=== PATIENT | male | born 1960 | race African-American/Black ===

== ENCOUNTER → 2017-07-21 | Outpatient (CLI) | payer OTHER ==
[~2017-07-21] MED LIST: CATHETER FLUSH 10 ML SYR IV PRN; REGADENOSON 0.4 MG/5 ML SYR (LEXISCAN) IV ONE
[2017-07-21 12:49] VITALS: BP 169/115
[2017-07-21 12:53] VITALS: BP 183/110
--- NOTE | 2017-07-22 09:34 | STRESS TEST ---
DATE OF SERVICE: 07/21/2017 PROCEDURE: Resting and post regadenoson technetium-99m Tetrofosmin SPECT CT imaging. ORDERING PHYSICIAN: ROSARIO Crump PRIMARY CARE PHYSICIAN: [facility]. CLINICAL DIAGNOSES: Chest pain, shortness of breath. Baseline images were carried out after injection of 10.9 mCi of technetium-99m Tetrofosmin. This was followed by 0.4 mg regadenoson and 29.6 mCi of technetium-99m Tetrofosmin for stress imaging. The electrocardiogram showed sinus rhythm at baseline. The electrocardiogram did not change significantly with the regadenoson infusion. Overall, the patient tolerated the procedure well. Review of images at rest and following stress does not indicate any distinct perfusion defects consistent with significant myocardial ischemia or infarction. Gated images do not indicate regional wall motion abnormality. Left ventricular ejection fraction is calculated to be 47%. Left ventricular end diastolic volume is 105 mL. TID is absent (1.12). CONCLUSIONS: 1. Mild cardiomyopathy with left ventricular ejection fraction of 47%. 2. No evidence of significant myocardial ischemia or infarction on this study. 3. No evidence of significant regional wall motion abnormality. 4. Trnb-sx-eiielnmg cardiomegaly. Job ID: [id number] DocumentID: [id number] Dictated Date: 07/22/2017 08:36:16 Manhole Stripper Date: 07/22/2017 09:34:08 Dictated By: LEE ATKINS MD, MA, FACP, FACC,
== END ==
LOC: CARD 10:52
PROVIDERS: ATTEND Nurse Practitioner Family
DX: I10 Essential (primary) hypertension (principal); R07.9 Chest pain, unspecified; R06.02 Shortness of breath; E78.2 Mixed hyperlipidemia; E66.9 Obesity, unspecified; Z68.41 Body mass index [BMI] 40.0-44.9, adult; Z72.0 Tobacco use
CPT/HCPCS: 78452; 93017

== ENCOUNTER 2017-11-12 19:36 | Outpatient (CLI) | payer OTHER | END 2017-11-13 06:05 | disposition home or self-care (01) | LOC: SLEEP 19:36 | PROVIDERS: ATTEND Nurse Practitioner Family | DX: G47.10 Hypersomnia, unspecified (principal); E66.01 Morbid (severe) obesity due to excess calories; G47.50 Parasomnia, unspecified; R06.00 Dyspnea, unspecified | CPT/HCPCS: 95811 ==

== ENCOUNTER → 2017-12-11 | Outpatient (CLI) | payer OTHER ==
--- NOTE | 2017-12-11 13:28 | Diagnostic Imaging Report ---
INDICATION: Back pain. TECHNIQUE: AP, lateral, and spot imaging of the lumbar spine. CORRELATION STUDY: None. FINDINGS: There is straightening of the normal lumbar lordotic curvature. Lumbar vertebral body heights overall demonstrate no acute-appearing compression deformity. Multilevel endplate lipping is noted, particularly at L5, L4, and L3 and to a lesser degree at the L2 levels. Moderate and asymmetric disc space narrowing at L5-S1 and to a lesser degree the L4-L5 level. SI joints without significant fusion or erosion. Mildly advanced degenerative changes in bilateral hip joints suggested. IMPRESSION: Koaw-ao-rqlflywm multilevel degenerative changes are present, most pronounced at the L5-S1 and to a lesser degree the L4-L5 levels. Advanced degenerative changes in bilateral hip joints. Dictated by: Dictated on workstation # [id number] ADDENDUM: UPDATED ORDERING PROVIDER BENEDICTO TEJEDA MD MTDD
--- NOTE | 2017-12-11 13:45 | Diagnostic Imaging Report ---
INDICATION: Chronic knee pain. TECHNIQUE: Two views of the bilateral knees. CORRELATION STUDY: None. FINDINGS: There are moderately advanced tricompartment degenerative changes of both knees. There is moderate joint space narrowing in the medial and to a lesser degree lateral compartments. Marginal osteophyte formation is noted, most pronounced medially. Patellofemoral compartment also appears to be narrowed. Moderate spurring about the superior and inferior poles of the patella on the left and to a lesser degree on the right. No appreciable joint effusion. IMPRESSION: 1. Moderately advanced tricompartment degenerative changes of both knees. Findings may be slightly greater at the patellofemoral compartment on the left and medial compartment on the right. Dictated by: Dictated on workstation # [id number] ADDENDUM: UPDATED ORDERING PROVIDER BENEDICTO TEJEDA MD
== END ==
LOC: RAD 09:53
PROVIDERS: ATTEND Pathology Clinical Pathology/Laboratory Medicine
DX: Z02.71 Encounter for disability determination (principal); M47.817 Spondylosis without myelopathy or radiculopathy, lumbosacral region; M16.0 Bilateral primary osteoarthritis of hip; M17.0 Bilateral primary osteoarthritis of knee
CPT/HCPCS: 72100

== ENCOUNTER 2017-12-31 12:33 | Emergency (ER) | payer OTHER ==
[~2017-12-31] VITALS: Ht 167.6 cm; Wt 112.0 kg
[2017-12-31] MEDS ORDERED: ASPIRIN 81 MG CHEW (CHILDREN'S ASA) ONE (12:41)
[2017-12-31] MEDS: ASPIRIN 81 MG CHEW (CHILDREN'S ASA) PO ONE (12:44)
[2017-12-31 12:51] LABS: BASOPHILS # (AUTO) 0.1 10^3/uL (0.0-0.1); BASOPHILS % (AUTO) 1 % (0-10); EOSINOPHILS # (AUTO) 0.7 10^3/uL (0.0-0.3); EOSINOPHILS % (AUTO) 6 % (0-10); HEMATOCRIT 44 % (40-54); HEMOGLOBIN 14.9 G/DL (13.3-17.7); LYMPHOCYTES % (AUTO) 18 % (12-44); MEAN CORPUSCULAR HEMOGLOBIN 26 PG (25-34); MEAN CORPUSCULAR HGB CONC 34 G/DL (32-36); MEAN CORPUSCULAR VOLUME 78 FL (80-99); MEAN PLATELET VOLUME 9.4 FL (7.4-10.4); MONOCYTES # (AUTO) 1.2 X 10^3 (0.0-1.0); MONOCYTES % (AUTO) 11 % (0-12); NEUTROPHILS # (AUTO) 7.2 X 10^3 (1.8-7.8); NEUTROPHILS % (AUTO) 65 % (42-75); PLATELET COUNT 387 10^3/uL (130-400); RED BLOOD COUNT 5.68 10^6/uL (4.35-5.85); RED CELL DISTRIBUTION WIDTH 16.8 % (10.0-14.5); WHITE BLOOD COUNT 11.1 10^3/uL (4.3-11.0)
--- OUTSIDE RECORDS SUMMARY | 2017-12-31 13:00 | XMS REPORT ---
Author Author MARCO ANTONIO ROGEL Organization [facility] [place] Address [address] [place] [address] Care Team Providers Care Hookman Name Role Phone MARCO ANTONIO ROGEL Unavailable PROBLEMS Type Condition ICD9-CM Code XDM31-AY Code Onset Dates Condition Status SNOMED Code Problem Hypertension, unspecified type I10 Active 31087801 Problem Obesity, unspecified E66.9 Active 30811985244263 Problem Mixed hyperlipidemia E78.2 Active 230306224 Problem Essential hypertension I10 Active 88530763 Problem Mood disorder F39 Active 35352116 Problem Coronary artery disease of [place] artery of [place] heart with stable angina pectoris I25.118 Active 0980535319014 Problem Body mass index (BMI) of 40.0-44.9 in adult Z68.41 Active 141844667 Problem Sciatica, right side M54.31 Active 99902584 Problem Sciatica, left side M54.32 Active 54303184 Problem Cardiomyopathy, unspecified I42.9 Active 23045261 Problem Heart failure, unspecified I50.9 Active 82955246 Problem Non-ischemic cardiomyopathy I42.8 Active 86212893 Problem Uncontrolled hypertension I10 Active 18771730 ALLERGIES No Known Allergies ENCOUNTERS Encounter Location Date Diagnosis [place] [id number] [place] [address] Dec, [facility] [place] [id number] [place] [address] Nov, Sciatica, left side M54.32 [facility] [place] [id number] [place] [address] 88585- 5504 Oct, [facility] [place] [id number] [place] [address] 11912- 5777 Oct, [facility] [place] [id number] [place] [address] 74446- 6266 Sep, Shortness of breath R06.02 [place] [id number] [place] [address]2561- [address]9 Sep, Hypertension, unspecified type I10 ; Mixed hyperlipidemia E78.2 ; BMI 40.0-44.9, adult Z68.41 ; Non-ischemic cardiomyopathy I42.8 ; Suspected sleep apnea R29.818 and Tobacco use Z72.0 [place] [address] [address] Aug, Mixed hyperlipidemia E78.2 and Elevated hemoglobin A1c R73.[address] [address] Aug, Uncontrolled hypertension I10 ; Shortness of breath R06.02 ; Cardiomyopathy, unspecified I42.9 and BMI 40.0-44.9, adult Z68.41 [place] [address] [address] June, BMI 40.0-44.9, adult Z68.41 ; Chest pain, unspecified type R07.9 ; Shortness of breath R06.02 ; Hypertension, unspecified type I10 ; Mixed hyperlipidemia E78.2 ; Tobacco use Z72.0 ; Obesity, unspecified E66.9 and Body mass index (BMI) of 40.0-44.9 in adult Z68.41 [place] [id number] [place] [address] 39841- 95[address] Apr, [place] [id number] [place] [address] 05844- 4835 Apr, BMI 40.0-44.9, adult Z68.41 ; Coronary artery disease of [place] artery of [place] heart with stable angina pectoris I25.118 ; History of atrial fibrillation Z86.79 ; Murmur, cardiac R01.1 ; Mood disorder F39 ; Essential hypertension I10 and Localized edema R60.0 [place] [id number] [place] [address] 89522- 6992 Apr, [facility] [address] [place], [place] [id number] Aug, Hypertension, essential I10 ; Pain in right knee M25.561 ; Pain in left knee M25.562 ; Other chronic pain G89.29 and Mood disorder F39 [facility] [place] [address] [facility] [id number] [address] May, [facility] [place] [address] [facility] [id number], [place] [address] May, [facility] [address] [id number] Jan, [facility] [place] [address] [facility] [id number], [place] [address] Jan, IMMUNIZATIONS Vaccine Route Administration Date Status TORADOL (IM) 60 MG/2ML (UP TO 15 MG) IM Intramuscular Nov 30, 2017 Administered SOCIAL HISTORY Never Assessed REASON FOR VISIT Leg pain, left hip with shooting pain down to the toes. Reports toes are numb. Started 1 week ago, toes and foot have been numb and tingling the entire time. CBrumbackRn, Reports has been having more shortness of breath. PLAN OF CARE VITAL SIGNS Height 66 in 2017-11-30 Weight 273.1 lbs 2017-11-30 Temperature 98.8 degrees Fahrenheit 2017-11-30 Heart Rate 96 bpm 2017-11-30 Respiratory Rate 24 2017-11-30 BMI 44.07 kg/m2 2017-11-30 Blood pressure systolic 148 mmHg 2017-11-30 Blood pressure diastolic 114 mmHg 2017-11-30 MEDICATIONS Medication Instructions Dosage Frequency Start Date End Date Duration Status Duloxetine HCl 60 mg Orally Once a day 1 capsule 24h Active Hydrochlorothiazide 25 MG Orally Once a day 1 tablet in the morning 24h Apr, 30 day(s) Active HydrOXYzine Pamoate 100 mg Orally Once a day, at night 1 capsule as needed Active Loxapine Succinate 10 mg Orally Once a day, at night 1 capsule Active Toprol XL 100 MG Orally Once a day 1 tablet 24h June, 30 day(s) Active Cyclobenzaprine HCl 10 mg Orally 2 times a day 1 tablet as needed 12h Nov, Active PredniSONE 20 mg Orally Once a day 2 tablets 24h Nov, Nov, 5 days Active Ibuprofen Active Metformin HCl 500 mg 1 tablet with a meal daily for 1 week, then increase to twice daily if tolerating well Aug, 30 day(s) Active Benztropine Mesylate 1 MG Orally Once a day 1 tablet at bedtime 24h Active Tegretol 200 mg Orally Twice a day 1 tablet 12h Apr, 30 day(s) Active Naproxen 500 mg Orally every 12 hrs 1 tablet with food or milk as needed 12h Nov, Active Atorvastatin Calcium 40 MG Orally Once a day 1 tablet 24h Active Lisinopril 20 mg Orally Once a day 1 tablet 24h Aug, 30 day(s) Active Verapamil HCl ER 180 MG Orally Once a day 1 tablet 24h Active [place] 5-325 MG Orally every 6 hrs 1 tablet as needed 6h Nov, Active Excedrin Extra Strength Active Albuterol Sulfate 108 (90 Base) MCG/ACT Inhalation every 6 hrs 2 puffs as needed 6h Oct, 30 days Active RESULTS No Results PROCEDURES Procedure Date Ordered Result Body Site TORADOL (IM) 60 MG/2ML (UP TO 15 MG) Nov 30, 2017 THER/PROPH/DIAG INJ, SC/IM Nov 30, 2017 INSTRUCTIONS MEDICATIONS ADMINISTERED No Known Medications MEDICAL (GENERAL) HISTORY Type Description Date Medical History HTN Medical History Seizures Medical History arthritis- hip and knee Medical History Depression Medical History Anxiety Medical History Bilateral ankle fx Medical History sleep apnea Surgical History head trauma 10-15years ago Hospitalization History Surgery Hospitalization History Bi-lateral ankle fx
--- OUTSIDE RECORDS SUMMARY | 2017-12-31 13:01 | XMS REPORT ---
Author Author MICHELE ALVARADO Organization [facility] Address [address] [place] [address] Care Team Providers Care Hydro Generation Manager Name Role Phone MICHELE ALVARADO Unavailable PROBLEMS Type Condition ICD9-CM Code QUY62-SU Code Onset Dates Condition Status SNOMED Code Problem Coronary artery disease of [place] artery of [place] heart with stable angina pectoris I25.118 Active 0464133048182 Problem Hypertension, unspecified type I10 Active 37302735 Problem Body mass index (BMI) of 40.0-44.9 in adult Z68.41 Active 659644272 Problem Essential hypertension I10 Active 51607488 Problem Mood disorder F39 Active 40583750 Problem Non-ischemic cardiomyopathy I42.8 Active 94747615 Problem Cardiomyopathy, unspecified I42.9 Active 06878702 Problem Obesity, unspecified E66.9 Active 78751671358005 Problem Mixed hyperlipidemia E78.2 Active 744803598 Problem Heart failure, unspecified I50.9 Active 21998582 Problem Uncontrolled hypertension I10 Active 11236273 ALLERGIES No Information ENCOUNTERS Encounter Location Date Diagnosis [facility] [id number] [place] [address]22[address]237 Dec, [facility] [id number] [place] [address] 68621- 7317 Oct, [facility] [id number] [place] [address] 66202- 2144 Oct, [facility] [address] [address] Sep, Shortness of breath R06.02 [facility] [id number] [place] [address] 75394- 8765 Sep, Hypertension, unspecified type I10 ; Mixed hyperlipidemia E78.2 ; BMI 40.0-44.9, adult Z68.41 ; Non-ischemic cardiomyopathy I42.8 ; Suspected sleep apnea R29.818 and Tobacco use Z72.0 [place] [address] [address] Aug, Mixed hyperlipidemia E78.2 and Elevated hemoglobin A1c R73.[address] [address] Aug, Uncontrolled hypertension I10 ; Shortness of breath R06.02 ; Cardiomyopathy, unspecified I42.9 and BMI 40.0-44.9, adult Z68.41 [place] [address] [address] June, BMI 40.0-44.9, adult Z68.41 ; Chest pain, unspecified type R07.9 ; Shortness of breath R06.02 ; Hypertension, unspecified type I10 ; Mixed hyperlipidemia E78.2 ; Tobacco use Z72.0 ; Obesity, unspecified E66.9 and Body mass index (BMI) of 40.0-44.9 in adult Z68.41 [place] [id number] [place] [address] 98498- 2956 Apr, [address] [address]- [address] Apr, 2018 BMI 40.0-44.9, adult Z68.41 ; Coronary artery disease of [place] artery of [place] heart with stable angina pectoris I25.118 ; History of atrial fibrillation Z86.79 ; Murmur, cardiac R01.1 ; Mood disorder F39 ; Essential hypertension I10 and Localized edema R60.0 [place] [id number] [place] [address] 77220- 9685 Apr, [facility] [address] [place] [id number] Aug, Hypertension, essential I10 ; Pain in right knee M25.561 ; Pain in left knee M25.562 ; Other chronic pain G89.29 and Mood disorder F39 [address] [place] [address] May, [facility] [address] [facility] [id number], [place] [address] May, 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 PLAN OF CARE Activity Details Follow Up prn Reason: VITAL SIGNS MEDICATIONS Unknown Medications RESULTS No Results PROCEDURES Procedure Date Ordered Result Body Site PULMONARY FUNCTION TEST (IN-HOUSE) 2017-10-30 N/A FALLON/JARRETT DEMO Oct 30, 2017 SPRIOMETRY CHALLENGE Oct 30, 2017 SPIROMETRY Oct 30, 2017 INSTRUCTIONS MEDICATIONS ADMINISTERED No Known Medications MEDICAL (GENERAL) HISTORY Type Description Date Medical History HTN Medical History Seizures Medical History arthritis- hip and knee Medical History Depression Medical History Anxiety Medical History Bilateral ankle fx Surgical History head trauma 10-15years ago Hospitalization History Surgery Hospitalization History Bi-lateral ankle fx
--- OUTSIDE RECORDS SUMMARY | 2017-12-31 13:01 | XMS REPORT ---
Author Author JAMIN ALVARADO Organization [facility] Address [address] [place] [address] Care Team Providers Care Associate Professor Of Philosophy Name Role Phone JAMIN ALVARADO Unavailable PROBLEMS Type Condition ICD9-CM Code [id number] Code Onset Dates Condition Status SNOMED Code Problem Coronary artery disease of [place] artery of [place] heart with stable angina pectoris I25.118 Active 0737478028025 Problem Hypertension, unspecified type I10 Active 10541079 Problem Body mass index (BMI) of 40.0-44.9 in adult Z68.41 Active 809430023 Problem Essential hypertension I10 Active 20980330 Problem Mood disorder F39 Active 47052511 Problem Non-ischemic cardiomyopathy I42.8 Active 75520683 Problem Cardiomyopathy, unspecified I42.9 Active 27452863 Problem Obesity, unspecified E66.9 Active 75117682192142 Problem Mixed hyperlipidemia E78.2 Active 920323144 Problem Heart failure, unspecified I50.9 Active 83611682 Problem Uncontrolled hypertension I10 Active 12781816 ALLERGIES No Known Allergies ENCOUNTERS Encounter Location Date Diagnosis [place] [address] [place] [id number] [place] [address] 01012- [address]851 Dec, [facility] [id number] [place] [address] 46976- 8892 Oct, [facility] [id number] [place] [address] 98340- [address]58 Oct, [facility] [address] [address] Sep, Shortness of breath R06.02 [facility] [id number] [place] [address] 33148- 8[address] Sep, Hypertension, unspecified type I10 ; Mixed hyperlipidemia E78.2 ; BMI 40.0-44.9, adult Z68.41 ; Non-ischemic cardiomyopathy I42.8 ; Suspected sleep apnea R29.818 and Tobacco use Z72.0 [place] [address] [address] Aug, Mixed hyperlipidemia E78.2 and Elevated hemoglobin A1c R73.[address] [address] Aug, Uncontrolled hypertension I10 ; Shortness of breath R06.02 ; Cardiomyopathy, unspecified I42.9 and BMI 40.0-44.9, adult Z68.[address] [address]- [address] June, BMI 40.0-44.9, adult Z68.41 ; Chest pain, unspecified type R07.9 ; Shortness of breath R06.02 ; Hypertension, unspecified type I10 ; Mixed hyperlipidemia E78.2 ; Tobacco use Z72.0 ; Obesity, unspecified E66.9 and Body mass index (BMI) of 40.0-44.9 in adult Z68.41 [place] [id number] [place] [address] 60650- 7792 Apr, [address] [address]- [address] Apr, BMI 40.0-44.9, adult Z68.41 ; Coronary artery disease of [place] artery of [place] heart with stable angina pectoris I25.118 ; History of atrial fibrillation Z86.79 ; Murmur, cardiac R01.1 ; Mood disorder F39 ; Essential hypertension I10 and Localized edema R60.0 [place] [address] [place] [address] 39454- 74[address] Apr, [facility] [address] [place] [id number] Aug, Hypertension, essential I10 ; Pain in right knee M25.561 ; Pain in left knee M25.562 ; Other chronic pain G89.29 and Mood disorder F39 [address] [place] [address] May, [facility] [address] [facility] [id number], [place] [address] May, [facility] [address] [place] [id number] Jan, [facility] [address] [facility] [id number], [place] [address] Jan, IMMUNIZATIONS No Known Immunizations SOCIAL HISTORY Never Assessed REASON FOR VISIT labs medications PLAN OF CARE VITAL SIGNS MEDICATIONS Medication Instructions Dosage Frequency Start Date End Date Duration Status Metformin HCl 500 mg 1 tablet with a meal daily for 1 week, then increase to twice daily if tolerating well Aug, 30 day(s) Active Atorvastatin Calcium 40 MG Orally Once a day 1 tablet 24h Active RESULTS No Results PROCEDURES No Known procedures INSTRUCTIONS MEDICATIONS ADMINISTERED No Known Medications MEDICAL (GENERAL) HISTORY Type Description Date Medical History HTN Medical History Seizures Medical History arthritis- hip and knee Medical History Depression Medical History Anxiety Medical History Bilateral ankle fx Surgical History head trauma 10-15years ago Hospitalization History Surgery Hospitalization History Bi-lateral ankle fx
--- OUTSIDE RECORDS SUMMARY | 2017-12-31 13:01 | XMS REPORT ---
Author Author VICTORIA ROBLEDO [facility] Address [address] [place] [address] Care Team Providers Care Seating Upholsterer Name Role Phone VICTORIA ROBLEDO Unavailable PROBLEMS Type Condition ICD9-CM Code SCZ16-RW Code Onset Dates Condition Status SNOMED Code Problem Coronary artery disease of [place] artery of [place] heart with stable angina pectoris I25.118 Active 0143776766139 Problem Hypertension, unspecified type I10 Active 36031550 Problem Body mass index (BMI) of 40.0-44.9 in adult Z68.41 Active 909218367 Problem Essential hypertension I10 Active 96996430 Problem Mood disorder F39 Active 27541583 Problem Non-ischemic cardiomyopathy I42.8 Active 46725873 Problem Cardiomyopathy, unspecified I42.9 Active 05454613 Problem Obesity, unspecified E66.9 Active 40971497891299 Problem Mixed hyperlipidemia E78.2 Active 102242131 Problem Heart failure, unspecified I50.9 Active 52624623 Problem Uncontrolled hypertension I10 Active 98533253 ALLERGIES No Known Allergies ENCOUNTERS Encounter Location Date Diagnosis [facility] [address] [place] [address] 04692- [address]167 Dec, [facility] [id number] [place] [address] 77449- 4343 Oct, [facility] [id number] [place] [address] 31347- 2967 Oct, [facility] [id number] [place] [address] 54569- 6354 Sep, Shortness of breath R06.02 [facility] [id number] [place] [address] 42255- 0770 Sep, Hypertension, unspecified type I10 ; Mixed hyperlipidemia E78.2 ; BMI 40.0-44.9, adult Z68.41 ; Non-ischemic cardiomyopathy I42.8 ; Suspected sleep apnea R29.818 and Tobacco use Z72.0 [place] [address] [address] Aug, Mixed hyperlipidemia E78.2 and Elevated hemoglobin A1c R73.[address] [address]- [address] Aug, Uncontrolled hypertension I10 ; Shortness of breath R06.02 ; Cardiomyopathy, unspecified I42.9 and BMI 40.0-44.9, adult Z68.41 [place] [address] [place] [address] 87[address]- [address] June, BMI 40.0-44.9, adult Z68.41 ; Chest pain, unspecified type R07.9 ; Shortness of breath R06.02 ; Hypertension, unspecified type I10 ; Mixed hyperlipidemia E78.2 ; Tobacco use Z72.0 ; Obesity, unspecified E66.9 and Body mass index (BMI) of 40.0-44.9 in adult Z68.41 [place] [id number] [place] [address] 87673- 9125 Apr, [address] [address]- [address] Apr, BMI 40.0-44.9, adult Z68.41 ; Coronary artery disease of [place] artery of [place] heart with stable angina pectoris I25.118 ; History of atrial fibrillation Z86.79 ; Murmur, cardiac R01.1 ; Mood disorder F39 ; Essential hypertension I10 and Localized edema R60.0 [place] [id number] [place] [address] 57376- 3271 Apr, [facility] [address] [place] [id number] Aug, Hypertension, essential I10 ; Pain in right knee M25.561 ; Pain in left knee M25.562 ; Other chronic pain G89.29 and Mood disorder F39 [address] [place] [address] May, 2014 [facility] [address] [facility] [id number], [place] [address] May, [facility] [address] [place] [id number] Jan, [facility] [address] [facility] [id number], [place] [address] Jan, IMMUNIZATIONS No Known Immunizations SOCIAL HISTORY Never Assessed REASON FOR VISIT follow up PLAN OF CARE Activity Details Follow Up 3 Months Reason: Pending Test Echo 2D VITAL SIGNS Height 66 in 2017-10-07 Weight 264 lbs 2017-10-07 Heart Rate 100 bpm 2017-10-07 Oximetry 98 % 2017-10-07 BMI 42.61 kg/m2 2017-10-07 Blood pressure systolic 150 mmHg 2017-10-07 Blood pressure diastolic 98 mmHg 2017-10-07 MEDICATIONS Medication Instructions Dosage Frequency Start Date End Date Duration Status Duloxetine HCl 60 mg Orally Once a day 1 capsule 24h Active HydrOXYzine Pamoate 100 mg Orally Once a day, at night 1 capsule as needed Active Verapamil HCl ER 180 MG Orally Once a day 1 tablet 24h Active Atorvastatin Calcium 40 MG Orally Once a day 1 tablet 24h Active Lisinopril 20 mg Orally Once a day 1 tablet 24h Aug, 30 day(s) Active Benztropine Mesylate 1 MG Orally Once a day 1 tablet at bedtime 24h Active Tegretol 200 mg Orally Twice a day 1 tablet 12h Apr, 30 day(s) Active Hydrochlorothiazide 25 MG Orally Once a day 1 tablet in the morning 24h Apr, 30 day(s) Active Loxapine Succinate 10 mg Orally Once a day, at night 1 capsule Active Toprol XL 100 MG Orally Once a day 1 tablet 24h June, 30 day(s) Active Metformin HCl 500 mg 1 tablet with a meal daily for 1 week, then increase to twice daily if tolerating well Aug, 30 day(s) Active RESULTS No Results PROCEDURES No Known [...]
--- OUTSIDE RECORDS SUMMARY | 2017-12-31 13:01 | XMS REPORT ---
Author Author MARCO ANTONIO ROGEL Organization [facility] Address [address] [place] [address] Care Team Providers Care Security Systems Technician Name Role Phone MARCO ANTONIO ROGEL Unavailable PROBLEMS Type Condition ICD9-CM Code OOT09-HC Code Onset Dates Condition Status SNOMED Code Problem Coronary artery disease of [place] artery of [place] heart with stable angina pectoris I25.118 Active 8055799975226 Problem Hypertension, unspecified type I10 Active 88706795 Problem Body mass index (BMI) of 40.0-44.9 in adult Z68.41 Active 223220077 Problem Essential hypertension I10 Active 92318899 Problem Mood disorder F39 Active 73070115 Problem Non-ischemic cardiomyopathy I42.8 Active 80908062 Problem Cardiomyopathy, unspecified I42.9 Active 73017976 Problem Obesity, unspecified E66.9 Active 08011137076890 Problem Mixed hyperlipidemia E78.2 Active 060182014 Problem Heart failure, unspecified I50.9 Active 97519711 Problem Uncontrolled hypertension I10 Active 47214977 ALLERGIES No Information ENCOUNTERS Encounter Location Date Diagnosis [place] [address] [address] Dec, [facility] [address] [address] Oct, [facility] [address] [address] Oct, [facility] [address] [address] Sep, Shortness of breath R06.02 [place] [address] [address] Sep, Hypertension, unspecified type I10 ; Mixed hyperlipidemia E78.2 ; BMI 40.0-44.9, adult Z68.41 ; Non-ischemic cardiomyopathy I42.8 ; Suspected sleep apnea R29.818 and Tobacco use Z72.0 [place] [address] [place] [id number] [place] [address] Aug, Mixed hyperlipidemia E78.2 and Elevated hemoglobin A1c R73.09 [place] [address] [address] Aug, Uncontrolled hypertension I10 ; Shortness of breath R06.02 ; Cardiomyopathy, unspecified I42.9 and BMI 40.0-44.9, adult Z68.41 [place] [address] [place] [id number] [place] [address] June, BMI 40.0-44.9, adult Z68.41 ; Chest pain, unspecified type R07.9 ; Shortness of breath R06.02 ; Hypertension, unspecified type I10 ; Mixed hyperlipidemia E78.2 ; Tobacco use Z72.0 ; Obesity, unspecified E66.9 and Body mass index (BMI) of 40.0-44.9 in adult Z68.41 [place] [address] [place] [id number] [place] [address] Apr, [place] [id number] [place] [address] Apr, BMI 40.0-44.9, adult Z68.41 ; Coronary artery disease of [place] artery of [place] heart with stable angina pectoris I25.118 ; History of atrial fibrillation Z86.79 ; Murmur, cardiac R01.1 ; Mood disorder F39 ; Essential hypertension I10 and Localized edema R60.0 [place] [address] [place] [id number] [place] [address] Apr, [facility] [address] [place] [id number] Aug, Hypertension, essential I10 ; Pain in right knee M25.561 ; Pain in left knee M25.562 ; Other chronic pain G89.29 and Mood disorder F39 [place] [id number] [place] [address] May, [facility] [address] [facility] [id number] [address] May, [facility] [address] [place] [id number] Jan, [facility] [address] [facility] [id number], [place] [address] Jan, IMMUNIZATIONS No Known Immunizations SOCIAL HISTORY Never Assessed REASON FOR VISIT Referral Request PLAN OF CARE VITAL SIGNS MEDICATIONS Unknown Medications RESULTS No Results PROCEDURES No Known procedures INSTRUCTIONS MEDICATIONS ADMINISTERED No Known Medications MEDICAL (GENERAL) HISTORY Type Description Date Medical History HTN Medical History Seizures Medical History arthritis- hip and knee Medical History Depression Medical History Anxiety Medical History Bilateral ankle fx Surgical History head trauma 10-15years ago Hospitalization History Surgery Hospitalization History Bi-lateral ankle fx
--- OUTSIDE RECORDS SUMMARY | 2017-12-31 13:01 | XMS REPORT ---
Author Author JAMIN ALVARADO Organization [facility] Address [address] [place] [address] Care Team Providers Care Supervisor Communications And Signals Name Role Phone JAMIN ALVARADO Unavailable PROBLEMS Type Condition ICD9-CM Code CSW50-FF Code Onset Dates Condition Status SNOMED Code Problem Coronary artery disease of [place] artery of [place] heart with stable angina pectoris I25.118 Active 9549926823528 Problem Hypertension, unspecified type I10 Active 67751460 Problem Body mass index (BMI) of 40.0-44.9 in adult Z68.41 Active 991804303 Problem Essential hypertension I10 Active 19528779 Problem Mood disorder F39 Active 50467278 Problem Non-ischemic cardiomyopathy I42.8 Active 10900480 Problem Cardiomyopathy, unspecified I42.9 Active 15736052 Problem Obesity, unspecified E66.9 Active 48759749625380 Problem Mixed hyperlipidemia E78.2 Active 198780214 Problem Heart failure, unspecified I50.9 Active 14889945 Problem Uncontrolled hypertension I10 Active 26363791 ALLERGIES No Information ENCOUNTERS Encounter Location Date Diagnosis [facility] [address] [place] [id number] [place] [address] Dec, [facility] [address] [place] [id number] [place] [address] Oct, [facility] [address] [place] [id number] [place] [address] Oct, [facility] [address] [address] Sep, Shortness of breath R06.02 [facility] [address] [place] [id number] [place] [address] Sep, Hypertension, unspecified type I10 ; Mixed hyperlipidemia E78.2 ; BMI 40.0-44.9, adult Z68.41 ; Non-ischemic cardiomyopathy I42.8 ; Suspected sleep apnea R29.818 and Tobacco use Z72.0 [place] [address] [address] Aug, Mixed hyperlipidemia E78.2 and Elevated hemoglobin A1c R73.[address] [address] Aug, Uncontrolled hypertension I10 ; Shortness of breath R06.02 ; Cardiomyopathy, unspecified I42.9 and BMI 40.0-44.9, adult Z68.41 [place] [address] [address] June, BMI 40.0-44.9, adult Z68.41 ; Chest pain, unspecified type R07.9 ; Shortness of breath R06.02 ; Hypertension, unspecified type I10 ; Mixed hyperlipidemia E78.2 ; Tobacco use Z72.0 ; Obesity, unspecified E66.9 and Body mass index (BMI) of 40.0-44.9 in adult Z68.41 [place] [address] [place] [id number] [place] [address] Apr, [address] [address] Apr, 2018 BMI 40.0-44.9, adult Z68.41 ; Coronary artery disease of [place] artery of [place] heart with stable angina pectoris I25.118 ; History of atrial fibrillation Z86.79 ; Murmur, cardiac R01.1 ; Mood disorder F39 ; Essential hypertension I10 and Localized edema R60.0 [place] [address] [place] [id number] [place] [address] Apr, [facility] [address] [place] [id number] Aug, Hypertension, essential I10 ; Pain in right knee M25.561 ; Pain in left knee M25.562 ; Other chronic pain G89.29 and Mood disorder F39 [address] [place] [address] May, [facility] [address] [facility] [id number], [place] [address] May, [facility] [address] [place] [id number] Jan, [facility] [address] [facility] [id number], [place] [address] Jan, IMMUNIZATIONS No Known Immunizations SOCIAL HISTORY Never Assessed REASON FOR VISIT New order PLAN OF CARE VITAL SIGNS MEDICATIONS Medication Instructions Dosage Frequency Start Date End Date Duration Status Albuterol Sulfate 108 (90 Base) MCG/ACT Inhalation every 6 hrs 2 puffs as needed 6h Oct, 30 days Active RESULTS No Results PROCEDURES No Known [...]
--- OUTSIDE RECORDS SUMMARY | 2017-12-31 13:02 | XMS REPORT | Continuity of Care Document ---
Author Author [facility] Address Unknown Phone Unavailable Allergies Active Description Code Type Severity Reaction Onset Reported/Identified Relationship to Patient Clinical Status Yes No Allergy Information Available [id number] Drug Allergy Unknown N/A 2017 Medications There is no data. Problems Date Dx Coded Attending Type Code Diagnosis Diagnosed By 02/07/2014 MARCO ANTONIO ROGEL APRN 401.9 HYPERTENSION, UNSPECIFIED ESSENTIAL 02/07/2014 MARCO ANTONIO ROGEL APRN 465.9 UPPER RESPIRATORY INFECTION 02/07/2014 MARCO ANTONIO ROGEL APRN 719.46 PAIN KNEE 07/22/2017 BAIMA, VICTORIA L TANK CREWMEMBER Ot E66.9 OBESITY, UNSPECIFIED 07/22/2017 BAIMA, VICTORIA L TANK CREWMEMBER Ot E78.2 MIXED HYPERLIPIDEMIA 07/22/2017 BAIMA, VICTORIA L TANK CREWMEMBER Ot I10 ESSENTIAL (PRIMARY) HYPERTENSION 07/22/2017 BAIMA, VICTORIA L TANK CREWMEMBER Ot R06.02 SHORTNESS OF BREATH 07/22/2017 BAIMA, VICTORIA L TANK CREWMEMBER Ot R07.9 CHEST PAIN, UNSPECIFIED 07/22/2017 BAIMA, VICTORIA L TANK CREWMEMBER Ot Z68.41 BODY MASS INDEX (BMI) 40.0-44.9, ADULT 07/22/2017 BAIMA, VICTORIA L TANK CREWMEMBER Ot Z72.0 TOBACCO USE 09/15/2017 BAIMA, VICTORIA L TANK CREWMEMBER Ot E66.9 OBESITY, UNSPECIFIED 09/15/2017 BAIMA, VICTORIA L TANK CREWMEMBER Ot E78.2 MIXED HYPERLIPIDEMIA 09/15/2017 BAIMA, VICTORIA L TANK CREWMEMBER Ot I10 ESSENTIAL (PRIMARY) HYPERTENSION 09/15/2017 BAIMA, VICTORIA L TANK CREWMEMBER Ot R06.02 SHORTNESS OF BREATH 09/15/2017 BAIMA, VICTORIA L TANK CREWMEMBER Ot R07.9 CHEST PAIN, UNSPECIFIED 09/15/2017 BAIMA, VICTORIA L TANK CREWMEMBER Ot Z68.41 BODY MASS INDEX (BMI) 40.0-44.9, ADULT 09/15/2017 BAIMA, VICTORIA L TANK CREWMEMBER Ot Z72.0 TOBACCO USE 09/16/2017 BAIMA, VICTORIA L TANK CREWMEMBER Ot E66.9 OBESITY, UNSPECIFIED 09/16/2017 BAIMA, VICTORIA L TANK CREWMEMBER Ot E78.2 MIXED HYPERLIPIDEMIA 09/16/2017 BAIMA, VICTORIA L TANK CREWMEMBER Ot I10 ESSENTIAL (PRIMARY) HYPERTENSION 09/16/2017 BAIMA, VICTORIA L TANK CREWMEMBER Ot R06.02 SHORTNESS OF BREATH 09/16/2017 BAIMA, VICTORIA L TANK CREWMEMBER Ot R07.9 CHEST PAIN, UNSPECIFIED 09/16/2017 BAIMA, VICTORIA L TANK CREWMEMBER Ot Z68.41 BODY MASS INDEX (BMI) 40.0-44.9, ADULT 09/16/2017 BAIMA, VICTORIA L TANK CREWMEMBER Ot Z72.0 TOBACCO USE 09/23/2017 BAIMA, VICTORIA L TANK CREWMEMBER Ot E66.9 OBESITY, UNSPECIFIED 09/23/2017 BAIMA, VICTORIA L TANK CREWMEMBER Ot E78.2 MIXED HYPERLIPIDEMIA 09/23/2017 BAIMA, VICTORIA L TANK CREWMEMBER Ot I10 ESSENTIAL (PRIMARY) HYPERTENSION 09/23/2017 BAIMA, VICTORIA L TANK CREWMEMBER Ot R06.02 SHORTNESS OF BREATH 09/23/2017 BAIMA, VICTORIA L TANK CREWMEMBER Ot R07.9 CHEST PAIN, UNSPECIFIED 09/23/2017 BAIMA, VICTORIA L TANK CREWMEMBER Ot Z68.41 BODY MASS INDEX (BMI) 40.0-44.9, ADULT 09/23/2017 BAIMA, VICTORIA L TANK CREWMEMBER Ot Z72.0 TOBACCO USE 11/13/2017 JASSI ROSE E EMERGENCY MEDICAL SERVICE MANAGER Ot E66.01 MORBID (SEVERE) OBESITY DUE TO EXCESS CA 11/13/2017 MILTON JASSI E EMERGENCY MEDICAL SERVICE MANAGER Ot G47.10 HYPERSOMNIA, UNSPECIFIED 11/13/2017 MILTON JASSI E EMERGENCY MEDICAL SERVICE MANAGER Ot G47.50 PARASOMNIA, UNSPECIFIED 11/13/2017 KIM ROSEINE E EMERGENCY MEDICAL SERVICE MANAGER Ot R06.00 DYSPNEA, UNSPECIFIED 11/17/2017 [place] JASSI E EMERGENCY MEDICAL SERVICE MANAGER Ot E66.01 MORBID (SEVERE) OBESITY DUE TO EXCESS CA 11/17/2017 KIM ROSEINE E EMERGENCY MEDICAL SERVICE MANAGER Ot G47.10 HYPERSOMNIA, UNSPECIFIED 11/17/2017 JASSI ROSE EMERGENCY MEDICAL SERVICE MANAGER Ot G47.50 PARASOMNIA, UNSPECIFIED 11/17/2017 JASSI ROSE EMERGENCY MEDICAL SERVICE MANAGER Ot R06.00 DYSPNEA, UNSPECIFIED 12/11/2017 JASSI ROSE EMERGENCY MEDICAL SERVICE MANAGER Ot E66.01 MORBID (SEVERE) OBESITY DUE TO EXCESS CA 12/11/2017 MILTONKIM [place]ILLELAINE Rai EMERGENCY MEDICAL SERVICE MANAGER Ot G47.10 HYPERSOMNIA, UNSPECIFIED 12/11/2017 MILTONKIM [place]LAINE Rai EMERGENCY MEDICAL SERVICE MANAGER Ot G47.50 PARASOMNIA, UNSPECIFIED 12/11/2017 MILTONKIM [place]LA[place] Rai EMERGENCY MEDICAL SERVICE MANAGER Ot R06.00 DYSPNEA, UNSPECIFIED 12/11/2017 BAIMA, VICTORIA L TANK CREWMEMBER Ot E66.9 OBESITY, UNSPECIFIED 12/11/2017 BAIMA, VICTORIA L TANK CREWMEMBER Ot E78.2 MIXED HYPERLIPIDEMIA 12/11/2017 BAIMA, VICTORIA L TANK CREWMEMBER Ot I10 ESSENTIAL (PRIMARY) HYPERTENSION 12/11/2017 BAIMA, VICTORIA L TANK CREWMEMBER Ot R06.02 SHORTNESS OF BREATH 12/11/2017 BAIMA, VICTORIA L TANK CREWMEMBER Ot R07.9 CHEST PAIN, UNSPECIFIED 12/11/2017 BAIMA, VICTORIA L TANK CREWMEMBER Ot Z68.41 BODY MASS INDEX (BMI) 40.0-44.9, ADULT 12/11/2017 BAIMA, VICTORIA L TANK CREWMEMBER Ot Z72.0 TOBACCO USE 12/15/2017 BENEDICTO TEJEDA MD Ot M16.0 BILATERAL PRIMARY OSTEOARTHRITIS OF HIP 12/15/2017 BENEDICTO TEJEDA MD, Ot M17.0 BILATERAL PRIMARY OSTEOARTHRITIS OF [place] 12/15/2017 BENEDICTO TEJEDA MD, Ot M47.817 SPONDYLS W/O MYELOPATHY OR RADICULOPATHY 12/15/2017 BENEDICTO TEJEDA MD, Ot Z02.71 ENCOUNTER FOR DISABILITY DETERMINATION Procedures There is no data. Results Test Result Range CBC - 09/23/17 12:23 WHITE BLOOD CELL COUNT 9.4 Thousand/uL 3.8-10.8 RED BLOOD CELL COUNT 6.14 Million/uL 4.20-5.80 HEMOGLOBIN 15.7 g/dL 13.2-17.1 HEMATOCRIT 49.6 % 38.5-50.0 MCV 80.8 fL 80.0-100.0 MCH 25.6 pg 27.0-33.0 MCHC 31.7 g/dL 32.0-36.0 RDW 14.2 % 11.0-15.0 PLATELET COUNT 366 Thousand/uL 140-400 MPV 9.8 fL 7.5-12.5 ABSOLUTE NEUTROPHILS 6270 cells/uL 1547-4424 ABSOLUTE LYMPHOCYTES 1748 cells/uL 850-3900 ABSOLUTE MONOCYTES 799 cells/uL 200-950 ABSOLUTE EOSINOPHILS 526 cells/uL 15-500 ABSOLUTE BASOPHILS 56 cells/uL 0-200 NEUTROPHILS 66.7 % NRG LYMPHOCYTES 18.6 % NRG MONOCYTES 8.5 % NRG EOSINOPHILS 5.6 % NRG BASOPHILS 0.6 % NRG BNP - 09/23/17 12:26 B TYPE NATRIURETIC PEPTIDE (BNP) 33 pg/mL <100 Complete blood count (CBC) with automated white blood cell (WBC) differential - 12/31/17 12:44 Blood leukocytes automated count (number/volume) 11.1 10*3/uL 4.3-11.0 Blood erythrocytes automated count (number/volume) 5.68 10*6/uL 4.35-5.85 Venous blood hemoglobin measurement (mass/volume) 14.9 g/dL 13.3-17.7 Blood hematocrit (volume fraction) 44 % 40-54 Automated erythrocyte mean corpuscular volume 78 [foz_us] 80-99 Automated erythrocyte mean corpuscular hemoglobin (mass per erythrocyte) 26 pg 25-34 Automated erythrocyte mean corpuscular hemoglobin concentration measurement ( mass/volume) 34 g/dL 32-36 Automated erythrocyte distribution width ratio 16.8 % 10.0-14.5 Automated blood platelet count (count/volume) 387 10*3/uL 130-400 Automated blood platelet mean volume measurement 9.4 [foz_us] 7.4-10.4 Automated blood neutrophils/100 leukocytes 65 % 42-75 Automated blood lymphocytes/100 leukocytes 18 % 12-44 Blood monocytes/100 leukocytes 11 % 0-12 Automated blood eosinophils/100 leukocytes 6 % 0-10 Automated blood basophils/100 leukocytes 1 % 0-10 Blood neutrophils automated count (number/volume) 7.2 10*3 1.8-7.8 Blood lymphocytes automated count (number/volume) 2.0 10*3 1.0-4.0 Blood monocytes automated count (number/volume) 1.2 10*3 0.0-1.0 Automated eosinophil count 0.7 10*3/uL 0.0-0.3 Automated blood basophil count (count/volume) 0.1 10*3/uL 0.0-0.1 Encounters ACCT No. Visit Date/Time Discharge Status Pt. Type Provider Facility Loc./Unit Complaint [id number] 02/07/2014 09:06:00 02/07/2014 23:59:59 CLS Outpatient MARCO ANTONIO ROGEL APRN [id number] 10/07/2017 10:45:00 10/07/2017 23:59:59 CLS Outpatient MARCO ANTONIO ROGEL APRN [facility] [place] [id number] 09/23/2017 11:20:00 Document Registration [id number] 12/15/2017 10:32:00 12/15/2017 23:59:59 CLS Preadmit JASSI ROSE APRN [facility] RAD SOB [id number] 12/15/2017 10:28:00 12/15/2017 23:59:59 CLS Preadmit JASSI ROSE EMERGENCY MEDICAL SERVICE MANAGER [facility] RAD SOB [id number] 12/11/2017 09:53:00 12/11/2017 23:59:59 CLS Outpatient BENEDICTO TEJEDA MD [facility] RAD DDU [id number] 11/12/2017 19:36:00 11/13/2017 06:05:00 DIS Outpatient JASSI ROSE APRN [facility] SLEEP SUSPECTED SLEEP APNEA,SLEEP DISORDER,SOB [id number] 11/04/2017 14:27:00 11/04/2017 23:59:59 CLS Preadmit JASSI ROSE EMERGENCY MEDICAL SERVICE MANAGER [facility] RT SOB,ALLERGIC RHINITIS [id number] 09/23/2017 10:00:00 09/23/2017 23:59:59 CLS Preadmit VICTORIA ROBLEDO TANK CREWMEMBER [facility] CARD CHEST PAIN,SOB, MIXED HYPERLIPIDEMIA [id number] 07/21/2017 10:52:00 07/21/2017 23:59:59 CLS Outpatient VICTORIA ROBLEDO L TANK CREWMEMBER [facility] CARD CHEST PAIN,SOB [id number] 12/31/2017 12:52:00 Document Registration [id number] 07/21/2017 10:59:00 Document Registration
--- OUTSIDE RECORDS SUMMARY | 2017-12-31 13:02 | XMS REPORT ---
Author Author MARCO ANTONIO ROGEL Organization [facility] Address [address] [place] [address] Care Team Providers Care Clothing Cutter Name Role Phone MARCO ANTONIO ROGEL Unavailable PROBLEMS Type Condition ICD9-CM Code IST29-UD Code Onset Dates Condition Status SNOMED Code Problem Essential hypertension I10 Active 80642524 Problem Obesity, unspecified E66.9 Active 69915429399094 Problem Mixed hyperlipidemia E78.2 Active 813660873 Problem Coronary artery disease of [place] artery of [place] heart with stable angina pectoris I25.118 Active 0847266904443 Problem Mood disorder F39 Active 84794514 Problem Body mass index (BMI) of 40.0-44.9 in adult Z68.41 Active 049517131 Problem Hypertension, unspecified type I10 Active 41965906 ALLERGIES No Information ENCOUNTERS Encounter Location Date Diagnosis [facility] [address] [place] [address] June, 2018 BMI 40.0-44.9, adult Z68.41 ; Chest pain, unspecified type R07.9 ; Shortness of breath R06.02 ; Hypertension, unspecified type I10 ; Mixed hyperlipidemia E78.2 ; Tobacco use Z72.0 ; Obesity, unspecified E66.9 and Body mass index (BMI) of 40.0-44.9 in adult Z68.41 [facility] [address] [place] [address] Apr, [facility] [address] [place] [id number] [place] [address] Apr, 2018 BMI 40.0-44.9, adult Z68.41 ; Coronary artery disease of [place] artery of [place] heart with stable angina pectoris I25.118 ; History of atrial fibrillation Z86.79 ; Murmur, cardiac R01.1 ; Mood disorder F39 ; Essential hypertension I10 and Localized edema R60.0 [place] [address] [place] [address] Apr, [facility] [address] [place] [id number] Aug, Hypertension, essential I10 ; Pain in right knee M25.561 ; Pain in left knee M25.562 ; Other chronic pain G89.29 and Mood disorder F39 [place] [address] [place] [address] May, [place] [address], [place] [address] May, [facility] [address] [place] [id number] Jan, [place] [address] [address] Jan, IMMUNIZATIONS No Known Immunizations SOCIAL HISTORY Never Assessed REASON FOR VISIT referral PLAN OF CARE VITAL SIGNS MEDICATIONS No Known Medications RESULTS No Results PROCEDURES No Known [...]
--- OUTSIDE RECORDS SUMMARY | 2017-12-31 13:02 | XMS REPORT ---
Author Author JAMIN ALVARADO Organization [facility] Address [address] [place] [address] Care Team Providers Care Material Combiner Name Role Phone JAMIN ALVARADO Unavailable PROBLEMS Type Condition ICD9-CM Code XNZ43-ND Code Onset Dates Condition Status SNOMED Code Problem 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.118 Active 5061296139700 Problem Hypertension, unspecified type I10 Active 07828943 Problem Body mass index (BMI) of 40.0-44.9 in adult Z68.41 Active 625965911 Problem Essential hypertension I10 Active 55880457 Problem Mood disorder F39 Active 22811475 Problem Non-ischemic cardiomyopathy I42.8 Active 65692631 Problem Cardiomyopathy, unspecified I42.9 Active 27308506 Problem Obesity, unspecified E66.9 Active 59853653975427 Problem Mixed hyperlipidemia E78.2 Active 840943414 Problem Heart failure, unspecified I50.9 Active 77225080 Problem Uncontrolled hypertension I10 Active 87011119 ALLERGIES No Known Allergies ENCOUNTERS Encounter Location Date Diagnosis [place] [id number] [place] [phone] Dec, [facility] [id number] [place] [phone] Oct, [facility] [id number] [place] [address] Oct, [facility] [address] [address] Sep, Shortness of breath R06.02 [facility] [id number] [place] [address] Sep, Hypertension, unspecified type I10 ; Mixed hyperlipidemia E78.2 ; BMI 40.0-44.9, adult Z68.41 ; Non-ischemic cardiomyopathy I42.8 ; Suspected sleep apnea R29.818 and Tobacco use Z72.0 [place] [address] [address] Aug, Mixed hyperlipidemia E78.2 and Elevated hemoglobin A1c R73.[address] [address] Aug, Uncontrolled hypertension I10 ; Shortness of breath R06.02 ; Cardiomyopathy, unspecified I42.9 and BMI 40.0-44.9, adult Z68.[address] [address] June, BMI 40.0-44.9, adult Z68.41 ; Chest pain, unspecified type R07.9 ; Shortness of breath R06.02 ; Hypertension, unspecified type I10 ; Mixed hyperlipidemia E78.2 ; Tobacco use Z72.0 ; Obesity, unspecified E66.9 and Body mass index (BMI) of 40.0-44.9 in adult Z68.41 [place] [id number] [place] [address] Apr, [address] [address] Apr, BMI 40.0-44.9, adult Z68.41 ; 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.118 ; History of atrial fibrillation Z86.79 ; Murmur, cardiac R01.1 ; Mood disorder F39 ; Essential hypertension I10 and Localized edema R60.0 [place] [id number] [place] [address] Apr, [facility] [address], [place] [id number] Aug, Hypertension, essential I10 ; Pain in right knee M25.561 ; Pain in left knee M25.562 ; Other chronic pain G89.29 and Mood disorder F39 [address] [place] [address] May, 2014 [facility] [address] [facility] [id number] [address] May, [facility] [address] [place] [id number] Jan, [facility] [address] [facility] [id number] [address] Jan, IMMUNIZATIONS No Known Immunizations SOCIAL HISTORY Never Assessed REASON FOR VISIT Breathing problems- Jaky Sterling RN, [facility] in [facility] 2 weeks ago PLAN OF CARE Activity Details Follow Up 2 - 3 Days Reason:blood pressure/weight check VITAL SIGNS Height 66 in 2017-09-23 Weight 264 lbs 2017-09-23 Temperature 98.0 degrees Fahrenheit 2017-09-23 Heart Rate 115 bpm 2017-09-23 Respiratory Rate 24 2017-09-23 BMI 42.61 kg/m2 2017-09-23 Blood pressure systolic 180 mmHg 2017-09-23 Blood pressure diastolic 110 mmHg 2017-09-23 MEDICATIONS Medication Instructions Dosage Frequency Start Date End Date Duration Status Verapamil HCl ER 180 MG Orally Once a day 1 tablet 24h Active Duloxetine HCl 60 mg Orally Once a day 1 capsule 24h Active Loxapine Succinate 10 mg Orally Once a day, at night 1 capsule Active Tegretol 200 mg Orally Twice a day 1 tablet 12h Apr, 30 day(s) Active HydrOXYzine Pamoate 100 mg Orally Once a day, at night 1 capsule as needed Active Lisinopril 20 mg Orally Once a day 1 tablet 24h Aug, 30 day(s) Active Benztropine Mesylate 1 MG Orally Once a day 1 tablet at bedtime 24h Active Atorvastatin Calcium 20 mg Orally Once a day 1 tablet 24h Active Hydrochlorothiazide 25 MG Orally Once a day 1 tablet in the morning 24h Apr, 30 day(s) Active Toprol XL 100 MG Orally Once a day 1 tablet 24h June, 30 day(s) Active RESULTS No Results PROCEDURES Procedure Date Ordered Result Body Site COMPLETE CBC W/AUTO DIFF WBC September 23, 2017 GLYCATED HEMOGLOBIN TEST September 23, 2017 COMPREHEN METABOLIC PANEL September 23, 2017 LIPID PANEL September 23, 2017 NATRIURETIC PEPTIDE September 23, 2017 INSTRUCTIONS MEDICATIONS ADMINISTERED No Known Medications MEDICAL (GENERAL) HISTORY Type Description Date Medical History HTN Medical History Seizures Medical History arthritis- hip and knee Medical History Depression Medical History Anxiety Medical History Bilateral ankle fx Surgical History head trauma 10-15years ago Hospitalization History Surgery Hospitalization History Bi-lateral ankle fx
[2017-12-31 13:06] LABS: PROTHROMBIN TIME PATIENT 12.7 SEC (12.2-14.7)
--- NOTE | 2017-12-31 13:10 | ED Chest Pain ---
General Stated Complaint: CHEST PAIN Source: patient Exam Limitations: no limitations History of Present Illness Date Seen by Provider: Dec 31, 2017 Time Seen by Provider: 12:33 Initial Comments Here with report of central low chest pain that is in the epigastric region. Onset several days ago and is most notable in the evenings and better in the morning. Has the situation again today and presented to the emergency department. After arrival here, pain did improve. Does report nausea and some shortness of breath with this. Reports it is been taking ibuprofen 800 mg 3 times a day for several weeks and was on Naprosyn prior to that for left hip pain that is currently under evaluation at [facility]. Timing/Duration: changing over time, intermittent, 4-5 days Severity/Quality: moderate, severe, aching, burning Location: central Radiation: no radiation Activities at Onset: none Prior CP/Workup: stress test Modifying Factors: worse with eating; improves with rest ASA po FLAT KNITTER HELPER: No NTG SL FLAT KNITTER HELPER: No Associated Symptoms: abdominal pain; No back pain, No fever/chills; nausea/ vomiting, shortness of breath; No weakness Allergies and Home Medications Allergies Coded Allergies: No Allergy Information Available (Unverified , 07/21/17) Patient Home Medication List Home Medication List Reviewed: Yes Review of Systems Review of Systems Constitutional: see HPI; No chills, No fever EENTM: No Symptoms Reported Respiratory: Denies Cough; Shortness of Air Cardiovascular: Chest Pain, Irregular Heart Rate Gastrointestinal: Abdominal Pain; Denies Diarrhea; Nausea Genitourinary: No Symptoms Reported Musculoskeletal: joint pain; No muscle pain Skin: no symptoms reported Psychiatric/Neurological: Denies Anxiety; Tingling (left leg from the left hip which is been chronic for several weeks) Endocrine: No Symptoms Reported All Other Systems Reviewed Negative Unless Noted: Yes Past Ciyjaie-Ylxosa-Mcefnk Hx Past Med/Social Hx: Reviewed Nursing Past Med/Soc Hx Patient Social History Alcohol Use: Regular Use Recreational Drug Use: No Smoking Status: Current Everyday Smoker Recent Foreign Travel: No Contact w/Someone Who Travel: No Past Medical History Surgeries: Yes Respiratory: Yes COPD Currently Using CPAP: No Cardiac: Yes High Cholesterol, Hypertension Neurological: No Genitourinary: No Gastrointestinal: No Musculoskeletal: Yes Arthritis Endocrine: Yes Diabetes, Non-Insulin dep HEENT: No Cancer: No Psychosocial: Yes Depression Family Medical History Reviewed Nursing Family Hx Physical Exam Vital Signs Vital Signs - First Documented 12/31/17 12:35 Temp 98.0 Pulse 101 Resp 20 B/P (MAP) 188/128 (148) Pulse Ox 99 O2 Delivery Room Air Capillary Refill : Height, Weight, BMI Height: '" Weight: lbs. oz. kg; BMI Method: General Appearance: No Apparent Distress, WD/WN HEENT: PERRL/EOMI, Pharynx Normal Neck: Non Tender, Supple Respiratory: Lungs Clear, Normal Breath Sounds Cardiovascular: No Murmur, Tachycardia Gastrointestinal: Non Tender, Soft Extremity: Normal Capillary Refill, Other (tender over the left hip) Neurologic/Psychiatric: Alert, Oriented x3 Skin: Normal Color, Warm/Dry Progress/Results/Core Measures Results/Orders Lab Results Laboratory Tests Test 12/31/17 12:44 12/31/17 15:23 Range/Units White Blood Count 11.1 H 4.3-11.0 10^3/uL Red Blood Count 5.68 4.35-5.85 10^6/uL Hemoglobin 14.9 13.3-17.7 G/DL Hematocrit 44 40-54 % Mean Corpuscular Volume 78 L 80-99 FL Mean Corpuscular Hemoglobin 26 25-34 PG Mean Corpuscular Hemoglobin Concent 34 32-36 G/DL Red Cell Distribution Width 16.8 H 10.0-14.5 % Platelet Count 387 130-400 10^3/uL Mean Platelet Volume 9.4 7.4-10.4 FL Neutrophils (%) (Auto) 65 42-75 % Lymphocytes (%) (Auto) 18 12-44 % Monocytes (%) (Auto) 11 0-12 % Eosinophils (%) (Auto) 6 0-10 % Basophils (%) (Auto) 1 0-10 % Neutrophils # (Auto) 7.2 1.8-7.8 X 10^3 Lymphocytes # (Auto) 2.0 1.0-4.0 X 10^3 Monocytes # (Auto) 1.2 H 0.0-1.0 X 10^3 Eosinophils # (Auto) 0.7 H 0.0-0.3 10^3/uL Basophils # (Auto) 0.1 0.0-0.1 10^3/uL Prothrombin Time 12.7 12.2-14.7 SEC INR Comment 1.0 0.8-1.4 Activated Partial Thromboplast Time 27 24-35 SEC D-Dimer 0.66 H 0.00-0.49 UG/ML Sodium Level 138 135-145 MMOL/L Potassium Level 3.6 3.6-5.0 MMOL/L Chloride Level 104 98-107 MMOL/L Carbon Dioxide Level 23 21-32 MMOL/L Anion Gap 11 5-14 MMOL/L Blood Urea Nitrogen 9 7-18 MG/DL Creatinine 1.03 0.60-1.30 MG/DL Estimat Glomerular Filtration Rate > 60 BUN/Creatinine Ratio 9 Glucose Level 164 H 70-105 MG/DL Calcium Level 9.5 8.5-10.1 MG/DL Corrected Calcium 9.4 8.5-10.1 MG/DL Magnesium Level 2.2 1.8-2.4 MG/DL Total Bilirubin 0.4 0.1-1.0 MG/DL Aspartate Amino Transf (AST/SGOT) 18 5-34 U/L Alanine Aminotransferase (ALT/SGPT) 20 0-55 U/L Alkaline Phosphatase 77 40-136 U/L Myoglobin 48.9 52.5 10.0-92.0 NG/ML Troponin I < 0.30 < 0.30 <0.30 NG/ML B-Type Natriuretic Peptide 100.9 H <100.0 PG/ML Total Protein 7.6 6.4-8.2 GM/DL Albumin 4.1 3.2-4.5 GM/DL Amylase Level 48 25-125 U/L Lipase 66 8-78 U/L My Orders Orders - MARLEY RANGEL MD Cbc With Automated Diff (12/31/17 12:42) Magnesium (12/31/17 12:42) Chest 1 View, Ap/Pa Only (12/31/17 12:42) Ekg Tracing (12/31/17 12:42) Cardiac Profile 1 (12/31/17 12:42) Comprehensive Metabolic Panel (12/31/17 12:42) Myoglobin Serum (12/31/17 12:42) Protime With Inr (12/31/17 12:42) Partial Thromboplastin Time (12/31/17 12:42) O2 (12/31/17 12:42) Monitor-Rhythm Ecg Trace Only (12/31/17 12:42) Lipid Panel (01/01/18 06:00) Aspirin Chewable Tablet (Baby Aspirin Ch (12/31/17 12:45) Saline Lock/Iv-Start (12/31/17 12:42) Lipase (12/31/17 12:42) Amylase (12/31/17 12:42) BNP (12/31/17 12:42) Fibrin Degradation Products (12/31/17 12:42) Pelvis With Left Hip 2-3 Views (12/31/17 13:10) Morphine Injection (Morphine Injection (12/31/17 13:10) Lidocaine 2% Viscous 15 Ml (Xylocaine Vi (12/31/17 13:15) Antacid Suspension (Mylanta Suspension (12/31/17 13:15) Ct Extremity Lower Left Wo (12/31/17 14:03) Troponin I (12/31/17 15:13) Myoglobin Serum (12/31/17 15:13) Ekg Tracing (12/31/17 15:13) Prednisone Tablet (Deltasone Tablet) (12/31/17 16:00) Hydrocodone/Apap 10/325 Tablet (Lortab 1 (12/31/17 16:00) Medications Given in ED Current Medications Medications Dose Ordered Sig/Michaelle Route Start Time Stop Time Status Last Admin Dose Admin Al Hydrox/Mg Hydrox/Simethicone 30 ml ONCE ONCE PO 12/31/17 13:15 12/31/17 13:16 DC 12/31/17 13:20 30 ML Aspirin 324 mg ONCE ONCE PO 12/31/17 12:45 12/31/17 12:46 DC 12/31/17 12:44 324 MG Lidocaine HCl 15 ml ONCE ONCE PO 12/31/17 13:15 12/31/17 13:16 DC 12/31/17 13:20 15 ML Prednisone 40 mg ONCE ONCE PO 12/31/17 16:00 12/31/17 16:01 DC 12/31/17 16:05 40 MG Vital Signs/I&O 12/31/17 12:35 Temp 98.0 Pulse 101 Resp 20 B/P (MAP) 188/128 (148) Pulse Ox 99 O2 Delivery Room Air Progress Progress Note : Progress Note Seen and evaluated. IV, labs, EKG and chest x-ray ordered. ASA 324 mg by mouth ordered. GI cocktail ordered due to report of significant ibuprofen use. Morphine 6 mg IV for left hip pain. We will add pelvic x-ray. 1355: Radiology called to discuss pelvis and hip x-ray results. Recommending CT. This has been ordered. 1610: CT results noted. Prednisone 40 mg by mouth given and hydrocodone 10/325 one tab by mouth given. I did discuss the case with Dr. Hadley. We can consider initiation of Mobic or similar due to stomach upset with ibuprofen. They will discuss that with him at the clinic on the seventh. Also can consider steroid injection to the left hip. We will continue prednisone for 5 more days as well as I will write a small prescription for hydrocodone for pain. I did discuss with the patient about using dasz-hzl-ytohjbs agent such as famotidine for stomach upset we'll have him do that twice daily for the next 7 days to reduce the stomach acid. He has appointment with Dr. Palma's clinic at [facility] on 13 January. Discharged home with return precautions. Patient verbalize understanding instructions and agreement with plan. Initial ECG Impression Date: Dec 31, 2017 Initial ECG Impression Time: 12:36 Initial ECG Rate: 101 Initial ECG Rhythm: S.Tach Initial ECG Comparisson: No Previous ECG Available Comment Sinus tachycardia with left ventricular hypertrophy. No evidence of ST elevation HI. Normal axis. No previous available for comparison. Interpreted by me. EKG : EKG Time: 15:15 Rate: 94 Rhythm: Normal Sinus ECG Comparisson: Unchanged Comment Sinus rhythm with left ventricular hypertrophy. No evidence of ST elevation HI. Normal axis. Interpreted by me. Unchanged from previous earlier today. Diagnostic Imaging Diagonstic Imaging: Xray Plain Films/CT/US/NM/MRI: chest Comments VIA [facility] [place], [place] NAME: JAMIN FELDER [facility] REC#: [id number] PT STATUS: REG ER : 1960 PHYSICIAN: MARLEY RANGEL MD ADMIT DATE: 12/31/17/ER Draft Date of Exam:12/31/17 CHEST 1 VIEW, AP/PA ONLY INDICATION: Chest pain. TIME OF EXAM: 12:56 PM No prior studies are available for comparison. FINDINGS: The heart is enlarged. There is central congestion but no overt failure. No effusion or pneumothorax is seen. IMPRESSION: Cardiomegaly and central congestion. Dictated on workstation # [id number] Dict: 12/31/17 1316 Trans: 12/31/17 1318 [id number] Interpreted by: RL FISH MD Electronically signed by: Diagonstic Imaging: Xray Plain Films/CT/US/NM/MRI: pelvis Comments NAME: JAMIN FELDER MED REC#: [id number] PT STATUS: REG ER : 1960 PHYSICIAN: MARLEY RANGEL MD ADMIT DATE: 12/31/17/ER Draft Date of Exam:12/31/17 PELVIS WITH LEFT HIP 2-3 VIEWS Indication: Left hip pain. Time of exam: 1:52 PM An AP view of the pelvis and 2 views of the left hip were obtained. There is a curvilinear lucency overlying the femoral head and neck junction on the left side, suspicious for fracture. The remainder of the femoral neck and intertrochanteric region are unremarkable. Femoral acetabular alignment is normal. Rami are intact. Impression: There are findings suspicious for a nondisplaced fracture of the left hip near the femoral head and neck junction. CT through the left hip would be useful for for further characterization. Dictated on workstation # [id number] Dict: 12/31/17 1350 Trans: 12/31/17 1359 CVB [id number] Interpreted by: RL FISH MD Electronically signed by: Rachelnstic Imaging: CT Plain Films/CT/US/NM/MRI: hip Comments [facility], [place] NAME: JAMIN FELDER MED REC#: [id number] PT STATUS: REG ER : 1960 PHYSICIAN: MARLEY RANGEL MD ADMIT DATE: 12/31/17/ER Draft Date of Exam:12/31/17 CT EXTREMITY LOWER LEFT WO PROCEDURE: CT left lower extremity without contrast. TECHNIQUE: Multiple contiguous axial images were obtained through the left lower extremity without the use of intravenous contrast. Sagittal and coronal reformations were then performed. INDICATION: Left hip pain and abnormal left hip x-ray. The study is performed to evaluate for fracture. FINDINGS: Femoroacetabular alignment is normal. The femoral head and neck are intact. There is spurring of acetabulum. The lucency noted on plain film appears to represent some lucency through the posterior acetabulum, likely from an osteophyte. The visualized rami are intact. IMPRESSION: No acute osseous abnormality is detected. Dictated on workstation # [id number] Dict: 12/31/17 1440 Trans: 12/31/17 1446 [facility] [id number] Interpreted by: RL FISH MD Electronically signed by: Departure Impression Primary Impression: Chest pain Qualified Codes: R07.9 - Chest pain, unspecified Additional Impressions: Epigastric abdominal pain Left hip pain Disposition: HOME, SELF-CARE Condition: Improved Departure-Patient Inst. Decision time for Depature: 16:19 Referrals: [facility]Family) Primary Care Physician Patient Instructions: Acute Abdomen (Belly Pain), Adult (DC), Chest Pain (DC), Hip Pain (DC) Add. Discharge Instructions: Take medications as directed. Follow-up with your doctor on 01/06/18 as scheduled and keep cardiology appointment on 01/13/18 as scheduled. You may take prescribed pain medicine or acetaminophen 1000 mg every 6 hours as needed for pain but do not take both his they both have acetaminophen in them. Return for worsening, fever, vomiting, weakness, breathing problems or other concerns as needed. You should take sxkp-okk-pblrdmi antacid reliever such as famotidine 20 mg twice daily for the next 7 days and then as needed to keep stomach acid down. Scripts Prednisone (Prednisone) 20 Mg Tab 40 MG PO DAILY, #10 TAB 0 Refills Prov: MARLEY RANGEL MD 12/31/17 Hydrocodone Bit/Acetaminophen (LORTAB 7.5 MG TABLET) 1 Ea Tablet 1 EACH PO Q6H, #14 TAB 0 Refills Prov: MARLEY RANGEL MD 12/31/17 Copy Copies To 1: LIU HADLEY TIMOTHY D MD Dec 31, 2017 13:10
[2017-12-31 13:16] LABS: ALANINE AMINOTRANSFERASE 20 U/L (0-55); ALBUMIN 4.1 GM/DL (3.2-4.5); ALKALINE PHOSPHATASE 77 U/L (40-136); AMYLASE 48 U/L (25-125); BILIRUBIN,TOTAL 0.4 MG/DL (0.1-1.0); BUN/CREATININE RATIO 9; CALCIUM 9.5 MG/DL (8.5-10.1); CARBON DIOXIDE 23 MMOL/L (21-32); CHLORIDE 104 MMOL/L (98-107); CREATININE SERUM 1.03 MG/DL (0.60-1.30); GFR ESTIMATED > 60; GLUCOSE 164 MG/DL (70-105); LIPASE 66 U/L (8-78); MAGNESIUM 2.2 MG/DL (1.8-2.4); POTASSIUM 3.6 MMOL/L (3.6-5.0); SODIUM 138 MMOL/L (135-145); TOTAL PROTEIN 7.6 GM/DL (6.4-8.2)
--- NOTE | 2017-12-31 13:18 | Diagnostic Imaging Report ---
INDICATION: Chest pain. TIME OF EXAM: 12:56 PM No prior studies are available for comparison. FINDINGS: The heart is enlarged. There is central congestion but no overt failure. No effusion or pneumothorax is seen. IMPRESSION: Cardiomegaly and central congestion. Dictated by: Dictated on workstation # [id number]
[2017-12-31] MEDS: morphine INJ 10 MG/ML 1ML (SYR OR VIAL) IVP STA (13:20)
[2017-12-31] MEDS: ANTACID SUSP 30 ML UDC (MYLANTA) PO ONE (13:20)
[2017-12-31] MEDS: LIDOCAINE 2% VISCOUS 15 ML UDC PO ONE (13:20)
[2017-12-31 13:23] LABS: MYOGLOBIN SERUM 48.9 NG/ML (10.0-92.0)
--- NOTE | 2017-12-31 13:59 | Diagnostic Imaging Report ---
Indication: Left hip pain. Time of exam: 1:52 PM An AP view of the pelvis and 2 views of the left hip were obtained. There is a curvilinear lucency overlying the femoral head and neck junction on the left side, suspicious for fracture. The remainder of the femoral neck and intertrochanteric region are unremarkable. Femoral acetabular alignment is normal. Rami are intact. Impression: There are findings suspicious for a nondisplaced fracture of the left hip near the femoral head and neck junction. CT through the left hip would be useful for further characterization. Dictated by: Dictated on workstation # [id number]
--- NOTE | 2017-12-31 14:47 | Diagnostic Imaging Report ---
PROCEDURE: CT left lower extremity without contrast. TECHNIQUE: Multiple contiguous axial images were obtained through the left lower extremity without the use of intravenous contrast. Sagittal and coronal reformations were then performed. INDICATION: Left hip pain and abnormal left hip x-ray. The study is performed to evaluate for fracture. FINDINGS: Femoroacetabular alignment is normal. The femoral head and neck are intact. There is spurring of acetabulum. The lucency noted on plain film appears to represent some lucency through the posterior acetabulum, likely from an osteophyte. The visualized rami are intact. IMPRESSION: No acute osseous abnormality is detected. Dictated by: Dictated on workstation # [id number]
[2017-12-31 15:55] LABS: MYOGLOBIN SERUM 52.5 NG/ML (10.0-92.0)
[2017-12-31] MEDS: predniSONE 20 MG TAB PO ONE (16:05)
[2017-12-31] MEDS: HYDROcodone/APAP 10 MG/325 MG (LORTAB) TAB PO STA (16:05)
[2017-12-31] MEDS ORDERED: HYDR-34 PO (16:21)
[2017-12-31] MEDS ORDERED: PRD20T PO (16:21)
[2017-12-31 16:33] VITALS: BP 161/88
== END 2017-12-31 16:33 | disposition home or self-care (01) ==
LOC: EDUNIT# 12:33 → ER 12:35
DX: R07.89 Other chest pain (principal); M25.552 Pain in left hip; R10.13 Epigastric pain; J44.9 Chronic obstructive pulmonary disease, unspecified; E78.00 Pure hypercholesterolemia, unspecified; I10 Essential (primary) hypertension; E11.9 Type 2 diabetes mellitus without complications; F32.9 Major depressive disorder, single episode, unspecified; F17.200 Nicotine dependence, unspecified, uncomplicated
CPT/HCPCS: 36415; 71045; 73700; 80053; 82150; 83690; 83735; 83874; 83880; 84484; 85025; 85379; 85610; 85730; 93005; 93041; 96374

== ENCOUNTER → 2018-01-04 | Outpatient (CLI) | payer OTHER ==
[~2018-01-04] MED LIST changes: -CATHETER FLUSH 10 ML SYR IV PRN; +HYDR-34 PO; +PRD20T PO; -REGADENOSON 0.4 MG/5 ML SYR (LEXISCAN) IV ONE; +RT-ALBUTEROL SULF 2.5 MG/3 ML PRE-MIX VIAL ONE
== END ==
LOC: RT 08:32
PROVIDERS: ATTEND Nurse Practitioner Family
DX: R06.02 Shortness of breath (principal); J30.9 Allergic rhinitis, unspecified; M79.89 Other specified soft tissue disorders; J98.4 Other disorders of lung
CPT/HCPCS: 94060; 94726; 94729

== ENCOUNTER → 2018-01-15 | Outpatient (CLI) | payer OTHER ==
[~2018-01-15] MED LIST changes: -RT-ALBUTEROL SULF 2.5 MG/3 ML PRE-MIX VIAL ONE
[2018-01-15 09:54] LABS: BUN/CREATININE RATIO 9; CREATININE SERUM 1.01 MG/DL (0.60-1.30); GFR ESTIMATED > 60
--- NOTE | 2018-01-15 11:40 | Diagnostic Imaging Report ---
PROCEDURE: US Venous Lower Ext Govind. TECHNIQUE: Multiple real-time grayscale images were obtained over the lower extremities in various projections, bilaterally. Additional duplex Doppler and color Doppler images were also obtained. Date: January 15, 2018. Indication: 57-year-old male, shortness of breath and leg swelling. Evaluation for deep venous thrombosis. Comparison: None. Findings: The left common femoral vein, left superficial femoral vein, and left popliteal vein are all compressible with flow and response to augmentation. Visualized portions of the left greater saphenous vein and deep femoral vein are patent. The left posterior tibial and peroneal veins are patent. The right common femoral vein, right superficial femoral vein, and right popliteal vein are all compressible with normal flow and response to augmentation. The visualized portions of the right greater saphenous vein and deep femoral vein are patent. The right posterior tibial and peroneal veins are patent. Impression: 1. Negative for right or left lower extremity deep venous thrombosis. Dictated by: Dictated on workstation # [id number]
== END ==
LOC: RAD 08:15
PROVIDERS: ATTEND Nurse Practitioner Family
DX: M79.89 Other specified soft tissue disorders (principal)
CPT/HCPCS: 36415; 82565; 84520; 93970

== ENCOUNTER 2018-05-25 08:45 | Emergency (ER) | payer MEDICAID ==
[~2018-05-25] VITALS: Ht 167.6 cm; Wt 115.2 kg
[2018-05-25] MEDS ORDERED: RT-ALBUTEROL SULF 2.5 MG/3 ML PRE-MIX VIAL INH STA (08:54)
--- NOTE | 2018-05-25 08:58 | ED Respiratory ---
General Stated Complaint: SOA Source: patient Exam Limitations: no limitations History of Present Illness Date Seen by Provider: May 25, 2018 Time Seen by Provider: 08:36 Initial Comments Patient presents to ER by private conveyance with chief complaint of shortness of breath starting this morning. He has a history of chronic lung disease was told by his psychiatric np Dr. Rios does not have COPD. Use an inhaled corticosteroid as well as pro-air and nebulized albuterol this morning. He did not hit his blood pressure medicines verapamil this morning. He has no history of heart disease but he was having some epigastric/substernal chest pain lasted for about 30 minutes this morning when he woke up. He's got some relief with the breathing treatments but has shortness of breath just came back. He's not been coughing up anything recently. He smokes about a quarter pack per day of cigarettes. Does not use recreational drugs but does drink alcohol couple days a week liquor. The patient has hypertension, smoking and high cholesterol but no thyroid disorder, diabetes or history of coronary artery disease. He does have significant familial risk of diabetes and heart disease. Allergies and Home Medications Allergies Coded Allergies: No Allergy Information Available (Unverified , 07/21/17) Home Medications Hydrocodone Bit/Acetaminophen 1 Ea Tablet, 1 EACH PO Q6H Prescribed by: MARLEY RANGEL on 12/31/17 1621 Prednisone 20 Mg Tab, 40 MG PO DAILY Prescribed by: MARLEY RANGEL on 12/31/17 1621 Prednisone 20 Mg Tab, 40 MG PO DAILY Prescribed by: ROSALINDA CHOW on 05/25/18 1015 Patient Home Medication List Home Medication List Reviewed: Yes Review of Systems Review of Systems Constitutional: No chills, No fever; malaise EENTM: No ear discharge, No ear pain Respiratory: cough; No phlegm; short of breath, wheezing Cardiovascular: chest pain (points to his midepigastric), edema (and mild); No Hx of Intervention Gastrointestinal: No abdominal pain, No constipation, No diarrhea, No nausea Genitourinary: No discharge, No dysuria Musculoskeletal: No back pain, No joint pain Skin: No pruritus, No rash Psychiatric/Neurological: Denies Headache, Denies Numbness Past Nfrgjwm-Eoeeco-Unwghj Hx Patient Social History Alcohol Use: Occasionally Uses Alcohol Beverage of Choice: Cheap Liquor Recreational Drug Use: Yes Drug of Choice: marijuana Smoking Status: Current Everyday Smoker Type Used: Cigarettes (0.25 pack per day) Recent Foreign Travel: No Contact w/Someone Who Travel: No Immunizations Up To Date Tetanus Booster (TDap): Unknown PED Vaccines UTD: Yes Past Medical History Surgeries: Yes Respiratory: Yes COPD Currently Using CPAP: No Cardiac: Yes High Cholesterol, Hypertension Neurological: No Genitourinary: No Gastrointestinal: No Musculoskeletal: Yes Arthritis Endocrine: Yes Diabetes, Non-Insulin dep HEENT: No Cancer: No Psychosocial: Yes Depression Physical Exam Vital Signs - First Documented 05/25/18 09:00 Temp 98.9 Pulse 106 Resp 20 B/P (MAP) 201/135 (157) Pulse Ox 97 O2 Delivery Nasal Cannula O2 Flow Rate 2.00 Capillary Refill : Height: 5'6.00" Weight: 247lbs. oz. 112.826105uw; BMI Method:Stated General Appearance: mild distress, obese Eyes: Bilateral Eye Normal Inspection, Bilateral Eye PERRL, Bilateral Eye EOMI HEENT: PERRL/EOMI, normal ENT inspection, TMs normal, pharynx normal Neck: full range of motion, normal inspection Respiratory: respiratory distress (mild), decreased breath sounds, accessory muscle use (mild), crackles (left basilar), wheezing Cardiovascular: normal peripheral pulses, regular rate, rhythm Gastrointestinal: normal bowel sounds, non tender, soft Extremities: non-tender, normal capillary refill, pedal edema (mild, 1+) Neurologic/Psychiatric: no motor/sensory deficits, alert Skin: normal color, warm/dry Focused Exam Lactate Level 05/25/18 09:00: Lactic Acid Level 1.26 Lactic Acid Level Laboratory Tests Test 05/25/18 09:00 Lactic Acid Level 1.26 MMOL/L (0.50-2.00) Progress/Results/Core Measures Suspected Sepsis SIRS Temperature: Pulse: Respiratory Rate: Laboratory Tests 05/25/18 09:00: White Blood Count 9.5 Blood Pressure / Mean: 05/25/18 09:00: Lactic Acid Level 1.26 Laboratory Tests 05/25/18 09:00: Creatinine 1.06, INR Comment 1.0, Platelet Count 367, Total Bilirubin 0.3 Results/Orders Lab Results Laboratory Tests Test 05/25/18 09:00 05/25/18 09:45 05/25/18 11:10 Range/Units White Blood Count 9.5 4.3-11.0 10^3/uL Red Blood Count 6.09 H 4.35-5.85 10^6/uL Hemoglobin 15.7 13.3-17.7 G/DL Hematocrit 46 40-54 % Mean Corpuscular Volume 76 L 80-99 FL Mean Corpuscular Hemoglobin 26 25-34 PG Mean Corpuscular Hemoglobin Concent 34 32-36 G/DL Red Cell Distribution Width 18.6 H 10.0-14.5 % Platelet Count 367 130-400 10^3/uL Mean Platelet Volume 9.8 7.4-10.4 FL Neutrophils (%) (Auto) 59 42-75 % Lymphocytes (%) (Auto) 25 12-44 % Monocytes (%) (Auto) 9 0-12 % Eosinophils (%) (Auto) 7 0-10 % Basophils (%) (Auto) 1 0-10 % Neutrophils # (Auto) 5.5 1.8-7.8 X 10^3 Lymphocytes # (Auto) 2.4 1.0-4.0 X 10^3 Monocytes # (Auto) 0.8 0.0-1.0 X 10^3 Eosinophils # (Auto) 0.7 H 0.0-0.3 10^3/uL Basophils # (Auto) 0.1 0.0-0.1 10^3/uL Prothrombin Time 13.3 12.2-14.7 SEC INR Comment 1.0 0.8-1.4 Activated Partial Thromboplast Time 30 24-35 SEC Sodium Level 138 135-145 MMOL/L Potassium Level 4.6 3.6-5.0 MMOL/L Chloride Level 107 98-107 MMOL/L Carbon Dioxide Level 22 21-32 MMOL/L Anion Gap 9 5-14 MMOL/L Blood Urea Nitrogen 9 7-18 MG/DL Creatinine 1.06 0.60-1.30 MG/DL Estimat Glomerular Filtration Rate > 60 BUN/Creatinine Ratio 8 Glucose Level 145 H 70-105 MG/DL Lactic Acid Level 1.26 0.50-2.00 MMOL/L Calcium Level 9.1 8.5-10.1 MG/DL Corrected Calcium 9.0 8.5-10.1 MG/DL Magnesium Level 2.4 1.8-2.4 MG/DL Total Bilirubin 0.3 0.1-1.0 MG/DL Aspartate Amino Transf (AST/SGOT) 41 H 5-34 U/L Alanine Aminotransferase (ALT/SGPT) 33 0-55 U/L Alkaline Phosphatase 92 40-136 U/L Myoglobin 83.3 10.0-92.0 NG/ML Troponin I < 0.028 < 0.028 <0.028 NG/ML B-Type Natriuretic Peptide 153.0 H <100.0 PG/ML Total Protein 7.8 6.4-8.2 GM/DL Albumin 4.1 3.2-4.5 GM/DL Lipase 60 8-78 U/L Serum Alcohol < 10 <10 MG/DL Blood Gas Puncture Site R RAD Blood Gas Patient Temperature 96.5 Arterial Blood pH 7.40 7.37-7.43 Arterial Blood Partial Pressure CO2 39 35-45 MMHG Arterial Blood Partial Pressure O2 77 L 79-93 MMHG Arterial Blood HCO3 24 23-27 MMOL/L Arterial Blood Total CO2 25.7 21.0-31.0 MMOL/L Arterial Blood Oxygen Saturation 96 94-100 % Arterial Blood Base Excess 0.0 -2.5-2.5 MMOL/L Derick Test YES-POS Blood Gas Ventilator Setting NA Blood Gas Inspired Oxygen 3 My Orders Orders - ROSALINDA CHOW Albuterol Pre-Mix Nebs (Rt) (Proventil (05/25/18 08:54) Albuterol/Ipra Inhalation Soln (Duoneb I (05/25/18 09:00) Cbc With Automated Diff (05/25/18 08:54) Magnesium (05/25/18 08:54) Chest 1 View, Ap/Pa Only (05/25/18 08:54) Ekg Tracing (05/25/18 08:54) Cardiac Profile 1 (05/25/18 08:54) Comprehensive Metabolic Panel (05/25/18 08:54) Myoglobin Serum (05/25/18 08:54) Protime With Inr (05/25/18 08:54) Partial Thromboplastin Time (05/25/18 08:54) O2 (05/25/18 08:54) Monitor-Rhythm Ecg Trace Only (05/25/18 08:54) Lipid Panel (05/26/18 06:00) Saline Lock/Iv-Start (05/25/18 08:54) Lipase (05/25/18 08:54) BNP (05/25/18 08:54) Aspirin Chewable Tablet (Baby Aspirin Ch (05/25/18 09:00) Svn Small Volume Nebulizer (05/25/18 08:54) Arterial Blood Gas (05/25/18 08:54) Blood Culture (05/25/18 08:54) Lactic Acid Analyzer (05/25/18 08:54) Alcohol (05/25/18 09:00) Arterial Blood Gas (05/25/18 09:45) Troponin I (05/25/18 11:00) Prednisone Tablet (Deltasone Tablet) (05/25/18 10:15) General/Regular (05/25/18 Lunch) Medications Given in ED Current Medications Medications Dose Ordered Sig/Michaelle Route Start Time Stop Time Status Last Admin Dose Admin Albuterol/ Ipratropium 3 ml ONCE ONCE INH 05/25/18 09:00 05/25/18 09:01 DC 05/25/18 09:26 3 ML Aspirin 325 mg ONCE ONCE PO 05/25/18 09:00 05/25/18 09:01 DC 05/25/18 10:10 325 MG Prednisone 80 mg ONCE ONCE PO 05/25/18 10:15 05/25/18 10:16 DC 05/25/18 10:22 80 MG Vital Signs/I&O 05/25/18 05/25/18 09:00 09:26 Temp 98.9 Pulse 106 Resp 20 B/P (MAP) 201/135 (157) Pulse Ox 97 96 O2 Delivery Nasal Cannula Nasal Cannula O2 Flow Rate 2.00 3.00 Capillary Refill : Progress Note #1: Time: 09:57 Progress Note Asthma exacerbation versus CHF failure versus bronchitis versus pneumonia. He does have some crackles. Plan to get him an hour-long breathing treatment get an ABG check some labs and get a 2 view chest x-ray. Put him on 2 L his oxygen sats were 92% when he arrived. We'll obtain an EKG and troponin and give him some aspirin however I suspect that the chest pain when he points to his epigastric region is probably more related to his diaphragm. He says he gets this whenever he gets very short of breath is never had it worked up had a stress test or cardiac catheterization. He is not seeing a user interface designer. In addition to seeing a psychiatric np we can recommend he follow up outpatient with cardiology if his delta troponin is negative. His blood pressure is elevated at this time however he is no longer having the chest pain and he has not taken his morning blood pressure medicines so we will encourage him to take them when he gets home. Progress Note #2: Time: 11:49 Progress Note We discontinued his breathing treatment early because his lung sounds cleared out and he was feeling much better. We took him off the oxygen and he stayed 95- 97% on room air. The second troponin was negative so we'll have him follow-up with cardiology outpatient. ECG Initial ECG Impression Date: May 25, 2018 Initial ECG Impression Time: 08:50 Initial ECG Rate: 116 Initial ECG Rhythm: S.Tach Initial ECG Intervals: Normal Initial ECG Impression: Normal, Nonspecific Changes Initial ECG Comparisson: Unchanged Comment Left ventricular hypertrophy. Sinus tachycardia without ST elevation or depression. Diagnostic Imaging Diagonstic Imaging: Xray Plain Films/CT/US/NM/MRI: chest (2v) Comments [facility], [place] NAME: EMERITAJAMIN Atwood [facility] REC#: [id number] PT STATUS: REG ER : 1960 PHYSICIAN: ROSALINDA CHOW MD ADMIT DATE: 05/25/18/ER Draft Date of Exam:05/25/18 CHEST 1 VIEW, AP/PA ONLY INDICATION: Respiratory distress. Portable chest 9:20 AM FINDINGS: Heart size and pulmonary vascularity are both mildly increased. Lungs are clear. There are no effusions or pneumothoraces. IMPRESSION: There may be mild pulmonary venous hypertension. Dictated on workstation # [id number] Dict: 05/25/18 0927 Trans: 05/25/18 0941 [id number] Interpreted by: MARLEY MALDONADO MD Electronically signed by: Reviewed: Reviewed by Me Departure Impression Primary Impression: Asthma exacerbation Qualified Codes: J45.901 - Unspecified asthma with (acute) exacerbation Additional Impression: Chest pain in adult Disposition: 01 HOME, SELF-CARE Condition: Improved Departure-Patient Inst. Decision time for Depature: 11:49 Referrals: [facility] [place] Primary Care Physician MIKE ALONZO MD Patient Instructions: Asthma, Adult (DC), Acute Bronchitis, Adult (DC) Add. Discharge Instructions: Continue to use your albuterol inhaler every 6 hours [id number] and addition every 2 hours as needed for wheezing and shortness of breath or coughing fits. Continue to use the prednisone 2 tablets for a total of 40 mg daily for the next 4 days starting tomorrow. Call Dr. Alonzo, cardiology at his clinic and request an appointment this week or early next week for your chest pain. Scripts Prednisone (Prednisone) 20 Mg Tab 40 MG PO DAILY for 4 Days, #8 TAB 0 Refills Prov: ROSALINDA CHOW 05/25/18 Copy Copies To 1: MIKE ALONZO MD, TITUS J May 25, 2018 08:57
[2018-05-25] MEDS ORDERED: ASPIRIN 81 MG CHEW (CHILDREN'S ASA) PO ONE (09:00)
[2018-05-25] MEDS ORDERED: RT-ALBUTEROL/IPRATROPIUM 3 ML (DUONEB) VIAL INH ONE (09:00)
[2018-05-25 09:15] LABS: BASOPHILS # (AUTO) 0.1 10^3/uL (0.0-0.1); BASOPHILS % (AUTO) 1 % (0-10); EOSINOPHILS # (AUTO) 0.7 10^3/uL (0.0-0.3); EOSINOPHILS % (AUTO) 7 % (0-10); HEMATOCRIT 46 % (40-54); HEMOGLOBIN 15.7 G/DL (13.3-17.7); LYMPHOCYTES # (AUTO) 2.4 X 10^3 (1.0-4.0); LYMPHOCYTES % (AUTO) 25 % (12-44); MEAN CORPUSCULAR HEMOGLOBIN 26 PG (25-34); MEAN CORPUSCULAR HGB CONC 34 G/DL (32-36); MEAN CORPUSCULAR VOLUME 76 FL (80-99); MEAN PLATELET VOLUME 9.8 FL (7.4-10.4); MONOCYTES # (AUTO) 0.8 X 10^3 (0.0-1.0); MONOCYTES % (AUTO) 9 % (0-12); NEUTROPHILS # (AUTO) 5.5 X 10^3 (1.8-7.8); NEUTROPHILS % (AUTO) 59 % (42-75); PLATELET COUNT 367 10^3/uL (130-400); RED CELL DISTRIBUTION WIDTH 18.6 % (10.0-14.5); WHITE BLOOD COUNT 9.5 10^3/uL (4.3-11.0)
--- OUTSIDE RECORDS SUMMARY | 2018-05-25 09:17 | XMS REPORT ---
Author Author MARCO ANTONIO ROGEL Organization [facility] Address [address] [place] [address] Care Team Providers Care Air Pollution Auditor Name Role Phone MARCO ANTONIO ROGEL Unavailable PROBLEMS Type Condition ICD9-CM Code BIC59-MC Code Onset Dates Condition Status SNOMED Code Problem Obesity, unspecified E66.9 Active [id number] Problem Cardiomyopathy, unspecified I42.9 Active 76243482 Problem Heart failure, unspecified I50.9 Active 46830733 Problem Other chronic pain G89.29 Active 36212920 Problem Sciatica, right side M54.31 Active 94833571 Problem Non-ischemic cardiomyopathy I42.8 Active 60343681 Problem Uncontrolled hypertension I10 Active 53314185 Problem Sciatica, left side M54.32 Active 90825901 Problem Sleep apnea in adult G47.30 Active 72711767 Problem Coronary artery disease of [place] artery of [place] heart with stable angina pectoris I25.118 Active 2813379905394 Problem Body mass index (BMI) of 40.0-44.9 in adult Z68.41 Active 737833494 Problem Essential hypertension I10 Active 73294413 Problem Hypertension, unspecified type I10 Active 89328384 Problem Mood disorder F39 Active 88584845 Problem Mixed hyperlipidemia E78.2 Active 022433881 ALLERGIES Substance Reaction Event Type Date Status ibuprofen stomach upset Non Drug Allergy Dec, Active ENCOUNTERS Encounter Location Date Diagnosis [facility] [id number] [address] Jan, [facility] [address] [place] [address] Dec, Pain in left hip M25.552 [facility] [address] [place] [address] 14 Dec, 2017 Essential hypertension I10 ; Shortness of breath R06.02 ; Mixed hyperlipidemia E78.2 ; History of atrial fibrillation Z86.79 ; Sleep apnea in adult G47.30 and BMI 40.0-44.9, adult Z68.41 [address] [address] [address] Dec, BMI 40.0-44.9, adult Z68.41 ; Pain in left hip M25.552 and Other chronic pain G89.29 [place] [address] [address] Nov, Sciatica, left side M54.32 [place] [address] [address] Oct, [place] [address] [address] Oct, [place] [id number] [place] [address] Sep, Shortness of breath R06.02 [place] [id number] [place] [address] Sep, Hypertension, unspecified type I10 ; Mixed hyperlipidemia E78.2 ; BMI 40.0-44.9, adult Z68.41 ; Non-ischemic cardiomyopathy I42.8 ; Suspected sleep apnea R29.818 and Tobacco use Z72.0 [id number] [place] [address] Aug, Mixed hyperlipidemia E78.2 and Elevated hemoglobin A1c R73.09 [place] [id number] [place] [address] Aug, Uncontrolled hypertension I10 ; Shortness of breath R06.02 ; Cardiomyopathy, unspecified I42.9 and BMI 40.0-44.9, adult Z68.41 [id number] [place] [address] June, BMI 40.0-44.9, adult Z68.41 ; Chest pain, unspecified type R07.9 ; Shortness of breath R06.02 ; Hypertension, unspecified type I10 ; Mixed hyperlipidemia E78.2 ; Tobacco use Z72.0 ; Obesity, unspecified E66.9 and Body mass index (BMI) of 40.0-44.9 in adult Z68.41 [place] [address] [address] [address] Apr, [place] [id number] [place] [address] 23 Apr, 2017 BMI 40.0-44.9, adult Z68.41 ; Coronary artery disease of [place] artery of [place] heart with stable angina pectoris I25.118 ; History of atrial fibrillation Z86.79 ; Murmur, cardiac R01.1 ; Mood disorder F39 ; Essential hypertension I10 and Localized edema R60.0 [place] [id number] [place] [address] Apr, [facility] [address] [place] [id number] Aug, Hypertension, essential I10 ; Pain in right knee M25.561 ; Pain in left knee M25.562 ; Other chronic pain G89.29 and Mood disorder F39 [place] [id number] [place] [address] May, [place] [address] [address] May, [facility] [address] [place] [id number] Jan, [place] [address] [place] [phone] Jan, IMMUNIZATIONS No Known Immunizations SOCIAL HISTORY Never Assessed REASON FOR VISIT Pain management (chronic), medication refill, CBrumbackRn PLAN OF CARE VITAL SIGNS Height 66 in 2018-01-28 Weight 272.5 lbs 2018-01-28 Temperature 99.3 degrees Fahrenheit 2018-01-28 Heart Rate 100 bpm 2018-01-28 Respiratory Rate 22 2018-01-28 Oximetry on room air:98 % 2018-01-28 BMI 43.98 kg/m2 2018-01-28 Blood pressure systolic 160 mmHg 2018-01-28 Blood pressure diastolic 102 mmHg 2018-01-28 MEDICATIONS Medication Instructions Dosage Frequency Start Date End Date Duration Status [place] 10-325 MG Orally 2 times a day 1 tablet as needed 12h Dec, Active Duloxetine HCl 60 mg Orally Once a day 1 capsule 24h Active HydrOXYzine Pamoate 100 mg Orally Once a day, at night 1 capsule as needed Active Benztropine Mesylate 1 MG Orally Once a day 1 tablet at bedtime 24h Active Tegretol 200 mg Orally Twice a day 1 tablet 12h Apr, 30 day(s) Active Toprol XL 100 mg Orally twice a day 1 tablet 12h June, 30 days Active Lisinopril 20 mg Orally Once a day 1 tablet 24h Aug, 30 day(s) Active Hydrochlorothiazide 25 MG Orally Once a day 1 tablet in the morning 24h Apr, 30 day(s) Active Verapamil HCl ER 180 MG Orally Once a day 1 tablet 24h Active Albuterol Sulfate 108 (90 Base) MCG/ACT Inhalation every 6 hrs 2 puffs as needed 6h Oct, 30 days Active Loxapine Succinate 10 mg Orally Once a day, at night 1 capsule Active Metformin HCl 500 mg 1 tablet [...]
--- OUTSIDE RECORDS SUMMARY | 2018-05-25 09:17 | XMS REPORT ---
Author Author VICTORIA ROBLEDO [facility] Address [address] [place] [address] Care Team Providers Care Publicity Director Name Role Phone WILBURDEE VICTORIA Unavailable PROBLEMS Type Condition ICD9-CM Code JGR14-FM Code Onset Dates Condition Status SNOMED Code Problem Obesity, unspecified E66.9 Active 75046144873859 Problem Cardiomyopathy, unspecified I42.9 Active 86520563 Problem Heart failure, unspecified I50.9 Active 34015739 Problem Other chronic pain G89.29 Active 19987134 Problem Sciatica, right side M54.31 Active 04848395 Problem Non-ischemic cardiomyopathy I42.8 Active 33997489 Problem Uncontrolled hypertension I10 Active 95043126 Problem Sciatica, left side M54.32 Active 67120412 Problem Sleep apnea in adult G47.30 Active 55622222 Problem Coronary artery disease of [place] artery of [place] heart with stable angina pectoris I25.118 Active 4855332525257 Problem Body mass index (BMI) of 40.0-44.9 in adult Z68.41 Active 247304460 Problem Essential hypertension I10 Active 84651788 Problem Hypertension, unspecified type I10 Active 97632547 Problem Mood disorder F39 Active 43544810 Problem Mixed hyperlipidemia E78.2 Active 377840081 ALLERGIES Substance Reaction Event Type Date Status ibuprofen stomach upset Non Drug Allergy Dec, Active ENCOUNTERS Encounter Location Date Diagnosis [facility] [address] [facility] [id number] [address] Jan, [facility] [id number] [place] [address] Dec, Essential hypertension I10 ; Shortness of breath R06.02 ; Mixed hyperlipidemia E78.2 ; History of atrial fibrillation Z86.79 ; Sleep apnea in adult G47.30 and BMI 40.0-44.9, adult Z68.41 [place] [id number] [place] [address] Dec, BMI 40.0-44.9, adult Z68.41 ; Pain in left hip M25.552 and Other chronic pain G89.29 [place] [id number] [place] [address] Nov, Sciatica, left side M54.32 [place] [address] [address] Oct, [place] [id number] [place] [address] Oct, [place] [address] [address] Sep, Shortness of breath R06.[address] [address] Sep, Hypertension, unspecified type I10 ; Mixed hyperlipidemia E78.2 ; BMI 40.0-44.9, adult Z68.41 ; Non-ischemic cardiomyopathy I42.8 ; Suspected sleep apnea R29.818 and Tobacco use Z72.0 [place] [id number] [place] [address] Aug, Mixed hyperlipidemia E78.2 and Elevated hemoglobin A1c R73.09 [id number] [place] [address] Aug, Uncontrolled hypertension I10 ; Shortness of breath R06.02 ; Cardiomyopathy, unspecified I42.9 and BMI 40.0-44.9, adult Z68.41 [id number] [place] [address] June, BMI 40.0-44.9, adult Z68.41 ; Chest pain, unspecified type R07.9 ; Shortness of breath R06.02 ; Hypertension, unspecified type I10 ; Mixed hyperlipidemia E78.2 ; Tobacco use Z72.0 ; Obesity, unspecified E66.9 and Body mass index (BMI) of 40.0-44.9 in adult Z68.41 [place] [address] [address] [place] [address] Apr, [place] [id number] [place] [address] 23 Apr, 2017 BMI 40.0-44.9, adult Z68.41 ; Coronary artery disease of [place] artery of [place] heart with stable angina pectoris I25.118 ; History of atrial fibrillation Z86.79 ; Murmur, cardiac R01.1 ; Mood disorder F39 ; Essential hypertension I10 and Localized edema R60.0 [place] [id number] [place] [address] 22 Apr, 2017 [facility] [address] [place], [place] [id number] Aug, Hypertension, essential I10 ; Pain in right knee M25.561 ; Pain in left knee M25.562 ; Other chronic pain G89.29 and Mood disorder F39 [place] [id number] [place] [address] May, [place] [id number] [place] [address] May, [facility] [address] [place] [id number] Jan, [place] [id number] [place] [address] Jan, IMMUNIZATIONS No Known Immunizations SOCIAL HISTORY Never Assessed REASON FOR VISIT 3 month f/u PLAN OF CARE Activity Details Follow Up after testing Reason: VITAL SIGNS Height 66 in 2018-01-13 Weight 270 lbs 2018-01-13 Heart Rate 110 bpm 2018-01-13 Respiratory Rate 20 2018-01-13 Oximetry 96 % 2018-01-13 BMI 43.57 kg/m2 2018-01-13 Blood pressure systolic 138 mmHg 2018-01-13 Blood pressure diastolic 84 mmHg 2018-01-13 MEDICATIONS Medication Instructions Dosage Frequency Start Date End Date Duration Status Verapamil HCl ER 180 MG Orally Once a day 1 tablet 24h Active Hydrochlorothiazide 25 MG Orally Once a day 1 tablet in the morning 24h Apr, 30 day(s) Active Tegretol 200 mg Orally Twice a day 1 tablet 12h Apr, 30 day(s) Active Loxapine Succinate 10 mg Orally Once a day, at night 1 capsule Active Atorvastatin Calcium 40 MG Orally Once a day 1 tablet 24h Active Naproxen 500 mg Orally every 12 hrs 1 tablet with food or milk as needed 12h Nov, Not-Taking [place] 10-325 MG Orally 2 times a day 1 tablet as needed 12h Dec, Active Metformin HCl 500 mg 1 tablet with a meal daily for 1 week, then increase to twice daily if tolerating well Aug, 30 day(s) Active Albuterol Sulfate 108 (90 Base) MCG/ACT Inhalation every 6 hrs 2 puffs as needed 6h Oct, 30 days Active Toprol XL 100 mg Orally twice a day 1 tablet 12h June, 30 days Active Lisinopril 20 mg Orally Once a day 1 tablet 24h Aug, 30 day(s) Active Ibuprofen Not-Taking Benztropine Mesylate 1 MG Orally Once a day 1 tablet at bedtime 24h Active Duloxetine HCl 60 mg Orally Once a day 1 capsule 24h Active Cyclobenzaprine HCl 10 mg Orally 2 times a day 1 tablet as needed Nov, Not-Taking HydrOXYzine Pamoate 100 mg Orally Once a day, at night 1 capsule as needed Active Excedrin Extra Strength Not-Taking RESULTS No Results PROCEDURES No Known procedures [...]
--- OUTSIDE RECORDS SUMMARY | 2018-05-25 09:17 | XMS REPORT ---
Author Author MARCO ANTONIO ROGEL Organization [facility] [place] Address [address] [place] [address] Care Team Providers Care Tire Stripper Name Role Phone MARCO ANTONIO ROGEL Unavailable PROBLEMS Type Condition ICD9-CM Code XBK38-AN Code Onset Dates Condition Status SNOMED Code Problem Mixed hyperlipidemia E78.2 Active 663085774 Problem Heart failure, unspecified I50.9 Active 78007125 Problem Obesity, unspecified E66.9 Active 77039292002645 Problem Other chronic pain G89.29 Active 67510388 Problem Sciatica, right side M54.31 Active 45981895 Problem Uncontrolled hypertension I10 Active 09763573 Problem Cardiomyopathy, unspecified I42.9 Active 39503609 Problem Sciatica, left side M54.32 Active 22060114 Problem Non-ischemic cardiomyopathy I42.8 Active 30251966 Problem Mood disorder F39 Active 96052814 Problem Coronary artery disease of [place] artery of [place] heart with stable angina pectoris I25.118 Active 0343217137634 Problem Body mass index (BMI) of 40.0-44.9 in adult Z68.41 Active 106763648 Problem Essential hypertension I10 Active 09246862 Problem Hypertension, unspecified type I10 Active 26284866 ALLERGIES Substance Reaction Event Type Date Status ibuprofen stomach upset Non Drug Allergy Dec, Active ENCOUNTERS Encounter Location Date Diagnosis [facility] [place] [address] [facility] [id number] [address] Jan, [facility] [place] [id number] [address] Dec, [place] [id number] [address] Dec, BMI 40.0-44.9, adult Z68.41 ; Pain in left hip M25.552 and Other chronic pain G89.29 [facility] [place] [id number] [place] [address] Nov, Sciatica, left side M54.32 [place] [id number] [place] [address] Oct, [place] [id number] [place] [address] Oct, [place] [address] [address] Sep, Shortness of breath R06.02 [place] [id number] [place] [address] Sep, Hypertension, unspecified type I10 ; Mixed hyperlipidemia E78.2 ; BMI 40.0-44.9, adult Z68.41 ; Non-ischemic cardiomyopathy I42.8 ; Suspected sleep apnea R29.818 and Tobacco use Z72.0 [place] [address] [address] Aug, Mixed hyperlipidemia E78.2 and Elevated hemoglobin A1c R73.09 [place] [id number] [place] [address] Aug, Uncontrolled hypertension I10 ; Shortness of breath R06.02 ; Cardiomyopathy, unspecified I42.9 and BMI 40.0-44.9, adult Z68.41 [place] [id number] [place] [address] June, BMI 40.0-44.9, adult Z68.41 ; Chest pain, unspecified type R07.9 ; Shortness of breath R06.02 ; Hypertension, unspecified type I10 ; Mixed hyperlipidemia E78.2 ; Tobacco use Z72.0 ; Obesity, unspecified E66.9 and Body mass index (BMI) of 40.0-44.9 in adult Z68.41 [place] [id number] [place] [address] Apr, [place] [id number] [address] Apr, BMI 40.0-44.9, adult Z68.41 ; Coronary artery disease of [place] artery of [place] heart with stable angina pectoris I25.118 ; History of atrial fibrillation Z86.79 ; Murmur, cardiac R01.1 ; Mood disorder F39 ; Essential hypertension I10 and Localized edema R60.[address] [place] [address] Apr, [facility] [address], [place] [id number] Aug, Hypertension, essential I10 ; Pain in right knee M25.561 ; Pain in left knee M25.562 ; Other chronic pain G89.29 and Mood disorder F39 [address] [id number] [place] [id number] May, [place] [id number] [place] [address] May, [facility] [address] [id number] Jan, [place] [id number] [place] [address] Jan, IMMUNIZATIONS No Known Immunizations SOCIAL HISTORY Never Assessed REASON FOR VISIT leg pain Pt in for follow up on Hip pain, was recently seen at [facility] for chest pain and had an MRI of hip done at that time. Was told he had a knot on hip DEE Nelson PLAN OF CARE VITAL SIGNS Height 66 in 2018-01-06 Weight 270.2 lbs 2018-01-06 Temperature 98.2 degrees Fahrenheit 2018-01-06 Heart Rate 102 bpm 2018-01-06 Respiratory Rate 22 2018-01-06 BMI 43.61 kg/m2 2018-01-06 Blood pressure systolic 148 mmHg 2018-01-06 Blood pressure diastolic 104 mmHg 2018-01-06 MEDICATIONS Medication Instructions Dosage Frequency Start Date End Date Duration Status Cyclobenzaprine HCl 10 mg Orally 2 times a day 1 tablet as needed 12h 01 Nov, 2017 Active HydrOXYzine Pamoate 100 mg Orally Once a day, at night 1 capsule as needed Active Atorvastatin Calcium 40 MG Orally Once a day 1 tablet 24h Active Albuterol Sulfate 108 (90 Base) MCG/ACT Inhalation every 6 hrs 2 puffs as needed 6h Oct, 30 days Active Chester 10-325 MG Orally 2 times a day 1 tablet as needed 12h Dec, Active Benztropine Mesylate 1 MG Orally Once a day 1 tablet at bedtime 24h Active Loxapine Succinate 10 mg Orally Once a day, at night 1 capsule Active Naproxen 500 mg Orally every 12 hrs 1 tablet with food or milk as needed 12h Nov, Active Duloxetine HCl 60 mg Orally Once a day 1 capsule 24h Active Lisinopril 20 mg Orally Once a day 1 tablet 24h Aug, 30 day(s) Active Metformin HCl 500 mg 1 tablet with a meal daily for 1 week, then increase to twice daily if tolerating well Aug, 30 day(s) Active Hydrochlorothiazide 25 MG Orally Once a day 1 tablet in the morning 24h Apr, 30 day(s) Active Excedrin Extra Strength Active Ibuprofen Active Verapamil HCl ER 180 MG Orally Once a day 1 tablet 24h Active Toprol XL 100 MG Orally Once a day 1 tablet 24h June, 30 day(s) Active Tegretol 200 mg Orally Twice a day 1 tablet 12h Apr, 30 day(s) Active RESULTS No Results PROCEDURES [...]
--- OUTSIDE RECORDS SUMMARY | 2018-05-25 09:18 | XMS REPORT | Continuity of Care Document ---
Author Author [facility] Address Unknown Phone Unavailable Allergies Active Description Code Type Severity Reaction Onset Reported/Identified Relationship to Patient Clinical Status Yes No Allergy Information Available [id number] Drug Allergy Unknown N/A 2017 Medications There is no data. Problems Date Dx Coded Attending Type Code Diagnosis Diagnosed By 02/07/2014 MARCO ANTONIO ROGEL APRN 401.9 HYPERTENSION, UNSPECIFIED ESSENTIAL 02/07/2014 MARCO ANTONIO ROGEL APRN 465.9 UPPER RESPIRATORY INFECTION 02/07/2014 MARCO ANTONIO ROGEL APRN 719.46 PAIN KNEE 07/22/2017 BAIMA, VICTORIA L FLAVOR MAKER Ot E66.9 OBESITY, UNSPECIFIED 07/22/2017 BAIMA, VICTORIA L FLAVOR MAKER Ot E78.2 MIXED HYPERLIPIDEMIA 07/22/2017 BAIMA, VICTORIA L FLAVOR MAKER Ot I10 ESSENTIAL (PRIMARY) HYPERTENSION 07/22/2017 BAIMA, VICTORIA L FLAVOR MAKER Ot R06.02 SHORTNESS OF BREATH 07/22/2017 BAIMA, VICTORIA L FLAVOR MAKER Ot R07.9 CHEST PAIN, UNSPECIFIED 07/22/2017 BAIMA, VICTORIA L FLAVOR MAKER Ot Z68.41 BODY MASS INDEX (BMI) 40.0-44.9, ADULT 07/22/2017 BAIMA, VICTORIA L FLAVOR MAKER Ot Z72.0 TOBACCO USE 09/15/2017 BAIMA, VICTORIA L FLAVOR MAKER Ot E66.9 OBESITY, UNSPECIFIED 09/15/2017 BAIMA, VICTORIA L FLAVOR MAKER Ot E78.2 MIXED HYPERLIPIDEMIA 09/15/2017 BAIMA, VICTORIA L FLAVOR MAKER Ot I10 ESSENTIAL (PRIMARY) HYPERTENSION 09/15/2017 BAIMA, VICTORIA L FLAVOR MAKER Ot R06.02 SHORTNESS OF BREATH 09/15/2017 BAIMA, VICTORIA L FLAVOR MAKER Ot R07.9 CHEST PAIN, UNSPECIFIED 09/15/2017 BAIMA, VICTORIA L FLAVOR MAKER Ot Z68.41 BODY MASS INDEX (BMI) 40.0-44.9, ADULT 09/15/2017 BAIMA, VICTORIA L FLAVOR MAKER Ot Z72.0 TOBACCO USE 09/16/2017 BAIMA, VICTORIA L FLAVOR MAKER Ot E66.9 OBESITY, UNSPECIFIED 09/16/2017 BAIMA, VICTORIA L FLAVOR MAKER Ot E78.2 MIXED HYPERLIPIDEMIA 09/16/2017 BAIMA, VICTORIA L FLAVOR MAKER Ot I10 ESSENTIAL (PRIMARY) HYPERTENSION 09/16/2017 BAIMA, VICTORIA L FLAVOR MAKER Ot R06.02 SHORTNESS OF BREATH 09/16/2017 BAIMA, VICTORIA L FLAVOR MAKER Ot R07.9 CHEST PAIN, UNSPECIFIED 09/16/2017 BAIMA, VICTORIA L FLAVOR MAKER Ot Z68.41 BODY MASS INDEX (BMI) 40.0-44.9, ADULT 09/16/2017 BAIMA, VICTORIA L FLAVOR MAKER Ot Z72.0 TOBACCO USE 09/23/2017 BAIMA, VICTORIA L FLAVOR MAKER Ot E66.9 OBESITY, UNSPECIFIED 09/23/2017 BAIMA, VICTORIA L FLAVOR MAKER Ot E78.2 MIXED HYPERLIPIDEMIA 09/23/2017 BAIMA, VICTORIA L FLAVOR MAKER Ot I10 ESSENTIAL (PRIMARY) HYPERTENSION 09/23/2017 BAIMA, VICTORIA L FLAVOR MAKER Ot R06.02 SHORTNESS OF BREATH 09/23/2017 BAIMA, VICTORIA L FLAVOR MAKER Ot R07.9 CHEST PAIN, UNSPECIFIED 09/23/2017 BAIMA, VICTORIA L FLAVOR MAKER Ot Z68.41 BODY MASS INDEX (BMI) 40.0-44.9, ADULT 09/23/2017 BAIMA, VICTORIA L FLAVOR MAKER Ot Z72.0 TOBACCO USE 11/13/2017 JASSI ROSE E 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 Ot E66.01 MORBID (SEVERE) OBESITY DUE TO EXCESS CA 11/13/2017 MILTON JASSI E 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 Ot G47.10 HYPERSOMNIA, UNSPECIFIED 11/13/2017 MILTON JASSI E 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 Ot G47.50 PARASOMNIA, UNSPECIFIED 11/13/2017 KIM ROSEINE E 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 Ot R06.00 DYSPNEA, UNSPECIFIED 11/17/2017 MILTON JASSI E 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 Ot E66.01 MORBID (SEVERE) OBESITY DUE TO EXCESS CA 11/17/2017 KIM ROSEINE E 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 Ot G47.10 HYPERSOMNIA, UNSPECIFIED 11/17/2017 MILTON, JASSI E 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 Ot G47.50 PARASOMNIA, UNSPECIFIED 11/17/2017 MILTONKIMJASSI Rai 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 Ot R06.00 DYSPNEA, UNSPECIFIED 12/11/2017 JASSI ROSE 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 Ot E66.01 MORBID (SEVERE) OBESITY DUE TO EXCESS CA 12/11/2017 KIM ROSEINE E 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 Ot G47.10 HYPERSOMNIA, UNSPECIFIED 12/11/2017 JASSI ROSE E 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 Ot G47.50 PARASOMNIA, UNSPECIFIED 12/11/2017 JASSI ROSE Rai 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 Ot R06.00 DYSPNEA, UNSPECIFIED 12/11/2017 BAIMA, VICTORIA L FLAVOR MAKER Ot E66.9 OBESITY, UNSPECIFIED 12/11/2017 BAIMA, VICTORIA L FLAVOR MAKER Ot E78.2 MIXED HYPERLIPIDEMIA 12/11/2017 BAIMA, VICTORIA L FLAVOR MAKER Ot I10 ESSENTIAL (PRIMARY) HYPERTENSION 12/11/2017 BAIMA, VICTORIA L FLAVOR MAKER Ot R06.02 SHORTNESS OF BREATH 12/11/2017 BAIMA VICTORIA L FLAVOR MAKER Ot R07.9 CHEST PAIN, UNSPECIFIED 12/11/2017 BAIMA, VICTORIA L FLAVOR MAKER Ot Z68.41 BODY MASS INDEX (BMI) 40.0-44.9, ADULT 12/11/2017 BAIMA, VICTORIA L FLAVOR MAKER Ot Z72.0 TOBACCO USE 12/15/2017 BENEDICTO TEJEDA MD Ot M16.0 BILATERAL PRIMARY OSTEOARTHRITIS OF HIP 12/15/2017 BENEDICTO TEJEDA MD Ot M17.0 BILATERAL PRIMARY OSTEOARTHRITIS OF KNEE 12/15/2017 BENEDICTO TEJEDA MD, Ot M47.817 SPONDYLS W/O MYELOPATHY OR RADICULOPATHY 12/15/2017 BENEDICTO TEJEDA MD Ot Z02.71 ENCOUNTER FOR DISABILITY DETERMINATION 12/31/2017 MARLEY RANGEL MD Ot E11.9 TYPE 2 DIABETES MELLITUS WITHOUT COMPLIC 12/31/2017 MARLEY RANGEL MD, Ot E78.00 PURE HYPERCHOLESTEROLEMIA, UNSPECIFIED 12/31/2017 MARLEY RANGEL MD Ot F17.200 NICOTINE DEPENDENCE, UNSPECIFIED, UNCOMP 12/31/2017 MARLEY RANGEL MD, Ot F32.9 MAJOR DEPRESSIVE DISORDER, SINGLE EPISOD 12/31/2017 MARLEY RANGEL MD Ot I10 ESSENTIAL (PRIMARY) HYPERTENSION 12/31/2017 MARLEY RANGEL MD, Ot J44.9 CHRONIC OBSTRUCTIVE PULMONARY DISEASE, U 12/31/2017 AMRLEY RANGEL MD, Ot M25.552 PAIN IN LEFT HIP 12/31/2017 MARLEY RANGEL MD Ot R07.89 OTHER CHEST PAIN 12/31/2017 MARLEY RANGEL MD Ot R10.13 EPIGASTRIC PAIN 01/03/2018 MARLEY RANGEL MD Ot E11.9 TYPE 2 DIABETES MELLITUS WITHOUT COMPLIC 01/03/2018 MARLEY RANGEL MD Ot E78.00 PURE HYPERCHOLESTEROLEMIA, UNSPECIFIED 01/03/2018 MARLEY RANGEL MD Ot F17.200 NICOTINE DEPENDENCE, UNSPECIFIED, UNCOMP 01/03/2018 MARLEY RANGEL MD, Ot F32.9 MAJOR DEPRESSIVE DISORDER, SINGLE EPISOD 01/03/2018 MARLEY RANGEL MD Ot I10 ESSENTIAL (PRIMARY) HYPERTENSION 01/03/2018 MARLEY RANGEL MD, Ot J44.9 CHRONIC OBSTRUCTIVE PULMONARY DISEASE, U 01/03/2018 MARLEY RANGEL MD Ot M25.552 PAIN IN LEFT HIP 01/03/2018 MARLEY RANGEL MD Ot R07.89 OTHER CHEST PAIN 01/03/2018 MARLEY RANGEL MD Ot R10.13 EPIGASTRIC PAIN 01/05/2018 VICTORIA ROBLEDO L FLAVOR MAKER Ot E66.9 OBESITY, UNSPECIFIED 01/05/2018 BAIMA, VICTORIA L FLAVOR MAKER Ot E78.2 MIXED HYPERLIPIDEMIA 01/05/2018 WILBURMA, VICTORIA L FLAVOR MAKER Ot I10 ESSENTIAL (PRIMARY) HYPERTENSION 01/05/2018 BAIMA, VICTORIA L FLAVOR MAKER Ot R06.02 SHORTNESS OF BREATH 01/05/2018 BAIMA, VICTORIA L FLAVOR MAKER Ot R07.9 CHEST PAIN, UNSPECIFIED 01/05/2018 BAIMA, VICTORIA L FLAVOR MAKER Ot Z68.41 BODY MASS INDEX (BMI) 40.0-44.9, ADULT 01/05/2018 BAIDEE VICTORIA L FLAVOR MAKER Ot Z72.0 TOBACCO USE 01/05/2018 BENEDICTO TEJEDA MD Ot M16.0 BILATERAL PRIMARY OSTEOARTHRITIS OF HIP 01/05/2018 BENEDICTO TEJEDA MD Ot M17.0 BILATERAL PRIMARY OSTEOARTHRITIS OF KNEE 01/05/2018 NIKHIL DIAMOND, BENEDICTO Cardenas Ot M47.817 SPONDYLS W/O MYELOPATHY OR RADICULOPATHY 01/05/2018 NIKHIL DIAMOND, BENEDICTO Cardenas Ot Z02.71 ENCOUNTER FOR DISABILITY DETERMINATION 01/05/2018 JASSI ROSE 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 Ot J30.9 ALLERGIC RHINITIS, UNSPECIFIED 01/05/2018 MILTONJASSI VILLELA 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 Ot J98.4 OTHER DISORDERS OF LUNG 01/05/2018 MILTON, JASSI Rai 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 Ot M79.89 OTHER SPECIFIED SOFT TISSUE DISORDERS 01/05/2018 MILTONKIM VILLELAINE Rai 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 Ot R06.02 SHORTNESS OF BREATH 01/18/2018 MILTONKIM VILLELAINE Rai 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 Ot M79.89 OTHER SPECIFIED SOFT TISSUE DISORDERS 02/09/2018 MILTONKIM VILLELAINE Rai 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 Ot J30.9 ALLERGIC RHINITIS, UNSPECIFIED 02/09/2018 MILTONKIM VILLELAINE E 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 Ot J98.4 OTHER DISORDERS OF LUNG 02/09/2018 KIM ROSEINE Rai 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 Ot M79.89 OTHER SPECIFIED SOFT TISSUE DISORDERS 02/09/2018 JASSI ROSE 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 Ot R06.02 SHORTNESS OF BREATH 02/09/2018 MILTONKIM VILLELAINE Rai 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 Ot M79.89 OTHER SPECIFIED SOFT TISSUE DISORDERS 02/10/2018 MILTONKIM VILLELAINE E 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 Ot M79.89 OTHER SPECIFIED SOFT TISSUE DISORDERS 03/05/2018 VICTORIA ROBLEDO FLAVOR MAKER Ot E66.9 OBESITY, UNSPECIFIED 03/05/2018 VICTORIA ROBLEDO FLAVOR MAKER Ot E78.2 MIXED HYPERLIPIDEMIA 03/05/2018 VICTORIA ROBLEDO FLAVOR MAKER Ot I10 ESSENTIAL (PRIMARY) HYPERTENSION 03/05/2018 VICTORIA ROBLEDO FLAVOR MAKER Ot R06.02 SHORTNESS OF BREATH 03/05/2018 VICTORIA ROBLEDO FLAVOR MAKER Ot R07.9 CHEST PAIN, UNSPECIFIED 03/05/2018 VICTORIA ROBLEDO FLAVOR MAKER Ot Z68.41 BODY MASS INDEX (BMI) 40.0-44.9, ADULT 03/05/2018 VICTORIA ROBLEDO FLAVOR MAKER Ot Z72.0 TOBACCO USE 03/05/2018 JASSI ROSE 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 Ot J30.9 ALLERGIC RHINITIS, UNSPECIFIED 03/05/2018 JASSI ROSE APRN Ot J98.4 OTHER DISORDERS OF LUNG 03/05/2018 JASSI ROSE APRN Ot M79.89 OTHER SPECIFIED SOFT TISSUE DISORDERS 03/05/2018 JASSI ROSE APRN Ot R06.02 SHORTNESS OF BREATH 03/05/2018 BENEDICTO TEJEDA MD Ot M16.0 BILATERAL PRIMARY OSTEOARTHRITIS OF HIP 03/05/2018 BENEDICTO TEJEDA MD Ot M17.0 BILATERAL PRIMARY OSTEOARTHRITIS OF KNEE 03/05/2018 BENEDICTO TEJEDA MD, Ot M47.817 SPONDYLS W/O MYELOPATHY OR RADICULOPATHY 03/05/2018 BENEDICTO TEJEDA MD Ot Z02.71 ENCOUNTER FOR DISABILITY DETERMINATION 03/05/2018 JASSI ROSE APRN Ot M79.89 OTHER SPECIFIED SOFT TISSUE DISORDERS 03/08/2018 JASSI ROSE APRN Ot M79.89 OTHER SPECIFIED SOFT TISSUE DISORDERS 03/08/2018 JASSI ROSE APRN Ot J30.9 ALLERGIC RHINITIS, UNSPECIFIED 03/08/2018 JASSI ROSE APRN Ot J98.4 OTHER DISORDERS OF LUNG 03/08/2018 JASSI ROSE 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 Ot M79.89 OTHER SPECIFIED SOFT TISSUE DISORDERS 03/08/2018 JASSI ROSE APRN Ot R06.02 SHORTNESS OF BREATH 03/08/2018 BENEDICTO TEJEDA MD Ot M16.0 BILATERAL PRIMARY OSTEOARTHRITIS OF HIP 03/08/2018 BENEDICTO TEJEDA MD Ot M17.0 BILATERAL PRIMARY OSTEOARTHRITIS OF KNEE 03/08/2018 BENEDICTO TEJEDA MD, Ot M47.817 SPONDYLS W/O MYELOPATHY OR RADICULOPATHY 03/08/2018 BENEDICTO TEJEDA MD Ot Z02.71 ENCOUNTER FOR DISABILITY DETERMINATION 03/08/2018 VICTORIA ROBLEDO FLAVOR MAKER Ot E66.9 OBESITY, UNSPECIFIED 03/08/2018 VICTORIA ROBLEDO FLAVOR MAKER Ot E78.2 MIXED HYPERLIPIDEMIA 03/08/2018 VICTORIA ROBLEDO FLAVOR MAKER Ot I10 ESSENTIAL (PRIMARY) HYPERTENSION 03/08/2018 VICTORIA ROBLEDO FLAVOR MAKER Ot R06.02 SHORTNESS OF BREATH 03/08/2018 VICTORIA ROBLEDO FLAVOR MAKER Ot R07.9 CHEST PAIN, UNSPECIFIED 03/08/2018 VICTORIA ROBLEDO FLAVOR MAKER Ot Z68.41 BODY MASS INDEX (BMI) 40.0-44.9, ADULT 03/08/2018 VICTORIA ROBLEDO FLAVOR MAKER Ot Z72.0 TOBACCO USE 03/08/2018 JASSI ROSE 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 Ot J30.9 ALLERGIC RHINITIS, UNSPECIFIED 03/08/2018 JASSI ROSE 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 Ot J98.4 OTHER DISORDERS OF LUNG 03/08/2018 JASSI ROSE 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 Ot M79.89 OTHER SPECIFIED SOFT TISSUE DISORDERS 03/08/2018 JASSI ROSE 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 Ot R06.02 SHORTNESS OF BREATH 03/08/2018 BENEDICTO TEJEDA MD Ot M16.0 BILATERAL PRIMARY OSTEOARTHRITIS OF HIP 03/08/2018 BENEDICTO TEJEDA MD Ot M17.0 BILATERAL PRIMARY OSTEOARTHRITIS OF KNEE 03/08/2018 BENEDICTO TEJEDA MD, Ot M47.817 SPONDYLS W/O MYELOPATHY OR RADICULOPATHY 03/08/2018 BENEDICTO TEJEDA MD Ot Z02.71 ENCOUNTER FOR DISABILITY DETERMINATION 03/08/2018 JASSI ROSE 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 Ot M79.89 OTHER SPECIFIED SOFT TISSUE DISORDERS 03/09/2018 JASSI ROSE 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 Ot J30.9 ALLERGIC RHINITIS, UNSPECIFIED 03/09/2018 JASSI ROSE 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 Ot J98.4 OTHER DISORDERS OF LUNG 03/09/2018 JASSI ROSE 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 Ot M79.89 OTHER SPECIFIED SOFT TISSUE DISORDERS 03/09/2018 JASSI ROSE 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 Ot R06.02 SHORTNESS OF BREATH 03/15/2018 BENEDICTO TEJEDA MD Ot M16.0 BILATERAL PRIMARY OSTEOARTHRITIS OF HIP 03/15/2018 BENEDICTO TEJEDA MD Ot M17.0 BILATERAL PRIMARY OSTEOARTHRITIS OF KNEE 03/15/2018 BENEDICTO TEJEDA MD, Ot M47.817 SPONDYLS W/O MYELOPATHY OR RADICULOPATHY 03/15/2018 BENEDICTO TEJEDA MD Ot Z02.71 ENCOUNTER FOR DISABILITY DETERMINATION 03/16/2018 BENEDICTO TEJEDA MD Ot M16.0 BILATERAL PRIMARY OSTEOARTHRITIS OF HIP 03/16/2018 BENEDICTO TEJEDA MD Ot M17.0 BILATERAL PRIMARY OSTEOARTHRITIS OF KNEE 03/16/2018 BENEDICTO TEJEDA MD, Ot M47.817 SPONDYLS W/O MYELOPATHY OR RADICULOPATHY 03/16/2018 BENEDICTO TEJEDA MD, Ot Z02.71 ENCOUNTER FOR DISABILITY DETERMINATION 03/17/2018 JASSI ROSE APRN Ot J30.9 ALLERGIC RHINITIS, UNSPECIFIED 03/17/2018 JASSI ROSE APRN Ot J98.4 OTHER DISORDERS OF LUNG 03/17/2018 JASSI ROSE APRN Ot M79.89 OTHER SPECIFIED SOFT TISSUE DISORDERS 03/17/2018 JASSI ROSE APRN Ot R06.02 SHORTNESS OF BREATH 03/17/2018 JASSI ROSE APRN Ot M79.89 OTHER SPECIFIED SOFT TISSUE DISORDERS 03/25/2018 BENEDICTO TEJEDA MD, Ot M16.0 BILATERAL PRIMARY OSTEOARTHRITIS OF HIP 03/25/2018 BENEDICTO TEJEDA MD, Ot M17.0 BILATERAL PRIMARY OSTEOARTHRITIS OF KNEE 03/25/2018 BENEDICTO TEJEDA MD, Ot M47.817 SPONDYLS W/O MYELOPATHY OR RADICULOPATHY 03/25/2018 BENEDICTO TEJEDA MD, Ot Z02.71 ENCOUNTER FOR [...] 9.8 fL 7.5-12.5 ABSOLUTE NEUTROPHILS 6270 cells/uL 4863-1103 ABSOLUTE LYMPHOCYTES 1748 cells/uL 850-3900 ABSOLUTE MONOCYTES [...] blood basophil count (count/volume) 0.1 10*3/uL 0.0-0.1 PT panel in platelet poor plasma by coagulation assay - 12/31/17 12:44 Prothrombin time (PT) in platelet poor plasma by coagulation assay 12.7 s 12.2-14.7 INR in platelet poor plasma or blood by coagulation assay 1.0 0.8-1.4 Activated partial thromboplastin time (aPTT) in platelet poor plasma bycoagulation assay - 12/31/17 12:44 Activated partial thromboplastin time (aPTT) in platelet poor plasma bycoagulation assay 27 s 24-35 Comprehensive metabolic panel - 12/31/17 12:44 Serum or plasma sodium measurement (moles/volume) 138 mmol/L 135-145 Serum or plasma potassium measurement (moles/volume) 3.6 mmol/L 3.6-5.0 Serum or plasma chloride measurement (moles/volume) 104 mmol/L 98-107 Carbon dioxide 23 mmol/L 21-32 Serum or plasma anion gap determination (moles/volume) 11 mmol/L 5-14 Serum or plasma urea nitrogen measurement (mass/volume) 9 mg/dL 7-18 Serum or plasma creatinine measurement (mass/volume) 1.03 mg/dL 0.60-1.30 Serum or plasma urea nitrogen/creatinine mass ratio 9 NRG Serum or plasma creatinine measurement with calculation of estimated glomerular filtration rate > NRG Serum or plasma glucose measurement (mass/volume) 164 mg/dL 70-105 Serum or plasma calcium measurement (mass/volume) 9.5 mg/dL 8.5-10.1 Serum or plasma total bilirubin measurement (mass/volume) 0.4 mg/dL 0.1-1.0 Serum or plasma alkaline phosphatase measurement (enzymatic activity/volume) 77 U/L 40-136 Serum or plasma aspartate aminotransferase measurement (enzymatic activity/ volume) 18 U/L 5-34 Serum or plasma alanine aminotransferase measurement (enzymatic activity/volume ) 20 U/L 0-55 Serum or plasma protein measurement (mass/volume) 7.6 g/dL 6.4-8.2 Serum or plasma albumin measurement (mass/volume) 4.1 g/dL 3.2-4.5 CALCIUM CORRECTED 9.4 mg/dL 8.5-10.1 Magnesium - 12/31/17 12:44 Magnesium 2.2 mg/dL 1.8-2.4 Serum or plasma troponin i.cardiac measurement (mass/volume) - 12/31/17 12:44 Serum or plasma troponin i.cardiac measurement (mass/volume) < ng/ mL <0.30 Myoglobin, serum - 12/31/17 12:44 Myoglobin, serum 48.9 ng/mL 10.0-92.0 Serum or plasma amylase measurement (enzymatic activity/volume) - 12/31/17 12: 44 Serum or plasma amylase measurement (enzymatic activity/volume) 48 U /L 25-125 Serum or plasma lithium measurement (moles/volume) - 12/31/17 12:44 BNP level 100.9 pg/mL <100.0 Fibrin D-dimer FEU measurement in platelet poor plasma (mass/volume) - 12:44 Fibrin D-dimer FEU measurement in platelet poor plasma (mass/volume) 0.66 ug/mL 0.00-0.49 Lipase - 12/31/17 12:44 Lipase 66 U/L 8-78 Serum or plasma troponin i.cardiac measurement (mass/volume) - 12/31/17 15:23 Serum or plasma troponin i.cardiac measurement (mass/volume) < ng/ mL <0.30 Myoglobin, serum - 12/31/17 15:23 Myoglobin, serum 52.5 ng/mL 10.0-92.0 [id number] - 01/15/18 09:24 Serum or plasma urea nitrogen measurement (mass/volume) 9 mg/dL 7-18 Serum or plasma creatinine measurement (mass/volume) 1.01 mg/dL 0.60-1.30 Serum or plasma urea nitrogen/creatinine mass ratio 9 NRG Serum or plasma creatinine measurement with calculation of estimated glomerular filtration rate > NRG Encounters ACCT No. Visit Date/Time Discharge Status Pt. Type Provider Facility Loc./Unit Complaint [id number] 02/07/2014 09:06:00 02/07/2014 23:59:59 CLS Outpatient MARCO ANTONIO ROGEL APRN [id number] 03/29/2018 08:40:00 03/29/2018 23:59:59 CLS Outpatient [facility] [id number] 09/23/2017 11:20:00 Document Registration [id number] 04/22/2018 10:54:00 04/22/2018 23:59:59 CLS Preadmit JASSI ROSE APRN [facility] RT UNSPECIFIED ASTHMA, UNCOMPLICATED [id number] 03/05/2018 10:00:00 03/05/2018 23:59:59 CLS Preadmit VICTORIA ROBLEDO [facility] CARD CHEST PAIN,UNSPECIFIED TYPE [id number] 01/15/2018 08:15:00 01/15/2018 23:59:59 CLS Outpatient MILTONJASSI 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 [facility] RAD SOB [id number] 01/04/2018 08:32:00 01/04/2018 23:59:59 CLS Outpatient JASSI ROSE 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 [facility] RT J30.1 [id number] 01/04/2018 09:45:00 01/04/2018 09:45:00 CAN Preadmit JASSI ROSE 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 [facility] RAD SOB [id number] 12/31/2017 12:35:00 12/31/2017 23:59:59 CLS Emergency CLAIRE DIAMOND, MARLEY Conti [facility] ER CHEST PAIN [id number] 12/11/2017 09:53:00 12/11/2017 23:59:59 CLS Outpatient NIKHIL DIAMOND, BENEDICTO Cardenas [facility] RAD DDU [id number] 11/12/2017 19:36:00 11/13/2017 06:05:00 DIS Outpatient JASSI ROSE 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 [facility] SLEEP SUSPECTED SLEEP APNEA,SLEEP DISORDER,SOB [id number] 09/23/2017 10:00:00 09/23/2017 23:59:59 CLS Preadmit VICTORIA ROBLEDO FLAVOR MAKER [facility] CARD CHEST PAIN,SOB, MIXED HYPERLIPIDEMIA [id number] 07/21/2017 10:52:00 07/21/2017 23:59:59 CLS Outpatient VICTORIA ROBLEDO L FLAVOR MAKER [facility] CARD CHEST PAIN,SOB [id number] 04/23/2018 08:43:00 Document Registration [id number] 07/21/2017 10:59:00 Document Registration
[2018-05-25 09:27] LABS: PROTHROMBIN TIME PATIENT 13.3 SEC (12.2-14.7)
[2018-05-25 09:33] LABS: ALANINE AMINOTRANSFERASE 33 U/L (0-55); ALBUMIN 4.1 GM/DL (3.2-4.5); ALKALINE PHOSPHATASE 92 U/L (40-136); BILIRUBIN,TOTAL 0.3 MG/DL (0.1-1.0); BUN/CREATININE RATIO 8; CALCIUM 9.1 MG/DL (8.5-10.1); CARBON DIOXIDE 22 MMOL/L (21-32); CHLORIDE 107 MMOL/L (98-107); CREATININE SERUM 1.06 MG/DL (0.60-1.30); GFR ESTIMATED > 60; GLUCOSE 145 MG/DL (70-105); LIPASE 60 U/L (8-78); MAGNESIUM 2.4 MG/DL (1.8-2.4); POTASSIUM 4.6 MMOL/L (3.6-5.0); SODIUM 138 MMOL/L (135-145); TOTAL PROTEIN 7.8 GM/DL (6.4-8.2)
[2018-05-25 09:40] LABS: MYOGLOBIN SERUM 83.3 NG/ML (10.0-92.0)
--- NOTE | 2018-05-25 09:41 | Diagnostic Imaging Report ---
INDICATION: Respiratory distress. Portable chest 9:20 AM FINDINGS: Heart size and pulmonary vascularity are both mildly increased. Lungs are clear. There are no effusions or pneumothoraces. IMPRESSION: There may be mild pulmonary venous hypertension. Dictated by: Dictated on workstation # [id number]
[2018-05-25 09:56] LABS: ABG OXYGEN SATURATION 96 % (94-100); ABG PCO2 39 MMHG (35-45); ABG PO2 77 MMHG (79-93); ABG TCO2 25.7 MMOL/L (21.0-31.0)
[2018-05-25 09:57] LABS: ALLENS TEST YES-POS; INSPIRED O2 3
[2018-05-25 09:58] LABS: PATIENT TEMP 96.5
[2018-05-25] MEDS ORDERED: predniSONE 20 MG TAB PO ONE (10:15)
[2018-05-25] MEDS ORDERED: PRD20T PO (10:15)
[2018-05-25 11:53] VITALS: BP 195/135
== END 2018-05-25 11:53 | disposition home or self-care (01) ==
LOC: EDUNIT# 08:45 → ER 08:47
DX: J45.901 Unspecified asthma with (acute) exacerbation (principal); R07.9 Chest pain, unspecified; I10 Essential (primary) hypertension; E78.00 Pure hypercholesterolemia, unspecified; J44.9 Chronic obstructive pulmonary disease, unspecified; E11.9 Type 2 diabetes mellitus without complications; F32.9 Major depressive disorder, single episode, unspecified; F12.10 Cannabis abuse, uncomplicated; F17.210 Nicotine dependence, cigarettes, uncomplicated; Z79.52 Long term (current) use of systemic steroids; Z87.09 Personal history of other diseases of the respiratory system; Z79.51 Long term (current) use of inhaled steroids; Z82.49 Family history of ischemic heart disease and other diseases of the circulatory system
CPT/HCPCS: 36415; 71045; 80053; 80320; 82805; 83605; 83690; 83735; 83874; 83880; 84484; 85025; 85610; 85730; 87040; 93041; 94640

== ENCOUNTER 2018-06-21 05:50 | Inpatient (IN) | payer MEDICAID ==
[~2018-06-21] VITALS: Ht 167.6 cm; Wt 117.9 kg
[2018-06-21] VITALS (17 sets, daily range): BP systolic 126–213; BP diastolic 73–141
[~2018-06-21 05:50] MED LIST changes: +RT-ALBUTEROL/IPRATROPIUM 3 ML (DUONEB) VIAL ONE
[2018-06-21] MEDS ORDERED: RT-IPRATROPIUM (ATROVENT) 0.5MG/2.5ML AMP IH ONE ×2 (05:53→06:00)
[2018-06-21] MEDS ORDERED: RT-ALBUTEROL SULF 2.5 MG/3 ML PRE-MIX VIAL ONE (05:53)
[2018-06-21] MEDS ORDERED: RT-ALBUTEROL SULF 2.5 MG/3 ML PRE-MIX VIAL INH STA (05:55)
[2018-06-21] MEDS ORDERED: methylPREDNISolone 125 MG (Solu-MEDROL) VIAL IV STA (05:55)
--- OUTSIDE RECORDS SUMMARY | 2018-06-21 05:57 | XMS REPORT ---
Author Author Migration, Doctor Organization [facility] Address Unknown Phone Unavailable Care Team Providers Care Vascular Neurologist Name Role Phone Migration, Doctor Unavailable Unavailable PROBLEMS Type Condition ICD9-CM Code [id number] Code Onset Dates Condition Status SNOMED Code Problem Essential hypertension I10 Active 30851986 Problem Coronary artery disease of [place] artery of [place] heart with stable angina pectoris I25.118 Active 7324674590944 Problem Mood disorder F39 Active 27291457 Problem Hypertension, unspecified type I10 Active 30265510 Problem Body mass index (BMI) of 40.0-44.9 in adult Z68.41 Active 668431649 Problem Heart failure, unspecified I50.9 Active 53102408 Problem Cardiomyopathy, unspecified I42.9 Active 17906488 Problem Uncontrolled hypertension I10 Active 69287126 Problem Other chronic pain G89.29 Active 66749064 Problem Obesity, unspecified E66.9 Active [id number] Problem Panlobular emphysema J43.1 Active 0900364 Problem Mixed hyperlipidemia E78.2 Active 468268490 Problem Non-ischemic cardiomyopathy I42.8 Active 88119469 Problem Sleep apnea in adult G47.30 Active 70445616 Problem Sciatica, left side M54.32 Active 04289608 Problem Sciatica, right side M54.31 Active 18616178 ALLERGIES No Information ENCOUNTERS Encounter Location Date Diagnosis [place] [id number] [place] [address] Apr, [place] [id number] [place] [address] Apr, Pain in left hip M25.552 [place] [id number] [place] [address] Mar, Pain in left knee M25.562 ; Mixed hyperlipidemia E78.2 ; Elevated hemoglobin A1c R73.09 and Panlobular emphysema J43.1 [place] [address] [place] [id number] [place] [address] Mar, Pain in left hip M25.552 [place] [address] [address] Dec, Pain in left hip M25.552 [place] [address] [address] 14 Dec, 2017 Essential hypertension I10 ; Shortness of breath R06.02 ; Mixed hyperlipidemia E78.2 ; History of atrial fibrillation Z86.79 ; Sleep apnea in adult G47.30 and BMI 40.0-44.9, adult Z68.[address] [address] 07 Dec, 2017 BMI 40.0-44.9, adult Z68.41 ; Pain in left hip M25.552 and Other chronic pain G89.29 [place] [address] [address] Nov, Sciatica, left side M54.32 [place] [address] [address] Oct, [place] [address] [address] Oct, [place] [address] [place] [id number] [place] [address] Sep, Shortness of breath R06.02 [place] [address] [place] [id number] [place] [address] Sep, Hypertension, unspecified type I10 ; Mixed hyperlipidemia E78.2 ; BMI 40.0-44.9, adult Z68.41 ; Non-ischemic cardiomyopathy I42.8 ; Suspected sleep apnea R29.818 and Tobacco use Z72.0 [place] [address] [place] [id number] [place] [address] Aug, Mixed hyperlipidemia E78.2 and Elevated hemoglobin A1c R73.09 [place] [address] [place] [id number] [place] [address] Aug, Uncontrolled hypertension I10 ; Shortness of breath R06.02 ; Cardiomyopathy, unspecified I42.9 and BMI 40.0-44.9, adult Z68.41 [place] [address] [place] [id number] [place] [address] June, BMI 40.0-44.9, adult Z68.41 ; Chest pain, unspecified type R07.9 ; Shortness of breath R06.02 ; Hypertension, unspecified type I10 ; Mixed hyperlipidemia E78.2 ; Tobacco use Z72.0 ; Obesity, unspecified E66.9 and Body mass index (BMI) of 40.0-44.9 in adult Z68.41 [place] [address] [place] [id number] [place] [address] Apr, [place] [address] [address] Apr, BMI 40.0-44.9, adult Z68.41 ; Coronary artery disease of [place] artery of [place] heart with stable angina pectoris I25.118 ; History of atrial fibrillation Z86.79 ; Murmur, cardiac R01.1 ; Mood disorder F39 ; Essential hypertension I10 and Localized edema R60.0 [place] [address] [place] [id number] [place] [address] Apr, [facility] [address], [place] [id number] Aug, Hypertension, essential I10 ; Pain in right knee M25.561 ; Pain in left knee M25.562 ; Other chronic pain G89.29 and Mood disorder F39 [place] [address] [place] [id number] [place] [address] May, [place] [address] [place] [id number] [place] [address] May, [facility] [address] [id number] Jan, [place] [id number] [facility] [id number] [place] [address] Jan, IMMUNIZATIONS No Known Immunizations SOCIAL HISTORY Never Assessed REASON FOR VISIT EMR-[facility] [place] CARE VITAL SIGNS MEDICATIONS Medication Instructions Dosage Frequency Start Date End Date Duration Status Bactrim DS 800-160 mg take 1 tablet by Oral route every 12 hours for 10 days Jan, Active RESULTS No Results PROCEDURES No Known [...]
--- OUTSIDE RECORDS SUMMARY | 2018-06-21 05:59 | XMS REPORT | Continuity of Care Document ---
Author Organization Unknown Address Unknown Allergies Active Description Code Type Severity Reaction Onset Reported/Identified Relationship to Patient Clinical Status Yes No Allergy Information Available [id number] Drug Allergy Unknown N/A 2017 Medications There is no data. Problems Date Dx Coded Attending Type Code Diagnosis Diagnosed By 02/07/2014 MARCO ANTONIO ROGEL APRN 401.9 HYPERTENSION, UNSPECIFIED ESSENTIAL 02/07/2014 MARCO ANTONIO ROGEL APRN 465.9 UPPER RESPIRATORY INFECTION 02/07/2014 MARCO ANTONIO ROGEL APRN 719.46 PAIN KNEE 07/22/2017 BAIMA, VICTORIA L STORAGE BATTERY CHARGER Ot E66.9 OBESITY, UNSPECIFIED 07/22/2017 BAIMA, VICTORIA L STORAGE BATTERY CHARGER Ot E78.2 MIXED HYPERLIPIDEMIA 07/22/2017 BAIMA, VICTORIA L STORAGE BATTERY CHARGER Ot I10 ESSENTIAL (PRIMARY) HYPERTENSION 07/22/2017 BAIMA, VICTORIA L STORAGE BATTERY CHARGER Ot R06.02 SHORTNESS OF BREATH 07/22/2017 BAIMA, VICTORIA L STORAGE BATTERY CHARGER Ot R07.9 CHEST PAIN, UNSPECIFIED 07/22/2017 BAIMA, VICTORIA L STORAGE BATTERY CHARGER Ot Z68.41 BODY MASS INDEX (BMI) 40.0-44.9, ADULT 07/22/2017 BAIMA, VICTORIA L STORAGE BATTERY CHARGER Ot Z72.0 TOBACCO USE 09/15/2017 BAIMA, VICTORIA L STORAGE BATTERY CHARGER Ot E66.9 OBESITY, UNSPECIFIED 09/15/2017 BAIMA, VICTORIA L STORAGE BATTERY CHARGER Ot E78.2 MIXED HYPERLIPIDEMIA 09/15/2017 BAIMA, VICTORIA L STORAGE BATTERY CHARGER Ot I10 ESSENTIAL (PRIMARY) HYPERTENSION 09/15/2017 BAIMA, VICTORIA L STORAGE BATTERY CHARGER Ot R06.02 SHORTNESS OF BREATH 09/15/2017 BAIMA, VICTORIA L STORAGE BATTERY CHARGER Ot R07.9 CHEST PAIN, UNSPECIFIED 09/15/2017 BAIMA, VICTORIA L STORAGE BATTERY CHARGER Ot Z68.41 BODY MASS INDEX (BMI) 40.0-44.9, ADULT 09/15/2017 BAIMA, VICTORIA L STORAGE BATTERY CHARGER Ot Z72.0 TOBACCO USE 09/16/2017 BAIMA, VICTORIA L STORAGE BATTERY CHARGER Ot E66.9 OBESITY, UNSPECIFIED 09/16/2017 BAIMA, VICTORIA L STORAGE BATTERY CHARGER Ot E78.2 MIXED HYPERLIPIDEMIA 09/16/2017 BAIMA, VICTORIA L STORAGE BATTERY CHARGER Ot I10 ESSENTIAL (PRIMARY) HYPERTENSION 09/16/2017 BAIMA, VICTORIA L STORAGE BATTERY CHARGER Ot R06.02 SHORTNESS OF BREATH 09/16/2017 BAIMA, VICTORIA L STORAGE BATTERY CHARGER Ot R07.9 CHEST PAIN, UNSPECIFIED 09/16/2017 BAIMA, VICTORIA L STORAGE BATTERY CHARGER Ot Z68.41 BODY MASS INDEX (BMI) 40.0-44.9, ADULT 09/16/2017 BAIMA, VICTORIA L STORAGE BATTERY CHARGER Ot Z72.0 TOBACCO USE 09/23/2017 BAIMA, VICTORIA L STORAGE BATTERY CHARGER Ot E66.9 OBESITY, UNSPECIFIED 09/23/2017 BAIMA, VICTORIA L STORAGE BATTERY CHARGER Ot E78.2 MIXED HYPERLIPIDEMIA 09/23/2017 BAIMA, VICTORIA L STORAGE BATTERY CHARGER Ot I10 ESSENTIAL (PRIMARY) HYPERTENSION 09/23/2017 BAIMA, VICTORIA L STORAGE BATTERY CHARGER Ot R06.02 SHORTNESS OF BREATH 09/23/2017 BAIMA, VICTORIA L STORAGE BATTERY CHARGER Ot R07.9 CHEST PAIN, UNSPECIFIED 09/23/2017 BAIMA, VICTORIA L STORAGE BATTERY CHARGER Ot Z68.41 BODY MASS INDEX (BMI) 40.0-44.9, ADULT 09/23/2017 BAIMA, VICTORIA L STORAGE BATTERY CHARGER Ot Z72.0 TOBACCO USE 11/13/2017 JASSI ROES GAS ADJUSTER Ot E66.01 MORBID (SEVERE) OBESITY DUE TO EXCESS CA 11/13/2017 KIM ROSEINE E GAS ADJUSTER Ot G47.10 HYPERSOMNIA, UNSPECIFIED 11/13/2017 JASSI ROSE E GAS ADJUSTER Ot G47.50 PARASOMNIA, UNSPECIFIED 11/13/2017 JASSI ROSE GAS ADJUSTER Ot R06.00 DYSPNEA, UNSPECIFIED 11/17/2017 JASSI ROSE GAS ADJUSTER Ot E66.01 MORBID (SEVERE) OBESITY DUE TO EXCESS CA 11/17/2017 JASSI ROSE E GAS ADJUSTER Ot G47.10 HYPERSOMNIA, UNSPECIFIED 11/17/2017 JASSI ROSE E GAS ADJUSTER Ot G47.50 PARASOMNIA, UNSPECIFIED 11/17/2017 JASSI ROSE GAS ADJUSTER Ot R06.00 DYSPNEA, UNSPECIFIED 12/11/2017 MILTON JASSI Rai GAS ADJUSTER Ot E66.01 MORBID (SEVERE) OBESITY DUE TO EXCESS CA 12/11/2017 JASSI ROSE Rai GAS ADJUSTER Ot G47.10 HYPERSOMNIA, UNSPECIFIED 12/11/2017 MILTON JASSI Rai GAS ADJUSTER Ot G47.50 PARASOMNIA, UNSPECIFIED 12/11/2017 JASSI ROSE Rai GAS ADJUSTER Ot R06.00 DYSPNEA, UNSPECIFIED 12/11/2017 BAIMA, VICTORIA L STORAGE BATTERY CHARGER Ot E66.9 OBESITY, UNSPECIFIED 12/11/2017 BAIMA, VICTORIA L STORAGE BATTERY CHARGER Ot E78.2 MIXED HYPERLIPIDEMIA 12/11/2017 BAIMA, VICTORIA L STORAGE BATTERY CHARGER Ot I10 ESSENTIAL (PRIMARY) HYPERTENSION 12/11/2017 BAIMA, VICTORIA L STORAGE BATTERY CHARGER Ot R06.02 SHORTNESS OF BREATH 12/11/2017 BAIMA, VICTORIA L STORAGE BATTERY CHARGER Ot R07.9 CHEST PAIN, UNSPECIFIED 12/11/2017 BAIMA, VICTORIA L STORAGE BATTERY CHARGER Ot Z68.41 BODY MASS INDEX (BMI) 40.0-44.9, ADULT 12/11/2017 BAIMA, VICTORIA L STORAGE BATTERY CHARGER Ot Z72.0 TOBACCO USE 12/15/2017 BENEDICTO TEJEDA MD Ot M16.0 BILATERAL PRIMARY OSTEOARTHRITIS OF HIP 12/15/2017 BENEDICTO TEJEDA MD Ot M17.0 BILATERAL PRIMARY OSTEOARTHRITIS OF KNEE 12/15/2017 BENEDICTO TEJEDA MD Ot M47.817 SPONDYLS W/O MYELOPATHY OR RADICULOPATHY 12/15/2017 BENEDICTO TEJEDA MD Ot Z02.71 ENCOUNTER FOR DISABILITY DETERMINATION 12/31/2017 MARLEY RANGEL MD Ot E11.9 TYPE 2 DIABETES MELLITUS WITHOUT COMPLIC 12/31/2017 MARLEY RANGEL MD, Ot E78.00 PURE HYPERCHOLESTEROLEMIA, UNSPECIFIED 12/31/2017 MARLEY RANGEL MD Ot F17.200 NICOTINE DEPENDENCE, UNSPECIFIED, UNCOMP 12/31/2017 MARLEY RANGEL MD Ot F32.9 MAJOR DEPRESSIVE DISORDER, SINGLE EPISOD 12/31/2017 MARLEY RANGEL MD Ot I10 ESSENTIAL (PRIMARY) HYPERTENSION 12/31/2017 MARLEY RANGEL MD, Ot J44.9 CHRONIC OBSTRUCTIVE PULMONARY DISEASE, U 12/31/2017 MARLEY RANGEL MD Ot M25.552 PAIN IN LEFT HIP 12/31/2017 [...] RANGEL MD Ot R10.13 EPIGASTRIC PAIN 01/05/2018 BAIVICTORIA PRICE L STORAGE BATTERY CHARGER Ot E66.9 OBESITY, UNSPECIFIED 01/05/2018 BAIMAJAYMEVICTORIA L STORAGE BATTERY CHARGER Ot E78.2 MIXED HYPERLIPIDEMIA 01/05/2018 BAIMA VICTORIA L STORAGE BATTERY CHARGER Ot I10 ESSENTIAL (PRIMARY) HYPERTENSION 01/05/2018 BAIMA VICTORIA L STORAGE BATTERY CHARGER Ot R06.02 SHORTNESS OF BREATH 01/05/2018 BAIMAJAYMEVICTORIA L STORAGE BATTERY CHARGER Ot R07.9 CHEST PAIN, UNSPECIFIED 01/05/2018 BAIMAJAYMEVICTORIA L STORAGE BATTERY CHARGER Ot Z68.41 BODY MASS INDEX (BMI) 40.0-44.9, ADULT 01/05/2018 BAIMAJAYMEVICTORIA L STORAGE BATTERY CHARGER Ot Z72.0 TOBACCO USE 01/05/2018 NIKHIL DIAMOND, BENEDICTO Cardenas Ot M16.0 BILATERAL PRIMARY OSTEOARTHRITIS OF HIP 01/05/2018 BENEDICTO TEJEDA MD, Ot M17.0 BILATERAL PRIMARY OSTEOARTHRITIS OF KNEE 01/05/2018 NIKHIL DIAMOND, BENEDICTO Cardenas Ot M47.817 SPONDYLS W/O MYELOPATHY OR RADICULOPATHY 01/05/2018 NIKHIL DIAMOND, BENEDICTO Cardeans Ot Z02.71 ENCOUNTER FOR DISABILITY DETERMINATION 01/05/2018 JASSI ROSE GAS ADJUSTER Ot J30.9 ALLERGIC RHINITIS, UNSPECIFIED 01/05/2018 MILTONKIM VILLELAINE Rai GAS ADJUSTER Ot J98.4 OTHER DISORDERS OF LUNG 01/05/2018 MILTONKIM VILLELAINE E GAS ADJUSTER Ot M79.89 OTHER SPECIFIED SOFT TISSUE DISORDERS 01/05/2018 MILTONKIM VILLELAINE Rai GAS ADJUSTER Ot R06.02 SHORTNESS OF BREATH 01/18/2018 MILTONKIM VILLELAINE Rai GAS ADJUSTER Ot M79.89 OTHER SPECIFIED SOFT TISSUE DISORDERS 02/09/2018 JASSI ROSE GAS ADJUSTER Ot J30.9 ALLERGIC RHINITIS, UNSPECIFIED 02/09/2018 MILTONJASSI VILLELA GAS ADJUSTER Ot J98.4 OTHER DISORDERS OF LUNG 02/09/2018 JASSI ROSE GAS ADJUSTER Ot M79.89 OTHER SPECIFIED SOFT TISSUE DISORDERS 02/09/2018 JASSI ROSE GAS ADJUSTER Ot R06.02 SHORTNESS OF BREATH 02/09/2018 MILTONKIM VILLELAINE Rai GAS ADJUSTER Ot M79.89 OTHER SPECIFIED SOFT TISSUE DISORDERS 02/10/2018 MILTONKIM VILLELAINE E GAS ADJUSTER Ot M79.89 OTHER SPECIFIED SOFT TISSUE DISORDERS 03/05/2018 VICTORIA ROBLEDO STORAGE BATTERY CHARGER Ot E66.9 OBESITY, UNSPECIFIED 03/05/2018 VICTORIA ROBLEDO L STORAGE BATTERY CHARGER Ot E78.2 MIXED HYPERLIPIDEMIA 03/05/2018 JAYME ROBLEDOHER L STORAGE BATTERY CHARGER Ot I10 ESSENTIAL (PRIMARY) HYPERTENSION 03/05/2018 WILBURMAVICTORIA L STORAGE BATTERY CHARGER Ot R06.02 SHORTNESS OF BREATH 03/05/2018 WILBURMAJAYMEVICTORIA L STORAGE BATTERY CHARGER Ot R07.9 CHEST PAIN, UNSPECIFIED 03/05/2018 WILBURMAJAYMEVICTORIA L STORAGE BATTERY CHARGER Ot Z68.41 BODY MASS INDEX (BMI) 40.0-44.9, ADULT 03/05/2018 VICTORIA ROBLEDO L STORAGE BATTERY CHARGER Ot Z72.0 TOBACCO USE 03/05/2018 JASSI ROSE GAS ADJUSTER Ot J30.9 ALLERGIC RHINITIS, UNSPECIFIED 03/05/2018 MILTONJASSI VILLELA GAS ADJUSTER Ot J98.4 OTHER DISORDERS OF LUNG 03/05/2018 [...] ENCOUNTER FOR DISABILITY DETERMINATION 03/05/2018 JASSI ROSE GAS ADJUSTER Ot M79.89 OTHER SPECIFIED SOFT TISSUE DISORDERS 03/08/2018 JASSI ROSE GAS ADJUSTER Ot M79.89 OTHER SPECIFIED SOFT TISSUE DISORDERS 03/08/2018 JASSI ROSE GAS ADJUSTER Ot J30.9 ALLERGIC RHINITIS, UNSPECIFIED 03/08/2018 JASSI ROSE APRN Ot J98.4 OTHER DISORDERS OF LUNG 03/08/2018 JASSI ROSE GAS ADJUSTER Ot M79.89 OTHER SPECIFIED SOFT TISSUE DISORDERS 03/08/2018 JASSI ROSE APRN Ot R06.02 SHORTNESS OF BREATH 03/08/2018 BENEDICTO TEJEDA MD Ot M16.0 BILATERAL PRIMARY OSTEOARTHRITIS OF HIP 03/08/2018 BENEDICTO TEJEDA MD Ot M17.0 BILATERAL PRIMARY OSTEOARTHRITIS OF KNEE 03/08/2018 BENEDICTO TEJEDA MD, Ot M47.817 SPONDYLS W/O MYELOPATHY OR RADICULOPATHY 03/08/2018 BENEDICTO TEJEDA MD Ot Z02.71 ENCOUNTER FOR DISABILITY DETERMINATION 03/08/2018 VICTORIA ROBLEDO STORAGE BATTERY CHARGER Ot E66.9 OBESITY, UNSPECIFIED 03/08/2018 VICTORIA ROBLEDO STORAGE BATTERY CHARGER Ot E78.2 MIXED HYPERLIPIDEMIA 03/08/2018 VICTORIA ROBLEDO STORAGE BATTERY CHARGER Ot I10 ESSENTIAL (PRIMARY) HYPERTENSION 03/08/2018 VICTORIA ROBLEDO STORAGE BATTERY CHARGER Ot R06.02 SHORTNESS OF BREATH 03/08/2018 VICTORIA ROBLEDO STORAGE BATTERY CHARGER Ot R07.9 CHEST PAIN, UNSPECIFIED 03/08/2018 VICTORIA ROBLEDO STORAGE BATTERY CHARGER Ot Z68.41 BODY MASS INDEX (BMI) 40.0-44.9, ADULT 03/08/2018 VICTORIA ROBLEDO STORAGE BATTERY CHARGER Ot Z72.0 TOBACCO USE 03/08/2018 JASSI ROSE GAS ADJUSTER Ot J30.9 ALLERGIC RHINITIS, UNSPECIFIED 03/08/2018 JASSI ROSE GAS ADJUSTER Ot J98.4 OTHER DISORDERS OF LUNG 03/08/2018 JASSI ROSE GAS ADJUSTER Ot M79.89 OTHER SPECIFIED SOFT TISSUE DISORDERS 03/08/2018 JASSI ROSE APRN Ot R06.02 SHORTNESS OF BREATH 03/08/2018 BENEDICTO TEJEDA MD Ot M16.0 BILATERAL PRIMARY OSTEOARTHRITIS OF HIP 03/08/2018 BENEDICTO TEJEDA MD Ot M17.0 BILATERAL PRIMARY OSTEOARTHRITIS OF KNEE 03/08/2018 BENEDICTO TEJEDA MD, Ot M47.817 SPONDYLS W/O MYELOPATHY OR RADICULOPATHY 03/08/2018 BENEDICTO TEJEDA MD Ot Z02.71 ENCOUNTER FOR DISABILITY DETERMINATION 03/08/2018 JASSI ROSE GAS ADJUSTER Ot M79.89 OTHER SPECIFIED SOFT TISSUE DISORDERS 03/09/2018 JASSI ROSE APRN Ot J30.9 ALLERGIC RHINITIS, UNSPECIFIED 03/09/2018 JASSI ROSE APRN Ot J98.4 OTHER DISORDERS OF LUNG 03/09/2018 JASSI ROSE GAS ADJUSTER Ot M79.89 OTHER SPECIFIED SOFT TISSUE DISORDERS 03/09/2018 JASSI ROSE APRN Ot R06.02 SHORTNESS OF BREATH 03/15/2018 BENEDICTO TEJEDA MD Ot M16.0 BILATERAL PRIMARY OSTEOARTHRITIS OF HIP 03/15/2018 BENEDICTO TEJEDA MD Ot M17.0 BILATERAL PRIMARY OSTEOARTHRITIS OF KNEE 03/15/2018 BENEDICTO TEJEDA MD, Ot M47.817 SPONDYLS W/O MYELOPATHY OR RADICULOPATHY 03/15/2018 BENEDICTO TEJEDA MD Ot Z02.71 ENCOUNTER FOR DISABILITY DETERMINATION 03/16/2018 BENEDICTO TEJEDA MD Ot M16.0 BILATERAL PRIMARY OSTEOARTHRITIS OF HIP 03/16/2018 BENEDICTO TEJEDA MD, Ot M17.0 BILATERAL PRIMARY OSTEOARTHRITIS OF KNEE 03/16/2018 BENEDICTO TEJEDA MD Ot M47.817 SPONDYLS W/O MYELOPATHY OR RADICULOPATHY 03/16/2018 BENEDICTO TEJEDA MD Ot Z02.71 ENCOUNTER FOR DISABILITY DETERMINATION 03/17/2018 JASSI ROSE APRN Ot J30.9 ALLERGIC RHINITIS, UNSPECIFIED 03/17/2018 JASSI ROSE GAS ADJUSTER Ot J98.4 OTHER DISORDERS OF LUNG 03/17/2018 JASSI ROSE GAS ADJUSTER Ot M79.89 OTHER SPECIFIED SOFT TISSUE DISORDERS 03/17/2018 JASSI ROSE GAS ADJUSTER Ot R06.02 SHORTNESS OF BREATH 03/17/2018 JASSI ROSE APRN Ot M79.89 OTHER SPECIFIED SOFT TISSUE DISORDERS 03/25/2018 BENEDICTO TEJEDA MD Ot M16.0 BILATERAL PRIMARY OSTEOARTHRITIS OF HIP 03/25/2018 BENEDICTO TEJEDA MD Ot M17.0 BILATERAL PRIMARY OSTEOARTHRITIS OF KNEE 03/25/2018 BENEDICTO TEJEDA MD Ot M47.817 SPONDYLS W/O MYELOPATHY OR RADICULOPATHY 03/25/2018 BENEDICTO TEJEDA MD Ot Z02.71 ENCOUNTER FOR DISABILITY DETERMINATION 05/25/2018 VICTORIA ROBLEDO STORAGE BATTERY CHARGER Ot E66.9 OBESITY, UNSPECIFIED 05/25/2018 VICTORIA ROBLEDO STORAGE BATTERY CHARGER Ot E78.2 MIXED HYPERLIPIDEMIA 05/25/2018 VICTORIA ROBLEDO STORAGE BATTERY CHARGER Ot I10 ESSENTIAL (PRIMARY) HYPERTENSION 05/25/2018 VICTORIA ROBLEDO STORAGE BATTERY CHARGER Ot R06.02 SHORTNESS OF BREATH 05/25/2018 VICTORIA ROBLEDO STORAGE BATTERY CHARGER Ot R07.9 CHEST PAIN, UNSPECIFIED 05/25/2018 VICTORIA ROBLEDO STORAGE BATTERY CHARGER Ot Z68.41 BODY MASS INDEX (BMI) 40.0-44.9, ADULT 05/25/2018 VICTORIA ROBLEDO STORAGE BATTERY CHARGER Ot Z72.0 TOBACCO USE 05/25/2018 JASSI ROSE GAS ADJUSTER Ot J30.9 ALLERGIC RHINITIS, UNSPECIFIED 05/25/2018 JASSI ROSE GAS ADJUSTER Ot J98.4 OTHER DISORDERS OF LUNG 05/25/2018 JASSI ROSE GAS ADJUSTER Ot M79.89 OTHER SPECIFIED SOFT TISSUE DISORDERS 05/25/2018 JASSI ROSE APRN Ot R06.02 SHORTNESS OF BREATH 05/25/2018 BENEDICTO TEJEDA MD Ot M16.0 BILATERAL PRIMARY OSTEOARTHRITIS OF HIP 05/25/2018 BENEDICTO TEJEDA MD Ot M17.0 BILATERAL PRIMARY OSTEOARTHRITIS OF KNEE 05/25/2018 BENEDITCO TEJEDA MD Ot M47.817 SPONDYLS W/O MYELOPATHY OR RADICULOPATHY 05/25/2018 BENEDICTO TEJEDA MD Ot Z02.71 ENCOUNTER FOR DISABILITY DETERMINATION 05/25/2018 JASSI ROSE APRN Ot M79.89 OTHER SPECIFIED SOFT TISSUE DISORDERS 05/27/2018 ROSALINDA CHOW MD Ot E11.9 TYPE 2 DIABETES MELLITUS WITHOUT COMPLIC 05/27/2018 ROSALINDA CHOW MD Ot E78.00 PURE HYPERCHOLESTEROLEMIA, UNSPECIFIED 05/27/2018 ROSALINDA CHOW MD Ot F12.10 CANNABIS ABUSE, UNCOMPLICATED 05/27/2018 ROSALINDA CHOW MD Ot F17.210 NICOTINE DEPENDENCE, CIGARETTES, UNCOMPL 05/27/2018 ROSALINDA CHOW MD Ot F32.9 MAJOR DEPRESSIVE DISORDER, SINGLE EPISOD 05/27/2018 ROSALINDA CHOW MD Ot I10 ESSENTIAL (PRIMARY) HYPERTENSION 05/27/2018 ROSALINDA CHOW MD Ot J44.9 CHRONIC OBSTRUCTIVE PULMONARY DISEASE, U 05/27/2018 ROSALINDA CHOW MD Ot J45.901 UNSPECIFIED ASTHMA WITH (ACUTE) EXACERBA 05/27/2018 ROSALINDA CHOW MD Ot R06.02 SHORTNESS OF BREATH 05/27/2018 ROSALINDA CHOW MD Ot R07.9 CHEST PAIN, UNSPECIFIED 05/27/2018 ROSALINDA CHOW MD Ot Z79.51 MANAGER CODE (CURRENT) USE OF INHALED STERO 05/27/2018 ROSALINDA CHOW MD Ot Z79.52 MANAGER CODE (CURRENT) USE OF SYSTEMIC STER 05/27/2018 ROSALINDA CHOW MD Ot Z82.49 FAMILY HX OF ISCHEM HEART DIS AND OTH DI 05/27/2018 ROSALINDA CHOW MD Ot Z87.09 PERSONAL HISTORY OF OTHER DISEASES OF TH Procedures There is no data. Results Test [...] 9.8 fL 7.5-12.5 ABSOLUTE NEUTROPHILS 6270 cells/uL 2775-7153 ABSOLUTE LYMPHOCYTES 1748 cells/uL 850-3900 ABSOLUTE MONOCYTES [...] 12/31/17 15:23 Myoglobin, serum 52.5 ng/mL 10.0-92.0 [id number] - 01/15/18 09:24 Serum or plasma urea nitrogen measurement (mass/volume) 9 mg/dL 7-18 Serum or plasma creatinine measurement (mass/volume) 1.01 mg/dL 0.60-1.30 Serum or plasma urea nitrogen/creatinine mass ratio 9 NRG Serum or plasma creatinine measurement with calculation of estimated glomerular filtration rate > NRG Complete blood count (CBC) with automated white blood cell (WBC) differential - 05/25/18 09:00 Blood leukocytes automated count (number/volume) 9.5 10*3/uL 4.3-11.0 Blood erythrocytes automated count (number/volume) 6.09 10*6/uL 4.35-5.85 Venous blood hemoglobin measurement (mass/volume) 15.7 g/dL 13.3-17.7 Blood hematocrit (volume fraction) 46 % 40-54 Automated erythrocyte mean corpuscular volume 76 [foz_us] 80-99 Automated erythrocyte mean corpuscular hemoglobin (mass per erythrocyte) 26 pg 25-34 Automated erythrocyte mean corpuscular hemoglobin concentration measurement ( mass/volume) 34 g/dL 32-36 Automated erythrocyte distribution width ratio 18.6 % 10.0-14.5 Automated blood platelet count (count/volume) 367 10*3/uL 130-400 Automated blood platelet mean volume measurement 9.8 [foz_us] 7.4-10.4 Automated blood neutrophils/100 leukocytes 59 % 42-75 Automated blood lymphocytes/100 leukocytes 25 % 12-44 Blood monocytes/100 leukocytes 9 % 0-12 Automated blood eosinophils/100 leukocytes 7 % 0-10 Automated blood basophils/100 leukocytes 1 % 0-10 Blood neutrophils automated count (number/volume) 5.5 10*3 1.8-7.8 Blood lymphocytes automated count (number/volume) 2.4 10*3 1.0-4.0 Blood monocytes automated count (number/volume) 0.8 10*3 0.0-1.0 Automated eosinophil count 0.7 10*3/uL 0.0-0.3 Automated blood basophil count (count/volume) 0.1 10*3/uL 0.0-0.1 Blood lactic acid measurement (moles/volume) - 05/25/18 09:00 Blood lactic acid measurement (moles/volume) 1.26 mmol/L 0.50-2.00 PT panel in platelet poor plasma by coagulation assay - 05/25/18 09:00 Prothrombin time (PT) in platelet poor plasma by coagulation assay 13.3 s 12.2-14.7 INR in platelet poor plasma or blood by coagulation assay 1.0 0.8-1.4 Activated partial thromboplastin time (aPTT) in platelet poor plasma bycoagulation assay - 05/25/18 09:00 Activated partial thromboplastin time (aPTT) in platelet poor plasma bycoagulation assay 30 s 24-35 Comprehensive metabolic panel - 05/25/18 09:00 Serum or plasma sodium measurement (moles/volume) 138 mmol/L 135-145 Serum or plasma potassium measurement (moles/volume) 4.6 mmol/L 3.6-5.0 Serum or plasma chloride measurement (moles/volume) 107 mmol/L 98-107 Carbon dioxide 22 mmol/L 21-32 Serum or plasma anion gap determination (moles/volume) 9 mmol/L 5-14 Serum or plasma urea nitrogen measurement (mass/volume) 9 mg/dL 7-18 Serum or plasma creatinine measurement (mass/volume) 1.06 mg/dL 0.60-1.30 Serum or plasma urea nitrogen/creatinine mass ratio 8 NRG Serum or plasma creatinine measurement with calculation of estimated glomerular filtration rate > NRG Serum or plasma glucose measurement (mass/volume) 145 mg/dL 70-105 Serum or plasma calcium measurement (mass/volume) 9.1 mg/dL 8.5-10.1 Serum or plasma total bilirubin measurement (mass/volume) 0.3 mg/dL 0.1-1.0 Serum or plasma alkaline phosphatase measurement (enzymatic activity/volume) 92 U/L 40-136 Serum or plasma aspartate aminotransferase measurement (enzymatic activity/ volume) 41 U/L 5-34 Serum or plasma alanine aminotransferase measurement (enzymatic activity/volume ) 33 U/L 0-55 Serum or plasma protein measurement (mass/volume) 7.8 g/dL 6.4-8.2 Serum or plasma albumin measurement (mass/volume) 4.1 g/dL 3.2-4.5 CALCIUM CORRECTED 9.0 mg/dL 8.5-10.1 Magnesium - 05/25/18 09:00 Magnesium 2.4 mg/dL 1.8-2.4 Serum or plasma troponin i.cardiac measurement (mass/volume) - 05/25/18 09:00 Serum or plasma troponin i.cardiac measurement (mass/volume) < ng/ mL <0.028 Myoglobin, serum - 05/25/18 09:00 Myoglobin, serum 83.3 ng/mL 10.0-92.0 Lipase - 05/25/18 09:00 Lipase 60 U/L 8-78 Serum or plasma ethanol measurement (mass/volume) - 05/25/18 09:00 Serum or plasma ethanol measurement (mass/volume) < mg/dL <10 Serum or plasma lithium measurement (moles/volume) - 05/25/18 09:00 BNP level 153.0 pg/mL <100.0 Bacterial blood culture - 05/25/18 09:00 Bacterial blood culture NG NRG Bacterial blood culture - 05/25/18 09:32 Bacterial blood culture NG NRG Arterial blood gas measurement - 05/25/18 09:45 Blood pCO2 39 mm[Hg] 35-45 Blood pO2 77 mm[Hg] 79-93 Arterial blood bicarbonate measurement (moles/volume) 24 mmol/L 23-27 Arterial blood base excess by calculation 0.0 mmol/L -2.5 -2.5 Arterial blood oxygen saturation measurement 96 % 94-100 * Inhaled oxygen flow rate 3 NRG Arterial blood pH measurement with patient temperature correction 7.40 7.37-7.43 Arterial blood carbon dioxide, total measurement (moles/volume) 25.7 mmol/L 21.0-31.0 Body site R RAD NRG Assessment of wrist artery patency prior to arterial puncture YES- POS NRG Setting of ventilation mode NA NRG Measurement of body temperature 96.5 NRG Serum or plasma troponin i.cardiac measurement (mass/volume) - 05/25/18 11:10 Serum or plasma troponin i.cardiac measurement (mass/volume) < ng/ mL <0.028 Encounters ACCT No. Visit Date/Time Discharge Status Pt. Type Provider Facility Loc./Unit Complaint [id number] 02/07/2014 09:06:00 02/07/2014 23:59:59 CLS Outpatient [place] [id number] 03/29/2018 08:40:00 03/29/2018 23:59:59 CLS Out[facility] [id number] 09/23/2017 11:20:00 Document Registration [id number] 05/31/2018 16:53:00 05/31/2018 23:59:59 CLS Preadmit MIKE MILES MD [facility] CARD CHEST PAIN, SOB, HTN [id number] 05/31/2018 16:50:00 05/31/2018 23:59:59 CLS Preadmit MIKE MILES MD [facility] CARD CHEST PAIN, SOB [id number] 05/25/2018 08:47:00 05/25/2018 11:53:00 DIS Outpatient GERALDO DIAMOND, ROSALINDA Iglesias [facility] ER SOA [id number] 04/22/2018 10:54:00 04/22/2018 23:59:59 CLS Preadmit KIM ROSEINE E GAS ADJUSTER [facility] RT UNSPECIFIED ASTHMA, UNCOMPLICATED [id number] 03/05/2018 10:00:00 03/05/2018 23:59:59 CLS Preadmit BAIDEE VICTORIA L STORAGE BATTERY CHARGER [facility] CARD CHEST PAIN,UNSPECIFIED TYPE [id number] 01/15/2018 08:15:00 01/15/2018 23:59:59 CLS Outpatient KIM ROSEINE E GAS ADJUSTER [facility] RAD SOB [id number] 01/04/2018 08:32:00 01/04/2018 23:59:59 CLS Outpatient KIM ROSEINE E GAS ADJUSTER [facility] RT J30.1 [id number] 01/04/2018 09:45:00 01/04/2018 09:45:00 CAN Preadmit KIM ROSEINE E GAS ADJUSTER [facility] RAD SOB [id number] 12/31/2017 12:35:00 12/31/2017 23:59:59 CLS Emergency MARLEY RANGEL MD [facility] ER CHEST PAIN [id number] 12/11/2017 09:53:00 12/11/2017 23:59:59 CLS Outpatient BENEDICTO TEJEDA MD [facility] RAD DDU [id number] 11/12/2017 19:36:00 11/13/2017 06:05:00 DIS Outpatient KIM ROSEINE E [employer]JUST[employer] [facility] SLEEP SUSPECTED SLEEP APNEA,SLEEP DISORDER,SOB [id number] 09/23/2017 10:00:00 09/23/2017 23:59:59 CLS Preadmit BAIDEE VICTORIA L [employer] [facility] CARD CHEST PAIN,SOB, MIXED HYPERLIPIDEMIA [id number] 07/21/2017 10:52:00 07/21/2017 23:59:59 CLS Outpatient BAIVICTORIA PRICE [facility] CARD CHEST PAIN,SOB [id number] 06/30/2018 08:30:00 PEN Preadmit JASSI ROSE APRN [facility] RAD ALLERGIC RHINITIS,SLEEP DISORDER, CHRONIC COUGH [id number] 06/21/2018 05:53:00 ACT Emergency CLAIRE DIAMOND, MARELY Conti [facility] ER TROUBLE BREATHING [id number] 04/23/2018 08:43:00 Document Registration [id number] 07/21/2017 10:59:00 Document Registration
[2018-06-21] MEDS ORDERED: RT-ALBUTEROL/IPRATROPIUM 3 ML (DUONEB) VIAL INH ONE (06:00)
[2018-06-21] MEDS ORDERED: NITROGLYCERIN 2% OINT 1 GM UNIT DOSE PACKET ONE (06:14)
[2018-06-21] MEDS: NITRO DRIP 25000 MCG/D5W 250 ML IV SCH (06:25)
[2018-06-21 06:27] LABS: BASOPHILS # (AUTO) 0.1 10^3/uL (0.0-0.1); BASOPHILS % (AUTO) 1 % (0-10); EOSINOPHILS # (AUTO) 0.7 10^3/uL (0.0-0.3); EOSINOPHILS % (AUTO) 8 % (0-10); HEMATOCRIT 46 % (40-54); HEMOGLOBIN 15.4 G/DL (13.3-17.7); LYMPHOCYTES # (AUTO) 2.5 X 10^3 (1.0-4.0); LYMPHOCYTES % (AUTO) 26 % (12-44); MEAN CORPUSCULAR HEMOGLOBIN 25 PG (25-34); MEAN CORPUSCULAR HGB CONC 33 G/DL (32-36); MEAN CORPUSCULAR VOLUME 77 FL (80-99); MEAN PLATELET VOLUME 9.8 FL (7.4-10.4); MONOCYTES # (AUTO) 0.8 X 10^3 (0.0-1.0); MONOCYTES % (AUTO) 9 % (0-12); NEUTROPHILS # (AUTO) 5.5 X 10^3 (1.8-7.8); NEUTROPHILS % (AUTO) 57 % (42-75); PLATELET COUNT 376 10^3/uL (130-400); RED CELL DISTRIBUTION WIDTH 17.4 % (10.0-14.5); WHITE BLOOD COUNT 9.7 10^3/uL (4.3-11.0)
[2018-06-21] MEDS ORDERED: NITROGLYCERIN 2% OINT 1 GM UNIT DOSE PACKET TOP ONE ×2 (06:30→07:45)
[2018-06-21 06:39] LABS: INR 0.9 (0.8-1.4); PROTHROMBIN TIME PATIENT 12.8 SEC (12.2-14.7)
[2018-06-21 06:46] LABS: ALANINE AMINOTRANSFERASE 55 U/L (0-55); ALBUMIN 4.1 GM/DL (3.2-4.5); ALKALINE PHOSPHATASE 110 U/L (40-136); BILIRUBIN,TOTAL 0.5 MG/DL (0.1-1.0); BUN/CREATININE RATIO 10; CALCIUM 9.5 MG/DL (8.5-10.1); CARBON DIOXIDE 21 MMOL/L (21-32); CHLORIDE 103 MMOL/L (98-107); CREATININE SERUM 1.18 MG/DL (0.60-1.30); GFR ESTIMATED > 60; GLUCOSE 237 MG/DL (70-105); MAGNESIUM 2.4 MG/DL (1.8-2.4); POTASSIUM 3.7 MMOL/L (3.6-5.0); SODIUM 139 MMOL/L (135-145); TOTAL PROTEIN 7.7 GM/DL (6.4-8.2)
--- NOTE | 2018-06-21 07:00 | NUR ---
REPORT GIVEN TO KEYANA MIKE TO ASSUME CARE OF PT @ THIS TIME.
--- NOTE | 2018-06-21 07:08 | ED Respiratory ---
General Chief Complaint: Respiratory Problems Stated Complaint: TROUBLE BREATHING Nursing Triage Note: ASSISTED PT FROM POV TO ROOM #5 VIA ED W/C. PT NOTED TO BE EXCESSIVELY DIAPHORETIC, SOB, LABORED BREATHING, AND GASPING FOR AIR. PT REPORTS HE WAS AWOKEN THIS AM WITH SEVERE SHORTNESS OF AIR. DIMINISHED BREATH SOUNDS HEARD THROUGHOUT LUNG RAMIRES. INITIAL O2 SAT 79% VIA RA. 10L OXYMASK APPLIED. Source: patient, family Exam Limitations: no limitations History of Present Illness Date Seen by Provider: Jun 21, 2018 Time Seen by Provider: 06:15 Initial Comments This is a 58-year-old male presents in severe respiratory distress. Patient was brought to the emergency department by private vehicle. The patient was able to report that he awoke this morning with severe shortness of breath. The patient was satting 79 percent on room air. The patient was initially resuscitated by Dr. Rangel and the nursing staff with 100 percent oxygen, BiPAP, and nitroglycerin ointment applied to the anterior chest. The patient was able to relate they have had similar episodes in the past treated by Dr. Rios. Patient has been referred to Dr. Palma. No evaluation by cardiology has had occurred. The patient denies associated fever, chills, productive cough, chest pain, palpitations, dramatic change in peripheral edema, renal impairment, or acute change in medications. Allergies and Home Medications Allergies Coded Allergies: No Allergy Information Available (Unverified , 07/21/17) Home Medications Hydrocodone Bit/Acetaminophen 1 Ea Tablet, 1 EACH PO Q6H Prescribed by: MARLEY RANGEL on 12/31/17 1621 Prednisone 20 Mg Tab, 40 MG PO DAILY Prescribed by: MARLEY RANGEL on 12/31/17 1621 Prednisone 20 Mg Tab, 40 MG PO DAILY Prescribed by: ROSALINDA CHOW on 05/25/18 1015 Patient Home Medication List Home Medication List Reviewed: Yes Review of Systems Review of Systems Constitutional: No chills, No fever EENTM: No ear discharge, No ear pain Respiratory: see HPI; No hemoptysis; short of breath Cardiovascular: No chest pain, No palpitations Gastrointestinal: No abdominal pain Genitourinary: No decreased output Musculoskeletal: No back pain Skin: No change in color, No rash Psychiatric/Neurological: No Symptoms Reported Hematologic/Lymphatic: No Symptoms Reported Immunological/Allergic: no symptoms reported Past Zgauexq-Kohmfc-Cypbfv Hx Past Med/Social Hx: Reviewed Nursing Past Med/Soc Hx Patient Social History Alcohol Use: Occasionally Uses Number of Drinks Today: 0 Alcohol Beverage of Choice: Cheap Liquor Recreational Drug Use: No Drug of Choice: marijuana Smoking Status: Current Everyday Smoker Type Used: Cigarettes 2nd Hand Smoke Exposure: Yes Recent Foreign Travel: No Contact w/Someone Who Travel: No Recent Infectious Disease Expo: No Immunizations Up To Date Tetanus Booster (TDap): Unknown PED Vaccines UTD: Yes Past Medical History Surgeries: No Respiratory: Yes COPD Currently Using CPAP: No Cardiac: Yes High Cholesterol, Hypertension Neurological: No Genitourinary: No Gastrointestinal: No Musculoskeletal: Yes Arthritis Endocrine: Yes Diabetes, Non-Insulin dep HEENT: No Cancer: No Psychosocial: Yes Depression Integumentary: No Physical Exam Vital Signs - First Documented 06/21/18 06/21/18 05:50 06:07 Temp 97.7 Pulse 141 Resp 39 B/P (MAP) 178/140 (153) Pulse Ox 88 O2 Delivery OxyMask O2 Flow Rate 100.00 Capillary Refill : Less Than 3 Seconds Height: 5'6.00" Weight: 260lbs. oz. [phone]; BMI Method:Stated General Appearance: severe distress, obese Eyes: Bilateral Eye Normal Inspection HEENT: normal ENT inspection Neck: non-tender, supple Respiratory: decreased breath sounds, wheezing Cardiovascular: no murmur, tachycardia Gastrointestinal: normal bowel sounds, non tender, soft Extremities: normal range of motion, normal inspection Neurologic/Psychiatric: no motor/sensory deficits, alert, normal mood/affect, oriented x 3 Skin: normal color, diaphoresis Focused Exam Lactate Level 06/21/18 06:10: Lactic Acid Level 2.47*H Lactic Acid Level Laboratory Tests Test 06/21/18 06:10 Lactic Acid Level 2.47 MMOL/L (0.50-2.00) *H Progress/Results/Core Measures Suspected Sepsis Recent Fever Within 48 Hours: No Infection Criteria Present: Suspected New Infection New/Unexplained Altered Menta: No Sepsis Screen: Possible Sepsis Risk SIRS Temperature:97.7 Pulse: 105 Respiratory Rate: 24 Laboratory Tests 06/21/18 06:10: White Blood Count 9.7 Blood Pressure 176 /124 Mean: 141 06/21/18 06:10: Lactic Acid Level 2.47*H Laboratory Tests 06/21/18 06:10: Creatinine 1.18, INR Comment 0.9, Platelet Count 376, Total Bilirubin 0.5 Results/Orders Lab Results Laboratory Tests Test 06/21/18 06:10 Range/Units White Blood Count 9.7 4.3-11.0 10^3/uL Red Blood Count 6.06 H 4.35-5.85 10^6/uL Hemoglobin 15.4 13.3-17.7 G/DL Hematocrit 46 40-54 % Mean Corpuscular Volume 77 L 80-99 FL Mean Corpuscular Hemoglobin 25 25-34 PG Mean Corpuscular Hemoglobin Concent 33 32-36 G/DL Red Cell Distribution Width 17.4 H 10.0-14.5 % Platelet Count 376 130-400 10^3/uL Mean Platelet Volume 9.8 7.4-10.4 FL Neutrophils (%) (Auto) 57 42-75 % Lymphocytes (%) (Auto) 26 12-44 % Monocytes (%) (Auto) 9 0-12 % Eosinophils (%) (Auto) 8 0-10 % Basophils (%) (Auto) 1 0-10 % Neutrophils # (Auto) 5.5 1.8-7.8 X 10^3 Lymphocytes # (Auto) 2.5 1.0-4.0 X 10^3 Monocytes # (Auto) 0.8 0.0-1.0 X 10^3 Eosinophils # (Auto) 0.7 H 0.0-0.3 10^3/uL Basophils # (Auto) 0.1 0.0-0.1 10^3/uL Prothrombin Time 12.8 12.2-14.7 SEC INR Comment 0.9 0.8-1.4 Activated Partial Thromboplast Time 28 24-35 SEC D-Dimer 1.34 H 0.00-0.49 UG/ML Sodium Level 139 135-145 MMOL/L Potassium Level 3.7 3.6-5.0 MMOL/L Chloride Level 103 98-107 MMOL/L Carbon Dioxide Level 21 21-32 MMOL/L Anion Gap 15 H 5-14 MMOL/L Blood Urea Nitrogen 12 7-18 MG/DL Creatinine 1.18 0.60-1.30 MG/DL Estimat Glomerular Filtration Rate > 60 BUN/Creatinine Ratio 10 Glucose Level 237 H 70-105 MG/DL Lactic Acid Level 2.47 *H 0.50-2.00 MMOL/L Calcium Level 9.5 8.5-10.1 MG/DL Corrected Calcium 9.4 8.5-10.1 MG/DL Magnesium Level 2.4 1.8-2.4 MG/DL Total Bilirubin 0.5 0.1-1.0 MG/DL Aspartate Amino Transf (AST/SGOT) 57 H 5-34 U/L Alanine Aminotransferase (ALT/SGPT) 55 0-55 U/L Alkaline Phosphatase 110 40-136 U/L Troponin I 0.053 H <0.028 NG/ML C-Reactive Protein High Sensitivity 1.77 H 0.00-0.50 MG/DL B-Type Natriuretic Peptide 141.1 H <100.0 PG/ML Total Protein 7.7 6.4-8.2 GM/DL Albumin 4.1 3.2-4.5 GM/DL My Orders Orders - DC GARCIA MD BNP (06/21/18 07:12) Troponin I (06/21/18 07:12) Fibrin Degradation Products (06/21/18 07:12) Ekg Tracing (06/21/18 07:12) Furosemide Injection (Lasix Injection) (06/21/18 07:30) Nitroglycerin Ointment (Nitrobid Ointme (06/21/18 07:45) Arterial Blood Gas (06/21/18 07:32) Fibrin Degradation Products (06/21/18 07:59) Medications Given in ED Current Medications Medications Dose Ordered Sig/Michaelle Route Start Time Stop Time Status Last Admin Dose Admin Albuterol/ Ipratropium 3 ml ONCE ONCE INH 06/21/18 06:00 06/21/18 06:01 DC 06/21/18 06:07 3 ML Furosemide 40 mg ONCE ONCE IVP 06/21/18 07:30 06/21/18 07:31 DC 06/21/18 07:41 40 MG Ipratropium Wilson 0.5 mg ONCE ONCE IH 06/21/18 06:00 06/21/18 06:01 DC 06/21/18 06:07 0.5 MG Nitroglycerin 1 inch ONCE ONCE TOP 06/21/18 06:30 06/21/18 06:31 DC 06/21/18 06:15 1 INCH Nitroglycerin 1 inch ONCE ONCE TOP 06/21/18 07:45 06/21/18 07:46 DC 06/21/18 07:41 1 INCH Vital Signs/I&O 06/21/18 06/21/18 06/21/18 05:50 06:07 06:25 Temp 97.7 97.7 Pulse 141 119 105 Resp 39 24 B/P (MAP) 178/140 (153) 176/124 Pulse Ox 88 99 100 O2 Delivery OxyMask NIV/CPAP O2 Flow Rate 100.00 Capillary Refill : Less Than 3 Seconds Blood Pressure Mean: 141 Progress Note : Time: 07:08 Progress Note The patient was given IV Solu-Medrol and 25 mg IV, Nitropaste to the anterior chest which was changed to a nitroglycerin drip, and 100 percent oxygen on BiPAP. On this regimen the patient dramatically improved. His sat which had been 79 percent on room air increased to 100 percent. The patient's blood pressure which had been markedly elevated upon presentation was improved to approximately 170/120 with a nitroglycerin drip. 8:00 am I visit with Dr. Rios who was kind enough to see the patient in the emergency department. We will try to admit the patient to cardiac stepdown under Dr. Almeida's care. Dr. Almeida was kind enough to accept the patient. We have discontinued the nitroglycerin drip and given the patient 1 inch of Nitropaste. The patient's chest x-ray was consistent with CHF. The patient was given 40 mg Lasix IV. The patient's BiPAP on 100 percent oxygen has been titrated down significantly by Dr. Rios. Orders have been written for the patient to go to the cardiac stepdown unit. At this juncture were awaiting the results of the ABG. Patient will be transferred to cardiac stepdown shortly. A consult has been placed for cardiology to see the patient today as well. ECG Initial ECG Impression Date: Jun 21, 2018 Initial ECG Impression Time: 08:03 Initial ECG Rate: 99 Initial ECG Rhythm: Normal Sinus Initial ECG Intervals: Normal Initial ECG Impression: Nonspecific Changes Departure Communication (Admissions) Time/Spoke to Admitting Phy: 08:04 Dr. Almeida. Time/Spoke to Consulting Phy: 08:04 Dr. Rios. Impression Primary Impression: Respiratory failure Qualified Codes: J96.01 - Acute respiratory failure with hypoxia Additional Impressions: CHF (congestive heart failure) Qualified Codes: I50.9 - Heart failure, unspecified COPD exacerbation Disposition: ADMITTED INPATIENT Condition: Improved Admissions Decision to Admit Reason: Admit from ER (General) Decision to Admit/Date: Jun 21, 2018 Time/Decision to Admit Time: 08:05 Departure-Patient Inst. Referrals: [facility] (PCP/Family) Primary Care Physician DC GARCIA MD Jun 21, 2018 07:08
[2018-06-21] MEDS ORDERED: FUROSEMIDE 40 MG/4 ML INJ (LASIX) IVP ONE (07:30)
--- NOTE | 2018-06-21 07:34 | NUR ---
Dr. Rios in room at this time. Dr. Rios titrated pt's O2 down to 70% on c-pap at this time.
--- NOTE | 2018-06-21 07:38 | NUR ---
Dr. Vu titrated pt's O2 down to 65% on c-pap at this time. Pt O2 sat 100%.
--- NOTE | 2018-06-21 07:40 | Diagnostic Imaging Report ---
INDICATION: Shortness of breath. COMPARISON: 05/25/2018 FINDINGS: Single view of the chest demonstrates cardiac enlargement with slight central vascular congestion. No pneumothorax or effusion is seen. Osseous structures are age-appropriate. IMPRESSION: Cardiac enlargement with slight central vascular congestion. Dictated by: Dictated on workstation # [id number]
--- NOTE | 2018-06-21 07:43 | NUR ---
Dr. Rios titrated pt's O2 down to 55% on c-pap at this time. Pt's O2 98% at this time.
--- NOTE | 2018-06-21 08:00 | NUR ---
300 ml urine out at this time.
--- OUTSIDE RECORDS SUMMARY | 2018-06-21 08:28 | XMS REPORT | Continuity of Care Document ---
Author Organization Unknown Address Unknown Allergies Active Description Code Type Severity Reaction Onset Reported/Identified Relationship to Patient Clinical Status Yes No Allergy Information Available [id number] Drug Allergy Unknown N/A 2017 Medications There is no data. Problems Date Dx Coded Attending Type Code Diagnosis Diagnosed By 02/07/2014 MARCO ANTONIO ROGEL APRN 401.9 HYPERTENSION, UNSPECIFIED ESSENTIAL 02/07/2014 MARCO ANTONIO ROGEL APRN 465.9 UPPER RESPIRATORY INFECTION 02/07/2014 MARCO ANTONIO ROGEL APRN 719.46 PAIN KNEE 07/22/2017 BAIMA, VICTORIA L SHODER FILLER Ot E66.9 OBESITY, UNSPECIFIED 07/22/2017 BAIMA, VICTORIA L SHODER FILLER Ot E78.2 MIXED HYPERLIPIDEMIA 07/22/2017 BAIMA, VICTORIA L SHODER FILLER Ot I10 ESSENTIAL (PRIMARY) HYPERTENSION 07/22/2017 BAIMA, VICTORIA L SHODER FILLER Ot R06.02 SHORTNESS OF BREATH 07/22/2017 BAIMA, VICTORIA L SHODER FILLER Ot R07.9 CHEST PAIN, UNSPECIFIED 07/22/2017 BAIMA, VICTORIA L SHODER FILLER Ot Z68.41 BODY MASS INDEX (BMI) 40.0-44.9, ADULT 07/22/2017 BAIMA, VICTORIA L SHODER FILLER Ot Z72.0 TOBACCO USE 09/15/2017 BAIMA, VICTORIA L SHODER FILLER Ot E66.9 OBESITY, UNSPECIFIED 09/15/2017 BAIMA, VICTORIA L SHODER FILLER Ot E78.2 MIXED HYPERLIPIDEMIA 09/15/2017 BAIMA, VICTORIA L SHODER FILLER Ot I10 ESSENTIAL (PRIMARY) HYPERTENSION 09/15/2017 BAIMA, VICTORIA L SHODER FILLER Ot R06.02 SHORTNESS OF BREATH 09/15/2017 BAIMA, VICTORIA L SHODER FILLER Ot R07.9 CHEST PAIN, UNSPECIFIED 09/15/2017 BAIMA, VICTORIA L SHODER FILLER Ot Z68.41 BODY MASS INDEX (BMI) 40.0-44.9, ADULT 09/15/2017 BAIMA, VICTORIA L SHODER FILLER Ot Z72.0 TOBACCO USE 09/16/2017 BAIMA, VICTORIA L SHODER FILLER Ot E66.9 OBESITY, UNSPECIFIED 09/16/2017 BAIMA, VICTORIA L SHODER FILLER Ot E78.2 MIXED HYPERLIPIDEMIA 09/16/2017 BAIMA, VICTORIA L SHODER FILLER Ot I10 ESSENTIAL (PRIMARY) HYPERTENSION 09/16/2017 BAIMA, VICTORIA L SHODER FILLER Ot R06.02 SHORTNESS OF BREATH 09/16/2017 BAIMA, VICTORIA L SHODER FILLER Ot R07.9 CHEST PAIN, UNSPECIFIED 09/16/2017 BAIMA, VICTORIA L SHODER FILLER Ot Z68.41 BODY MASS INDEX (BMI) 40.0-44.9, ADULT 09/16/2017 BAIMA, VICTORIA L SHODER FILLER Ot Z72.0 TOBACCO USE 09/23/2017 BAIMA, VICTORIA L SHODER FILLER Ot E66.9 OBESITY, UNSPECIFIED 09/23/2017 BAIMA, VICTORIA L SHODER FILLER Ot E78.2 MIXED HYPERLIPIDEMIA 09/23/2017 BAIMA, VICTORIA L SHODER FILLER Ot I10 ESSENTIAL (PRIMARY) HYPERTENSION 09/23/2017 BAIMA, VICTORIA L SHODER FILLER Ot R06.02 SHORTNESS OF BREATH 09/23/2017 BAIMA, VICTORIA L SHODER FILLER Ot R07.9 CHEST PAIN, UNSPECIFIED 09/23/2017 BAIMA, VICTORIA L SHODER FILLER Ot Z68.41 BODY MASS INDEX (BMI) 40.0-44.9, ADULT 09/23/2017 BAIMA, VICTORIA L SHODER FILLER Ot Z72.0 TOBACCO USE 11/13/2017 JASSI ROSE POST ADOPTION COORDINATOR Ot E66.01 MORBID (SEVERE) OBESITY DUE TO EXCESS CA 11/13/2017 KIM ROSEINE E POST ADOPTION COORDINATOR Ot G47.10 HYPERSOMNIA, UNSPECIFIED 11/13/2017 JASSI ROSE E POST ADOPTION COORDINATOR Ot G47.50 PARASOMNIA, UNSPECIFIED 11/13/2017 JASSI ROSE POST ADOPTION COORDINATOR Ot R06.00 DYSPNEA, UNSPECIFIED 11/17/2017 JASSI ROSE POST ADOPTION COORDINATOR Ot E66.01 MORBID (SEVERE) OBESITY DUE TO EXCESS CA 11/17/2017 JASSI ROSE E POST ADOPTION COORDINATOR Ot G47.10 HYPERSOMNIA, UNSPECIFIED 11/17/2017 JASSI ROSE E POST ADOPTION COORDINATOR Ot G47.50 PARASOMNIA, UNSPECIFIED 11/17/2017 JASSI ROSE POST ADOPTION COORDINATOR Ot R06.00 DYSPNEA, UNSPECIFIED 12/11/2017 MILTON JASSI Rai POST ADOPTION COORDINATOR Ot E66.01 MORBID (SEVERE) OBESITY DUE TO EXCESS CA 12/11/2017 JASSI ROSE Rai POST ADOPTION COORDINATOR Ot G47.10 HYPERSOMNIA, UNSPECIFIED 12/11/2017 MILTON JASSI Rai POST ADOPTION COORDINATOR Ot G47.50 PARASOMNIA, UNSPECIFIED 12/11/2017 JASSI ROSE Rai POST ADOPTION COORDINATOR Ot R06.00 DYSPNEA, UNSPECIFIED 12/11/2017 BAIMA, VICTORIA L SHODER FILLER Ot E66.9 OBESITY, UNSPECIFIED 12/11/2017 BAIMA, VICTORIA L SHODER FILLER Ot E78.2 MIXED HYPERLIPIDEMIA 12/11/2017 BAIMA, VICTORIA L SHODER FILLER Ot I10 ESSENTIAL (PRIMARY) HYPERTENSION 12/11/2017 BAIMA, VICTORIA L SHODER FILLER Ot R06.02 SHORTNESS OF BREATH 12/11/2017 BAIMA, VICTORIA L SHODER FILLER Ot R07.9 CHEST PAIN, UNSPECIFIED 12/11/2017 BAIMA, VICTORIA L SHODER FILLER Ot Z68.41 BODY MASS INDEX (BMI) 40.0-44.9, ADULT 12/11/2017 BAIMA, VICTORIA L SHODER FILLER Ot Z72.0 TOBACCO USE 12/15/2017 BENEDICTO TEJEDA [...] R10.13 EPIGASTRIC PAIN 01/05/2018 BAIVICTORIA PRICE L SHODER FILLER Ot E66.9 OBESITY, UNSPECIFIED 01/05/2018 BAIMAJAYMEVICTORIA L SHODER FILLER Ot E78.2 MIXED HYPERLIPIDEMIA 01/05/2018 BAIMA VICTORIA L SHODER FILLER Ot I10 ESSENTIAL (PRIMARY) HYPERTENSION 01/05/2018 BAIMA VICTORIA L SHODER FILLER Ot R06.02 SHORTNESS OF BREATH 01/05/2018 BAIMAJAYMEVICTORIA L SHODER FILLER Ot R07.9 CHEST PAIN, UNSPECIFIED 01/05/2018 BAIMAJAYMEVICTORIA L SHODER FILLER Ot Z68.41 BODY MASS INDEX (BMI) 40.0-44.9, ADULT 01/05/2018 BAIMAJAYMEVICTORIA L SHODER FILLER Ot Z72.0 TOBACCO USE 01/05/2018 NIKHIL DIAMOND, BENEDICTO Cardenas Ot M16.0 BILATERAL PRIMARY OSTEOARTHRITIS OF HIP 01/05/2018 BENEDICTO TEJEDA MD, Ot M17.0 BILATERAL PRIMARY OSTEOARTHRITIS OF KNEE 01/05/2018 NIKHIL DIAMOND, BENEDICTO Cardenas Ot M47.817 SPONDYLS W/O MYELOPATHY OR RADICULOPATHY 01/05/2018 NIKHIL DIAMOND, BENEDICTO Cardenas Ot Z02.71 ENCOUNTER FOR DISABILITY DETERMINATION 01/05/2018 JASSI ROSE POST ADOPTION COORDINATOR Ot J30.9 ALLERGIC RHINITIS, UNSPECIFIED 01/05/2018 MILTONKIM VILLELAINE Ria POST ADOPTION COORDINATOR Ot J98.4 OTHER DISORDERS OF LUNG 01/05/2018 MILTONKIM VILLELAINE E POST ADOPTION COORDINATOR Ot M79.89 OTHER SPECIFIED SOFT TISSUE DISORDERS 01/05/2018 MILTONKIM VILLELAINE Rai POST ADOPTION COORDINATOR Ot R06.02 SHORTNESS OF BREATH 01/18/2018 MILTONKIM VILLELAINE Rai POST ADOPTION COORDINATOR Ot M79.89 OTHER SPECIFIED SOFT TISSUE DISORDERS 02/09/2018 JASSI ROSE POST ADOPTION COORDINATOR Ot J30.9 ALLERGIC RHINITIS, UNSPECIFIED 02/09/2018 MILTONJASSI VILLELA POST ADOPTION COORDINATOR Ot J98.4 OTHER DISORDERS OF LUNG 02/09/2018 JASSI ROSE POST ADOPTION COORDINATOR Ot M79.89 OTHER SPECIFIED SOFT TISSUE DISORDERS 02/09/2018 JASSI ROSE POST ADOPTION COORDINATOR Ot R06.02 SHORTNESS OF BREATH 02/09/2018 MILTONKIM VILLELAINE Rai POST ADOPTION COORDINATOR Ot M79.89 OTHER SPECIFIED SOFT TISSUE DISORDERS 02/10/2018 MILTONKIM VILLELAINE E POST ADOPTION COORDINATOR Ot M79.89 OTHER SPECIFIED SOFT TISSUE DISORDERS 03/05/2018 VICTORIA ROBLEDO SHODER FILLER Ot E66.9 OBESITY, UNSPECIFIED 03/05/2018 VICTORIA ROBLEDO L SHODER FILLER Ot E78.2 MIXED HYPERLIPIDEMIA 03/05/2018 JAYME ORBLEDOHER L SHODER FILLER Ot I10 ESSENTIAL (PRIMARY) HYPERTENSION 03/05/2018 WILBURMAVICTORIA L SHODER FILLER Ot R06.02 SHORTNESS OF BREATH 03/05/2018 WILBURMAJAYMEVICTORIA L SHODER FILLER Ot R07.9 CHEST PAIN, UNSPECIFIED 03/05/2018 WILBURMAJAYMEVICTORIA L SHODER FILLER Ot Z68.41 BODY MASS INDEX (BMI) 40.0-44.9, ADULT 03/05/2018 VICTORIA ROBLEDO L SHODER FILLER Ot Z72.0 TOBACCO USE 03/05/2018 JASSI ROSE POST ADOPTION COORDINATOR Ot J30.9 ALLERGIC RHINITIS, UNSPECIFIED 03/05/2018 MILTONJASSI VILLELA POST ADOPTION COORDINATOR Ot J98.4 OTHER DISORDERS OF LUNG 03/05/2018 [...] ENCOUNTER FOR DISABILITY DETERMINATION 03/05/2018 JASSI ROSE POST ADOPTION COORDINATOR Ot M79.89 OTHER SPECIFIED SOFT TISSUE DISORDERS 03/08/2018 JASSI ROSE POST ADOPTION COORDINATOR Ot M79.89 OTHER SPECIFIED SOFT TISSUE DISORDERS 03/08/2018 JASSI ROSE POST ADOPTION COORDINATOR Ot J30.9 ALLERGIC RHINITIS, UNSPECIFIED 03/08/2018 JASSI ROSE APRN Ot J98.4 OTHER DISORDERS OF LUNG 03/08/2018 JASSI ROSE POST ADOPTION COORDINATOR Ot M79.89 OTHER SPECIFIED SOFT TISSUE DISORDERS 03/08/2018 JASSI ROSE APRN Ot R06.02 SHORTNESS OF BREATH 03/08/2018 BENEDICTO TEJEDA MD Ot M16.0 BILATERAL PRIMARY OSTEOARTHRITIS OF HIP 03/08/2018 BENEDICTO TEJEDA MD Ot M17.0 BILATERAL PRIMARY OSTEOARTHRITIS OF KNEE 03/08/2018 BENEDICTO TEJEDA MD, Ot M47.817 SPONDYLS W/O MYELOPATHY OR RADICULOPATHY 03/08/2018 BENEDICTO TEJEDA MD Ot Z02.71 ENCOUNTER FOR DISABILITY DETERMINATION 03/08/2018 VICTORIA ROBLEDO SHODER FILLER Ot E66.9 OBESITY, UNSPECIFIED 03/08/2018 VICTORIA ROBLEDO SHODER FILLER Ot E78.2 MIXED HYPERLIPIDEMIA 03/08/2018 VICTORIA ROBLEDO SHODER FILLER Ot I10 ESSENTIAL (PRIMARY) HYPERTENSION 03/08/2018 VICTORIA ROBLEDO SHODER FILLER Ot R06.02 SHORTNESS OF BREATH 03/08/2018 VICTORIA ROBLEDO SHODER FILLER Ot R07.9 CHEST PAIN, UNSPECIFIED 03/08/2018 VICTORIA ROBLEDO SHODER FILLER Ot Z68.41 BODY MASS INDEX (BMI) 40.0-44.9, ADULT 03/08/2018 VICTORIA ROBLEDO SHODER FILLER Ot Z72.0 TOBACCO USE 03/08/2018 JASSI ROSE POST ADOPTION COORDINATOR Ot J30.9 ALLERGIC RHINITIS, UNSPECIFIED 03/08/2018 JASSI ROSE POST ADOPTION COORDINATOR Ot J98.4 OTHER DISORDERS OF LUNG 03/08/2018 JASSI ROSE POST ADOPTION COORDINATOR Ot M79.89 OTHER SPECIFIED SOFT TISSUE DISORDERS 03/08/2018 JASSI ROSE APRN Ot R06.02 SHORTNESS OF BREATH 03/08/2018 BENEDICTO TEJEDA MD Ot M16.0 BILATERAL PRIMARY OSTEOARTHRITIS OF HIP 03/08/2018 BENEDICTO TEJEDA MD Ot M17.0 BILATERAL PRIMARY OSTEOARTHRITIS OF KNEE 03/08/2018 BENEDICTO TEJEDA MD, Ot M47.817 SPONDYLS W/O MYELOPATHY OR RADICULOPATHY 03/08/2018 BENEDICTO TEJEDA MD Ot Z02.71 ENCOUNTER FOR DISABILITY DETERMINATION 03/08/2018 JASSI ROSE POST ADOPTION COORDINATOR Ot M79.89 OTHER SPECIFIED SOFT TISSUE DISORDERS 03/09/2018 JASSI ROSE APRN Ot J30.9 ALLERGIC RHINITIS, UNSPECIFIED 03/09/2018 JASSI ROSE APRN Ot J98.4 OTHER DISORDERS OF LUNG 03/09/2018 JASSI ROSE POST ADOPTION COORDINATOR Ot M79.89 OTHER SPECIFIED SOFT TISSUE DISORDERS [...] J30.9 ALLERGIC RHINITIS, UNSPECIFIED 03/17/2018 JASSI ROSE POST ADOPTION COORDINATOR Ot J98.4 OTHER DISORDERS OF LUNG 03/17/2018 JASSI ROSE POST ADOPTION COORDINATOR Ot M79.89 OTHER SPECIFIED SOFT TISSUE DISORDERS 03/17/2018 JASSI ROSE POST ADOPTION COORDINATOR Ot R06.02 SHORTNESS OF BREATH 03/17/2018 JASSI ROSE APRN Ot M79.89 OTHER SPECIFIED SOFT TISSUE DISORDERS 03/25/2018 BENEDICTO TEJEDA MD Ot M16.0 BILATERAL PRIMARY OSTEOARTHRITIS OF HIP 03/25/2018 BENEDICTO TEJEDA MD Ot M17.0 BILATERAL PRIMARY OSTEOARTHRITIS OF KNEE 03/25/2018 BENEDICTO TEJEDA MD Ot M47.817 SPONDYLS W/O MYELOPATHY OR RADICULOPATHY 03/25/2018 BENEDICTO TEJEDA MD Ot Z02.71 ENCOUNTER FOR DISABILITY DETERMINATION 05/25/2018 VICTORIA ROBLEDO SHODER FILLER Ot E66.9 OBESITY, UNSPECIFIED 05/25/2018 VICTORIA ROBLEDO SHODER FILLER Ot E78.2 MIXED HYPERLIPIDEMIA 05/25/2018 VICTORIA ROBLEDO SHODER FILLER Ot I10 ESSENTIAL (PRIMARY) HYPERTENSION 05/25/2018 VICTORIA ROBLEDO SHODER FILLER Ot R06.02 SHORTNESS OF BREATH 05/25/2018 VICTORIA ROBLEDO SHODER FILLER Ot R07.9 CHEST PAIN, UNSPECIFIED 05/25/2018 VICTORIA ROBLEDO SHODER FILLER Ot Z68.41 BODY MASS INDEX (BMI) 40.0-44.9, ADULT 05/25/2018 VICTORIA ROBLEDO SHODER FILLER Ot Z72.0 TOBACCO USE 05/25/2018 JASSI ROSE POST ADOPTION COORDINATOR Ot J30.9 ALLERGIC RHINITIS, UNSPECIFIED 05/25/2018 JASSI ROSE POST ADOPTION COORDINATOR Ot J98.4 OTHER DISORDERS OF LUNG 05/25/2018 JASSI ROSE POST ADOPTION COORDINATOR Ot M79.89 OTHER SPECIFIED SOFT TISSUE DISORDERS 05/25/2018 JASSI ROSE APRN Ot R06.02 SHORTNESS OF BREATH 05/25/2018 BENEDICTO TEJEDA MD Ot M16.0 BILATERAL PRIMARY OSTEOARTHRITIS OF HIP 05/25/2018 BENEDICTO TEJEDA MD Ot M17.0 BILATERAL PRIMARY OSTEOARTHRITIS OF KNEE 05/25/2018 BENEDICTO TEJEDA MD Ot M47.817 SPONDYLS W/O [...] UNSPECIFIED 05/27/2018 ROSALINDA CHOW MD Ot Z79.51 KEY CARRIER (CURRENT) USE OF INHALED STERO 05/27/2018 ROSALINDA CHOW MD Ot Z79.52 KEY CARRIER (CURRENT) USE OF SYSTEMIC STER 05/27/2018 ROSALINDA [...] 9.8 fL 7.5-12.5 ABSOLUTE NEUTROPHILS 6270 cells/uL 5452-7103 ABSOLUTE LYMPHOCYTES 1748 cells/uL 850-3900 ABSOLUTE MONOCYTES [...] 12/31/17 15:23 Myoglobin, serum 52.5 ng/mL 10.0-92.0 [id number] - 01/15/18 09:24 Serum or plasma urea [...] i.cardiac measurement (mass/volume) < ng/ mL <0.028 Complete blood count (CBC) with automated white blood cell (WBC) differential - 06/21/18 06:10 Blood leukocytes automated count (number/volume) 9.7 10*3/uL 4.3-11.0 Blood erythrocytes automated count (number/volume) 6.06 10*6/uL 4.35-5.85 Venous blood hemoglobin measurement (mass/volume) 15.4 g/dL 13.3-17.7 Blood hematocrit (volume fraction) 46 % 40-54 Automated erythrocyte mean corpuscular volume 77 [foz_us] 80-99 Automated erythrocyte mean corpuscular hemoglobin (mass per erythrocyte) 25 pg 25-34 Automated erythrocyte mean corpuscular hemoglobin concentration measurement ( mass/volume) 33 g/dL 32-36 Automated erythrocyte distribution width ratio 17.4 % 10.0-14.5 Automated blood platelet count (count/volume) 376 10*3/uL 130-400 Automated blood platelet mean volume measurement 9.8 [foz_us] 7.4-10.4 Automated blood neutrophils/100 leukocytes 57 % 42-75 Automated blood lymphocytes/100 leukocytes 26 % 12-44 Blood monocytes/100 leukocytes 9 % 0-12 Automated blood eosinophils/100 leukocytes 8 % 0-10 Automated blood basophils/100 leukocytes 1 % 0-10 Blood neutrophils automated count (number/volume) 5.5 10*3 1.8-7.8 Blood lymphocytes automated count (number/volume) 2.5 10*3 1.0-4.0 Blood monocytes automated count (number/volume) 0.8 10*3 0.0-1.0 Automated eosinophil count 0.7 10*3/uL 0.0-0.3 Automated blood basophil count (count/volume) 0.1 10*3/uL 0.0-0.1 Blood lactic acid measurement (moles/volume) - 06/21/18 06:10 Blood lactic acid measurement (moles/volume) 2.47 mmol/L 0.50-2.00 PT panel in platelet poor plasma by coagulation assay - 06/21/18 06:10 Prothrombin time (PT) in platelet poor plasma by coagulation assay 12.8 s 12.2-14.7 INR in platelet poor plasma or blood by coagulation assay 0.9 0.8-1.4 Activated partial thromboplastin time (aPTT) in platelet poor plasma bycoagulation assay - 06/21/18 06:10 Activated partial thromboplastin time (aPTT) in platelet poor plasma bycoagulation assay 28 s 24-35 Comprehensive metabolic panel - 06/21/18 06:10 Serum or plasma sodium measurement (moles/volume) 139 mmol/L 135-145 Serum or plasma potassium measurement (moles/volume) 3.7 mmol/L 3.6-5.0 Serum or plasma chloride measurement (moles/volume) 103 mmol/L 98-107 Carbon dioxide 21 mmol/L 21-32 Serum or plasma anion gap determination (moles/volume) 15 mmol/L 5-14 Serum or plasma urea nitrogen measurement (mass/volume) 12 mg/dL 7-18 Serum or plasma creatinine measurement (mass/volume) 1.18 mg/dL 0.60-1.30 Serum or plasma urea nitrogen/creatinine mass ratio 10 NRG Serum or plasma creatinine measurement with calculation of estimated glomerular filtration rate > NRG Serum or plasma glucose measurement (mass/volume) 237 mg/dL 70-105 Serum or plasma calcium measurement (mass/volume) 9.5 mg/dL 8.5-10.1 Serum or plasma total bilirubin measurement (mass/volume) 0.5 mg/dL 0.1-1.0 Serum or plasma alkaline phosphatase measurement (enzymatic activity/volume) 110 U/L 40-136 Serum or plasma aspartate aminotransferase measurement (enzymatic activity/ volume) 57 U/L 5-34 Serum or plasma alanine aminotransferase measurement (enzymatic activity/volume ) 55 U/L 0-55 Serum or plasma protein measurement (mass/volume) 7.7 g/dL 6.4-8.2 Serum or plasma albumin measurement (mass/volume) 4.1 g/dL 3.2-4.5 CALCIUM CORRECTED 9.4 mg/dL 8.5-10.1 Magnesium - 06/21/18 06:10 Magnesium 2.4 mg/dL 1.8-2.4 Serum or plasma troponin i.cardiac measurement (mass/volume) - 06/21/18 06:10 Serum or plasma troponin i.cardiac measurement (mass/volume) 0.053 ng/mL <0.028 Serum or plasma C reactive protein measurement (mass/volume) - 06/21/18 06:10 Serum or plasma C reactive protein measurement (mass/volume) 1.77 mg /dL 0.00-0.50 Fibrin D-dimer FEU measurement in platelet poor plasma (mass/volume) - 06:10 Fibrin D-dimer FEU measurement in platelet poor plasma (mass/volume) 1.34 ug/mL 0.00-0.49 Serum or plasma lithium measurement (moles/volume) - 06/21/18 06:10 BNP level 141.1 pg/mL <100.0 Encounters ACCT No. Visit Date/Time Discharge Status Pt. Type Provider Facility Loc./Unit Complaint [id number] 02/07/2014 09:06:00 02/07/2014 23:59:59 [facility] Outpatient MARCO ANTONIO ROGEL APRN [id number] 03/29/2018 08:40:00 03/29/2018 23:59:59 CLS Outpatient MARCO ANTONIO ROGEL APRN [facility] [id number] 09/23/2017 11:20:00 Document Registration [id number] 05/31/2018 16:53:00 05/31/2018 23:59:59 CLS Preadmit MIKE MILES MD [facility] [address] CARD CHEST PAIN, SOB, HTN [id number] 05/31/2018 16:50:00 05/31/2018 23:59:59 CLS Preadmit JD DIAMOND, MIKE Iglesias [facility] [address] CARD CHEST PAIN, SOB [id number] 05/25/2018 08:47:00 05/25/2018 11:53:00 DIS Outpatient ROSALINDA CHOW MD [facility] [address] ER SOA [id number] 04/22/2018 10:54:00 04/22/2018 23:59:59 CLS Preadmit KIM ROSEINE E POST ADOPTION COORDINATOR [facility] [address] RT UNSPECIFIED ASTHMA, UNCOMPLICATED [id number] 03/05/2018 10:00:00 03/05/2018 23:59:59 CLS Preadmit VICTORIA ROBLEDO SHODER FILLER [facility] [address] CARD CHEST PAIN,UNSPECIFIED TYPE [id number] 01/15/2018 08:15:00 01/15/2018 23:59:59 CLS Outpatient KIM ROSEINE E POST ADOPTION COORDINATOR [facility] [address] RAD SOB [id number] 01/04/2018 08:32:00 01/04/2018 23:59:59 CLS Outpatient KIM ROSEINE E POST ADOPTION COORDINATOR [facility] [address] RT J30.1 [id number] 01/04/2018 09:45:00 01/04/2018 09:45:00 CAN Preadmit MILTON JASSI E POST ADOPTION COORDINATOR [facility] [address] RAD SOB [id number] 12/31/2017 12:35:00 12/31/2017 23:59:59 CLS Emergency CLAIRE DIAMOND, MARLEY Conti [facility] [address] ER CHEST PAIN [id number] 12/11/2017 09:53:00 12/11/2017 23:59:59 CLS Outpatient NIKHIL DIAMOND, BENEDICTO Cardenas [facility] [address] RAD DDU [id number] 11/12/2017 19:36:00 11/13/2017 06:05:00 DIS Outpatient MILTON JASSI E POST ADOPTION COORDINATOR [facility] [address] SLEEP SUSPECTED SLEEP APNEA,SLEEP DISORDER,SOB [id number] 09/23/2017 10:00:00 09/23/2017 23:59:59 CLS Preadmit VICTORIA ROBLEDOP [facility] [address] CARD CHEST PAIN,SOB, MIXED HYPERLIPIDEMIA [id number] 07/21/2017 10:52:00 07/21/2017 23:59:59 CLS Outpatient VICTORIA ROBLEDOP [facility] [address] CARD CHEST PAIN,SOB [id number] 06/30/2018 08:30:00 PEN Preadmit JASSI ROSE APRN [facility] [address] RAD ALLERGIC RHINITIS,SLEEP DISORDER, CHRONIC COUGH [id number] 06/21/2018 07:45:00 ACT Inpatient ASHISH WILEY DO [facility] [address] ICU CAF,COPD,REST DISTRESS,ELEVEATE TROPAIN [id number] 04/23/2018 08:43:00 Document Registration [id number] 07/21/2017 10:59:00 Document Registration
[2018-06-21] MEDS ORDERED: IOHEXOL 350 MG/ML 150 ML (OMNIPAQUE 350) VIAL IV ONE (08:30)
[2018-06-21] MEDS ORDERED: HOLD METFORMIN - RECEIVED CONTRAST 20 ML VIAL IV SCH (08:30)
[2018-06-21 08:34] LABS: ABG BASE EXCESS -0.6 MMOL/L (-2.5-2.5); ABG OXYGEN SATURATION 99 % (94-100); ABG PCO2 44 MMHG (35-45); ABG PH 7.35 (7.37-7.43); ABG PO2 156 MMHG (79-93); ABG TCO2 25.7 MMOL/L (21.0-31.0)
[2018-06-21 08:35] LABS: ALLENS TEST YES-POS; INSPIRED O2 45% BIPAP; PATIENT TEMP 97.7; VENTILATOR NO
--- NOTE | 2018-06-21 09:09 | Diagnostic Imaging Report ---
PROCEDURE: CT angiography of the chest with contrast. TECHNIQUE: Multiple contiguous axial images were obtained through the chest after uneventful bolus administration of intravenous contrast. 2D reconstructed CTA MIP acquisitions were also performed. Auto Exposure Controls were utilized during the CT exam to meet ALARA standards for radiation dose reduction. INDICATION: Shortness of air and COPD. Correlation is made with prior CT angiogram of the chest from 01/04/2018. Evaluation of the pulmonary arterial system is without evidence of thromboembolism. No filling defects are seen to suggest pulmonary emboli. Thoracic aorta remains normal in caliber. There is no dissection. Heart appears to be enlarged. No pericardial or pleural fluid is detected. No axillary lymphadenopathy is seen. There are small lymph nodes in the mediastinum and carlos bilaterally which are indeterminate. Tiny nodules along the major fissure on prior exam appear stable. The more cephalic nodule noted in the right upper lobe on prior exam is not appreciated on today's study. More inferiorly, there is a tiny nodule which appears to be stable. There are areas of subsegmental atelectasis bilateral lower lobes. Upper abdomen is unremarkable. IMPRESSION: 1. No evidence of pulmonary embolism or thoracic aortic dissection. There are areas of subsegmental atelectasis in both lower lobes. Small lymph nodes in mediastinum and carlos are noted which are likely reactive. No new abnormality is seen. Dictated by: Dictated on workstation # [id number]
[2018-06-21] MEDS ORDERED: NS IV 1000 ML 1,000 ML IV SCH (09:45)
[2018-06-21] MEDS ORDERED: CATHETER FLUSH 10 ML SYR IV PRN (09:45)
--- NOTE | 2018-06-21 10:10 | History & Physical-Hospitalist ---
History of Present Illness HPI/Chief Complaint Chief complaint: Shortness of breath HPI: This is a 58yo [facility] patient male who presents with shortness of breath. He was found to have multi factorial sources for the shortness of breath with wheezing now requiring Bi-PAP, Pulmonology, and Cardiology consultation and placement in the cardiac step down unit to fully evaluate and treat and aggressively manage this issue He has had hospital stays before for similar complaints and at this current time his BP is much improved when it was extremely elevated at 230/120 At this current time pt wants to eat and drink but I told him we would need to wait because of his respiratory status. It is so guarded. Source: patient Exam Limitations: no limitations Date Seen 06/21/18 Time Seen by a Provider: 09:30 Attending Physician Laura Almeida DO [facility] Referring Physician Date of Admission Jun 21, 2018 at 07:45 Home Medications & Allergies Home Medications Reviewed patient Home Medication Reconciliation performed by pharmacy medication reconciliations special equipment technician and/or nursing. Patients Allergies have been reviewed. Allergies Allergies Coded Allergies No Known Drug Allergies (Unverified06/21/18) Past Zbngnqz-Dpbqxi-Ozspva Hx Past Med/Social Hx: Reviewed Nursing Past Med/Soc Hx, Reviewed and Corrections made Patient Social History Marrital Status: single Alcohol Use: Occasionally Uses Number of Drinks Today: 0 Alcohol Beverage of Choice: Cheap Liquor Recreational Drug Use: No Drug of Choice: marijuana Smoking Status: Current Everyday Smoker Type Used: Cigarettes 2nd Hand Smoke Exposure: Yes Recent Foreign Travel: No Contact w/other who traveled: No Recent Infectious Disease Expo: No Immunizations Up To Date Tetanus Booster (TDap): Unknown Pediatric: Yes Past Medical History Respiratory: COPD Currently Using CPAP: No Cardiac: High Cholesterol, Hypertension Musculoskeletal: Arthritis Endocrine: Diabetes, Non-Insulin dep Psychosocial: Depression Review of Systems ROS-Unable to Obtain: unable to understand through biPAP mask Constitutional: see HPI Physical Exam Physical Exam Vital Signs Vital Signs - First Documented 06/21/18 06/21/18 06/21/18 05:50 06:07 10:50 Temp 97.7 Pulse 141 Resp 39 B/P (MAP) 178/140 (153) Pulse Ox 88 O2 Delivery OxyMask O2 Flow Rate 100.00 FiO2 35 Capillary Refill : Less Than 3 Seconds Height, Weight, BMI Height: 5'6.00" Weight: 260lbs. 0.0oz. 117.265106pz; 42.0 BMI Method:Stated General Appearance: WD/WN, Anxious, Chronically ill, Moderate Distress, Obese Eyes: Right Eye Normal Inspection, Right Eye PERRL HEENT: PERRL/EOMI, Normal ENT Inspection, Pharynx Normal, Moist Mucous Membranes Neck: Full Range of Motion, Normal Inspection, Non Tender Respiratory: Chest Non Tender, Accessory Muscle Use, Crackles, Decreased Breath Sounds, Respiratory Distress, Wheezing Cardiovascular: No Edema, No Gallop, No JVD, No Murmur, Normal Peripheral Pulses, Tachycardia Gastrointestinal: Normal Bowel Sounds, No Organomegaly, No Pulsatile Mass, Non Tender, Soft Back: Normal Inspection, No CVA Tenderness, No Vertebral Tenderness Extremity: Normal Capillary Refill, Normal Inspection, Normal Range of Motion, Non Tender, No Calf Tenderness, No Pedal Edema Neurologic/Psychiatric: Alert, Oriented x3, No Motor/Sensory Deficits, Normal Mood/Affect Skin: Normal Color, Warm/Dry Lymphatic: No Adenopathy Results Results/Procedures Labs Laboratory Tests 06/21/18 06:10 Patient resulted labs reviewed. Assessment/Plan Admission Diagnosis Assessment: Severe respiratory failure placed on BiPAP AECOPD Acute diastolic congestive heart failure Malignant hypertension urgency NSTEMI Elevated lactic acidosis Plan: ICU Dr Rios and Dr Barron both appreciated Monitor closely Prognosis guarded Admission Status: Inpatient Order (span 2 midnights) Reason for Inpatient Admission: Respiratory failure will require 4 days inpatient Diagnosis/Problems Diagnosis/Problems (1) Respiratory failure Status: Acute Qualifiers: Chronicity: acute Respiratory failure complication: hypoxia Qualified Codes: J96.01 - Acute respiratory failure with hypoxia (2) Hypertensive urgency Status: Acute (3) NSTEMI (non-ST elevated myocardial infarction) Status: Acute (4) Obesity Status: Chronic Qualifiers: Obesity type: due to excess calories Obesity classification: adult class 3 (BMI >= 40) Serious obesity comorbidity presence: with serious comorbidity Body mass index: BMI 40.0-44.9 Qualified Codes: E66.01 - Morbid (severe) obesity due to excess calories; Z68.41 - Body mass index (BMI) 40.0-44.9, adult (5) COPD exacerbation Status: Acute (6) CHF (congestive heart failure) Status: Acute Qualifiers: Heart failure type: unspecified Heart failure chronicity: acute Qualified Codes: I50.9 - Heart failure, unspecified Clinical Quality Measures DVT/VTE Risk/Contraindication: Risk Factor Score Per Nursin RFS Level Per Nursing on Admit: 3=High LAURA ALMEIDA DO Jun 21, 2018 10:10
--- NOTE | 2018-06-21 11:35 | NUR ---
Pastoral care visit.
[2018-06-21] MEDS ORDERED: TIOT4MIS5 IH (14:20)
[2018-06-21] MEDS ORDERED: RT-ALBUINH IH (14:29)
[2018-06-21] MEDS ORDERED: HYDROcodone/APAP 5 MG/325 MG (LORTAB) TAB PO PRN (14:30)
[2018-06-21] MEDS ORDERED: fentaNYL INJECTION 100 MCG/2 ML AMP IVP PRN (14:30)
[2018-06-21] MEDS ORDERED: ACETAMINOPHEN 500 MG TAB (TYLENOL) PO PRN (14:30)
[2018-06-21] MEDS ORDERED: morphine INJ 4 MG/ML 1 ML (VIAL/SYRINGE) IVP PRN (15:00)
--- NOTE | 2018-06-21 15:13 | NUR ---
SPOKE WITH THE PATIENTS FAMILY ABOUT MEDICATIONS, THEY STATE HE IS NOT TAKING HIS ORAL MEDICATIONS BUT HE DOES USE A COUPLE OF INHALERS. THEY BROUGHT THE SPIRIVA RESPIMAT 1.25 IN, HE STATES DR. BRICEÑO GAVE THIS TO HIM AT THE OFFICE AND HE USES IT EVERYDAY. HE ALSO STATES HE USES AN ALBUTEROL INHALER. HE REPORTS HE TAKES SEVERAL ORAL MEDICATIONS HOWEVER IT APPEARS IT HAS BEEN SOME TIME SINCE HE REFILLED THEM. I SPOKE WITH A NURSE AT [facility] WHO STATES HE HAS NOT RECEIVED ANYTHING THROUGH PALS OR REPOSITORY. [facility] SENT OVER A LIST OF MEDICATIONS AND THE DATES THEY WERE FILLED LAST. I DID NOT INCLUDE THESE ON THE MED REC THEY HAVE NOT BEEN FILLED SINCE DECEMBER. [facility] FILLED: 03-03-18 HYDROCODONE 10-325 BID PRN #56 (NOT REPORTED ON ACTIVE MED LIST FROM OFFICE) 01-28-18 TEGRETOL 200MG BID #60 01-28-19 METFORMIN 500MG 1 QD X 1 WEEK THEN INCREASE TO 1 BID #60 01-28-18 HCTZ 25MG DAILY #30 01-28-18 BENZTROPINE 1MG HS #30 01-28-18 ATORVASTATIN 40MG DAILY #30 01-28-18 METOPROLOL SUCCINATE 100MG BID #60 01-28-18 LOXAPINE 10MG HS #30 01-28-18 VERAPAMIL 180MG ER DAILY #30 01-28-18 DULOXETINE 60MG DAILY #30 01-28-18 HYDROXYZINE PAMOATE 50MG 2 HS PRN #60 01-28-18 LISINOPRIL 20MG DAILY #30 01-26-18 SINGULAIR 10MG HS #30 (NOT ON ACTIVE MED LIST FROM OFFICE) 01-26-18 FLONASE 1 SPRAY NS DAILY (NOT REPORTED ON ACTIVE MED LIST FROM OFFICE) 11-30-17 NAPROXEN 500MG Q12H PRN #60 (NOT REPORTED ON ACTIVE MED LIST FROM OFFICE) 11-30-17 FLEXERIL 10MG BID PRN #60 (NOT REPORTED ON ACTIVE MED LIST FROM OFFICE) 11-03-17 ADVAIR (NOT REPORTED ON ACTIVE MED LIST FROM OFFICE) 11-03-17 PROVENTIL INHALER 2 PUFFS Q6H PRN
--- NOTE | 2018-06-21 17:08 | Consultation-Cardiology ---
HPI-Cardiology Cardiology Consultation: Date of Consultation 06/21/18 Date of Admission Attending Physician Laura Almeida DO Admitting Physician [place] Consulting Physician Paolo BARRON MD HPI: Time Seen by a Provider: 14:00 Chief Complaint: Shortness of breath This is a 58-year-old gentleman who presented to the ER with severe respiratory distress and hypoxia. He has previously been seen by Dr. Rios for shortness of breath. Patient denies any chest pain, palpitation, syncope or near syncope. . Review of Systems-Cardiology Review of Systems Constitutional: As described under HPI; No As described under HPI, No no symptoms reported, No chills, No fever, No lightheadedness Eyes: No As described under HPI, No no symptoms reported, No blindness, No blurred vision, No contact lenses, No drainage, No decreased acuity, No foreign body sensation, No pain, No vision change Ears/Nose/Throat: No As described under HPI, No no symptoms reported, No chronic hearing loss, No ear discharge, No ear pain, No nasal drainage, No ulcerations Respiratory: No no symptoms reported; As described under HPI; No As described under HPI, No cough; orthopnea; No shortness of breath, No SOB with excertion Cardiovascular: No no symptoms reported; As described under HPI; No As described under HPI, No chest pain, No edema, No irregular heart rate, No lightheadedness, No palpitations Gastrointestinal: No no symptoms reported, No As described under HPI, No abdomen distended, No abdominal pain, No blood streaked bowels, No constipation , No diarrhea, No nausea, No vomiting, No stool coloration changes Genitourinary: No As described under HPI, No burning, No dysuria, No discharge , No frequency, No flank pain, No hematuria, No urgency Skin: No rash, No skin related problems, No ulcerations Psychiatric/Neurological: No anxiety, No depression, No seizure, No focal weakness, No syncope Hematologic: No bleeding abnormalities ZUA-Lbuena-Cdfyla Hx Patient Social History Alcohol Use: Occasionally Uses Recreational Drug Use: No Drug of Choice: marijuana Smoking Status: Current Everyday Smoker Type Used: Cigarettes 2nd Hand Smoke Exposure: Yes Recent Foreign Travel: No Recent Infectious Disease Expo: No Hospitalization with Isolation: Denies Immunizations Up To Date Tetanus Booster (TDap): Unknown Past Medical History PMH As described under Assessment. Allergies and Home Medications Allergies Coded Allergies: No Known Drug Allergies (Unverified , 06/21/18) Home Medications Albuterol Sulfate 1 Puff Puff, 2 PUFF IH Q6H PRN for SHORTNESS OF BREATH, ( Reported) Tiotropium [place] 4 Gm Mist.inhal, 2 PUFF IH DAILY, (Reported) Patient Home Medication List Home Medication List Reviewed: Yes Physical Exam-Cardiology Physical Exam Vital Signs/I&O 06/21/18 06/21/18 06/21/18 06/21/18 05:50 06:07 06:25 09:00 Temp 97.7 97.7 97.7 Pulse 141 119 105 105 Resp 39 24 24 B/P (MAP) 178/140 (153) 176/124 142/99 (113) Pulse Ox 88 99 100 100 O2 Delivery OxyMask NIV/CPAP NIV Bilevel O2 Flow Rate 100.00 35.00 06/21/18 06/21/18 06/21/18 06/21/18 09:11 09:15 09:20 09:30 Temp 98.6 Pulse 105 100 111 101 Resp 16 16 B/P (MAP) 170/115 (133) 171/120 (137) Pulse Ox 98 95 97 O2 Delivery NIV Bilevel NIV Bilevel O2 Flow Rate 35.00 35.00 35.00 06/21/18 06/21/18 06/21/18 06/21/18 09:45 10:00 10:15 10:50 Pulse 101 98 98 Resp 19 B/P (MAP) 159/112 (128) 126/91 (103) 137/84 (101) Pulse Ox 99 94 95 91 O2 Delivery NIV Bilevel NIV Bilevel NIV Bilevel NIV Bilevel O2 Flow Rate 35.00 35.00 35.00 FiO2 35 06/21/18 06/21/18 06/21/18 06/21/18 11:00 12:00 12:00 13:00 Pulse 99 98 99 Resp 19 B/P (MAP) 144/103 (117) 130/100 (110) 138/94 (109) Pulse Ox 93 93 94 O2 Delivery NIV Bilevel NIV Bilevel NIV Bilevel NIV Bilevel O2 Flow Rate 35.00 35.00 35.00 35.00 06/21/18 06/21/18 06/21/18 13:50 14:00 16:01 Pulse 98 100 99 Resp 23 B/P (MAP) 144/91 (108) Pulse Ox 95 97 95 O2 Delivery NIV Bilevel O2 Flow Rate 35.00 35.00 35.00 Capillary Refill : Less Than 3 Seconds Constitutional: appears stated age, AAO x 3; No apparent distress; well- developed, well-nourished HEENT: PERRL; No normal ENT inspection, No TMs normal, No pharynx normal, No scleral icterus (R), No scleral icterus (L), No pale conjunctivae (R), No pale conjunctivae (L), No photophobia, No TM abnormal (R), No TM abnormal (L), No pharyngeal erythema, No tonsillar exudate, No other, No discharge, No EOMI; hearing is well preserved; No hard of hearing; oral hygience is good; No ulceration, No xanthelasmas are seen Neck: No non-tender, No full range of motion, No supple, No normal inspection, No carotid bruit, No limited range of motion, No lymphadenopathy (R), No lymphadenopathy (L), No tender lateral, No tender midline, No thyromegaly, No other; carotid pulses are 2 + bilaterally; No with good upstrokes Respiratory: No accessory muscle use, No respiratory distress, No chest tender , No chest expansion is symmetric; chest is bilaterally symmetric; No lungs clear to percussion; lungs clear to auscultation; No crackles, No rhonchi, No rales, No stridor, No wheezing, No pleural rub, No other Cardiovascular: regular rate-rhythm; No irregularly irregular, No extra beats, No parasternal heave is noted, No JVD, No edema, No bradycardia, No tachycardia , No point of maximal impulse, No cardiac thrills are palpable; S1 and S2; No gallop/S3, No gallop/S4, No diastolic murmur, No systolic murmur, No friction rub, No click, No other Gastrointestinal: No tender, No soft, No round, No distended, No pulsatile mass , No organomegaly, No guarding, No rebound, No tenderness, No hernia, No mass, No audible bowel sounds, No abnormal bowel sounds, No abdominal bruits, No spleenomegaly, No other Rectal: deferred Extremities: No normal range of motion, No non-tender, No normal inspection, No pedal edema, No calf tenderness, No normal capillary refill, No pelvis stable , No calf tenderness, No inflammation, No pedal edema, No slow capillary refill , No swelling, No other, No abrasion, No clubbing, No cyanosis, No ecchymosis, No laceration, No no lower extremity edema bilateral, No significant edema, No tenderness, No wound Neurologic/Psychiatric: no motor/sensory deficits, alert, normal mood/affect, oriented x 3, power is 5/5 both on sides Skin: No rash, No ulcerations Data Review Labs Laboratory Tests 06/21/18 06:10: White Blood Count 9.7, Red Blood Count 6.06H, Hemoglobin 15.4, Hematocrit 46, Mean Corpuscular Volume 77L, Mean Corpuscular Hemoglobin 25, Mean Corpuscular Hemoglobin Concent 33, Red Cell Distribution Width 17.4H, Platelet Count 376, Mean Platelet Volume 9.8, Neutrophils (%) (Auto) 57, Lymphocytes (%) (Auto) 26, Monocytes (%) (Auto) 9, Eosinophils (%) (Auto) 8, Basophils (%) (Auto) 1, Neutrophils # (Auto) 5.5, Lymphocytes # (Auto) 2.5, Monocytes # (Auto) 0.8, Eosinophils # (Auto) 0.7H, Basophils # (Auto) 0.1, Prothrombin Time 12.8, INR Comment 0.9, Activated Partial Thromboplast Time 28, D-Dimer 1.34H, Sodium Level 139, Potassium Level 3.7, Chloride Level 103, Carbon Dioxide Level 21, Anion Gap 15H, Blood Urea Nitrogen 12, Creatinine 1.18, Estimat Glomerular Filtration Rate > 60, BUN/Creatinine Ratio 10, Glucose Level 237H, Lactic Acid Level 2.47*H, Calcium Level 9.5, Corrected Calcium 9.4, Magnesium Level 2.4, Total Bilirubin 0.5, Aspartate Amino Transf (AST/SGOT) 57H, Alanine Aminotransferase (ALT/SGPT) 55, Alkaline Phosphatase 110, Troponin I 0.053H, C- Reactive Protein High Sensitivity 1.77H, B-Type Natriuretic Peptide 141.1H, Total Protein 7.7, Albumin 4.1 06/21/18 08:23: Blood Gas Puncture Site R RAD, Blood Gas Patient Temperature 97.7, Arterial Blood pH 7.35L, Arterial Blood Partial Pressure CO2 44, Arterial Blood Partial Pressure O2 156H, Arterial Blood HCO3 24, Arterial Blood Total CO2 25.7, Arterial Blood Oxygen Saturation 99, Arterial Blood Base Excess -0.6, Derick Test YES-POS, Blood Gas Ventilator Setting NO, Blood Gas Inspired Oxygen 45% BIPAP 06/21/18 09:25: Troponin I 0.062H 06/21/18 09:43: Lactic Acid Level 1.24 Microbiology 06/21/18 Influenza Types A,B Antigen (JAIME) - Final, Complete ECG Impression ECG Initial ECG Rhythm: Normal Sinus Comment Left atrial abnormality, LVH A/P-Cardiology Assessment/Admission Diagnosis Severe respiratory failure, on BiPAP, COPD, Acute diastolic congestive heart failure, Severe hypertension, Non-STEMI Plan Severe respiratory failure, on BiPAP, defer to Dr. Rios. COPD, Acute diastolic congestive heart failure, BNP is mildly elevated. Unlikely florid congestive heart failure. Low-dose Lasix is acceptable. Severe hypertension, with hypertensive heart disease, treat with aggressive antihypertensive. Non-STEMI, recommend echocardiogram and coronary angiography. Thank you for your consultation. Please call me if you have any questions. Radha Barron MD, FACP, FACC, FSCAI, FHRS, CCDS Interventional Cardiology Cardiac Electrophysiology Vascular Medicine and Endovascular Interventions Clinical Quality Measures DVT/VTE Risk/Contraindication: Risk Factor Score Per Nursin RFS Level Per Nursing on Admit: 3=High Paolo BARRON MD Jun 21, 2018 5:08 pm
[2018-06-21] MEDS ORDERED: TICAGRELOR 90 MG TABLET (BRILINTA) PO NR (18:00)
[2018-06-21] MEDS: ASPIRIN 81 MG CHEW (CHILDREN'S ASA) PO SCH (20:37)
[2018-06-21] MEDS: ENOXAPARIN 100 MG/1 ML (LOVENOX) SYR SC SCH (20:38)
[2018-06-21] MEDS: NITROGLYCERIN 2% OINT 1 GM UNIT DOSE PACKET TOP SCH (20:38)
[2018-06-21] MEDS: TICAGRELOR 90 MG TABLET (BRILINTA) PO SCH (20:38)
[2018-06-22] VITALS (25 sets, daily range): BP systolic 106–171; BP diastolic 63–129
[2018-06-22] MEDS: NITRO DRIP 25000 MCG/D5W 250 ML IV SCH (05:13)
[2018-06-22] MEDS: ENOXAPARIN 100 MG/1 ML (LOVENOX) SYR SC SCH (05:13)
[2018-06-22 05:42] LABS: BASOPHILS % (AUTO) 0 % (0-10); EOSINOPHILS % (AUTO) 0 % (0-10); HEMATOCRIT 41 % (40-54); HEMOGLOBIN 13.9 G/DL (13.3-17.7); LYMPHOCYTES # (AUTO) 1.4 X 10^3 (1.0-4.0); LYMPHOCYTES % (AUTO) 8 % (12-44); MEAN CORPUSCULAR HEMOGLOBIN 26 PG (25-34); MEAN CORPUSCULAR HGB CONC 34 G/DL (32-36); MEAN CORPUSCULAR VOLUME 77 FL (80-99); MEAN PLATELET VOLUME 10.1 FL (7.4-10.4); MONOCYTES # (AUTO) 1.6 X 10^3 (0.0-1.0); MONOCYTES % (AUTO) 10 % (0-12); NEUTROPHILS # (AUTO) 13.6 X 10^3 (1.8-7.8); NEUTROPHILS % (AUTO) 82 % (42-75); PLATELET COUNT 332 10^3/uL (130-400); RED CELL DISTRIBUTION WIDTH 16.6 % (10.0-14.5); WHITE BLOOD COUNT 16.6 10^3/uL (4.3-11.0)
[2018-06-22 05:58] LABS: BUN/CREATININE RATIO 14; CALCIUM 9.4 MG/DL (8.5-10.1); CARBON DIOXIDE 23 MMOL/L (21-32); CHLORIDE 105 MMOL/L (98-107); CREATININE SERUM 1.07 MG/DL (0.60-1.30); GFR ESTIMATED > 60; GLUCOSE 236 MG/DL (70-105); MAGNESIUM 2.5 MG/DL (1.8-2.4); PHOSPHORUS 2.8 MG/DL (2.3-4.7); SODIUM 137 MMOL/L (135-145)
[2018-06-22 06:00] LABS: LYMPHOCYTES % (MANUAL) 11 %; MONOCYTES % (MANUAL) 5 %; NEUTROPHILS % (MANUAL) 84 %
[2018-06-22] MEDS ORDERED: MAGNESIUM 1 GM/100 ML IVPB 100 ML IV SCH (06:00)
[2018-06-22] MEDS ORDERED: POTASSIUM CL 10MEQ/50ML IVPB 50 ML IV SCH (06:00)
[2018-06-22] MEDS ORDERED: KCL 20 MEQ TAB (K-DUR) PO SCH (06:00)
[2018-06-22 06:01] LABS: RBC MORPH NORMAL
[2018-06-22] MEDS ORDERED: ONDANSETRON 4 MG/2 ML (SDV) Z0FRAN ONE (06:18)
[2018-06-22] MEDS: FUROSEMIDE 40 MG/4 ML INJ (LASIX) IV SCH (06:26)
[2018-06-22] MEDS ORDERED: ONDANSETRON 4 MG/2 ML (SDV) Z0FRAN IVP PRN (06:30)
[2018-06-22] MEDS ORDERED: PIPERACILLIN/TAZO 4.5 GM/NS 100 ML IV NR ×2 (06:34)
--- NOTE | 2018-06-22 07:20 | Diagnostic Imaging Report ---
EXAM: CHEST 1 VIEW, AP/PA ONLY INDICATION: Congestive heart failure. COMPARISON: Chest radiograph 06/21/2018. FINDINGS: Stable cardiomegaly and slight pulmonary vascular congestion. Possible small left pleural effusion. No pneumothorax. No acute osseous findings. IMPRESSION: No significant change including cardiomegaly and mild pulmonary vascular congestion. There may be a small left pleural effusion. Dictated by: Dictated on workstation # [id number]
--- NOTE | 2018-06-22 07:41 | Pulmonary Consultation ---
History of Present Illness History of Present Illness Date of Consultation 06/21/18 07:35 Late note for 06/21/18 Time Seen by Provider: 07:36 Date of Admission History of Present Illness 58yo AAM with hx of multiple hospitalizations presented to ED secondary to worsening SOB, wheezing. Pt was found to be in acute respiratory failure with accessory muscle use, and diaphoretic. In the ED he was found to have Sp02 of 79% on RA. He was placed on Oxymask then converted to BiPAP secondary to persistent worsening SOB. Denies fever, chills, productive cough, chest pain, or palpitations. He has had similar prior episodes. Allergies and Home Medications Allergies Coded Allergies: No Known Drug Allergies (Unverified , 06/21/18) Home Medications Albuterol Sulfate 1 Puff Puff, 2 PUFF IH Q6H PRN for SHORTNESS OF BREATH, ( Reported) Tiotropium [place] 4 Gm Mist.inhal, 2 PUFF IH DAILY, (Reported) Past Hdwvyzh-Rntxih-Ubpqwb Hx Past Med/Social Hx: Reviewed Nursing Past Med/Soc Hx, Reviewed and Corrections made Patient Social History Alcohol Use: Occasionally Uses Number of Drinks Today: 0 Alcohol Beverage of Choice: Cheap Liquor Recreational Drug Use: No Drug of Choice: marijuana Smoking Status: Current Everyday Smoker Type Used: Cigarettes 2nd Hand Smoke Exposure: Yes Recent Foreign Travel: No Contact w/Someone Who Travel: No Recent Infectious Disease Expo: No Immunizations Up To Date Tetanus Booster (TDap): Unknown PED Vaccines UTD: Yes Past Medical History Surgeries: No Respiratory: Yes COPD Currently Using CPAP: No Cardiac: Yes High Cholesterol, Hypertension Neurological: No Genitourinary: No Gastrointestinal: No Musculoskeletal: Yes Arthritis Endocrine: Yes Diabetes, Non-Insulin dep HEENT: No Cancer: No Psychosocial: Yes Depression Integumentary: No Review of Systems Time Seen by Provider: 07:47 Sepsis Event Evaluation Height, Weight, BMI Height: 5'6.00" Weight: 260lbs. 0.0oz. 117.262988gj; 42.0 BMI Method:Stated Exam Exam Vital Signs Date Time Temp Pulse Resp B/P (MAP) Pulse Ox O2 Delivery O2 Flow Rate FiO2 06/22/18 06:00 94 18 96 Room Air 06/22/18 05:00 86 18 120/78 (92) 97 NIV Bilevel 35.00 06/22/18 04:00 91 15 128/73 (91) 99 NIV Bilevel 35.00 06/22/18 04:00 98 NIV Bilevel 06/22/18 03:00 97 17 106/67 (80) 100 NIV Bilevel 35.00 06/22/18 02:56 85 99 35.00 06/22/18 02:00 92 16 108/68 (81) 99 NIV Bilevel 35.00 06/22/18 01:00 93 06/22/18 01:00 93 16 109/79 (89) 97 NIV Bilevel 35.00 06/22/18 00:04 97 99 35.00 06/22/18 00:04 80 12 94 NIV Bilevel 35.00 06/22/18 00:00 98 High Flow N/C 2.00 06/22/18 00:00 101 19 106/66 (79) 93 Nasal Cannula 2.00 06/21/18 23:30 98.4 06/21/18 23:00 100 25 134/74 (94) 90 Nasal Cannula 2.00 06/21/18 22:00 104 28 140/81 (100) 95 Nasal Cannula 2.00 06/21/18 21:00 105 26 134/85 (101) 95 Nasal Cannula 5.00 06/21/18 20:38 98 High Flow N/C 2.00 06/21/18 20:07 94 High Flow N/C 6.00 06/21/18 20:00 98.4 06/21/18 20:00 102 21 130/112 (118) 94 Nasal Cannula 5.00 06/21/18 19:00 108 06/21/18 19:00 108 27 127/73 (91) 95 Nasal Cannula 5.00 06/21/18 18:43 104 13 97 Nasal Cannula 5.00 06/21/18 18:00 98 15 156/80 (105) 93 NIV Bilevel 35.00 06/21/18 17:00 105 21 161/101 (121) 97 NIV Bilevel 35.00 06/21/18 16:01 99 95 35.00 06/21/18 16:00 NIV Bilevel 35.00 06/21/18 14:00 100 23 144/91 (108) 97 NIV Bilevel 35.00 06/21/18 13:50 98 95 35.00 06/21/18 13:23 100 06/21/18 13:00 99 19 138/94 (109) 94 NIV Bilevel 35.00 06/21/18 12:00 98 15 130/100 (110) 93 NIV Bilevel 35.00 06/21/18 12:00 NIV Bilevel 35.00 06/21/18 11:00 99 20 144/103 (117) 93 NIV Bilevel 35.00 06/21/18 10:50 91 NIV Bilevel 35 06/21/18 10:15 98 19 137/84 (101) 95 NIV Bilevel 35.00 06/21/18 10:00 98 19 126/91 (103) 94 NIV Bilevel 35.00 06/21/18 09:45 101 16 159/112 (128) 99 NIV Bilevel 35.00 06/21/18 09:30 101 16 171/120 (137) 97 NIV Bilevel 35.00 06/21/18 09:20 111 95 35.00 06/21/18 09:15 98.6 100 16 170/115 (133) 98 NIV Bilevel 35.00 06/21/18 09:11 105 06/21/18 09:00 97.7 105 24 142/99 (113) 100 NIV Bilevel 35.00 I & O 06/22/18 07:00 Intake Total 1800 ml Output Total 3750 ml Balance -1950 ml Height & Weight Height: 5'6.00" Weight: 260lbs. 0.0oz. 117.541258cz; 42.0 BMI Method:Stated General Appearance: WD/WN, Anxious, Chronically ill, Obese, Severe Distress HEENT: PERRL/EOMI, Normal ENT Inspection, Pharynx Normal, Moist Mucous Membranes Neck: Full Range of Motion, Normal Inspection, Non Tender Respiratory: Chest Non Tender, Accessory Muscle Use, Crackles, Decreased Breath Sounds, Respiratory Distress, Wheezing Cardiovascular: No Edema, No Gallop, No JVD, No Murmur, Normal Peripheral Pulses, Tachycardia Capillary Refill: Less Than 3 Seconds Gastrointestinal: normal bowel sounds, non tender, soft Extremity: Normal Capillary Refill, Normal Inspection, Normal Range of Motion, Non Tender, No Calf Tenderness, No Pedal Edema Neurologic/Psychiatric: Alert, Oriented x3, No Motor/Sensory Deficits, Normal Mood/Affect Skin: Normal Color, Warm/Dry Lymphatic: No Adenopathy Results Lab Laboratory Tests 06/21/18 06:10 4/23/19 05:34 Assessment/Plan Assessment/Plan Acute on chronic respiratory failure -Last PFT 12/2017 shows RLD with normal DLCO. No COPD / -Currently requiring BiPAP -CTA of chest is pending -ABG while on BiPAP shows C02 of 44 Asthma AE -Solumedrol -SVNS Atelectasis -IS -SVNS Tobacco use -Education Severe HTN -Nitro gtt was ordered Acute diastolic CHF -Continue Lasix Morbid obesity with CARLOS -PT uses CPAP at home NSTEMI - probably secondary to hypoxia - Cardiology following JUAN BRICEÑO DO Jun 22, 2018 07:41
--- NOTE | 2018-06-22 07:51 | Pulmonary Progress Note ---
Subjective Time Seen by a Provider: 07:50 Subjective/Events-last exam Pt still complains of SOB however much improved. Sepsis Event Evaluation Height, Weight, BMI Height: 5'6.00" Weight: 260lbs. 0.0oz. [id number]; 42.0 BMI Method:Stated Focused Exam Lactate Level 06/21/18 06:10: Lactic Acid Level 2.47*H 06/21/18 09:43: Lactic Acid Level 1.24 Exam Exam Vital Signs Date Time Temp Pulse Resp B/P (MAP) Pulse Ox O2 Delivery O2 Flow Rate FiO2 06/22/18 06:00 94 18 96 Room Air 06/22/18 05:00 86 18 120/78 (92) 97 NIV Bilevel 35.00 06/22/18 04:00 91 15 128/73 (91) 99 NIV Bilevel 35.00 06/22/18 04:00 98 NIV Bilevel 06/22/18 03:00 97 17 106/67 (80) 100 NIV Bilevel 35.00 06/22/18 02:56 85 99 35.00 06/22/18 02:00 92 16 108/68 (81) 99 NIV Bilevel 35.00 06/22/18 01:00 93 06/22/18 01:00 93 16 109/79 (89) 97 NIV Bilevel 35.00 06/22/18 00:04 97 99 35.00 06/22/18 00:04 80 12 94 NIV Bilevel 35.00 06/22/18 00:00 98 High Flow N/C 2.00 06/22/18 00:00 101 19 106/66 (79) 93 Nasal Cannula 2.00 06/21/18 23:30 98.4 06/21/18 23:00 100 25 134/74 (94) 90 Nasal Cannula 2.00 06/21/18 22:00 104 28 140/81 (100) 95 Nasal Cannula 2.00 06/21/18 21:00 105 26 134/85 (101) 95 Nasal Cannula 5.00 06/21/18 20:38 98 High Flow N/C 2.00 06/21/18 20:07 94 High Flow N/C 6.00 06/21/18 20:00 98.4 06/21/18 20:00 102 21 130/112 (118) 94 Nasal Cannula 5.00 06/21/18 19:00 108 06/21/18 19:00 108 27 127/73 (91) 95 Nasal Cannula 5.00 06/21/18 18:43 104 13 97 Nasal Cannula 5.00 06/21/18 18:00 98 15 156/80 (105) 93 NIV Bilevel 35.00 06/21/18 17:00 105 21 161/101 (121) 97 NIV Bilevel 35.00 06/21/18 16:01 99 95 35.00 06/21/18 16:00 NIV Bilevel 35.00 06/21/18 14:00 100 23 144/91 (108) 97 NIV Bilevel 35.00 06/21/18 13:50 98 95 35.00 06/21/18 13:23 100 06/21/18 13:00 99 19 138/94 (109) 94 NIV Bilevel 35.00 06/21/18 12:00 98 15 130/100 (110) 93 NIV Bilevel 35.00 06/21/18 12:00 NIV Bilevel 35.00 06/21/18 11:00 99 20 144/103 (117) 93 NIV Bilevel 35.00 06/21/18 10:50 91 NIV Bilevel 35 06/21/18 10:15 98 19 137/84 (101) 95 NIV Bilevel 35.00 06/21/18 10:00 98 19 126/91 (103) 94 NIV Bilevel 35.00 06/21/18 09:45 101 16 159/112 (128) 99 NIV Bilevel 35.00 06/21/18 09:30 101 16 171/120 (137) 97 NIV Bilevel 35.00 06/21/18 09:20 111 95 35.00 06/21/18 09:15 98.6 100 16 170/115 (133) 98 NIV Bilevel 35.00 06/21/18 09:11 105 06/21/18 09:00 97.7 105 24 142/99 (113) 100 NIV Bilevel 35.00 I & O 06/22/18 07:00 Intake Total 1800 ml Output Total 3750 ml Balance -1950 ml Height & Weight Height: 5'6.00" Weight: 260lbs. 0.0oz. 117.143357jg; 42.0 BMI Method:Stated General Appearance: No Apparent Distress, WD/WN, Anxious, Chronically ill, Obese HEENT: PERRL/EOMI, Normal ENT Inspection, Pharynx Normal, Moist Mucous Membranes Neck: Full Range of Motion, Normal Inspection, Non Tender Respiratory: Chest Non Tender, Accessory Muscle Use, Crackles, Decreased Breath Sounds Cardiovascular: No Edema, No Gallop, No JVD, No Murmur, Normal Peripheral Pulses, Tachycardia Capillary Refill: Less Than 3 Seconds Gastrointestinal: normal bowel sounds, non tender, soft Extremity: Normal Capillary Refill, Normal Inspection, Normal Range of Motion, Non Tender, No Calf Tenderness, No Pedal Edema Neurologic/Psychiatric: Alert, Oriented x3, No Motor/Sensory Deficits, Normal Mood/Affect Skin: Normal Color, Warm/Dry Lymphatic: No Adenopathy Results Lab Laboratory Tests 06/21/18 06:10 06/22/18 05:34 Assessment/Plan Assessment/Plan Acute on chronic respiratory failure - Improving -Last PFT 12/2017 shows RLD with normal DLCO. No COPD -PT did require BIPAP last night -CTA of chest- negative for PE shows atelectasis -ABG while on BiPAP shows C02 of 44 Asthma AE -Solumedrol -SVNS Atelectasis -IS -SVNS Tobacco use -Education Acute diastolic CHF -Continue Lasix -Cardiology following Morbid obesity with CARLOS -PT uses CPAP at home NSTEMI - probably secondary to hypoxia - Cardiology following JUAN BRICEÑO DO Jun 22, 2018 07:51
[2018-06-22] MEDS: TICAGRELOR 90 MG TABLET (BRILINTA) PO SCH (07:55)
[2018-06-22] MEDS: ASPIRIN 81 MG CHEW (CHILDREN'S ASA) PO SCH (07:55)
[2018-06-22] MEDS: NITROGLYCERIN 2% OINT 1 GM UNIT DOSE PACKET TOP SCH ×2 (07:56→20:41)
[2018-06-22] MEDS ORDERED: LIDOCAINE 1% INJ 20 ML 20 ML VIAL ONE (09:33)
[2018-06-22] MEDS ORDERED: NS IV 1000 ML 2,000 ML ONE (09:33)
[2018-06-22] MEDS ORDERED: HEParin 1000 UNIT/ML (10ML VIAL) FOR BOLUS ONE (09:33)
--- NOTE | 2018-06-22 09:37 | NUR ---
0843 DR REED ON FLOOR TO SEE PATIENT NEW VERBAL ORDERS RECEIVED TO OBTAIN CONSENT FOR HEART CATHETERIZATION THIS AFTERNOON. 9160 CONSENT OBTAINED PT VERBALIZES UNDERSTANDING OF PROCEDURE, SISTER AT BEDSIDE.
--- NOTE | 2018-06-22 10:08 | Progress Note-Hospitalist ---
Subjective HPI/CC On Admission Date Seen by Provider: Jun 22, 2018 Time Seen by Provider: 09:30 Chief complaint: Shortness of breath HPI: This is a 58yo community health patient male who presents with shortness of breath. He was found to have multi factorial sources for the shortness of breath with wheezing now requiring Bi-PAP, Pulmonology, and Cardiology consultation and placement in the cardiac step down unit to fully evaluate and treat and aggressively manage this issue He has had hospital stays before for similar complaints and at this current time his BP is much improved when it was extremely elevated at 230/120 At this current time pt wants to eat and drink but I told him we would need to wait because of his respiratory status. It is so guarded. Subjective/Events-last exam Pt doing much better and off BiPAP IV Diuresis has really helped him. Dr. Barron wants to perform cardiac catheterization an the is contemplating that Significant other is at the bedside Reviewed labs and meds Has a headache due to Nitroglycerin BP still remains high Review of Systems Pulmonary: Dyspnea Focused Exam Lactate Level 06/21/18 06:10: Lactic Acid Level 2.47*H 06/21/18 09:43: Lactic Acid Level 1.24 Objective Exam Vital Signs Vital Signs Date Time Temp Pulse Resp B/P (MAP) Pulse Ox O2 Delivery O2 Flow Rate FiO2 06/22/18 20:15 Nasal Cannula 2.00 06/22/18 20:00 100 06/22/18 20:00 99 21 143/95 (111) 06/22/18 19:00 97.3 06/21/18 10:50 35 Capillary Refill : Less Than 3 Seconds General Appearance: No Apparent Distress, WD/WN, Anxious, Chronically ill, Obese HEENT: PERRL/EOMI, Normal ENT Inspection, Pharynx Normal, Moist Mucous Membranes Neck: Full Range of Motion, Normal Inspection, Non Tender Respiratory: Chest Non Tender, Lungs Clear, Normal Breath Sounds, No Accessory Muscle Use, No Respiratory Distress Cardiovascular: Regular Rate, Rhythm, No Edema, No Gallop, No JVD, No Murmur, Normal Peripheral Pulses Gastrointestinal: Normal Bowel Sounds, No Organomegaly, No Pulsatile Mass, Non Tender, Soft Back: Normal Inspection, No CVA Tenderness, No Vertebral Tenderness Extremity: Normal Capillary Refill, Normal Inspection, Normal Range of Motion, Non Tender, No Calf Tenderness, No Pedal Edema Neurologic/Psychiatric: Alert, Oriented x3, No Motor/Sensory Deficits, Normal Mood/Affect Skin: Normal Color, Warm/Dry Lymphatic: No Adenopathy Results/Procedures Lab Laboratory Tests 06/22/18 05:34 Patient resulted labs reviewed. Assessment/Plan Assessment and Plan Assess & Plan/Chief Complaint Assessment: Severe respiratory failure placed on BiPAP now resolved and on NC O2 AECOPD Acute diastolic congestive heart failure Malignant hypertension urgency NSTEMI Elevated lactic acidosis Plan: ICU Dr Rios and Dr Barron both appreciated Monitor closely Improved Diagnosis/Problems Diagnosis/Problems (1) Respiratory failure Status: Acute Qualifiers: Chronicity: acute Respiratory failure complication: hypoxia Qualified Codes: J96.01 - Acute respiratory failure with hypoxia (2) Hypertensive urgency Status: Acute (3) NSTEMI (non-ST elevated myocardial infarction) Status: Acute (4) Obesity Status: Chronic Qualifiers: Obesity type: due to excess calories Obesity classification: adult class 3 (BMI >= 40) Serious obesity comorbidity presence: with serious comorbidity Body mass index: BMI 40.0-44.9 Qualified Codes: E66.01 - Morbid (severe) obesity due to excess calories; Z68.41 - Body mass index (BMI) 40.0-44.9, adult (5) COPD exacerbation Status: Acute (6) CHF (congestive heart failure) Status: Acute Qualifiers: Heart failure type: unspecified Heart failure chronicity: acute Qualified Codes: I50.9 - Heart failure, unspecified Clinical Quality Measures DVT/VTE Risk/Contraindication: Risk Factor Score Per Nursin RFS Level Per Nursing on Admit: 3=High ASHISH WILEY DO Jun 22, 2018 10:08
--- NOTE | 2018-06-22 11:11 | NUR ---
0750 PT C/O OF CHEST PAIN, PT STATES " IT'S A BURNING PAIN, MORPHINE PULLED AND WASTED, HOWEVER WHEN THIS RN BACK INTO ROOM, PT STATES PAIN BETTER, MORPHINE WAS NEVER DRAWN UP, MORPHINE RETURNED TO OMNICELL.
--- NOTE | 2018-06-22 11:12 | NUR ---
PT C/O OF HEADACHE, LORTAB GIVEN.
--- NOTE | 2018-06-22 12:08 | NUR ---
1148 PT'S BLOOD PRESSURE ELEVATED AT 176/105 WITH PULSE NOTED AT 105. THIS RN LEFT MESSAGE WITH DR REED. 1208 DR REED CALLED NEW ORDERS RECEIVED.
[2018-06-22] MEDS ORDERED: amLODIPine 5 MG (NORVASC) TAB ONE (12:13)
[2018-06-22] MEDS ORDERED: amLODIPine 5 MG (NORVASC) TAB PO NR (12:15)
[2018-06-22] MEDS: PIPERACILLIN/TAZOBACTAM (BULK) 4.5 GM in NS (IVPB) 100 ML IV SCH ×2 (14:11→20:41)
[2018-06-22] MEDS ORDERED: fentaNYL INJECTION 100 MCG/2 ML AMP ONE (15:14)
[2018-06-22] MEDS ORDERED: MIDAZOLAM 5 MG/5 ML (VERSED) VIAL ONE (15:14)
[2018-06-22] MEDS ORDERED: NS IV 1000 ML 1,000 ML ONE (16:10)
--- NOTE | 2018-06-22 16:17 | NUR ---
1605 PT TO HEART CENTER VIA BED ACCOMPANIED BY HEART CENTER STAFF AND FAMILY.
[2018-06-22] MEDS ORDERED: FUROSEMIDE 40 MG/4 ML INJ (LASIX) ONE (16:50)
--- NOTE | 2018-06-22 17:01 | Cardiology Progress Note ---
Cardiology SOAP Progress Note Subjective: Improved Shortness of breath. Objective: I&O/Vital Signs 06/22/18 06/22/18 06/22/18 06/22/18 06:00 07:00 07:03 08:00 Pulse 94 86 93 Resp 18 24 B/P (MAP) 135/101 (112) Pulse Ox 96 93 94 O2 Delivery Room Air Room Air Room Air O2 Flow Rate 06/22/18 06/22/18 06/22/18 06/22/18 08:00 09:00 10:00 11:00 Pulse 92 96 101 105 Resp 35 19 21 17 B/P (MAP) 158/93 (114) 140/96 (111) 154/112 (126) 142/106 (118) Pulse Ox 95 95 97 94 O2 Delivery Room Air Room Air Room Air Room Air 06/22/18 06/22/18 06/22/18 06/22/18 11:45 12:00 12:21 12:35 Temp 97.4 Pulse 101 101 Resp 19 B/P (MAP) 106/66 (79) Pulse Ox 93 96 O2 Delivery Room Air Room Air 06/22/18 06/22/18 06/22/18 06/22/18 13:00 14:00 15:00 15:42 Temp 96.8 Pulse 101 76 94 Resp 19 16 B/P (MAP) 126/98 (107) 156/129 (138) 171/126 (141) Pulse Ox 96 98 100 O2 Delivery Room Air Room Air Room Air 06/22/18 00:00 Intake Total 800 ml Output Total 2250 ml Balance -1450 ml Weight (Pounds): 260 Weight (Ounces): 0.0 Weight (Calculated Kilograms): 117.668077 Constitutional: appears stated age, AAO x 3; No apparent distress; well- developed, well-nourished Respiratory: No accessory muscle use, No respiratory distress, No chest tender , No chest expansion is symmetric; chest is bilaterally symmetric; No lungs clear to percussion; lungs clear to auscultation; No crackles, No rhonchi, No rales, No stridor, No wheezing, No pleural rub, No other Cardiovascular: regular rate-rhythm; No irregularly irregular, No extra beats, No parasternal heave is noted, No JVD, No edema, No bradycardia, No tachycardia , No point of maximal impulse, No cardiac thrills are palpable; S1 and S2; No gallop/S3, No gallop/S4, No diastolic murmur, No systolic murmur, No friction rub, No click, No other Gastrointestional: No tender, No soft, No round, No distended, No pulsatile mass, No organomegaly, No guarding, No rebound, No tenderness, No hernia, No mass, No audible bowel sounds, No abnormal bowel sounds, No abdominal bruits, No spleenomegaly, No other Extremities: No normal range of motion, No non-tender, No normal inspection, No pedal edema, No calf tenderness, No normal capillary refill, No pelvis stable , No calf tenderness, No inflammation, No pedal edema, No slow capillary refill , No swelling, No other, No abrasion, No clubbing, No cyanosis, No ecchymosis, No laceration, No no lower extremity edema bilateral, No significant edema, No tenderness, No wound Neurologic/Psychiatric: no motor/sensory deficits, alert, normal mood/affect, oriented x 3, power is 5/5 both on sides Skin: No rash, No ulcerations Results/Procedures: Labs Laboratory Tests 06/22/18 05:34: White Blood Count 16.6H, Red Blood Count 5.35, Hemoglobin 13.9, Hematocrit 41, Mean Corpuscular Volume 77L, Mean Corpuscular Hemoglobin 26, Mean Corpuscular Hemoglobin Concent 34, Red Cell Distribution Width 16.6H, Platelet Count 332, Mean Platelet Volume 10.1, Neutrophils (%) (Auto) 82H, Lymphocytes (%) (Auto) 8L , Monocytes (%) (Auto) 10, Eosinophils (%) (Auto) 0, Basophils (%) (Auto) 0, Neutrophils # (Auto) 13.6H, Lymphocytes # (Auto) 1.4, Monocytes # (Auto) 1.6H, Eosinophils # (Auto) 0.0, Basophils # (Auto) 0.0, Neutrophils % (Manual) 84, Lymphocytes % (Manual) 11, Monocytes % (Manual) 5, Blood Morphology Comment NORMAL, Sodium Level 137, Potassium Level 4.0, Chloride Level 105, Carbon Dioxide Level 23, Anion Gap 9, Blood Urea Nitrogen 15, Creatinine 1.07, Estimat Glomerular Filtration Rate > 60, BUN/Creatinine Ratio 14, Glucose Level 236H, Calcium Level 9.4, Phosphorus Level 2.8, Magnesium Level 2.5H, Troponin I 0.033H Microbiology 06/21/18 Influenza Types A,B Antigen (JAIME) - Final, Complete A/P: Assessment/Dx: Severe respiratory failure, on BiPAP, COPD, Acute diastolic and systolic congestive heart failure, Severe hypertension, Non-STEMI Plan: Severe respiratory failure, on BiPAP, defer to Dr. Rios. COPD, Acute diastolic and systolic congestive heart failure, BNP is mildly elevated. Severe hypertension, with hypertensive heart disease, treat with aggressive antihypertensive. Non-STEMI, recommend coronary angiography which will be done later today. Thank you for your consultation. Please call me if you have any questions. Radha Barron MD, FACP, FACC, [facility] [place], FHRS, CCDS Interventional Cardiology Cardiac Electrophysiology Vascular Medicine and Endovascular Interventions Focused Exam Lactate Level 06/21/18 06:10: Lactic Acid Level 2.47*H 06/21/18 09:43: Lactic Acid Level 1.24 Paolo BARRON MD Jun 22, 2018 17:01
--- NOTE | 2018-06-22 17:02 | Cardiac Procedure Note-CS/ASA ---
Pre-Procedure Note Pre-Op Procedure Note H&P Reviewed The H&P was reviewed, patient examined and no changes noted. Date H&P Reviewed: Jun 22, 2018 Time H&P Reviewed: 16:00 Conscious Sedation Pre-Proced Time 16:00 ASA Score 3 For ASA 3 and 4: Consider anesthesia and medical clearance. Also, for patients with a history of failed moderate sedation consider anesthesia. Airway Lungs Heart ASA score ASA 1: a normal healthy patient ASA 2: a patient with a mild systemic disease (mid diabetes, controlled hypertension, obesity ASA 3: a patient with a severe systemic disease that limits activity (angina , COPD, prior Myocardial infarction) ASA 4: a patient with an incapacitating disease that is a constant threat to life (CHF, renal failure) ASA 5: a moribund patient not expected to survive 24 hrs. (ruptured aneurysm) ASA 6: a declared brain- patient whose organs are being harvested. For emergent operations, add the letter E after the classification Mallampati Classification Grade 1 Sedation Plan Analgesia, Amnesia, Plan communicated to team members, Discussed options with patient/fam, Discussed risks with patient/fam The patient is an appropriate candidate to undergo the planned procedure, sedation, and anesthesia. The patient immediately re-assessed prior to indication. Paolo REED MD Jun 22, 2018 17:02
--- NOTE | 2018-06-22 17:05 | Coronary Angiography Report ---
Coronary Angiography Report DATE OF PROCEDURE: 06/22/18 INDICATION: Non-STEMI, congestive heart failure. PREOPERATIVE DIAGNOSIS: Non-STEMI, congestive heart failure. POSTOPERATIVE DIAGNOSIS: LV systolic dysfunction, patent epicardial coronary arteries. HISTORY: This is a 58-year-old gentleman who presented with significant shortness of breath and positive cardiac enzymes. Therefore, the patient was scheduled for coronary angiography. PROCEDURES PERFORMED: 1.Coronary angiography. 2.Left heart catheterization. COMPLICATIONS: None. SPECIMENS: None. ESTIMATED BLOOD LOSS: 10 mL ANESTHESIA: Conscious sedation ANTICOAGULATION: None. CONTRAST: 73 mL. FLUOROSCOPY: 3.1 minutes. FLOUROSCOPY DOSE: 972 mgy. PROCEDURE DETAILS: The patient is a 58 male and was brought to the clam bed laborer after informed consent was taken. All the risks and complications were explained in detail; this included the risk of bleeding, vascular damage, stroke , GA and even . The patient was draped and prepped in the usual sterile fashion. Access was gained in the right femoral artery with a 5 Faroese sheath. Coronary angiography and left heart catheterization was performed with a JR4 and JL4 catheter. FINDINGS: 1.Left main: Patent. 2.LAD: Patent. 3.Left circumflex artery: Patent. 4.RCA: Patent. 5.Left heart catheterization: LV pressure 130/21 mmHg. LVEDP 28 mmHg. Aortic pressure 142/105 mmHg. Reduced LV systolic function with an EF of 30 percent with global hypokinesis. No gradient across the aortic valve. CONCLUSIONS: Nonischemic systolic congestive heart failure and dilated cardiomyopathy. Lasix 80 mg IV 1 given during the procedure. Aggressive cardiomyopathy treatment. Likely type II myocardial infarction due to congestive heart failure. Radha Barron MD, FACP, FACC, [facility] Interventional Cardiology Paolo BARRON MD Jun 22, 2018 17:05
[2018-06-22] MEDS ORDERED: lisINopril 40 MG (PRINIVIL) TABLET PO SCH (17:15)
[2018-06-22] MEDS ORDERED: PATIENT MAY USE OWN MEDS, ALL PO SCH (17:15)
[2018-06-22] MEDS: lisINopril 10 MG (PRINIVIL) TABLET PO SCH (17:48)
[2018-06-22] MEDS: meTOprolol TARTRATE 50 MG (LOPRESSOR) TAB PO SCH (20:41)
[2018-06-22] MEDS: NS IV 1000 ML 1,000 ML IV SCH (22:47)
[2018-06-23] VITALS (14 sets, daily range): BP systolic 109–152; BP diastolic 66–112
[2018-06-23] MEDS: NS IV 1000 ML 1,000 ML IV SCH (02:43)
[2018-06-23 04:14] LABS: BASOPHILS % (AUTO) 0 % (0-10); EOSINOPHILS # (AUTO) 0.1 10^3/uL (0.0-0.3); EOSINOPHILS % (AUTO) 1 % (0-10); HEMATOCRIT 46 % (40-54); HEMOGLOBIN 15.1 G/DL (13.3-17.7); LYMPHOCYTES % (AUTO) 22 % (12-44); MEAN CORPUSCULAR HGB CONC 33 G/DL (32-36); MEAN CORPUSCULAR VOLUME 77 FL (80-99); MEAN PLATELET VOLUME 10.4 FL (7.4-10.4); MONOCYTES # (AUTO) 0.8 X 10^3 (0.0-1.0); MONOCYTES % (AUTO) 9 % (0-12); NEUTROPHILS # (AUTO) 6.1 X 10^3 (1.8-7.8); NEUTROPHILS % (AUTO) 67 % (42-75); PLATELET COUNT 381 10^3/uL (130-400); RED CELL DISTRIBUTION WIDTH 18.2 % (10.0-14.5); WHITE BLOOD COUNT 9.1 10^3/uL (4.3-11.0)
[2018-06-23 04:15] LABS: MEAN CORPUSCULAR HEMOGLOBIN 25 PG (25-34)
[2018-06-23 04:36] LABS: BUN/CREATININE RATIO 13; CALCIUM 9.3 MG/DL (8.5-10.1); CARBON DIOXIDE 23 MMOL/L (21-32); CHLORIDE 105 MMOL/L (98-107); CREATININE SERUM 1.31 MG/DL (0.60-1.30); GFR ESTIMATED > 60; GLUCOSE 241 MG/DL (70-105); MAGNESIUM 2.4 MG/DL (1.8-2.4); PHOSPHORUS 3.7 MG/DL (2.3-4.7); POTASSIUM 3.8 MMOL/L (3.6-5.0); SODIUM 142 MMOL/L (135-145)
[2018-06-23] MEDS: PIPERACILLIN/TAZOBACTAM (BULK) 4.5 GM in NS (IVPB) 100 ML IV SCH ×3 (05:21→21:35)
--- NOTE | 2018-06-23 05:49 | Pulmonary Progress Note ---
Subjective Time Seen by a Provider: 08:36 Subjective/Events-last exam PT states he is more SOB today C/W yesterday. Sepsis Event Evaluation Height, Weight, BMI Height: 5'6.00" Weight: 260lbs. 0.0oz. 117.628606rb; 42.0 BMI Method:Stated Focused Exam Lactate Level 06/21/18 06:10: Lactic Acid Level 2.47*H 06/21/18 09:43: Lactic Acid Level 1.24 Exam Exam Vital Signs Date Time Temp Pulse Resp B/P (MAP) Pulse Ox O2 Delivery O2 Flow Rate FiO2 06/23/18 05:00 81 17 147/112 (124) 97 NIV Bilevel 35.00 06/23/18 04:07 89 18 152/107 (122) 99 NIV Bilevel 35.00 06/23/18 03:10 96 NIV Bilevel 35 06/23/18 03:00 82 27 98 NIV Bilevel 35.00 06/23/18 02:58 NIV Bilevel 35.00 06/23/18 02:08 88 11 123/86 (98) 99 Nasal Cannula 2.00 06/23/18 01:00 95 06/23/18 01:00 95 26 127/87 (100) 97 Nasal Cannula 2.00 06/23/18 00:00 87 13 140/99 (113) 93 Nasal Cannula 2.00 06/22/18 23:35 98.0 Nasal Cannula 2.00 06/22/18 23:05 100 Nasal Cannula 2.00 06/22/18 23:00 86 19 146/96 (113) 95 Nasal Cannula 2.00 06/22/18 22:00 96 38 141/92 (108) 96 Nasal Cannula 2.00 06/22/18 21:00 101 19 129/93 (105) 100 Nasal Cannula 2.00 06/22/18 20:15 Nasal Cannula 2.00 06/22/18 20:00 100 Nasal Cannula 2.00 06/22/18 20:00 99 21 143/95 (111) 100 NIV Bilevel 35.00 06/22/18 19:37 NIV Bilevel 35.00 06/22/18 19:00 97.3 06/22/18 19:00 103 06/22/18 19:00 103 27 121/97 (105) 93 Room Air 06/22/18 18:00 99 10 123/103 (110) 91 Room Air 06/22/18 17:45 104 13 142/104 (117) 96 Room Air 06/22/18 17:30 105 34 143/115 (124) 91 Room Air 06/22/18 15:42 96.8 06/22/18 15:00 94 171/126 (141) 100 Room Air 06/22/18 14:00 76 16 156/129 (138) 98 Room Air 06/22/18 13:00 101 19 126/98 (107) 96 Room Air 06/22/18 12:35 96 Room Air 06/22/18 12:21 101 06/22/18 12:00 101 19 106/66 (79) 93 Room Air 06/22/18 11:45 97.4 06/22/18 11:00 105 17 142/106 (118) 94 Room Air 06/22/18 10:00 101 21 154/112 (126) 97 Room Air 06/22/18 09:00 96 19 140/96 (111) 95 Room Air 06/22/18 08:00 92 35 158/93 (114) 95 Room Air 06/22/18 08:00 94 Room Air 06/22/18 07:03 93 06/22/18 07:00 86 24 135/101 (112) 93 Room Air 06/22/18 06:00 94 18 96 Room Air I & O 06/23/18 07:00 Intake Total 1440 ml Output Total 4445 ml Balance -3005 ml Height & Weight Height: 5'6.00" Weight: 260lbs. 0.0oz. [id number]; 42.0 BMI Method:Stated General Appearance: No Apparent Distress, WD/WN, Anxious, Chronically ill, Obese HEENT: PERRL/EOMI, Normal ENT Inspection, Pharynx Normal, Moist Mucous Membranes Neck: Full Range of Motion, Normal Inspection, Non Tender Respiratory: Chest Non Tender, Lungs Clear, Normal Breath Sounds, No Accessory Muscle Use, No Respiratory Distress Cardiovascular: Regular Rate, Rhythm, No Edema, No Gallop, No JVD, No Murmur, Normal Peripheral Pulses Capillary Refill: Less Than 3 Seconds Gastrointestinal: normal bowel sounds, non tender, soft Extremity: Normal Capillary Refill, Normal Inspection, Normal Range of Motion, Non Tender, No Calf Tenderness, No Pedal Edema Neurologic/Psychiatric: Alert, Oriented x3, No Motor/Sensory Deficits, Normal Mood/Affect Skin: Normal Color, Warm/Dry Lymphatic: No Adenopathy Results Lab Laboratory Tests 06/21/18 06:10 06/22/18 05:34 06/23/18 03:05 Assessment/Plan Assessment/Plan Acute on chronic respiratory failure - Improving -Last PFT 12/2017 shows RLD with normal DLCO. No COPD -PT did require BIPAP last night -CTA of chest- negative for PE shows atelectasis Asthma AE -Solumedrol -SVNS NSTEMI - probably secondary to hypoxia s/p heart cath - Cardiology following Atelectasis -IS -SVNS Tobacco use -Education Acute diastolic CHF -Continue Lasix -Cardiology following Morbid obesity with CARLOS -PT uses CPAP at home JUAN BRICEÑO DO Jun 23, 2018 05:49
[2018-06-23] MEDS: FUROSEMIDE 40 MG/4 ML INJ (LASIX) IV SCH (07:28)
--- NOTE | 2018-06-23 07:57 | Cardiology Progress Note ---
Subjective Date Seen by Provider: Jun 23, 2018 Time Seen by Provider: 07:53 Subjective/Events-last exam patient is sitting in a chair, still having some shortness of breath. Denied any chest pain. No palpitation. Review of Systems General: No Chills, No Night Sweats, No Fatigue, No Malaise, No Appetite, No Other HEENT: No Head Aches, No Visual Changes, No Eye Pain, No Ear Pain, No Dysphasia , No Sinus Congestion, No Post Nasal Drip, No Sore Throat, No Other Pulmonary: Dyspnea, Cough; No Pleuritic Chest Pain, No Other Cardiovascular: No: Chest Pain, Palpitations, Orthopnea, Paroxysmal Noc. Dyspnea, Edema, Lt Headedness, Other Focused Exam Lactate Level 06/21/18 06:10: Lactic Acid Level 2.47*H 06/21/18 09:43: Lactic Acid Level 1.24 Objective-Cardiology Exam Last Set of Vital Signs Vital Signs 06/22/18 06/23/18 06/23/18 06/23/18 06/23/18 23:35 03:10 05:00 06:12 07:22 Temp 98.0 Pulse 90 Resp 25 B/P (MAP) 145/105 (118) Pulse Ox 93 O2 Delivery Room Air O2 Flow Rate 35.00 FiO2 35 Capillary Refill : Less Than 3 Seconds I&O Intake and Output 06/23/18 00:00 Intake Total 1770 ml Output Total 4175 ml Balance -2405 ml Intake Oral 650 ml IV Total 1120 ml Output Urine Total 4175 ml General: Alert, Oriented X3, Cooperative HEENT: Atraumatic, PERRLA Neck: Supple, No JVD, No Thyromegaly Lungs: Clear to Auscultation, Normal Air Movement Heart: Regular Rate, Normal S1, Normal S2, No Murmurs Abdomen: Normal Bowel Sounds, Soft, No Tenderness, No Hepatosplenomegaly, No Masses Extremities: No Clubbing, No Cyanosis, No Edema, Normal Pulses, No Tenderness/ Swelling Skin: No Rashes, No Breakdown, No Significant Lesion Neuro: Normal Gait, Normal Speech, Strength at 5/5 X4 Ext, Normal Tone, Sensation Intact Psych/Mental Status: Mental Status NL, Mood NL Results Lab Laboratory Tests 06/23/18 03:05 A/P-Cardiology Admission Diagnosis Acute respiratory failure Acute on chronic left ventricular systolic dysfunction, nonischemic cardiomyopathy, congestive heart failure Hypertension COPD Assessment/Plan Acute on chronic respiratory failure, acute exacerbation of COPD and pulmonary edema from congestive heart failure, improving slowly. Required BiPAP last night, continue with diuretics. Congestive heart failure, acute left ventricular systolic dysfunction, nonischemic cardiomyopathy. Cardiac catheterization showed normal coronaries. I will evaluate tick borne titers, increase Lopressor and maintained on lisinopril and monitor tolerance and response. Borderline troponin, no signs of myocardial infarction, cardiac catheterization showed normal coronaries done by Dr. Barron on June 22, 2018. Morbid obesity, BMI 42, we discussed weight loss. Obstructive sleep apnea, using C Pap at night. Hypertension, continue to monitor blood pressure after adjusting medications Mild renal insufficiency secondary to aggressive diuresis, continue to monitor Clinical Quality Measures DVT/VTE Risk/Contraindication: Risk Factor Score Per Nursin RFS Level Per Nursing on Admit: 3=High MIKE MILES MD Jun 23, 2018 07:56
[2018-06-23] MEDS: ASPIRIN 81 MG CHEW (CHILDREN'S ASA) PO SCH (08:04)
[2018-06-23] MEDS: meTOprolol TARTRATE 50 MG (LOPRESSOR) TAB PO SCH ×2 (08:04→21:35)
[2018-06-23] MEDS: lisINopril 10 MG (PRINIVIL) TABLET PO SCH (08:04)
[2018-06-23] MEDS: NITROGLYCERIN 2% OINT 1 GM UNIT DOSE PACKET TOP SCH ×2 (08:08→21:34)
[2018-06-23] MEDS: ENOXAPARIN 40 MG/0.4 ML (LOVENOX) SYR SQ SCH ×2 (08:08→21:35)
--- NOTE | 2018-06-23 08:24 | Diagnostic Imaging Report ---
INDICATION: Shortness of breath Portable chest 2:50 AM Heart is not enlarged. Pulmonary vascularity is normal. Lungs are clear. IMPRESSION: Cardiomegaly without evidence of pulmonary venous hypertension Dictated by: Dictated on workstation # [id number]
--- NOTE | 2018-06-23 10:47 | Progress Note-Hospitalist ---
Subjective HPI/CC On Admission Date Seen by Provider: Jun 23, 2018 Time Seen by Provider: 10:30 Chief complaint: Shortness of breath HPI: This is a 58yo community health patient male who presents with shortness of breath. He was found to have multi factorial sources for the shortness of breath with wheezing now requiring Bi-PAP, Pulmonology, and Cardiology consultation and placement in the cardiac step down unit to fully evaluate and treat and aggressively manage this issue He has had hospital stays before for similar complaints and at this current time his BP is much improved when it was extremely elevated at 230/120 At this current time pt wants to eat and drink but I told him we would need to wait because of his respiratory status. It is so guarded. Subjective/Events-last exam Pt feels better but still a little bit dyspneic Cardiac catheterization done yesterday it was normal and no evidence of any CAD Diuresis is really helping the pt Maintain on oxygen Will transfer to fourth floor today and ambulate Preparing for DC soon Review of Systems General: Fatigue Pulmonary: Dyspnea Focused Exam Lactate Level 06/21/18 06:10: Lactic Acid Level 2.47*H 06/21/18 09:43: Lactic Acid Level 1.24 Objective Exam Vital Signs Vital Signs Date Time Temp Pulse Resp B/P (MAP) Pulse Ox O2 Delivery O2 Flow Rate FiO2 06/23/18 11:45 97.8 82 18 110/75 (87) 97 Room Air 06/23/18 05:00 35.00 06/23/18 03:10 35 Capillary Refill : Less Than 3 Seconds General Appearance: No Apparent Distress, WD/WN, Anxious, Chronically ill, Obese HEENT: PERRL/EOMI, Normal ENT Inspection, Pharynx Normal, Moist Mucous Membranes Neck: Full Range of Motion, Normal Inspection, Non Tender Respiratory: Chest Non Tender, Lungs Clear, Normal Breath Sounds, No Accessory Muscle Use, No Respiratory Distress Cardiovascular: Regular Rate, Rhythm, No Edema, No Gallop, No JVD, No Murmur, Normal Peripheral Pulses Gastrointestinal: Normal Bowel Sounds, No Organomegaly, No Pulsatile Mass, Non Tender, Soft Back: Normal Inspection, No CVA Tenderness, No Vertebral Tenderness Extremity: Normal Capillary Refill, Normal Inspection, Normal Range of Motion, Non Tender, No Calf Tenderness, No Pedal Edema Neurologic/Psychiatric: Alert, Oriented x3, No Motor/Sensory Deficits, Normal Mood/Affect Skin: Normal Color, Warm/Dry Lymphatic: No Adenopathy Results/Procedures Lab Laboratory Tests 06/23/18 03:05 Patient resulted labs reviewed. Assessment/Plan Assessment and Plan Assess & Plan/Chief Complaint Assessment: Severe respiratory failure placed on BiPAP now resolved and on NC O2 AECOPD Acute diastolic congestive heart failure Malignant hypertension urgency NSTEMI with normal cath 06/22/18 Elevated lactic acid Elevated creatinine Plan: Move to [facility] Dr Rios and Dr Barron both appreciated Monitor closely Improved Monitor creatinine Diagnosis/Problems Diagnosis/Problems (1) Respiratory failure Status: Resolved Qualifiers: Chronicity: acute Respiratory failure complication: hypoxia Qualified Codes: J96.01 - Acute respiratory failure with hypoxia Resolution Date/Time: 06/23/18 @ 11:45 (2) Hypertensive urgency Status: Resolved Resolution Date/Time: 06/23/18 @ 11:45 (3) NSTEMI (non-ST elevated myocardial infarction) Status: Acute (4) Obesity Status: Chronic Qualifiers: Obesity type: due to excess calories Obesity classification: adult class 3 (BMI >= 40) Serious obesity comorbidity presence: with serious comorbidity Body mass index: BMI 40.0-44.9 Qualified Codes: E66.01 - Morbid (severe) obesity due to excess calories; Z68.41 - Body mass index (BMI) 40.0-44.9, adult (5) COPD exacerbation Status: Acute (6) CHF (congestive heart failure) Status: Acute Qualifiers: Heart failure type: unspecified Heart failure chronicity: acute Qualified Codes: I50.9 - Heart failure, unspecified Clinical Quality Measures DVT/VTE Risk/Contraindication: Risk Factor Score Per Nursin RFS Level Per Nursing on Admit: 3=High ASHISH WILEY DO Jun 23, 2018 10:47
--- NOTE | 2018-06-23 11:38 | NUR ---
REPORT TAKEN AT THIS TIME FROM Kali NOLEN RN. THIS RN WILL ASSUME CARE OF THIS PATIENT WHEN HE ARRIVES TO THIS FLOOR.
--- NOTE | 2018-06-23 11:45 | NUR ---
PATIENT TO FLOOR AT THIS TIME VIA W/C, ACCOMPANIED BY S.O. AND ICU, PCT. THIS RN WILL ASSUME CARE OF THIS PATIENT AT THIS TIME.
--- NOTE | 2018-06-23 11:45 | NUR ---
PT TRANSFERRED TO ROOM 416 VIA WC ACCOMPANIED BY STAFF. PT PERSONAL BELONGINGS SENT WITH PT TO NEW ROOM. REPORT GIVEN TO OSBALDO RIDLEY FOR CONTINUING CARE.
--- NOTE | 2018-06-23 13:13 | NUR ---
THIS RN AGREES WITH THE PREVIOUS RN'S PHYSICAL ASSESSMENT. THIS RN WILL CONT. TO MONITOR THIS PATIENT.
[2018-06-24 03:56] VITALS: BP 109/82
[2018-06-24] MEDS: PIPERACILLIN/TAZOBACTAM (BULK) 4.5 GM in NS (IVPB) 100 ML IV SCH (05:14)
[2018-06-24 06:19] LABS: BASOPHILS % (AUTO) 0 % (0-10); EOSINOPHILS # (AUTO) 0.4 10^3/uL (0.0-0.3); EOSINOPHILS % (AUTO) 4 % (0-10); HEMATOCRIT 42 % (40-54); HEMOGLOBIN 13.7 G/DL (13.3-17.7); LYMPHOCYTES % (AUTO) 21 % (12-44); MEAN CORPUSCULAR HEMOGLOBIN 25 PG (25-34); MEAN CORPUSCULAR HGB CONC 33 G/DL (32-36); MEAN CORPUSCULAR VOLUME 78 FL (80-99); MEAN PLATELET VOLUME 10.1 FL (7.4-10.4); MONOCYTES % (AUTO) 10 % (0-12); NEUTROPHILS # (AUTO) 6.1 X 10^3 (1.8-7.8); NEUTROPHILS % (AUTO) 65 % (42-75); PLATELET COUNT 355 10^3/uL (130-400); WHITE BLOOD COUNT 9.4 10^3/uL (4.3-11.0)
[2018-06-24 06:43] LABS: BUN/CREATININE RATIO 11; CALCIUM 9.3 MG/DL (8.5-10.1); CARBON DIOXIDE 25 MMOL/L (21-32); CHLORIDE 106 MMOL/L (98-107); CREATININE SERUM 1.14 MG/DL (0.60-1.30); GFR ESTIMATED > 60; GLUCOSE 213 MG/DL (70-105); MAGNESIUM 2.2 MG/DL (1.8-2.4); PHOSPHORUS 3.9 MG/DL (2.3-4.7); POTASSIUM 3.5 MMOL/L (3.6-5.0); SODIUM 140 MMOL/L (135-145)
[2018-06-24] MEDS: FUROSEMIDE 40 MG/4 ML INJ (LASIX) IV SCH (06:56)
--- NOTE | 2018-06-24 07:36 | Diagnostic Imaging Report ---
INDICATION: Dyspnea. Comparison is made with prior examination from 06/23/2018. FINDINGS: There is cardiomegaly. Mediastinum is unremarkable. There is no pleural effusion or pneumothorax. IMPRESSION: No acute cardiopulmonary abnormality. Cardiomegaly Dictated by: Dictated on workstation # [id number]
--- NOTE | 2018-06-24 08:28 | Cardiology Progress Note ---
Subjective Date Seen by Provider: Jun 24, 2018 Time Seen by Provider: 08:27 Subjective/Events-last exam patient is laying down in bed, denied any chest pain, no shortness of breath. Reporting improvement Review of Systems General: No Chills, No Night Sweats, No Fatigue, No Malaise, No Appetite, No Other HEENT: No Head Aches, No Visual Changes, No Eye Pain, No Ear Pain, No Dysphasia , No Sinus Congestion, No Post Nasal Drip, No Sore Throat, No Other Pulmonary: No Dyspnea, No Cough, No Pleuritic Chest Pain, No Other Cardiovascular: No: Chest Pain, Palpitations, Orthopnea, Paroxysmal Noc. Dyspnea, Edema, Lt Headedness, Other Focused Exam Lactate Level 06/21/18 09:43: Lactic Acid Level 1.24 Objective-Cardiology Exam Last Set of Vital Signs Vital Signs 06/23/18 06/23/18 06/24/18 03:10 05:00 03:56 Temp 98.0 Pulse 89 Resp 20 B/P (MAP) 109/82 (91) Pulse Ox 97 O2 Delivery Room Air O2 Flow Rate 35.00 FiO2 35 Capillary Refill : Less Than 3 Seconds I&O Intake and Output 06/24/18 00:00 Intake Total 4930 ml Output Total 1720 ml Balance 3210 ml Intake Oral 3690 ml IV Total 1240 ml Output Urine Total 1720 ml # Voids 3 # Bowel Movements 2 General: Alert, Oriented X3, Cooperative HEENT: Atraumatic, PERRLA Neck: Supple, No JVD, No Thyromegaly Lungs: Clear to Auscultation, Normal Air Movement Heart: Regular Rate, Normal S1, Normal S2, No Murmurs Abdomen: Normal Bowel Sounds, Soft, No Tenderness, No Hepatosplenomegaly, No Masses Extremities: No Clubbing, No Cyanosis, No Edema, Normal Pulses, No Tenderness/ Swelling Skin: No Rashes, No Breakdown, No Significant Lesion Neuro: Normal Gait, Normal Speech, Strength at 5/5 X4 Ext, Normal Tone, Sensation Intact Psych/Mental Status: Mental Status NL, Mood NL Results Lab Laboratory Tests 06/24/18 05:25 A/P-Cardiology Admission Diagnosis Acute respiratory failure Acute on chronic left ventricular systolic dysfunction, nonischemic cardiomyopathy, congestive heart failure Hypertension COPD Assessment/Plan Acute on chronic respiratory failure, acute exacerbation of COPD and pulmonary edema from congestive heart failure, reporting improvement. Okay for discharge from cardiology standpoint Congestive heart failure, acute left ventricular systolic dysfunction, nonischemic cardiomyopathy. Cardiac catheterization showed normal coronaries. continue on current medication monitor as an outpatient Borderline troponin, no signs of myocardial infarction, cardiac catheterization showed normal coronaries done by Dr. Barron on June 22, 2018. Morbid obesity, BMI 42, we discussed weight loss. Obstructive sleep apnea, using C Pap at night. Hypertension, continue to monitor blood pressure after adjusting medications Mild renal insufficiency secondary to aggressive diuresis, continue to monitor Okay for discharge from cardiology standpoint and follow up as an outpatient Clinical Quality Measures DVT/VTE Risk/Contraindication: Risk Factor Score Per Nursin RFS Level Per Nursing on Admit: 3=High MIKE MILES MD Jun 24, 2018 08:28
[2018-06-24] MEDS ORDERED: LISI10TA2 PO (08:31)
[2018-06-24] MEDS ORDERED: POTA10TA PO (08:31)
[2018-06-24] MEDS ORDERED: FURO-125 PO (08:31)
[2018-06-24] MEDS ORDERED: ASPI-983 PO (08:31)
[2018-06-24] MEDS ORDERED: METO50TA15 PO (08:31)
--- NOTE | 2018-06-24 08:31 | Discharge Inst-Post CATH ---
Discharge Inst-CATH/EP Post Cardiac Cath/EP D/C Inst Follow Up/Plan Appointment with Dr. Alonzo's office in one week <b>CARDIAC CATH/EP PROCEDURE DISCHARGE INSTRUCTIONS</b> Cardiac Rehab Please be expecting a follow up call from Cardiac Rehab within in one week. ACTIVITY * Go Home directly and rest. * Limit activity of the leg (or wrist if it was used) for 7 days including aerobics, swimming, jogging, bicycling, etc. * Restrict stair-climbing for 7 days if possible, if not, climb up with your non -cath leg, then bring together on the same step. * Avoid lifting, pushing, pulling or excessive movement of the affected extremity for 7 days. * Customary sexual activity may be resumed after 2 days-use caution not to use a position that strains or causes pain to the affected extremity. * No driving for 24 hours. * NO SMOKING. * Avoid straining for bowel movements for 7 days. * Gentle walking on level ground is allowed. * Returning to work will depend on the type of procedure and the results. Your doctor will discuss this with you. CALL YOUR DOCTOR FOR ANY OF THE FOLLOWING: *If bleeding from the puncture site occurs- Apply gentle pressure to site with clean cloth and call your doctor or EMS. * If a knot or lump forms under the skin, increases in size, or causes pain. * If bruising appears to be worsening or moving further down your leg instead of disappearing. * Temperature above 101 F. CARE OF YOUR GROIN INCISION; * Bruising or purple discoloration of the skin near the puncture site is common. * You may shower only, no bathtub bathing for 5 days. Be careful to avoid slipping as your leg may feel stiff. * If a closure device was used on your femoral artery, please see the attached guide regarding care of the device and your leg. * Leave dressing on FOR 24 hours. CARE OF YOUR WRIST INCISION; * Bruising or purple discoloration of the skin near the puncture site is common. * You may shower. * DO NOT submerge wrist. * Leave dressing on FOR 24 hours. MIKE ALONZO MD Jun 24, 2018 08:31
[2018-06-24] MEDS: lisINopril 10 MG (PRINIVIL) TABLET PO SCH (09:19)
[2018-06-24] MEDS: ENOXAPARIN 40 MG/0.4 ML (LOVENOX) SYR SQ SCH (09:20)
[2018-06-24] MEDS: NITROGLYCERIN 2% OINT 1 GM UNIT DOSE PACKET TOP SCH (09:20)
[2018-06-24] MEDS: meTOprolol TARTRATE 50 MG (LOPRESSOR) TAB PO SCH (09:20)
[2018-06-24] MEDS: ASPIRIN 81 MG CHEW (CHILDREN'S ASA) PO SCH (09:20)
--- NOTE | 2018-06-24 09:48 | Pulmonary Progress Note ---
Sepsis Event Evaluation Height, Weight, BMI Height: 5'6.00" Weight: 260lbs. 0.0oz. [id number]; 42.0 BMI Method:Stated Exam Exam Vital Signs Date Time Temp Pulse Resp B/P (MAP) Pulse Ox O2 Delivery O2 Flow Rate FiO2 06/24/18 03:56 98.0 89 20 109/82 (91) 97 Room Air 06/23/18 20:40 97.9 99 20 123/90 (101) 97 Room Air 06/23/18 16:59 98.0 88 18 117/76 (90) 95 Room Air 06/23/18 11:45 97.8 82 18 110/75 (87) 97 Room Air 06/23/18 11:00 83 26 109/86 (94) 97 Room Air 06/23/18 10:00 80 17 127/66 (86) 94 Room Air I & O 06/24/18 07:00 Intake Total 5180 ml Output Total 850 ml Balance 4330 ml Height & Weight Height: 5'6.00" Weight: 260lbs. 0.0oz. [id number]; 42.0 BMI Method:Stated General Appearance: No Apparent Distress, WD/WN, Anxious, Chronically ill, Obese HEENT: PERRL/EOMI, Normal ENT Inspection, Pharynx Normal, Moist Mucous Membranes Neck: Full Range of Motion, Normal Inspection, Non Tender Respiratory: Chest Non Tender, Lungs Clear, Normal Breath Sounds, No Accessory Muscle Use, No Respiratory Distress Cardiovascular: Regular Rate, Rhythm, No Edema, No Gallop, No JVD, No Murmur, Normal Peripheral Pulses Capillary Refill: Less Than 3 Seconds Gastrointestinal: normal bowel sounds, non tender, soft Extremity: Normal Capillary Refill, Normal Inspection, Normal Range of Motion, Non Tender, No Calf Tenderness, No Pedal Edema Neurologic/Psychiatric: Alert, Oriented x3, No Motor/Sensory Deficits, Normal Mood/Affect Skin: Normal Color, Warm/Dry Lymphatic: No Adenopathy Results Lab Laboratory Tests 06/23/18 03:05 06/24/18 05:25 Assessment/Plan Assessment/Plan Acute on chronic respiratory failure - Improving -Last PFT 12/2017 shows RLD with normal DLCO. No COPD -PT did require BIPAP last night -ABG Pc02 44 -CTA of chest- negative for PE shows atelectasis Asthma AE- improved -SVNS NSTEMI - probably secondary to hypoxia s/p heart cath - Cardiology following Atelectasis -IS -SVNS Tobacco use -Education Acute diastolic CHF -Continue Lasix -Cardiology following Morbid obesity with CARLOS -PT uses CPAP at home JUAN BRICEÑO DO Jun 24, 2018 09:48
--- NOTE | 2018-06-24 09:53 | Discharge Summary-Hospitalist ---
Diagnosis/Chief Complaint Date of Admission Jun 21, 2018 at 07:45 Date of Discharge Discharge Date: Jun 24, 2018 Admission Diagnosis Assessment: Severe respiratory failure placed on BiPAP AECOPD Acute diastolic congestive heart failure Malignant hypertension urgency NSTEMI Elevated lactic acidosis Plan: ICU Dr Rios and Dr Barron both appreciated Monitor closely Prognosis guarded Discharge Diagnosis (1) Respiratory failure Status: Resolved (2) Hypertensive urgency Status: Resolved (3) NSTEMI (non-ST elevated myocardial infarction) Status: Acute (4) Obesity Status: Chronic (5) COPD exacerbation Status: Acute (6) CHF (congestive heart failure) Status: Acute Discharge Summary Discharge Physical Exam Allergies: Coded Allergies: No Known Drug Allergies (Unverified , 06/21/18) Vitals & I&Os Vital Signs Date Time Temp Pulse Resp B/P (MAP) Pulse Ox O2 Delivery O2 Flow Rate FiO2 06/24/18 10:48 89 20 109/82 93 Room Air 06/24/18 09:55 98.0 06/24/18 09:00 2.00 06/23/18 03:10 35 General Appearance: No Apparent Distress, WD/WN, Chronically ill Neurologic/Psychiatric: Alert, Oriented x3, No Motor/Sensory Deficits, Normal Mood/Affect Hospital Course Was the Problem List Reviewed?: Yes Hospital Course: Pt had a lengthy hospital course. He was admitted, placed on IV diuresis and oxygen supplementation and aggressive treatment for respiratory failure. IV lasix given for volume overload which much improved his status. Non ST elevation prompted cardiac catheterization that was negative for any type of coronary stenosis. Overall it was felt that the elevated troponin was from the diastolic dysfunction and volume overload. He was DC by Dr. Alonzo and improved status and will have close follow-up with Dr. Rios for CARLOS suspicion and follow up on the tick panel while maintained on Lasix, Lisinopril, and Toprol. Labs (last 24 hrs) Laboratory Tests 06/24/18 05:25: White Blood Count 9.4, Red Blood Count 5.43, Hemoglobin 13.7, Hematocrit 42, Mean Corpuscular Volume 78L, Mean Corpuscular Hemoglobin 25, Mean Corpuscular Hemoglobin Concent 33, Red Cell Distribution Width 17.0H, Platelet Count 355, Mean Platelet Volume 10.1, Neutrophils (%) (Auto) 65, Lymphocytes (%) (Auto) 21 , Monocytes (%) (Auto) 10, Eosinophils (%) (Auto) 4, Basophils (%) (Auto) 0, Neutrophils # (Auto) 6.1, Lymphocytes # (Auto) 2.0, Monocytes # (Auto) 1.0, Eosinophils # (Auto) 0.4H, Basophils # (Auto) 0.0, Sodium Level 140, Potassium Level 3.5L, Chloride Level 106, Carbon Dioxide Level 25, Anion Gap 9, Blood Urea Nitrogen 13, Creatinine 1.14, Estimat Glomerular Filtration Rate > 60, BUN/ Creatinine Ratio 11, Glucose Level 213H, Calcium Level 9.3, Phosphorus Level 3.9 , Magnesium Level 2.2 Microbiology 06/21/18 Blood Culture - Preliminary, Resulted No growth 06/21/18 Influenza Types A,B Antigen (JAIME) - Final, Complete Patient resulted labs reviewed. Pending Labs Discussion & Recommendations Discharge Planning: <30 minutes discharge planning Discharge Home Medications: Active Scripts Active Aspirin EC (Aspirin) 81 Mg Tablet.dr 81 Mg PO DAILY K-Tab ER (Potassium Chloride) 10 Meq Tablet.er 10 Meq PO DAILY Lasix (Furosemide) 20 Mg Tablet 20 Mg PO DAILY Lisinopril 10 Mg Tablet 10 Mg PO DAILY@0900 Metoprolol Tartrate 50 Mg Tablet 50 Mg PO BID Reported Proair Hfa (Albuterol Sulfate) 1 Puff Puff 2 Puff IH Q6H PRN Spiriva Respimat 1.25MCG/ACTUATION (Tiotropium [place]) 4 Gm Mist.inhal 2 Puff IH DAILY Instructions to patient/family Please see electronic discharge instructions given to patient. Clinical Quality Measures DVT/VTE Risk/Contraindication: Risk Factor Score Per Nursin RFS Level Per Nursing on Admit: 3=High Problem Qualifiers (1) Respiratory failure: Chronicity: acute Respiratory failure complication: hypoxia Qualified Codes : J96.01 - Acute respiratory failure with hypoxia (2) Obesity: Obesity type: due to excess calories Obesity classification: adult class 3 ( BMI >= 40) Serious obesity comorbidity presence: with serious comorbidity Body mass index: BMI 40.0-44.9 Qualified Codes: E66.01 - Morbid (severe) obesity due to excess calories; Z68.41 - Body mass index (BMI) 40.0-44.9, adult (3) CHF (congestive heart failure): Heart failure type: unspecified Heart failure chronicity: acute Qualified Codes: I50.9 - Heart failure, unspecified ASHISH WILEY DO Jun 24, 2018 09:53
[2018-06-24] MEDS ORDERED: KCL 20 MEQ TAB (K-DUR) PO NR (10:00)
[2018-06-24 10:48] VITALS: BP 109/82
== END 2018-06-24 10:52 | disposition home or self-care (01) | DRG 280 ==
LOC: EDUNIT# 05:50 → ER 05:53 → ICU 07:45 → 4TH 06-23 11:45
PROVIDERS: ADMIT Internal Medicine; ATTEND Internal Medicine
PROC: 4A023N7 Measurement of Cardiac Sampling and Pressure, Left Heart, Percutaneous Approach (ICD-10-PCS; principal; 2018-06-22)
PROC: B2111ZZ Fluoroscopy of Multiple Coronary Arteries using Low Osmolar Contrast (ICD-10-PCS; 2018-06-22)
PROC: B2151ZZ Fluoroscopy of Left Heart using Low Osmolar Contrast (ICD-10-PCS; 2018-06-22)
DX: I21.A1 Myocardial infarction type 2 (principal); I11.0 Hypertensive heart disease with heart failure; I50.41 Acute combined systolic (congestive) and diastolic (congestive) heart failure; I42.0 Dilated cardiomyopathy; J96.21 Acute and chronic respiratory failure with hypoxia; J45.901 Unspecified asthma with (acute) exacerbation; J98.11 Atelectasis; E87.2 Acidosis; E66.01 Morbid (severe) obesity due to excess calories; Z68.42 Body mass index [BMI] 45.0-49.9, adult; I16.0 Hypertensive urgency; F17.210 Nicotine dependence, cigarettes, uncomplicated; E78.00 Pure hypercholesterolemia, unspecified; G47.33 Obstructive sleep apnea (adult) (pediatric); E11.9 Type 2 diabetes mellitus without complications; N28.9 Disorder of kidney and ureter, unspecified; T50.1X5A Adverse effect of loop [high-ceiling] diuretics, initial encounter; F32.9 Major depressive disorder, single episode, unspecified
CPT/HCPCS: 36415; 71045; 71275; 80048; 80053; 82805; 83605; 83735; 83880; 84100; 84484; 85007; 85025; 85027; 85379; 85610; 85730; 86141; 86618; 86666; 86668; 86757; 87040; 87804; 93005; 93306; 93458; 94660; 94760

== ENCOUNTER 2018-12-28 06:48 | Inpatient (IN) | payer MEDICAID, OTHER ==
[~2018-12-28] VITALS: Ht 167.4 cm; Wt 122.7 kg
[~2018-12-28 06:48] MED LIST changes: +ASPI-983 PO; +FURO-125 PO; +LISI10TA2 PO; +METO50TA15 PO; +POTA10TA PO; +RT-ALBUINH IH; -RT-ALBUTEROL/IPRATROPIUM 3 ML (DUONEB) VIAL ONE; +TIOT4MIS5 IH
[2018-12-28] MEDS: ASPIRIN 81 MG CHEW (CHILDREN'S ASA) PO ONE ×2 (06:58→07:04)
[2018-12-28] MEDS ORDERED: ASPIRIN 81 MG CHEW (CHILDREN'S ASA) ONE (07:00)
[2018-12-28] MEDS ORDERED: RT-ALBUTEROL/IPRATROPIUM 3 ML (DUONEB) VIAL INH ONE (07:00)
[2018-12-28] MEDS ORDERED: NITROGLYCERIN 0.4 MG SL TABS BTL 25'S SL ONE (07:00)
[2018-12-28] MEDS: NITROGLYCERIN 0.4 MG SL TABS BTL 25'S SL PRN ×2 (07:02→07:04)
--- NOTE | 2018-12-28 07:06 | NUR ---
PT STATES THE TIGHTNESS IS GOING AWAY. RT IN ROOM AT THIS TIME.
[2018-12-28 07:07] LABS: BASOPHILS # (AUTO) 0.1 10^3/uL (0.0-0.1); BASOPHILS % (AUTO) 1 % (0-10); EOSINOPHILS # (AUTO) 0.7 10^3/uL (0.0-0.3); EOSINOPHILS % (AUTO) 7 % (0-10); HEMATOCRIT 49 % (40-54); HEMOGLOBIN 16.3 G/DL (13.3-17.7); LYMPHOCYTES # (AUTO) 2.3 X 10^3 (1.0-4.0); LYMPHOCYTES % (AUTO) 24 % (12-44); MEAN CORPUSCULAR HEMOGLOBIN 25 PG (25-34); MEAN CORPUSCULAR HGB CONC 33 G/DL (32-36); MEAN CORPUSCULAR VOLUME 77 FL (80-99); MEAN PLATELET VOLUME 9.5 FL (7.4-10.4); MONOCYTES # (AUTO) 0.8 X 10^3 (0.0-1.0); MONOCYTES % (AUTO) 8 % (0-12); NEUTROPHILS # (AUTO) 6.1 X 10^3 (1.8-7.8); NEUTROPHILS % (AUTO) 62 % (42-75); PLATELET COUNT 354 10^3/uL (130-400); RED CELL DISTRIBUTION WIDTH 17.9 % (10.0-14.5); WHITE BLOOD COUNT 9.9 10^3/uL (4.3-11.0)
[2018-12-28 07:20] LABS: INR 0.9 (0.8-1.4)
[2018-12-28 07:25] LABS: ALANINE AMINOTRANSFERASE 25 U/L (0-55); ALBUMIN 4.2 GM/DL (3.2-4.5); ALKALINE PHOSPHATASE 97 U/L (40-136); BILIRUBIN,TOTAL 0.5 MG/DL (0.1-1.0); BUN/CREATININE RATIO 8; CALCIUM 9.5 MG/DL (8.5-10.1); CARBON DIOXIDE 23 MMOL/L (21-32); CHLORIDE 104 MMOL/L (98-107); CREATININE SERUM 1.14 MG/DL (0.60-1.30); GFR ESTIMATED > 60; GLUCOSE 169 MG/DL (70-105); POTASSIUM 3.6 MMOL/L (3.6-5.0); SODIUM 139 MMOL/L (135-145); TOTAL PROTEIN 7.7 GM/DL (6.4-8.2)
--- NOTE | 2018-12-28 07:27 | NUR ---
PT REPORTS CHEST PAIN IS GONE ET THINKS IT WAS THE BREATHING TX THAT HELPED THE MOST
--- NOTE | 2018-12-28 07:37 | ED Chest Pain ---
General Chief Complaint: Chest Pain Stated Complaint: SOB Nursing Triage Note: TO ROOM 06 WITH COMPLAINTS OF INCREASED SOA AND CHEST PAIN THAT STARTED AT APPX 0400. Nursing Sepsis Screen: No Definite Risk Source: patient Exam Limitations: no limitations History of Present Illness Date Seen by Provider: Dec 28, 2018 Time Seen by Provider: 06:52 Initial Comments Here with report of central chest pain that he describes as tightness that started about 4 AM. Also noted shortness of breath. States shortness of breath was actually starting yesterday. Does have history of COPD and has had previous hospitalization for respiratory failure. He did use his albuterol inhaler and that helped some. The chest tightness is moderate. He arrives dyspneic and feels like he can get his breath. Reports that his ankles have been swelling Timing/Duration: 1-3 hours (chest pain), 12-24 hours (respiratory problems) Severity/Quality: moderate, tightness Location: central Radiation: no radiation Activities at Onset: none Prior CP/Workup: cardiac cath Modifying Factors: improves with oxygen, improves with rest ASA po OCCUPATIONAL HEALTH RN: No NTG SL OCCUPATIONAL HEALTH RN: No Associated Symptoms: No abdominal pain, No back pain; edema; No fever/chills, No nausea/vomiting; shortness of breath; No weakness Allergies and Home Medications Allergies Coded Allergies: No Known Drug Allergies (Unverified , 06/21/18) Home Medications Albuterol Sulfate 1 Puff Puff, 2 PUFF IH Q6H PRN for SHORTNESS OF BREATH, (Reported) Aspirin 81 Mg Tablet.dr, 81 MG PO DAILY Prescribed by: MIKE MILES on 06/24/18830 Furosemide 20 Mg Tablet, 20 MG PO DAILY Prescribed by: MIKE MILES on 06/24/18830 Lisinopril 10 Mg Tablet, 10 MG PO DAILY@0900 Prescribed by: MIKE MILES on 06/24/18830 Metoprolol Tartrate 50 Mg Tablet, 50 MG PO BID Prescribed by: MIKE MILES on 06/24/18830 Potassium Chloride 10 Meq Tablet.er, 10 MEQ PO DAILY Prescribed by: MIKE MILES on 06/24/18830 Tiotropium [place] 4 Gm Mist.inhal, 2 PUFF IH DAILY, (Reported) Patient Home Medication List Home Medication List Reviewed: Yes Review of Systems Review of Systems Constitutional: see HPI; No chills, No fever EENTM: No Symptoms Reported Respiratory: Cough, Shortness of Air, Wheezing Cardiovascular: Chest Pain, Edema Gastrointestinal: Denies Diarrhea, Denies Nausea, Denies Vomiting Genitourinary: No Symptoms Reported Musculoskeletal: no symptoms reported Skin: no symptoms reported Psychiatric/Neurological: No Symptoms Reported All Other Systems Reviewed Negative Unless Noted: Yes Past Tiefsjw-Zjgjgw-Gezjma Hx Past Med/Social Hx: Reviewed Nursing Past Med/Soc Hx Patient Social History Alcohol Use: Occasionally Uses Alcohol Beverage of Choice: Cheap Liquor Recreational Drug Use: Yes Drug of Choice: POT Smoking Status: Current Everyday Smoker Type Used: Cigarettes 2nd Hand Smoke Exposure: Yes Recent Foreign Travel: No Contact w/Someone Who Travel: No Recent Infectious Disease Expo: No Immunizations Up To Date Tetanus Booster (TDap): Unknown PED Vaccines UTD: Yes Past Medical History Surgeries: No Respiratory: Yes COPD Currently Using CPAP: No Cardiac: Yes High Cholesterol, Hypertension Neurological: No Genitourinary: No Gastrointestinal: No Musculoskeletal: Yes Arthritis Endocrine: Yes Diabetes, Non-Insulin dep HEENT: No Cancer: No Psychosocial: Yes Depression Integumentary: No Family Medical History Reviewed Nursing Family Hx Physical Exam Vital Signs Vital Signs - First Documented 12/28/18 12/28/18 06:48 07:10 Temp 37.0 Pulse 104 Resp 16 Pulse Ox 97 O2 Delivery Room Air O2 Flow Rate 2.00 Capillary Refill : Less Than 3 Seconds Height, Weight, BMI Height: 5'6.00" Weight: 260lbs. 0.0oz. 117.417212mj; 43.00 BMI Method:Stated General Appearance: No Apparent Distress, WD/WN Neck: Non Tender, Supple Respiratory: Decreased Breath Sounds, Expiration, Wheezing Cardiovascular: Regular Rate, Rhythm, No Murmur Gastrointestinal: Non Tender, Soft Extremity: Normal Range of Motion, Non Tender Neurologic/Psychiatric: Alert, Oriented x3 Skin: Normal Color, Warm/Dry Focused Exam Lactate Level 12/28/18 08:25: Lactic Acid Level 1.00 Lactic Acid Level Laboratory Tests Test 12/28/18 08:25 Lactic Acid Level 1.00 MMOL/L (0.50-2.00) Progress/Results/Core Measures Results/Orders Lab Results Laboratory Tests Test 12/28/18 06:54 12/28/18 08:25 Range/Units White Blood Count 9.9 4.3-11.0 10^3/uL Red Blood Count 6.41 H 4.35-5.85 10^6/uL Hemoglobin 16.3 13.3-17.7 G/DL Hematocrit 49 40-54 % Mean Corpuscular Volume 77 L 80-99 FL Mean Corpuscular Hemoglobin 25 25-34 PG Mean Corpuscular Hemoglobin Concent 33 32-36 G/DL Red Cell Distribution Width 17.9 H 10.0-14.5 % Platelet Count 354 130-400 10^3/uL Mean Platelet Volume 9.5 7.4-10.4 FL Neutrophils (%) (Auto) 62 42-75 % Lymphocytes (%) (Auto) 24 12-44 % Monocytes (%) (Auto) 8 0-12 % Eosinophils (%) (Auto) 7 0-10 % Basophils (%) (Auto) 1 0-10 % Neutrophils # (Auto) 6.1 1.8-7.8 X 10^3 Lymphocytes # (Auto) 2.3 1.0-4.0 X 10^3 Monocytes # (Auto) 0.8 0.0-1.0 X 10^3 Eosinophils # (Auto) 0.7 H 0.0-0.3 10^3/uL Basophils # (Auto) 0.1 0.0-0.1 10^3/uL Prothrombin Time 13.0 12.2-14.7 SEC INR Comment 0.9 0.8-1.4 Activated Partial Thromboplast Time 28 24-35 SEC Sodium Level 139 135-145 MMOL/L Potassium Level 3.6 3.6-5.0 MMOL/L Chloride Level 104 98-107 MMOL/L Carbon Dioxide Level 23 21-32 MMOL/L Anion Gap 12 5-14 MMOL/L Blood Urea Nitrogen 9 7-18 MG/DL Creatinine 1.14 0.60-1.30 MG/DL Estimat Glomerular Filtration Rate > 60 BUN/Creatinine Ratio 8 Glucose Level 169 H 70-105 MG/DL Calcium Level 9.5 8.5-10.1 MG/DL Corrected Calcium 9.3 8.5-10.1 MG/DL Magnesium Level 2.0 1.6-2.4 MG/DL Total Bilirubin 0.5 0.1-1.0 MG/DL Aspartate Amino Transf (AST/SGOT) 22 5-34 U/L Alanine Aminotransferase (ALT/SGPT) 25 0-55 U/L Alkaline Phosphatase 97 40-136 U/L Myoglobin 78.6 10.0-92.0 NG/ML Troponin I 0.042 H <0.028 NG/ML B-Type Natriuretic Peptide 307.0 H <100.0 PG/ML Total Protein 7.7 6.4-8.2 GM/DL Albumin 4.2 3.2-4.5 GM/DL Lactic Acid Level 1.00 0.50-2.00 MMOL/L My Orders Orders - MARLEY RANGEL MD Cbc With Automated Diff (12/28/18 06:58) Magnesium (12/28/18 06:58) Chest 1 View, Ap/Pa Only (12/28/18 06:58) Ekg Tracing (12/28/18 06:58) Cardiac Profile 1 (12/28/18 06:58) Comprehensive Metabolic Panel (12/28/18 06:58) Myoglobin Serum (12/28/18 06:58) Protime With Inr (12/28/18 06:58) Partial Thromboplastin Time (12/28/18 06:58) O2 (12/28/18 06:58) Monitor-Rhythm Ecg Trace Only (12/28/18 06:58) Lipid Panel (12/29/18 06:00) Ed Iv/Invasive Line Start (12/28/18 06:58) BNP (12/28/18 06:58) Nitroglycerin 0.4 Mg Btl 25's (Nitrostat (12/28/18 07:00) Aspirin Chewable Tablet (Baby Aspirin Ch (12/28/18 07:00) Albuterol/Ipra Inhalation Soln (Duoneb I (12/28/18 07:00) Svn Small Volume Nebulizer (12/28/18 06:58) Nitroglycerin 0.4 Mg Btl 25's (Nitrostat (12/28/18 07:00) Aspirin Chewable Tablet (Baby Aspirin Ch (12/28/18 07:00) Lisinopril Tablet (Zestril Tablet) (12/28/18 08:00) Metoprolol Tartrate (Ir) Tab (Lopressor (12/28/18 08:00) Furosemide Injection (Lasix Injection) (12/28/18 08:21) Lactic Acid Analyzer (12/28/18 08:21) Blood Culture (12/28/18 08:21) Hydralazine Injection (Apresoline Inject (12/28/18 08:45) Ceftriaxone For Iv Use (Rocephin For I (12/28/18 08:45) Medications Given in ED Current Medications Medications Dose Ordered Sig/Michaelle Route Start Time Stop Time Status Last Admin Dose Admin Albuterol/ Ipratropium 3 ml ONCE ONCE INH 12/28/18 07:00 12/28/18 07:01 DC 12/28/18 07:09 3 ML Aspirin 324 mg ONCE ONCE PO 12/28/18 07:00 12/28/18 07:01 DC 12/28/18 07:04 324 MG Hydralazine HCl 10 mg ONCE ONCE IV 12/28/18 08:45 12/28/18 08:46 DC 12/28/18 08:41 10 MG Lisinopril 10 mg ONCE ONCE PO 12/28/18 08:00 12/28/18 08:01 DC 12/28/18 08:19 10 MG Metoprolol Tartrate 50 mg ONCE ONCE PO 12/28/18 08:00 12/28/18 08:02 DC 12/28/18 08:19 50 MG Nitroglycerin 0.4 mg UD PRN SL 12/28/18 07:00 12/28/18 07:04 0.4 MG Vital Signs/I&O 12/28/18 12/28/18 06:48 07:10 Temp 37.0 Pulse 104 Resp 16 B/P (MAP) Pulse Ox 97 97 O2 Delivery Room Air Nasal Cannula O2 Flow Rate 2.00 Progress Progress Note : Progress Note Seen and evaluated. IV, labs, EKG and chest x-ray ordered. ASA 324 mg by mouth ordered. Nitroglycerin sublingual ordered. We will go ahead and do a DuoNeb treatment. Monitor patient. 0833: Questionable right infrahilar infiltrate noted along with pulmonary vascular congestion and cardiomegaly. Patient is afebrile without elevated white count. Lung findings likely more consistent with fluid volume overload than with infiltrate but we will go ahead and initiate blood cultures and lactic acid and give Rocephin 1 g IV now. Slight bump in his troponin. I discussed the case with Dr. Gault and she accepts patient for admission, inpatient status. Consult Dr. Rios which was done at 0838. He agrees with initial treatment for the infiltrate but also agrees that this is likely fluid related. I did consult Dr. Palma at 0855. He agrees with first dose of Lasix 40 mg IV and he will continue therapy as indicated. All findings concerns were discussed with the patient who agrees with plan. Hydralazine 10 mg IV for persistent hypertension. Patient was given metoprolol 50 mg by mouth and usually takes this twice a day. He was also given lisinopril 10 mg by mouth. Both of these are his home morning meds. Initial ECG Impression Date: Dec 28, 2018 Initial ECG Impression Time: 07:03 Initial ECG Rate: 107 Initial ECG Rhythm: S.Tach Comment Sinus tachycardia with left atrial abnormality. LVH. Normal axis. No evidence of ST elevation ME. Similar to previous done 06/21/18. Interpreted by me. Diagnostic Imaging Diagonstic Imaging: Xray Plain Films/CT/US/NM/MRI: chest Comments NAME: JAMIN FELDER [facility] REC#: [id number] PT STATUS: REG ER : 1960 PHYSICIAN: MARLEY RANGEL MD ADMIT DATE: 12/28/18/ER Draft POSDate of Exam:12/28/18 CHEST 1 VIEW, AP/PA ONLY INDICATION: Difficulty breathing. PA chest obtained at 07:55 a.m. and compared to 06/24/2018. FINDINGS: There is prominent cardiomegaly. There is central vascular congestion. There is no pneumothorax or pleural fluid. There is some mild right infrahilar infiltrate. IMPRESSION: Prominent cardiomegaly with central vascular congestion and mild right infrahilar infiltrate. No pneumothorax or pleural fluid. Dictated on workstation # [id number] Dict: 12/28/18 0808 Trans: 12/28/18 0816 [id number] Interpreted by: JAY SANZ MD Electronically signed by: Departure Communication (Admissions) Time/Spoke to Admitting Phy: 08:33 Time/Spoke to Consulting Phy: 08:38 Impression Primary Impression: Chest pain Qualified Codes: R07.9 - Chest pain, unspecified Additional Impressions: Hypertensive urgency Right pulmonary infiltrate on CXR Disposition: ADMITTED INPATIENT Condition: Stable Admissions Decision to Admit Reason: Admit from ER (General) Decision to Admit/Date: Dec 28, 2018 Time/Decision to Admit Time: 08:33 Departure-Patient Inst. Referrals: [facility] (PCP/Family) Primary Care Physician MARLEY RANGEL MD Dec 28, 2018 07:37 POS
--- NOTE | 2018-12-28 07:56 | NUR ---
IN TALKING TO PT AT THIS TIME.
[2018-12-28] MEDS ORDERED: lisINopril 10 MG (PRINIVIL) TABLET PO ONE (08:00)
[2018-12-28] MEDS ORDERED: meTOprolol TARTRATE 25 MG (LOPRESSOR) TABLET PO ONE (08:00)
--- NOTE | 2018-12-28 08:17 | Diagnostic Imaging Report ---
INDICATION: Difficulty breathing. PA chest obtained at 07:55 a.m. and compared to 06/24/2018. FINDINGS: There is prominent cardiomegaly. There is central vascular congestion. There is no pneumothorax or pleural fluid. There is some mild right infrahilar infiltrate. IMPRESSION: Prominent cardiomegaly with central vascular congestion and mild right infrahilar infiltrate. No pneumothorax or pleural fluid. Dictated by: Dictated on workstation # [id number]
[2018-12-28] MEDS ORDERED: FUROSEMIDE 40 MG/4 ML INJ (LASIX) IV STA (08:21)
--- NOTE | 2018-12-28 08:30 | NUR ---
DR NOTIFIED OF BP INITALLY COMING DOWN AFTER NITRO BUT IT HAS INCREASED AGAIN. 175/118
[2018-12-28] MEDS ORDERED: cefTRIAXone FOR IV USE 1,000 MG in WATER (STERILE) FOR INJECTION 10 ML IV ONE (08:45)
[2018-12-28] MEDS ORDERED: hydrALAZINE (APESOLINE) 20 MG/ML VIAL IV ONE (08:45)
--- NOTE | 2018-12-28 08:55 | NUR ---
LAB CONTACTED FOR 2ND SET OF BLOOD CULTURES.
[2018-12-28 09:55] VITALS: BP 173/130
[2018-12-28] MEDS ORDERED: ONDANSETRON 4 MG/2 ML (SDV) Z0FRAN IV PRN (10:00)
[2018-12-28] MEDS ORDERED: CATHETER FLUSH 10 ML SYR IV PRN (10:00)
--- NOTE | 2018-12-28 10:06 | NUR ---
THIS NURSE NOTIFIED DR PITT THAT PT WAS EXPERIENCING CHEST PAIN. PT WAS RATING PAIN 7/10 IN THE MIDDLE OF HIS CHEST. PT WAS HYPERTENSIVE WITH SBP IN 170S. ORDERS GIVEN FOR NITRO. WHEN NURSE RETURNED TO PT ROOM PT REFUSED NITRO STATING THE PAIN WENT AWAY.
[2018-12-28] MEDS: DOXYCYCLINE INJECTION 100 MG in NS (IVPB) 100 ML IV SCH ×2 (10:07→22:11)
[2018-12-28] MEDS ORDERED: NITROGLYCERIN 0.4 MG SL TABS BTL 25'S SL PRN (11:15)
--- NOTE | 2018-12-28 11:19 | NUR ---
THIS NURSE NOTIFIED DR PITT THAT PT IS HIGH RISK FOR DVT. NO NEW ORDERS AT THIS TIME.
[2018-12-28] MEDS ORDERED: METO50TA15 PO (11:39)
[2018-12-28] MEDS ORDERED: LISI10TA2 PO (11:39)
[2018-12-28] MEDS ORDERED: FURO20TA4 PO (11:39)
[2018-12-28] MEDS ORDERED: POTA10TA36 PO (11:40)
--- NOTE | 2018-12-28 11:40 | NUR ---
SPOKE WITH THE PATIENT ABOUT HIS MEDICATIONS. WHEN I FIRST ASKED HIM WHAT HE IS TAKING HE STATES WHATEVER YOU HAVE ON FILE IS GOOD ENOUGH. AFTER I ASKED HIM MORE DETAILS HE STATES HE IS TAKING WHATEVER DR. MILES PRESCRIBED FOR HIM WHEN HE WAS HERE LAST IN MAY. THOSE SCRIPTS WERE LAST FILLED AT [facility] 09-18-18 FOR 30 DAY SUPPLIES, I VERIFIED THIS WITH [facility]. AFTER I EXPLAINED HE IS PAST DUE FOR REFILL HE STATES THEY WERE MAKING HIM SICK WHEN HE TOOK THEM TOGETHER SO HE STOPPED TAKING SOME OF THEM TO TRY AND SEE WHICH ONE MADE HIM SICK. HE STATES HE HAS NOT FIGURED IT OUT YET. I LEFT THEM ON THE MED REC BUT NOTED THE PAST DUE FILL DATES IT SOUNDS LIKE HE DOES NOT TAKE THEM REGULARLY OR PRESCRIBED. HE STATES HE STILL HAS THE TWO INHALERS HE USES NEEDED, I CAN NOT VERIFY LAST FILL DATES, HE STATES DR. BRICEÑO GIVES HIM SAMPLES. HE DOES STATE HE GETS THE ASPIRIN 81MG DAILY OTC.
[2018-12-28 12:00] VITALS: BP 141/109
--- NOTE | 2018-12-28 12:06 | Consultation-Cardiology ---
HPI-Cardiology Cardiology Consultation Date of Consultation 12/28/18 Date of Admission Time Seen by Provider: 12:03 Indication: Shortness of breath HPI 58 years old gentleman with history of congestive heart failure nonischemic in nature, noncompliant with medication, did not fill his prescription since August 2018, had only 30 tablets at that time. Started to have increasing tightness in his chest and shortness of breath with worsening pedal edema has been drinking alcohol daily. No syncope or near syncopal episodes. No palpitation. Came into the emergency room and admitted with mildly elevated troponin and shortness of breath Home Medications & Allergies Allergies: Coded Allergies: No Known Drug Allergies (Unverified , 06/21/18) Home Medication List Reviewed: Yes Not taking any medication KSC-Vtfctx-Ganedz Hx Patient Social History Marital Status: Employed/Student: employed Alcohol Use: Occasionally Uses Recreational Drug Use: Yes Drug of Choice: POT Smoking Status: Current Everyday Smoker Type Used: Cigarettes 2nd Hand Smoke Exposure: Yes Recent Foreign Travel: No Recent Infectious Disease Expo: No Immunizations Up To Date Tetanus Booster (TDap): Unknown Date of Influenza Vaccine: Oct 31, 2018 Past Medical History Discussed below Family Medical History Family Medical Hx Noncontributory Review of Systems-General Review of Systems Constitutional: see HPI; No chills, No fever; malaise EENTM: see HPI, no symptoms reported Respiratory: see HPI; No cough; dyspnea on exertion; No hemoptysis; orthopnea; No phlegm, No short of breath, No stridor, No wheezing, No other Cardiovascular: see HPI, chest pain, edema; No Hx of Intervention, No palpitations, No syncope, No vascular heart diseas, No other Gastrointestinal: no symptoms reported, see HPI Genitourinary: no symptoms reported, see HPI Musculoskeletal: no symptoms reported, see HPI Skin: no symptoms reported, see HPI Psychiatric/Neurological: No Symptoms Reported, See HPI All Other Systems Reviewed Negative Unless Noted: Yes Reviewed Test Results Reviewed Test Results Lab Laboratory Tests Test 12/28/18 06:54 12/28/18 08:25 Range/Units White Blood Count 9.9 4.3-11.0 10^3/uL Red Blood Count 6.41 H 4.35-5.85 10^6/uL Hemoglobin 16.3 13.3-17.7 G/DL Hematocrit 49 40-54 % Mean Corpuscular Volume 77 L 80-99 FL Mean Corpuscular Hemoglobin 25 25-34 PG Mean Corpuscular Hemoglobin Concent 33 32-36 G/DL Red Cell Distribution Width 17.9 H 10.0-14.5 % Platelet Count 354 130-400 10^3/uL Mean Platelet Volume 9.5 7.4-10.4 FL Neutrophils (%) (Auto) 62 42-75 % Lymphocytes (%) (Auto) 24 12-44 % Monocytes (%) (Auto) 8 0-12 % Eosinophils (%) (Auto) 7 0-10 % Basophils (%) (Auto) 1 0-10 % Neutrophils # (Auto) 6.1 1.8-7.8 X 10^3 Lymphocytes # (Auto) 2.3 1.0-4.0 X 10^3 Monocytes # (Auto) 0.8 0.0-1.0 X 10^3 Eosinophils # (Auto) 0.7 H 0.0-0.3 10^3/uL Basophils # (Auto) 0.1 0.0-0.1 10^3/uL Prothrombin Time 13.0 12.2-14.7 SEC INR Comment 0.9 0.8-1.4 Activated Partial Thromboplast Time 28 24-35 SEC Sodium Level 139 135-145 MMOL/L Potassium Level 3.6 3.6-5.0 MMOL/L Chloride Level 104 98-107 MMOL/L Carbon Dioxide Level 23 21-32 MMOL/L Anion Gap 12 5-14 MMOL/L Blood Urea Nitrogen 9 7-18 MG/DL Creatinine 1.14 0.60-1.30 MG/DL Estimat Glomerular Filtration Rate > 60 BUN/Creatinine Ratio 8 Glucose Level 169 H 70-105 MG/DL Calcium Level 9.5 8.5-10.1 MG/DL Corrected Calcium 9.3 8.5-10.1 MG/DL Magnesium Level 2.0 1.6-2.4 MG/DL Total Bilirubin 0.5 0.1-1.0 MG/DL Aspartate Amino Transf (AST/SGOT) 22 5-34 U/L Alanine Aminotransferase (ALT/SGPT) 25 0-55 U/L Alkaline Phosphatase 97 40-136 U/L Myoglobin 78.6 10.0-92.0 NG/ML Troponin I 0.042 H <0.028 NG/ML B-Type Natriuretic Peptide 307.0 H <100.0 PG/ML Total Protein 7.7 6.4-8.2 GM/DL Albumin 4.2 3.2-4.5 GM/DL Lactic Acid Level 1.00 0.50-2.00 MMOL/L Physical Exam Physical Exam Vital Signs Vital Signs - First Documented 12/28/18 12/28/18 06:48 09:17 Temp 37.0 Pulse 104 Resp 16 B/P (MAP) 176/122 Pulse Ox 97 O2 Delivery Nasal Cannula O2 Flow Rate 2.00 Capillary Refill : Less Than 3 Seconds Height, Weight, BMI Height: 5'6.00" Weight: 260lbs. 0.0oz. 117.881995cm; 43.00 BMI Method:Stated General Appearance: No Apparent Distress, WD/WN Eyes: Bilateral Eye Normal Inspection, Bilateral Eye PERRL, Bilateral Eye EOMI HEENT: PERRL/EOMI, TMs Normal, Normal ENT Inspection, Pharynx Normal, Moist Mucous Membranes Neck: Non Tender, Supple Respiratory: Decreased Breath Sounds, Expiration, Wheezing Cardiovascular: Regular Rate, Rhythm, Systolic Murmur, Gallop/S3 Gastrointestinal: Non Tender, Soft Back: Normal Inspection, No CVA Tenderness, No Vertebral Tenderness Extremity: Normal Range of Motion, Non Tender, Pedal Edema Neurologic/Psychiatric: Alert, Oriented x3 Skin: Normal Color, Warm/Dry Lymphatic: No Adenopathy A/P-Cardiology Admission Diagnosis Chest pain Congestive heart failure, acute on chronic left ventricular systolic dysfunction, nonischemic cardiomyopathy Hypertension Tobaccoism Assessment/Plan Chest pain atypical in presentation had a cardiac catheterization May [address] Barron showing no significant obstructive disease Congestive heart failure, acute on chronic left ventricular systolic dysfunction, nonischemic cardiomyopathy, noncompliant with medication, restarting diuretics and aggressive medical therapy. Educated on avoiding alcohol. Hypertension, poorly controlled. Started on Coreg and Entresto, monitor blood pressure Questionable hyperlipidemia, I will evaluate lipid profile Tobaccoism, educated on avoiding tobacco product Alcoholism, educated on avoiding alcohol product Noncompliance with medications Clinical Quality Measures AMI/AHF: ASA po Prior to arrival: No DVT/VTE Risk/Contraindication: Risk Factor Score Per Nursin RFS Level Per Nursing on Admit: 4+=Very High MIKE MILES MD Dec 28, 2018 12:06 POS
[2018-12-28] MEDS: KCL 20 MEQ TAB (K-DUR) PO SCH (13:03)
[2018-12-28] MEDS: SACUBITRIL/VALSARTAN 24/26 MG (ENTRESTO) TABLET PO SCH ×2 (13:03→22:11)
[2018-12-28] MEDS: CARVEDILOL 3.125 MG (COREG) TABLET PO SCH ×2 (13:03→22:11)
[2018-12-28] MEDS: ENOXAPARIN 40 MG/0.4 ML (LOVENOX) SYR SQ SCH (13:04)
[2018-12-28] MEDS: CATHETER FLUSH 10 ML SYR IV SCH ×2 (13:04→22:11)
[2018-12-28 14:01] LABS: AMPHETAMINE SCREEN, URINE NEGATIVE (NEGATIVE); BARBITURATE SCREEN URINE NEGATIVE (NEGATIVE); BENZODIAZEPINES SCREEN URINE NEGATIVE (NEGATIVE); CANNABINOID SCREEN, URINE NEGATIVE (NEGATIVE); COCAINE SCREEN URINE POSITIVE (NEGATIVE); METHADONE STAT NEGATIVE (NEGATIVE); METHAMPHETAMINE SCREEN URINE S NEGATIVE (NEGATIVE); OPIATE SCREEN URINE NEGATIVE (NEGATIVE); OXYCODONE STAT NEGATIVE (NEGATIVE); PROPOXYPHENE STAT NEGATIVE (NEGATIVE); TRICYCLIC ANTIDEPRESSANTS SCRE NEGATIVE (NEGATIVE)
[2018-12-28 14:13] VITALS: BP 141/109
--- NOTE | 2018-12-28 15:31 | Pulmonary Consultation ---
History of Present Illness History of Present Illness Date of Consultation 12/28/18 15:25 Date of Admission Reason for Visit: Shortness of breath Allergies and Home Medications Allergies Coded Allergies: No Known Drug Allergies (Unverified , 06/21/18) Home Medications Albuterol Sulfate 1 Puff Puff, 2 PUFF IH Q6H PRN for SHORTNESS OF BREATH, (Reported) Aspirin 81 Mg Tablet.dr, 81 MG PO DAILY Prescribed by: MIKE MILES on 06/24/18 0831 Furosemide 20 Mg Tablet, 20 MG PO DAILY, (Reported) LAST FILLED #30 09-18-18 Lisinopril 10 Mg Tablet, 10 MG PO DAILY, (Reported) LAST FILLED #30 09-18-18 Metoprolol Tartrate 50 Mg Tablet, 50 MG PO BID, (Reported) LAST FILLED #60 09-18-18 Potassium Chloride 10 Meq Tab.er.prt, 10 MEQ PO DAILY, (Reported) LAST FILLED #30 09-18-18 Tiotropium [place] 4 Gm Mist.inhal, 2 PUFF IH DAILY PRN for SHORTNESS OF BREATH, (Reported) Past Tvagcaf-Qcetcv-Tmtxzg Hx Past Med/Social Hx: Reviewed Nursing Past Med/Soc Hx Patient Social History Alcohol Use: Occasionally Uses Alcohol Beverage of Choice: Cheap Liquor Recreational Drug Use: Yes Drug of Choice: POT Smoking Status: Current Everyday Smoker Type Used: Cigarettes 2nd Hand Smoke Exposure: Yes Recent Foreign Travel: No Contact w/Someone Who Travel: No Recent Infectious Disease Expo: No Immunizations Up To Date Tetanus Booster (TDap): Unknown PED Vaccines UTD: Yes Date of Influenza Vaccine: Oct 31, 2018 Past Medical History Surgeries: No Respiratory: Yes COPD Currently Using CPAP: No Cardiac: Yes High Cholesterol, Hypertension Neurological: No Genitourinary: No Gastrointestinal: No Musculoskeletal: Yes Arthritis Endocrine: Yes Diabetes, Non-Insulin dep HEENT: No Cancer: No Psychosocial: Yes Depression Integumentary: No Family Medical History Reviewed Nursing Family Hx Sepsis Event Evaluation Height, Weight, BMI Height: 5'6.00" Weight: 260lbs. 0.0oz. 117.507830xz; 43.00 BMI Method:Stated Exam Exam Vital Signs Date Time Temp Pulse Resp B/P (MAP) Pulse Ox O2 Delivery O2 Flow Rate FiO2 12/28/18 14:13 37.0 104 97 28 12/28/18 12:26 90 12/28/18 12:02 96 Room Air 2.00 12/28/18 12:01 36.8 12/28/18 12:00 93 141/109 (120) 94 Room Air 12/28/18 10:00 95 Room Air 12/28/18 09:55 101 173/130 (144) 98 Room Air 12/28/18 09:43 102 12/28/18 09:17 100 16 176/122 98 Room Air 12/28/18 07:10 97 Nasal Cannula 2.00 12/28/18 06:48 37.0 104 16 97 Room Air 12/28/18 06:48 97 Nasal Cannula 2.00 Height & Weight Height: 5'6.00" Weight: 260lbs. 0.0oz. 117.378085hs; 43.00 BMI Method:Stated General Appearance: No Apparent Distress, WD/WN HEENT: PERRL/EOMI, TMs Normal, Normal ENT Inspection, Pharynx Normal, Moist Mucous Membranes Neck: Non Tender, Supple Respiratory: Decreased Breath Sounds, Expiration, Wheezing Cardiovascular: Regular Rate, Rhythm, Systolic Murmur, Gallop/S3 Capillary Refill: Less Than 3 Seconds Extremity: Normal Range of Motion, Non Tender, Pedal Edema Neurologic/Psychiatric: Alert, Oriented x3 Skin: Normal Color, Warm/Dry Lymphatic: No Adenopathy Results Lab Laboratory Tests 12/28/18 06:54 Assessment/Plan Assessment/Plan NSTEMI with Chest pain -Cardiology following UDS is positive for cocaine CHF Hypertension Tobaccoism -Education Alcohol dependance Noncompliance with medications JUAN BRICEÑO DO Dec 28, 2018 15:31 POS
[2018-12-28 16:00] VITALS: BP 168/122
[2018-12-28] MEDS ORDERED: RT-ALBUTEROL/IPRATROPIUM 3 ML (DUONEB) VIAL INH PRN (16:00)
[2018-12-28] MEDS: FUROSEMIDE 40 MG/4 ML INJ (LASIX) IVP SCH (16:25)
[2018-12-28] MEDS: RT-ALBUTEROL/IPRATROPIUM 3 ML (DUONEB) VIAL INH SCH ×2 (18:56→21:58)
[2018-12-28 19:25] VITALS: BP 139/105
--- NOTE | 2018-12-28 22:31 | History & Physical ---
HPI History of Present Illness: 58 yo M with poor compliance of medications. Presented to ER with chest pain and shortness of breath for the last month but worse in the last week. States that he has missed several doses of his medications recently. He has been using breathing treatments with little improvement. Denies being oxygen dependent at home. Recent hospitalization in April for similar symptoms. States that he improved for about a month then he started getting worse again. Source: patient Exam Limitations: no limitations Date seen by provider: Dec 28, 2018 Time Seen by Provider: 10:20 Attending Physician Burt Chang MD [place] [place] of Admission Dec 28, 2018 at 09:05 Home Medications Home Medications Reviewed patient Home Medication Reconciliation performed by pharmacy medication reconciliations compressor service technician and/or nursing. Patients Allergies have been reviewed. Allergies Coded Allergies: No Known Drug Allergies (Unverified , 06/21/18) RRP-[id number] Hx Patient Social History Marrital Status: Employed/Student: employed Alcohol Use: Occasionally Uses Recreational Drug Use: Yes Drug of Choice: POT Smoking Status: Current Everyday Smoker Type Used: Cigarettes 2nd Hand Smoke Exposure: Yes Recent Foreign Travel: No Contact w/other who traveled: No Recent Infectious Disease Expo: No Immunizations Up To Date Tetanus Booster (TDap): Unknown Date of Influenza Vaccine: Oct 31, 2018 Past Medical History HTN HLD Tobacco Abuse Family Medical History Significant Family History: No Pertinent Family Hx Review of Systems (CHC) Constitutional: no symptoms reported; No chills, No fever, No malaise EENTM: no symptoms reported; No mouth pain, No nose congestion, No throat pain Respiratory: cough, dyspnea on exertion, orthopnea, short of breath Cardiovascular: chest pain, edema; No palpitations Gastrointestinal: no symptoms reported; No abdominal pain, No constipation, No diarrhea, No nausea, No vomiting Genitourinary: no symptoms reported; No dysuria, No frequency, No hematuria Musculoskeletal: no symptoms reported; No back pain, No joint pain, No muscle pain Skin: no symptoms reported Psychiatric/Neurological: Denies Anxiety; Headache; Denies Weakness Reviewed Test Results Reviewed Test Results Lab Laboratory Tests Test 12/28/18 06:54 12/28/18 08:25 12/28/18 12:55 12/28/18 13:42 Range/Units White Blood Count 9.9 4.3-11.0 10^3/uL Red Blood Count 6.41 H 4.35-5.85 10^6/uL Hemoglobin 16.3 13.3-17.7 G/DL Hematocrit 49 40-54 % Mean Corpuscular Volume 77 L 80-99 FL Mean Corpuscular Hemoglobin 25 25-34 PG Mean Corpuscular Hemoglobin Concent 33 32-36 G/DL Red Cell Distribution Width 17.9 H 10.0-14.5 % Platelet Count 354 130-400 10^3/uL Mean Platelet Volume 9.5 7.4-10.4 FL Neutrophils (%) (Auto) 62 42-75 % Lymphocytes (%) (Auto) 24 12-44 % Monocytes (%) (Auto) 8 0-12 % Eosinophils (%) (Auto) 7 0-10 % Basophils (%) (Auto) 1 0-10 % Neutrophils # (Auto) 6.1 1.8-7.8 X 10^3 Lymphocytes # (Auto) 2.3 1.0-4.0 X 10^3 Monocytes # (Auto) 0.8 0.0-1.0 X 10^3 Eosinophils # (Auto) 0.7 H 0.0-0.3 10^3/uL Basophils # (Auto) 0.1 0.0-0.1 10^3/uL Prothrombin Time 13.0 12.2-14.7 SEC INR Comment 0.9 0.8-1.4 Activated Partial Thromboplast Time 28 24-35 SEC Sodium Level 139 135-145 MMOL/L Potassium Level 3.6 3.6-5.0 MMOL/L Chloride Level 104 98-107 MMOL/L Carbon Dioxide Level 23 21-32 MMOL/L Anion Gap 12 5-14 MMOL/L Blood Urea Nitrogen 9 7-18 MG/DL Creatinine 1.14 0.60-1.30 MG/DL Estimat Glomerular Filtration Rate > 60 BUN/Creatinine Ratio 8 Glucose Level 169 H 70-105 MG/DL Calcium Level 9.5 8.5-10.1 MG/DL Corrected Calcium 9.3 8.5-10.1 MG/DL Magnesium Level 2.0 1.6-2.4 MG/DL Total Bilirubin 0.5 0.1-1.0 MG/DL Aspartate Amino Transf (AST/SGOT) 22 5-34 U/L Alanine Aminotransferase (ALT/SGPT) 25 0-55 U/L Alkaline Phosphatase 97 40-136 U/L Myoglobin 78.6 10.0-92.0 NG/ML Troponin I 0.042 H 0.032 H <0.028 NG/ML B-Type Natriuretic Peptide 307.0 H <100.0 PG/ML Total Protein 7.7 6.4-8.2 GM/DL Albumin 4.2 3.2-4.5 GM/DL Lactic Acid Level 1.00 0.50-2.00 MMOL/L Urine Opiates Screen NEGATIVE NEGATIVE Urine Oxycodone Screen NEGATIVE NEGATIVE Urine Methadone Screen NEGATIVE NEGATIVE Urine Propoxyphene Screen NEGATIVE NEGATIVE Urine Barbiturates Screen NEGATIVE NEGATIVE Ur Tricyclic Antidepressants Screen NEGATIVE NEGATIVE Urine Phencyclidine Screen NEGATIVE NEGATIVE Urine Amphetamines Screen NEGATIVE NEGATIVE Urine Methamphetamines Screen NEGATIVE NEGATIVE Urine Benzodiazepines Screen NEGATIVE NEGATIVE Urine Cocaine Screen POSITIVE H NEGATIVE Urine Cannabinoids Screen NEGATIVE NEGATIVE Physical Exam-(CHC) Physical Exam Vital Signs VS - Last 72 Hours, by Label POS 12/28/18 12/28/18 12/28/18 12/28/18 06:48 06:48 07:10 09:17 Temp 37.0 Pulse 104 100 Resp 16 16 B/P (MAP) 176/122 Pulse Ox 97 97 97 98 O2 Delivery Nasal Cannula Room Air Nasal Cannula Room Air O2 Flow Rate 2.00 2.00 12/28/18 12/28/18 12/28/18 12/28/18 09:43 09:55 10:00 12:00 Pulse 102 101 93 B/P (MAP) 173/130 (144) 141/109 (120) Pulse Ox 98 95 94 O2 Delivery Room Air Room Air Room Air 12/28/18 12/28/18 12/28/18 12/28/18 12:01 12:02 12:26 14:13 Temp 36.8 37.0 Pulse 90 104 Pulse Ox 96 97 O2 Delivery Room Air O2 Flow Rate 2.00 FiO2 28 12/28/18 12/28/18 12/28/18 12/28/18 15:47 15:57 16:00 18:56 Temp 36.8 Pulse 100 B/P (MAP) 168/122 (137) Pulse Ox 95 95 O2 Delivery Room Air Room Air Room Air 12/28/18 12/28/18 12/28/18 19:00 19:25 21:58 Temp 36.2 Pulse 97 94 Resp 22 B/P (MAP) 139/105 (116) Pulse Ox 96 95 O2 Delivery Room Air Room Air Capillary Refill : Less Than 3 Seconds General Appearance: WD/WN, no apparent distress HEENT: PERRL/EOMI Neck: non-tender, full range of motion, supple; No carotid bruit Respiratory: normal breath sounds, no respiratory distress, no accessory muscle use, wheezing Cardiovascular: normal peripheral pulses, regular rate, rhythm, no murmur Gastrointestinal: normal bowel sounds, non tender, soft, no organomegaly Back: no CVA tenderness, no vertebral tenderness Extremities: no calf tenderness, normal capillary refill, pedal edema (2+ bilaterally) Neurologic/Psychiatric: manager metrology II-XII nml as tested, no motor/sensory deficits, alert, normal mood/affect, oriented x 3 Skin: normal color, warm/dry Lymphatic: no adenopathy Assessment/Plan Assessment/Plan Admission Status: Inpatient Order (span 2 midnights) Reason for Inpatient Admission: Requring specialist care and ICU monitoring (1) Hypertensive urgency Status: Acute Assessment & Plan: - Not been taking medications, patient started on Entresto and Coreg per cardiology, appreciate recommendations (2) Acute respiratory failure with hypoxemia Status: Acute Assessment & Plan: - Dr Rios consulted, appreciate recommendations (3) Atypical chest pain Status: Acute (4) Elevated troponin Status: Acute (5) Combined systolic and diastolic heart failure, acute Status: Acute Assessment & Plan: - Started on Entresto and coreg, continue ASA, consider adding statin at d.c (6) Substance abuse Status: Acute Assessment & Plan: + UDS for Cocaine (7) Tobacco abuse Status: Chronic Assessment & Plan: - Discussed the need for cessation (8) DVT prophylaxis Status: Acute Assessment & Plan: - Lovenox Clinical Quality Measures AMI/AHF: ASA po Prior to arrival: No DVT/VTE Risk/Contraindication: Risk Factor Score Per Nursin RFS Level Per Nursing on Admit: 4+=Very High BURT CHANG MD Dec 28, 2018 22:31 POS
[2018-12-29] VITALS: BP 165/115
[2018-12-29] MEDS: ENOXAPARIN 40 MG/0.4 ML (LOVENOX) SYR SQ SCH (00:59)
[2018-12-29] MEDS: RT-ALBUTEROL/IPRATROPIUM 3 ML (DUONEB) VIAL INH SCH ×3 (01:37→10:08)
[2018-12-29 03:11] LABS: BASOPHILS % (AUTO) 0 % (0-10); EOSINOPHILS # (AUTO) 0.7 10^3/uL (0.0-0.3); EOSINOPHILS % (AUTO) 7 % (0-10); HEMATOCRIT 46 % (40-54); HEMOGLOBIN 15.5 G/DL (13.3-17.7); LYMPHOCYTES # (AUTO) 1.7 X 10^3 (1.0-4.0); LYMPHOCYTES % (AUTO) 18 % (12-44); MEAN CORPUSCULAR HEMOGLOBIN 26 PG (25-34); MEAN CORPUSCULAR HGB CONC 34 G/DL (32-36); MEAN CORPUSCULAR VOLUME 77 FL (80-99); MEAN PLATELET VOLUME 9.6 FL (7.4-10.4); MONOCYTES # (AUTO) 0.8 X 10^3 (0.0-1.0); MONOCYTES % (AUTO) 8 % (0-12); NEUTROPHILS # (AUTO) 6.1 X 10^3 (1.8-7.8); NEUTROPHILS % (AUTO) 66 % (42-75); PLATELET COUNT 334 10^3/uL (130-400); RED CELL DISTRIBUTION WIDTH 17.4 % (10.0-14.5); WHITE BLOOD COUNT 9.2 10^3/uL (4.3-11.0)
[2018-12-29 03:44] LABS: ALANINE AMINOTRANSFERASE 21 U/L (0-55); ALBUMIN 3.6 GM/DL (3.2-4.5); BILIRUBIN,TOTAL 0.4 MG/DL (0.1-1.0); BUN/CREATININE RATIO 11; CARBON DIOXIDE 21 MMOL/L (21-32); CHLORIDE 106 MMOL/L (98-107); CHOLESTEROL 146 MG/DL (< 200); CREATININE SERUM 1.03 MG/DL (0.60-1.30); GFR ESTIMATED > 60; GLUCOSE 188 MG/DL (70-105); HDL CHOLESTEROL 38 MG/DL (40-60); MAGNESIUM 1.9 MG/DL (1.6-2.4); PHOSPHORUS 2.9 MG/DL (2.3-4.7); POTASSIUM 3.5 MMOL/L (3.6-5.0); SODIUM 138 MMOL/L (135-145); TOTAL PROTEIN 6.7 GM/DL (6.4-8.2); TRIGLYCERIDES 90 MG/DL (<150); VLDL CHOLESTEROL 18 MG/DL (5-40)
[2018-12-29 04:11] LABS: ALKALINE PHOSPHATASE 82 U/L (40-136)
[2018-12-29 05:08] VITALS: BP 146/110
--- NOTE | 2018-12-29 05:59 | Pulmonary Progress Note ---
Subjective Time Seen by a Provider: 05:59 Subjective/Events-last exam No complications noted. Sepsis Event Evaluation Height, Weight, BMI Height: 5'6.00" Weight: 260lbs. 0.0oz. [id number]; 43.00 BMI Method:Stated Focused Exam Lactate Level 12/28/18 08:25: Lactic Acid Level 1.00 Exam Exam Vital Signs Date Time Temp Pulse Resp B/P (MAP) Pulse Ox O2 Delivery O2 Flow Rate FiO2 12/29/18 05:08 36.1 90 18 146/110 (122) 96 Room Air 12/29/18 04:00 95 Room Air 12/29/18 01:34 94 Room Air 12/29/18 01:00 100 12/29/18 00:00 36.0 92 20 165/115 (132) 95 Room Air 12/29/18 00:00 96 Room Air 12/28/18 21:58 95 Room Air 12/28/18 21:00 95 Room Air 12/28/18 20:00 95 Room Air 12/28/18 19:25 36.2 94 22 139/105 (116) 96 Room Air 12/28/18 19:00 97 12/28/18 18:56 95 Room Air 12/28/18 16:00 100 168/122 (137) Room Air 12/28/18 15:57 95 Room Air 12/28/18 15:47 36.8 12/28/18 14:13 37.0 104 97 28 12/28/18 12:26 90 12/28/18 12:02 96 Room Air 2.00 12/28/18 12:01 36.8 12/28/18 12:00 93 141/109 (120) 94 Room Air 12/28/18 10:00 95 Room Air 12/28/18 09:55 101 173/130 (144) 98 Room Air 12/28/18 09:43 102 12/28/18 09:17 100 16 176/122 98 Room Air 12/28/18 07:10 97 Nasal Cannula 2.00 12/28/18 06:48 37.0 104 16 97 Room Air 12/28/18 06:48 97 Nasal Cannula 2.00 I & O 12/29/18 07:00 Intake Total 1200 ml Output Total 200 ml Balance 1000 ml Height & Weight Height: 5'6.00" Weight: 260lbs. 0.0oz. [id number]; 43.00 BMI Method:Stated General Appearance: No Apparent Distress, WD/WN HEENT: PERRL/EOMI, TMs Normal, Normal ENT Inspection, Pharynx Normal, Moist Mucous Membranes Neck: Non Tender, Supple Respiratory: Decreased Breath Sounds, Expiration, Wheezing Cardiovascular: Regular Rate, Rhythm, Systolic Murmur, Gallop/S3 Capillary Refill: Less Than 3 Seconds Gastrointestinal: normal bowel sounds, non tender, soft, no organomegaly Extremity: Normal Range of Motion, Non Tender, Pedal Edema Neurologic/Psychiatric: Alert, Oriented x3 Skin: Normal Color, Warm/Dry Lymphatic: No Adenopathy Results Lab Laboratory Tests 12/28/18 06:54 12/29/18 02:50 Assessment/Plan Assessment/Plan NSTEMI with Chest pain -Cardiology following UDS is positive for cocaine -Education CARLOS -Noncompliant with CPAP therapy CHF Hypertension -Monitor Tobaccoism -Education Alcohol dependance Noncompliance with medications JUAN BRICEÑO DO Dec 29, 2018 05:59 POS
[2018-12-29] MEDS ORDERED: KCL 20 MEQ TAB (K-DUR) PO SCH ×2 (06:00→07:00)
[2018-12-29] MEDS ORDERED: POTASSIUM CL 10MEQ/50ML IVPB 50 ML IV SCH ×2 (06:00)
[2018-12-29] MEDS ORDERED: MAGNESIUM 1 GM/100 ML IVPB 100 ML IV SCH (06:00)
--- NOTE | 2018-12-29 07:33 | Diagnostic Imaging Report ---
INDICATION: Dyspnea. EXAMINATION: Chest 12/29/2018. Comparison made to 12/28/2018 FINDINGS: The heart is enlarged. Pulmonary vasculature is congested but improved. There is persistent infrahilar atelectasis or infiltrate at the bases. No significant effusion. No pneumothorax. IMPRESSION: 1. Pulmonary vascular congestion somewhat improved. 2. Persistent bilateral infiltrate or atelectasis at the bases right greater than left. Dictated by: Dictated on workstation # [id number]
[2018-12-29] MEDS: KCL 20 MEQ TAB (K-DUR) PO SCH (07:41)
[2018-12-29 08:00] VITALS: BP 187/101
[2018-12-29 08:20] VITALS: BP 187/101
[2018-12-29] MEDS: SACUBITRIL/VALSARTAN 24/26 MG (ENTRESTO) TABLET PO SCH (08:27)
[2018-12-29] MEDS: CARVEDILOL 3.125 MG (COREG) TABLET PO SCH (08:27)
[2018-12-29] MEDS: FUROSEMIDE 40 MG/4 ML INJ (LASIX) IVP SCH (08:27)
[2018-12-29] MEDS: CATHETER FLUSH 10 ML SYR IV SCH (08:28)
[2018-12-29] MEDS ORDERED: cefTRIAXone 1,000 MG/SWFI 10 ML IV PUSH IV SCH ×2 (09:00)
[2018-12-29] MEDS ORDERED: ASPIRIN E.C. 81 MG (ECOTRIN) TAB PO SCH (09:00)
[2018-12-29] MEDS ORDERED: amLODIPine 10 MG (NORVASC) TAB PO SCH (09:00)
[2018-12-29] MEDS: DOXYCYCLINE INJECTION 100 MG in NS (IVPB) 100 ML IV SCH (09:03)
[2018-12-29] MEDS ORDERED: ACETAMINOPHEN 325 MG TABLET ONE (11:18)
[2018-12-29] MEDS ORDERED: ACETAMINOPHEN 325 MG TABLET PO PRN (11:30)
--- NOTE | 2018-12-29 11:58 | Cardiology Progress Note ---
Subjective Date Seen by Provider: Dec 29, 2018 Time Seen by Provider: 11:53 Subjective/Events-last exam Patient is sitting up in chair, no new complaints. Denies any chest pain or dyspnea. Review of Systems General: No Chills, No Night Sweats, No Fatigue, No Malaise, No Appetite, No Other HEENT: No Head Aches, No Visual Changes, No Eye Pain, No Ear Pain, No Dysphasi a, No Sinus Congestion, No Post Nasal Drip, No Sore Throat, No Other Pulmonary: No Dyspnea, No Cough, No Pleuritic Chest Pain, No Other Cardiovascular: No: Chest Pain, Palpitations, Orthopnea, Paroxysmal Noc. Dyspnea, Edema, Lt Headedness, Other Focused Exam Lactate Level 12/28/18 08:25: Lactic Acid Level 1.00 Objective-Cardiology Exam Last Set of Vital Signs Vital Signs 12/28/18 12/28/18 12/29/18 12:02 14:13 12:00 Temp 36.5 Pulse 101 Resp 20 B/P (MAP) 145/121 (129) Pulse Ox 97 O2 Delivery Room Air O2 Flow Rate 2.00 FiO2 28 Capillary Refill : Less Than 3 Seconds I&O Intake and Output 12/29/18 00:00 Intake Total 1300 ml Output Total 200 ml Balance 1100 ml Intake Oral 1100 ml IV Total 200 ml Output Urine Total 200 ml # Voids 15 Daily Weight Change No General: Alert, Oriented X3, Cooperative HEENT: Atraumatic, PERRLA Neck: Supple, No JVD, No Thyromegaly Lungs: Clear to Auscultation, Normal Air Movement Heart: Normal S1, Normal S2, No Murmurs, Other (slightly tachycardic) Abdomen: Soft, No Tenderness Extremities: No Edema Skin: No Rashes, No Significant Lesion Neuro: Cranial Nerves 3-12 NL Psych/Mental Status: Mental Status NL, Mood NL Results Lab Laboratory Tests 12/29/18 02:50 A/P-Cardiology Admission Diagnosis Chest pain Congestive heart failure, acute on chronic left ventricular systolic dysfunction, nonischemic cardiomyopathy Hypertension Tobaccoism Assessment/Plan Chest pain atypical in presentation had a cardiac catheterization May [address] Barron showing no significant obstructive disease Congestive heart failure, acute on chronic left ventricular systolic dysfunction, nonischemic cardiomyopathy, noncompliant with medication, Educated on avoiding alcohol. Started on Entresto and Coreg. Hypertension, mildly elevated. Started on Coreg and Entresto, continue to monitor blood pressure UDS + for cocaine- discussed sustaining from illicit drugs Tobaccoism, educated on avoiding tobacco product Alcoholism, educated on avoiding alcohol product Noncompliance with medications, discussed the importance of compliance with his medications. OK for discharge from cardiology standpoint. F/u in our office in 2 weeks. X Patient was seen and evaluated with Rema, examination performed, management plan was discussed, agree with the current scribed note, I made few changes to the note using Italic font Patient is feeling better, asking to go home, breathing better UDS was positive for cocaine On examination lungs were clear to auscultation, heart is regular, normal S1 and S2 Has a long discussion about compliance with medication and appointment and avoiding illicit drugs Discussed the management plan with gordon Persaud for discharge and follow-up as an outpatient Slight elevation in troponin secondary to severe cardiomyopathy Clinical Quality Measures AMI/AHF: ASA po Prior to arrival: No DVT/VTE Risk/Contraindication: Risk Factor Score Per Nursin RFS Level Per Nursing on Admit: 4+=Very High Supervisory-Addendum Brief Supervisory Addendum Participated in pt care: history, MDM, physical Personally performed: exam, history, MDM Care discussed with: REMA SANDS Dec 29, 2018 11:58 MIKE TERRAZAS MD Dec 29, 2018 13:14 POS
[2018-12-29 12:00] VITALS: BP 145/121
[2018-12-29] MEDS ORDERED: KCL 20 MEQ TAB (K-DUR) PO ONE (12:00)
[2018-12-29] MEDS ORDERED: AMLO10TA7 PO (13:13)
[2018-12-29] MEDS ORDERED: POTA10TA36 PO (13:13)
[2018-12-29] MEDS ORDERED: FURO20TA4 PO (13:13)
[2018-12-29] MEDS ORDERED: CARV3.122 PO (13:13)
[2018-12-29] MEDS ORDERED: SACU1TAB PO (13:13)
--- NOTE | 2018-12-29 13:49 | Discharge Summary ---
Discharge Summary Hospital Course Problems Reviewed?: Yes Problems/Diagnosis: (1) Hypertensive urgency Status: Acute Assessment & Plan: - Not been taking medications, patient started on Entresto and Coreg per cardiology, appreciate recommendations (2) Acute respiratory failure with hypoxemia Status: Resolved Resolution Date/Time: 12/29/18 @ 13:37 Assessment & Plan: - Dr Rios consulted, appreciate recommendations (3) Atypical chest pain Status: Resolved Resolution Date/Time: 12/29/18 @ 13:37 (4) Elevated troponin Status: Acute Assessment & Plan: Trending down (5) Combined systolic and diastolic heart failure, acute Status: Acute Assessment & Plan: - Started on Entresto and coreg, continue ASA, consider adding statin at d.c (6) Substance abuse Status: Acute Assessment & Plan: + UDS for Cocaine (7) Tobacco abuse Status: Chronic Assessment & Plan: - Discussed the need for cessation (8) DVT prophylaxis Status: Resolved Assessment & Plan: - Lovenox Hospital Course Date of Admission: Dec 28, 2018 at 09:05 Admission Diagnosis : Family Physician/Provider: [place] Date of Discharge: 12/29/18 Discharge Diagnosis: Combined diastolic and systolic heart failure, Hypertension Hospital Course: 58 year old patient admitted for hypertensive urgency and increasing SOB. He states his SOB has improved and is at baseline. He now has 1+ pedal edema, improved from admission. Labs and Pending Lab Test: Laboratory Tests 12/28/18 13:42: Urine Opiates Screen NEGATIVE, Urine Oxycodone Screen NEGATIVE, Urine Methadone Screen NEGATIVE, Urine Propoxyphene Screen NEGATIVE, Urine Barbiturates Screen NEGATIVE, Ur Tricyclic Antidepressants Screen NEGATIVE, Urine Phencyclidine Screen NEGATIVE, Urine Amphetamines Screen NEGATIVE, Urine Methamphetamines Screen NEGATIVE, Urine Benzodiazepines Screen NEGATIVE, Urine Cocaine Screen POSITIVEH, Urine Cannabinoids Screen NEGATIVE 12/29/18 02:50: White Blood Count 9.2, Red Blood Count 5.93H, Hemoglobin 15.5, Hematocrit 46, Mean Corpuscular Volume 77L, Mean Corpuscular Hemoglobin 26, Mean Corpuscular Hemoglobin Concent 34, Red Cell Distribution Width 17.4H, Platelet Count 334, Mean Platelet Volume 9.6, Neutrophils (%) (Auto) 66, Lymphocytes (%) (Auto) 18, Monocytes (%) (Auto) 8, Eosinophils (%) (Auto) 7, Basophils (%) (Auto) 0, Neutrophils # (Auto) 6.1, Lymphocytes # (Auto) 1.7, Monocytes # (Auto) 0.8, Eosinophils # (Auto) 0.7H, Basophils # (Auto) 0.0, Sodium Level 138, Potassium Level 3.5L, Chloride Level 106, Carbon Dioxide Level 21, Anion Gap 11, Blood Urea Nitrogen 11, Creatinine 1.03, Estimat Glomerular Filtration Rate > 60, BUN/Creatinine Ratio 11, Glucose Level 188H, Calcium Level 9.0, Corrected Calciu m 9.3, Phosphorus Level 2.9, Magnesium Level 1.9, Total Bilirubin 0.4, Aspartate Amino Transf (AST/SGOT) 18, Alanine Aminotransferase (ALT/SGPT) 21, Alkaline Phosphatase 82, Troponin I 0.030H, Total Protein 6.7, Albumin 3.6, Triglycerides Level 90, Cholesterol Level 146, LDL Cholesterol Direct 102, VLDL Cholesterol 18, HDL Cholesterol 38L Home Meds Active Entresto 24 mg-26 mg Tablet (Sacubitril/Valsartan) 1 Each Tablet 1 Tab PO BID 30 Days Amlodipine Besylate 10 Mg Tablet 10 Mg PO DAILY 30 Days Carvedilol 3.125 Mg Tablet 3.125 Mg PO BID 30 Days Potassium Chloride 10 Meq Tab.er.prt 10 Meq PO DAILY 30 Days LAST FILLED #30 09-18-18 Furosemide 20 Mg Tablet 20 Mg PO DAILY 30 Days LAST FILLED #30 09-18-18 Aspirin EC (Aspirin) 81 Mg Tablet. 81 Mg PO DAILY Reported Proair Hfa (Albuterol Sulfate) 1 Puff Puff 2 Puff IH Q6H PRN Spiriva Respimat 1.25MCG/ACTUATION (Tiotropium [place]) 4 Gm Mist.inhal 2 Puff IH DAILY PRN Assessment/Pt DC Instructions 58 yo male with combined systolic and diastolic heart failure, hypertension, and tobacco abuse. Discussed with patient he follow a low sodium diet with no more than 2000mg sodium per day and the importance of smoking cessation. Daily weights at home to monitor fluid retention. Follow-up with PCP and cardiology as scheduled Discharge Diet: Low Sodium Diet, Cardiac Diet Activity as Tolerated: Yes Orders-Post D/C & Referrals Pneu Vac Indicated: Yes Consulations Consultations Follow-up with Dr. Alonzo as scheduled Discharge Physical Examination Allergies: Coded Allergies: No Known Drug Allergies (Unverified , 06/21/18) General Appearance: No Apparent Distress, WD/WN, Obese HEENT: PERRL/EOMI Respiratory: Chest Non Tender, No Accessory Muscle Use, No Respiratory Distress, Rhonci Cardiovascular: Regular Rate, Rhythm, No Murmur Gastrointestinal: Normal Bowel Sounds, Non Tender, Soft; No Distended, No Guarding, No Rebound Extremity: No Calf Tenderness, Pedal Edema (improved from admission) Skin: Normal Color, Warm/Dry Neurologic/Psychiatric: Alert, Oriented x3 Discharge Summary Date of Admission Dec 28, 2018 at 09:05 Date of Discharge Dec 29, 2018 Discharge Date: Dec 29, 2018 Admission Diagnosis Hypertensive urgency Consults/Procedures Consulations Dr. Alonzo, cardiology Discharge Diagnosis Combined systolic and diastolic heart failure Hypertension Tobacco Abuse Discussed with patient he follow a low sodium diet with no more than 2000mg sodium per day and the importance of smoking cessation. Daily weights at home to monitor fluid retention. Follow-up with PCP and cardiology as scheduled Clinical Quality Measures AMI/AHF: ASA po Prior to arrival: No DVT/VTE Risk/Contraindication: Risk Factor Score Per Nursin RFS Level Per Nursing on Admit: 4+=Very High COLE GUTHRIE,MED STUDENT Dec 29, 2018 13:40 POS
== END 2018-12-29 13:50 | disposition home or self-care (01) | DRG 304 ==
LOC: EDUNIT# 06:48 → ER 06:50 → ICU 09:05
PROVIDERS: ADMIT Family Medicine; ATTEND Family Medicine
DX: I16.0 Hypertensive urgency (principal); I11.0 Hypertensive heart disease with heart failure; I50.41 Acute combined systolic (congestive) and diastolic (congestive) heart failure; J96.01 Acute respiratory failure with hypoxia; I42.9 Cardiomyopathy, unspecified; R07.89 Other chest pain; F14.10 Cocaine abuse, uncomplicated; F17.210 Nicotine dependence, cigarettes, uncomplicated; G47.33 Obstructive sleep apnea (adult) (pediatric); F10.20 Alcohol dependence, uncomplicated; E78.5 Hyperlipidemia, unspecified; J44.9 Chronic obstructive pulmonary disease, unspecified; E78.00 Pure hypercholesterolemia, unspecified; E11.9 Type 2 diabetes mellitus without complications; M19.91 Primary osteoarthritis, unspecified site; F32.9 Major depressive disorder, single episode, unspecified; Z91.19 Patient's noncompliance with other medical treatment and regimen
CPT/HCPCS: 36415; 71045; 80053; 80061; 80306; 83605; 83735; 83874; 83880; 84100; 84484; 85025; 85027; 85610; 85730; 87040; 87081; 93005; 93041; 93306; 94640; 94760; 96374; 96375; G0378

== ENCOUNTER 2019-12-28 21:07 | Emergency (ER) | payer MEDICAID ==
[~2019-12-28] VITALS: Ht 170 cm; Wt 115.0 kg
[~2019-12-28 21:07] MED LIST changes: +AMLO-251 PO; +ASPI-1238 PO; -ASPI-983 PO; +CARV3.122 PO; +FURO20TA4 PO; +POTA10TA36 PO; +SACU1TAB2 PO
[2019-12-28] MEDS ORDERED: NS IV 1000 ML 1,000 ML IV STA (21:17)
[2019-12-28] MEDS ORDERED: FAMOTIDINE 20MG/2ML IV (PEPCID) IV STA (21:17)
--- NOTE | 2019-12-28 21:17 | ED Abdominal Pain ---
General Chief Complaint: Abdominal/GI Problems Stated Complaint: CHEST PAIN History of Present Illness Date Seen by Provider: Dec 28, 2019 Time Seen by Provider: 21:14 Initial Comments 59-year-old male presents with epigastric right upper quadrant pain. Reports his kind of a band that goes across his lower chest epigastric region his right upper quadrant. His been there for about a week got worse tonight. Patient admits to drinking half pint approximately daily. Patient states pain gets better when he drinks. He has some mild nausea no vomiting. The pain gets worse when he sits. He denies any fevers, chills, cough, diarrhea, constipation. He is little mild shortness of breath with the pain. Allergies and Home Medications Allergies Coded Allergies: No Known Drug Allergies (Unverified , 06/21/18) Home Medications Albuterol Sulfate 1 Puff Puff, 2 PUFF IH Q6H PRN for SHORTNESS OF BREATH, (Reported) Amlodipine Besylate 10 Mg Tablet, 10 MG PO DAILY Prescribed by: CARROL VU on 12/29/18 1313 Aspirin 81 Mg Tablet.dr, 81 MG PO DAILY Prescribed by: MIKE MILES on 06/24/18 0831 Carvedilol 3.125 Mg Tablet, 3.125 MG PO BID Prescribed by: CARROL VU on 12/29/18 1313 Furosemide 20 Mg Tablet, 20 MG PO DAILY LAST FILLED #30 09-18-18 Prescribed by: CARROL VU on 12/29/18 1313 Hyoscyamine Sulfate 0.125 Mg Tab.subl, 0.125 MG SL Q6H PRN for CRAMPS Prescribed by: JEN TERRY on 12/28/192230 Potassium Chloride 10 Meq Tab.er.prt, 10 MEQ PO DAILY LAST FILLED #30 09-18-18 Prescribed by: CARROL VU on 12/29/18 1313 Sacubitril/Valsartan 1 Each Tablet, 1 TAB PO BID Prescribed by: CARROL VU on 12/29/18 1313 Tiotropium Orange 4 Gm Mist.inhal, 2 PUFF IH DAILY PRN for SHORTNESS OF BREATH, (Reported) Patient Home Medication List Home Medication List Reviewed: Yes Review of Systems Review of Systems Constitutional: No chills, No fever Respiratory: Denies Cough, Denies Orthopnea, Denies SOA With Exertion Cardiovascular: Denies Chest Pain, Denies Irregular Heart Rate Gastrointestinal: Abdominal Pain; Denies Diarrhea; Nausea; Denies Vomiting Genitourinary: No Symptoms Reported Musculoskeletal: no symptoms reported Skin: no symptoms reported Psychiatric/Neurological: No Symptoms Reported Endocrine: No Symptoms Reported Past Gyqxocy-Vasprw-Jnuzni Hx Past Med/Social Hx: Reviewed Nursing Past Med/Soc Hx Patient Social History Alcohol Beverage of Choice: Cheap Liquor Drug of Choice: POT Type Used: Cigarettes 2nd Hand Smoke Exposure: Yes Recent Foreign Travel: No Contact w/Someone Who Travel: No Immunizations Up To Date Tetanus Booster (TDap): Unknown PED Vaccines UTD: Yes Date of Influenza Vaccine: Oct 31, 2018 Past Medical History Surgeries: No Respiratory: Yes COPD Currently Using CPAP: No Cardiac: Yes High Cholesterol, Hypertension Neurological: No Genitourinary: No Gastrointestinal: No Musculoskeletal: Yes Arthritis Endocrine: Yes Diabetes, Non-Insulin dep HEENT: No Cancer: No Psychosocial: Yes Depression Integumentary: No Family Medical History No Pertinent Family Hx Physical Exam Vital Signs Vital Signs - First Documented 12/28/19 21:08 Temp 36.4 Pulse 121 Resp 14 B/P (MAP) 144/108 (120) Pulse Ox 97 O2 Delivery Room Air Capillary Refill : Height/Weight/BMI Height: 5'6.00" Weight: 260lbs. 0.0oz. 117.585397ak; 43.00 BMI Method:Stated General Appearance: WD/WN, obese, other (uncomfortable) Neck: supple Respiratory: lungs clear, normal breath sounds, no respiratory distress Cardiovascular: tachycardia Gastrointestinal: soft; No distended, No guarding; rebound (mild rebound right upper quadrant), tenderness (right upper quadrant) Extremities: normal range of motion, non-tender Neurologic/Psychiatric: alert, normal mood/affect, oriented x 3 Skin: normal color, warm/dry Focused Exam Lactate Level 12/28/19 21:25: Lactic Acid Level 1.78 Lactic Acid Level Laboratory Tests Test 12/28/19 21:25 Lactic Acid Level 1.78 MMOL/L (0.50-2.00) Progress/Results/Core Measures Results/Orders Lab Results Laboratory Tests Test 12/28/19 21:13 12/28/19 21:25 Range/Units White Blood Count 10.4 4.3-11.0 10^3/uL Red Blood Count 6.20 H 4.30-5.52 10^6/uL Hemoglobin 15.6 13.3-17.7 g/dL Hematocrit 48 40-54 % Mean Corpuscular Volume 77 L 80-99 fL Mean Corpuscular Hemoglobin 25 25-34 pg Mean Corpuscular Hemoglobin Concent 33 32-36 g/dL Red Cell Distribution Width 16.1 H 10.0-14.5 % Platelet Count 395 130-400 10^3/uL Mean Platelet Volume 8.8 L 9.0-12.2 fL Immature Granulocyte % (Auto) 1 % Neutrophils (%) (Auto) 64 42-75 % Lymphocytes (%) (Auto) 21 12-44 % Monocytes (%) (Auto) 8 0-12 % Eosinophils (%) (Auto) 6 0-10 % Basophils (%) (Auto) 1 0-10 % Neutrophils # (Auto) 6.7 1.8-7.8 10^3/uL Lymphocytes # (Auto) 2.2 1.0-4.0 10^3/uL Monocytes # (Auto) 0.8 0.0-1.0 10^3/uL Eosinophils # (Auto) 0.6 H 0.0-0.3 10^3/uL Basophils # (Auto) 0.1 0.0-0.1 10^3/uL Immature Granulocyte # (Auto) 0.1 0.0-0.1 10^3/uL Sodium Level 136 135-145 MMOL/L Potassium Level 3.5 L 3.6-5.0 MMOL/L Chloride Level 101 98-107 MMOL/L Carbon Dioxide Level 21 21-32 MMOL/L Anion Gap 14 5-14 MMOL/L Blood Urea Nitrogen 7 7-18 MG/DL Creatinine 1.00 0.60-1.30 MG/DL Estimat Glomerular Filtration Rate > 60 BUN/Creatinine Ratio 7 Glucose Level 242 H 70-105 MG/DL Calcium Level 9.3 8.5-10.1 MG/DL Corrected Calcium 9.2 8.5-10.1 MG/DL Total Bilirubin 0.5 0.1-1.0 MG/DL Aspartate Amino Transf (AST/SGOT) 11 5-34 U/L Alanine Aminotransferase (ALT/SGPT) 15 0-55 U/L Alkaline Phosphatase 100 40-136 U/L Troponin I < 0.028 <0.028 NG/ML C-Reactive Protein High Sensitivity 1.87 H 0.00-0.50 MG/DL Total Protein 7.8 6.4-8.2 GM/DL Albumin 4.1 3.2-4.5 GM/DL Lipase 24 8-78 U/L Serum Alcohol < 10 <10 MG/DL Lactic Acid Level 1.78 0.50-2.00 MMOL/L My Orders Orders - JEN TERRY L DO Acute Abd Series (12/28/19 21:17) Alcohol (12/28/19 21:17) Cbc With Automated Diff (12/28/19:17) Comprehensive Metabolic Panel (12/28/19 21:) Hs C Reactive Protein (12/28/19:17) Lactic Acid Analyzer (12/28/19:) Lipase (12/28/19:17) Troponin I (12/28/19:17) Ns Iv 1000 Ml (Sodium Chloride 0.9%) (12/28/19 21:17) Famotidine Injection (Pepcid Injection) (12/28/19 21:17) Hyoscyamine Sl Tablet (Levsin Sl Tablet) (12/28/19 21:30) Ed Iv/Invasive Line Start (12/28/19 21:17) Ekg Tracing (12/28/19:17) Medications Given in ED Current Medications Medications Dose Ordered Sig/Michaelle Route Start Time Stop Time Status Last Admin Dose Admin Hyoscyamine Sulfate 0.125 mg ONCE ONCE SL 12/28/19 21:30 12/28/19 21:31 DC 12/28/19 21:24 0.125 MG Vital Signs/I&O 12/28/19 21:08 Temp 36.4 Pulse 121 Resp 14 B/P (MAP) 144/108 (120) Pulse Ox 97 O2 Delivery Room Air Progress Progress Note : Time: 22:29 Progress Note Patient's symptoms have signally improved with Levsin and Pepcid. Patient had no acute findings on labs or x-ray. Discussed with him that suspect he has a alcoholic gastritis. He already has a appointment with Dr. Watson for a scope. I recommended patient start Pepcid twice daily I will give him some Levsin for spasm. Patient is discharged home in stable condition Initial ECG Impression Date: Dec 28, 2019 Initial ECG Impression Time: 21:10 Initial ECG Rate: 100 Initial ECG Rhythm: S.Tach Comment Sinus Tach, HR 100 ; left atrial/ventricular hypertrophy Diagnostic Imaging Diagonstic Imaging: Xray Comments [facility], [place] NAME: JAMIN FELDER [facility] REC#: [id number] PT STATUS: REG ER : 1960 PHYSICIAN: JEN TERRY DO ADMIT DATE: 12/28/19/ER Signed Date of Exam:12/28/19 ACUTE ABD SERIES INDICATION: Abdominal pain. COMPARISON: Chest radiograph of 12/29/2018. FINDINGS: Stable enlargement of cardiac silhouette. Mild central vascular indistinctness is present. No pleural effusion or pneumothorax. Nonobstructive bowel gas pattern. No free intraperitoneal air. A small volume of colonic stool is present in the right hemicolon. Mild degenerative changes in the lumbar spine. Moderate degenerative arthritis of both hips. IMPRESSION: 1. No free intraperitoneal air and nonobstructive bowel gas pattern. 2. Stable cardiomegaly with central vascular congestion. Dictated by: Dictated on workstation # [id number] Departure Impression Primary Impression: Gastritis Qualified Codes: K29.20 - Alcoholic gastritis without bleeding Disposition: 01 HOME, SELF-CARE Condition: Stable Departure-Patient Inst. Referrals: [facility] (PCP/Family) Primary Care Physician Patient Instructions: Gastritis Add. Discharge Instructions: Famotidine twice daily All discharge instructions reviewed with patient and/or family. Voiced understanding. Scripts Hyoscyamine Sulfate (Levsin-Sl) 0.125 Mg Tab.subl 0.125 MG SL Q6H PRN for CRAMPS, #10 TAB 0 Refills Prov: JEN TERRY DO 12/28/19 JEN TERRY DO Dec 28, 2019 21:17
[2019-12-28 21:24] LABS: BASOPHILS # (AUTO) 0.1 10^3/uL (0.0-0.1); BASOPHILS % (AUTO) 1 % (0-10); EOSINOPHILS # (AUTO) 0.6 10^3/uL (0.0-0.3); EOSINOPHILS % (AUTO) 6 % (0-10); HEMATOCRIT 48 % (40-54); HEMOGLOBIN 15.6 g/dL (13.3-17.7); LYMPHOCYTES # (AUTO) 2.2 10^3/uL (1.0-4.0); LYMPHOCYTES % (AUTO) 21 % (12-44); MEAN CORPUSCULAR HEMOGLOBIN 25 pg (25-34); MEAN CORPUSCULAR HGB CONC 33 g/dL (32-36); MEAN CORPUSCULAR VOLUME 77 fL (80-99); MEAN PLATELET VOLUME 8.8 fL (9.0-12.2); MONOCYTES # (AUTO) 0.8 10^3/uL (0.0-1.0); MONOCYTES % (AUTO) 8 % (0-12); NEUTROPHILS # (AUTO) 6.7 10^3/uL (1.8-7.8); NEUTROPHILS % (AUTO) 64 % (42-75); PLATELET COUNT 395 10^3/uL (130-400); WHITE BLOOD COUNT 10.4 10^3/uL (4.3-11.0)
[2019-12-28] MEDS ORDERED: HYOSCYAMINE 0.125 MG (LEVSIN) TAB SL ONE (21:30)
--- NOTE | 2019-12-28 21:58 | Diagnostic Imaging Report ---
INDICATION: Abdominal pain. COMPARISON: Chest radiograph of 12/29/2018. FINDINGS: Stable enlargement of cardiac silhouette. Mild central vascular indistinctness is present. No pleural effusion or pneumothorax. Nonobstructive bowel gas pattern. No free intraperitoneal air. A small volume of colonic stool is present in the right hemicolon. Mild degenerative changes in the lumbar spine. Moderate degenerative arthritis of both hips. IMPRESSION: 1. No free intraperitoneal air and nonobstructive bowel gas pattern. 2. Stable cardiomegaly with central vascular congestion. Dictated by: Dictated on workstation # [id number]
[2019-12-28 22:09] LABS: ALANINE AMINOTRANSFERASE 15 U/L (0-55); ALBUMIN 4.1 GM/DL (3.2-4.5); ALKALINE PHOSPHATASE 100 U/L (40-136); BILIRUBIN,TOTAL 0.5 MG/DL (0.1-1.0); BUN/CREATININE RATIO 7; CALCIUM 9.3 MG/DL (8.5-10.1); CARBON DIOXIDE 21 MMOL/L (21-32); CHLORIDE 101 MMOL/L (98-107); GFR ESTIMATED > 60; GLUCOSE 242 MG/DL (70-105); LIPASE 24 U/L (8-78); POTASSIUM 3.5 MMOL/L (3.6-5.0); SODIUM 136 MMOL/L (135-145); TOTAL PROTEIN 7.8 GM/DL (6.4-8.2)
[2019-12-28] MEDS ORDERED: HYOS0.1283 SL (22:31)
[2019-12-28 22:42] VITALS: BP 136/84
== END 2019-12-28 22:48 | disposition home or self-care (01) ==
LOC: EDUNIT# 21:07 → ER 21:08
DX: K29.70 Gastritis, unspecified, without bleeding (principal); I10 Essential (primary) hypertension; J44.9 Chronic obstructive pulmonary disease, unspecified; F17.210 Nicotine dependence, cigarettes, uncomplicated; Z79.82 Long term (current) use of aspirin
CPT/HCPCS: 74022; 80053; 83605; 83690; 84484; 85025; 86141; 93041; G0480; 36415; 80320; 93005

== ENCOUNTER 2020-02-06 21:03 | Emergency (ER) | payer MEDICAID ==
[~2020-02-06] VITALS: Ht 168 cm; Wt 119.7 kg
[~2020-02-06 21:03] MED LIST changes: +HYOS0.1283 SL
--- NOTE | 2020-02-06 21:07 | NUR ---
NOTIFIED KEYANA ORO OF PT COMPLAINT
[2020-02-06] MEDS ORDERED: NITROGLYCERIN 0.4 MG SL TABS BTL 25'S SL PRN (21:15)
[2020-02-06] MEDS ORDERED: ASPIRIN 81 MG CHEW (CHILDREN'S ASA) PO ONE (21:15)
[2020-02-06] MEDS ORDERED: NITROGLYCERIN 2% OINT 1 GM UNIT DOSE PACKET TOP ONE (21:30)
--- NOTE | 2020-02-06 21:52 | ED Cardiac General ---
History of Present Illness General Chief Complaint: Chest Pain Stated Complaint: CHEST TIGHTNESS/SOA Nursing Triage Note: c/o chest tightness x2 days. Source: patient History of Present Illness Date Seen by Provider: Feb 06, 2020 Time Seen by Provider: 21:15 Initial Comments PT ARRIVES VIA POV FROM HOME C/O CHEST PAIN FOR THE LAST COUPLE OF DAYS PAIN IS IN CENTER OF CHEST AND DOES NOT RADIATE NOTHING WORSENS OR IMPROVES PAIN ALSO C/O SHORTNESS OF BREATH--IS CHRONIC PROBLEM FOR 5 YEARS--HAS COPD AND CONTINUES TO SMOKE, NO COUGH OR RECENT ILLNESS NO FEVER/SWEATS/CHILLS NO SWELLING IN LEGS/ FEET OR PAIN IN CALVES NO NAUSEA/VOMITING/DIARRHEA NO PALPITATIONS, NO DIZZINESS OR SYNCOPE CLAIMS NO MISSED DOSES OF MEDICATIONS NTG SL INDUSTRIAL SAFETY AND HEALTH MANAGER: No ASA po INDUSTRIAL SAFETY AND HEALTH MANAGER: Yes (162MG INDUSTRIAL SAFETY AND HEALTH MANAGER) PCP: TOBY, JALEN ROGEL DOUBLE BOTTOM DRIVER: DR. BRICEÑO SERVICE TEAM LEADER: DR. MILES Allergies and Home Medications Allergies Coded Allergies: No Known Drug Allergies (Unverified , 06/21/18) Home Medications Albuterol Sulfate 1 Puff Puff, 2 PUFF IH Q6H PRN for SHORTNESS OF BREATH, (Reported) Amlodipine Besylate 10 Mg Tablet, 10 MG PO DAILY Prescribed by: CARROL VU on 12/29/18 1313 Aspirin 81 Mg Tablet.dr, 81 MG PO DAILY Prescribed by: MIKE MILES on 06/24/18 0831 Carvedilol 3.125 Mg Tablet, 3.125 MG PO BID Prescribed by: CARROL VU on 12/29/18 1313 Furosemide 20 Mg Tablet, 20 MG PO DAILY LAST FILLED #30 09-18-18 Prescribed by: CARROL VU on 12/29/18 1313 Hyoscyamine Sulfate 0.125 Mg Tab.subl, 0.125 MG SL Q6H PRN for CRAMPS Prescribed by: JEN TERRY on 12/28/19 223 Nitroglycerin 0.4 Mg Tab.subl, 0.4 MG SL Q5MIN PRN Prescribed by: RALPH POOL on 02/07/20 0021 Potassium Chloride 10 Meq Tab.er.prt, 10 MEQ PO DAILY LAST FILLED #30 09-18-18 Prescribed by: CARROL VU on 12/29/18 1313 Sacubitril/Valsartan 1 Each Tablet, 1 TAB PO BID Prescribed by: CARROL VU on 12/29/18 1313 Tiotropium [place] 4 Gm Mist.inhal, 2 PUFF IH DAILY PRN for SHORTNESS OF BREATH, (Reported) Patient Home Medication List Home Medication List Reviewed: Yes Review of Systems Review of Systems Constitutional: no symptoms reported EENTM: No Symptoms Reported Respiratory: See HPI, Shortness of Air Cardiovascular: See HPI, Chest Pain; Denies Edema, Denies Lightheadedness, Denies Palpitations, Denies Syncope Gastrointestinal: No Symptoms Reported; Denies Abdominal Pain, Denies Nausea, Denies Vomiting Genitourinary: No Symptoms Reported Musculoskeletal: no symptoms reported; No back pain Skin: no symptoms reported Psychiatric/Neurological: No Symptoms Reported Endocrine: No Symptoms Reported Hematologic/Lymphatic: No Symptoms Reported Past Jyoqvhd-Etlvpf-Tydnng Hx Past Med/Social Hx: Reviewed and Corrections made Patient Social History Alcohol Use: Regular Use Number of Drinks Today: CC Alcohol Beverage of Choice: Cheap Liquor Recreational Drug Use: Yes Drug of Choice: cocaine,cannibus Smoking Status: Current Everyday Smoker Type Used: Cigarettes 2nd Hand Smoke Exposure: Yes Recent Foreign Travel: No Contact w/Someone Who Travel: No Recent Infectious Disease Expo: No Recent Hopitalizations: No Immunizations Up To Date Tetanus Booster (TDap): Unknown PED Vaccines UTD: Yes Date of Influenza Vaccine: Oct 31, 2018 Seasonal Allergies Seasonal Allergies: No Past Medical History Surgeries: Yes (CARDIAC CATH) Cardiac Respiratory: Yes COPD Currently Using CPAP: No Cardiac: Yes (NON-ISCHEMIC CARDIOMYOPATHY; CHF; TYPE 2 SC DUE TO CHF 05/2018) Cardiomyopathy, Heart Attack, High Cholesterol, Hypertension Neurological: No Genitourinary: No Gastrointestinal: No Musculoskeletal: Yes Arthritis Endocrine: Yes Diabetes, Non-Insulin dep HEENT: No Cancer: No Psychosocial: Yes Depression Integumentary: No Blood Disorders: No Family Medical History No Pertinent Family Hx SOCIAL HISTORY: -ETOH--REGULAR USE--STATES UP TO A PINT/DAY -DRUGS--SNORTS COCAINE, SMOKES THC -SMOKES 1-2 PPD SURGERIES: -CARDIAC CATH 06/21/18--NO CORNARY DISEASE/NO INTERVENTION; NON-ISCHEMIC CHF WITH DILATED CARDIOMYOPATHY, 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 LONG HISTORY OF NON-COMPLIANCE Physical Exam Vital Signs Vital Signs - First Documented 02/06/20 21:11 Pulse 109 Resp 20 B/P (MAP) 190/118 (142) Pulse Ox 98 O2 Delivery Room Air Capillary Refill : Less Than 3 Seconds Height, Weight, BMI Height: 5'6.00" Weight: 260lbs. 0.0oz. 117.477011ln; 42.00 BMI Method:Stated General Appearance: No Apparent Distress, Obese HEENT: PERRL/EOMI Neck: Normal Inspection Respiratory: Chest Non Tender, Normal Breath Sounds, No Accessory Muscle Use, No Respiratory Distress Cardiovascular: Regular Rate, Rhythm, No JVD, No Murmur, Normal Peripheral Pulses Gastrointestinal: Non Tender, Soft Extremity: Normal Capillary Refill, Normal Range of Motion, Non Tender, No Calf Tenderness, Pedal Edema (TRACE BILATERALLY) Neurologic/Psychiatric: Alert, Oriented x3, No Motor/Sensory Deficits, Normal Mood/Affect, lot worker II-XII Norm as Tested Skin: Normal Color (PT IS BLACK), Warm/Dry; No Rash Progress/Results/Core Measures Results/Orders Lab Results Laboratory Tests Test 02/06/20 21:28 02/06/20 21:31 02/06/20 22:17 02/06/20 22:25 Range/Units White Blood Count 10.2 4.3-11.0 10^3/uL Red Blood Count 6.34 H 4.30-5.52 10^6/uL Hemoglobin 16.1 13.3-17.7 g/dL Hematocrit 50 40-54 % Mean Corpuscular Volume 79 L 80-99 fL Mean Corpuscular Hemoglobin 25 25-34 pg Mean Corpuscular Hemoglobin Concent 32 32-36 g/dL Red Cell Distribution Width 17.6 H 10.0-14.5 % Platelet Count 371 130-400 10^3/uL Mean Platelet Volume 9.5 9.0-12.2 fL Immature Granulocyte % (Auto) 1 % Neutrophils (%) (Auto) 70 42-75 % Lymphocytes (%) (Auto) 17 12-44 % Monocytes (%) (Auto) 8 0-12 % Eosinophils (%) (Auto) 3 0-10 % Basophils (%) (Auto) 1 0-10 % Neutrophils # (Auto) 7.2 1.8-7.8 10^3/uL Lymphocytes # (Auto) 1.8 1.0-4.0 10^3/uL Monocytes # (Auto) 0.8 0.0-1.0 10^3/uL Eosinophils # (Auto) 0.3 0.0-0.3 10^3/uL Basophils # (Auto) 0.1 0.0-0.1 10^3/uL Immature Granulocyte # (Auto) 0.1 0.0-0.1 10^3/uL Erythrocyte Sedimentation Rate 1 0-30 MM/HR Prothrombin Time 12.9 12.2-14.7 SEC INR Comment 0.9 0.8-1.4 Activated Partial Thromboplast Time 27 24-35 SEC Sodium Level 136 135-145 MMOL/L Potassium Level 3.9 3.6-5.0 MMOL/L Chloride Level 101 98-107 MMOL/L Carbon Dioxide Level 22 21-32 MMOL/L Anion Gap 13 5-14 MMOL/L Blood Urea Nitrogen 7 7-18 MG/DL Creatinine 0.87 0.60-1.30 MG/DL Estimat Glomerular Filtration Rate > 60 BUN/Creatinine Ratio 8 Glucose Level 253 H 70-105 MG/DL Calcium Level 8.8 8.5-10.1 MG/DL Corrected Calcium 8.6 8.5-10.1 MG/DL Magnesium Level 2.1 1.6-2.4 MG/DL Total Bilirubin 0.5 0.1-1.0 MG/DL Aspartate Amino Transf (AST/SGOT) 14 5-34 U/L Alanine Aminotransferase (ALT/SGPT) 19 0-55 U/L Alkaline Phosphatase 91 40-136 U/L Lactate Dehydrogenase 164 125-220 U/L Total Creatine Kinase 147 30-200 U/L Creatine Kinase MB 1.6 <6.6 NG/ML Myoglobin 44.8 10.0-92.0 NG/ML Troponin I < 0.028 <0.028 NG/ML C-Reactive Protein High Sensitivity 1.91 H 0.00-0.50 MG/DL B-Type Natriuretic Peptide < 10.0 <100.0 PG/ML Total Protein 7.5 6.4-8.2 GM/DL Albumin 4.3 3.2-4.5 GM/DL Amylase Level 37 25-125 U/L Lipase 24 8-78 U/L Procalcitonin 0.04 <0.10 NG/ML Serum Alcohol < 10 <10 MG/DL Coronavirus 2019 (TRUNG) Negative Negative Urine Color YELLOW Urine Clarity CLEAR Urine pH 7.5 5-9 Urine Specific [place] 1.020 1.016-1.022 Urine Protein NEGATIVE NEGATIVE Urine Glucose (UA) 2+ H NEGATIVE Urine Ketones NEGATIVE NEGATIVE Urine Nitrite NEGATIVE NEGATIVE Urine Bilirubin NEGATIVE NEGATIVE Urine Urobilinogen 0.2 < = 1.0 MG/DL Urine Leukocyte Esterase NEGATIVE NEGATIVE Urine RBC (Auto) TRACE-I NEGATIVE Urine RBC 0-2 /HPF Urine WBC NONE /HPF Urine Crystals PRESENT H /LPF Urine Amorphous Sediment RARE ELENA PHOSPHATE H /LPF Urine Bacteria NEGATIVE /HPF Urine Casts NONE /LPF Urine Mucus NEGATIVE /LPF Urine Culture Indicated NO Urine Opiates Screen NEGATIVE NEGATIVE Urine Oxycodone Screen NEGATIVE NEGATIVE Urine Methadone Screen NEGATIVE NEGATIVE Urine Propoxyphene Screen NEGATIVE NEGATIVE Urine Barbiturates Screen NEGATIVE NEGATIVE Ur Tricyclic Antidepressants Screen NEGATIVE NEGATIVE Urine Phencyclidine Screen NEGATIVE NEGATIVE Urine Amphetamines Screen NEGATIVE NEGATIVE Urine Methamphetamines Screen NEGATIVE NEGATIVE Urine Benzodiazepines Screen NEGATIVE NEGATIVE Urine Cocaine Screen POSITIVE H NEGATIVE Urine Cannabinoids Screen NEGATIVE NEGATIVE Test 02/07/20 00:24 Range/Units Troponin I < 0.028 <0.028 NG/ML Micro Results Microbiology 02/06/20 Influenza Types A,B Antigen (JAIME) - Final, Complete My Orders Orders - RALPH POOL DO Ed Iv/Invasive Line Start (02/06/20 21:15) Ekg Tracing (02/06/20 21:15) O2 (02/06/20 21:15) Monitor-Rhythm Ecg Trace Only (02/06/20 21:15) Chest 1 View, Ap/Pa Only (02/06/20 21:15) Amylase (02/06/20 21:15) BNP (02/06/20 21:15) Cbc With Automated Diff (02/06/20 21:15) Comprehensive Metabolic Panel (02/06/20 21:15) Creatine Kinase (02/06/20 21:15) Creatine Kinase Mb (02/06/20 21:15) Hs C Reactive Protein (02/06/20 21:15) Lipase (02/06/20 21:15) Magnesium (02/06/20 21:15) Protime With Inr (02/06/20 21:15) Partial Thromboplastin Time (02/06/20 21:15) Ua Culture If Indicated (02/06/20 21:15) Influenza A And B Antigens (02/06/20 21:15) Erythrocyte Sedimentation Rate (02/06/20 21:15) Myoglobin Serum (02/06/20 21:15) Troponin I (02/06/20 21:15) Nitroglycerin 0.4 Mg Btl 25's (Nitrostat (02/06/20 21:15) Aspirin Chewable Tablet (Baby Aspirin Ch (02/06/20 21:15) Procalcitonin (Pct) (02/06/20 21:15) LDH (02/06/20 21:15) Covid 19 Inhouse Test (02/06/20 21:15) Nitroglycerin Ointment (Nitrobid Ointme (02/06/20 21:30) Alcohol (02/06/20 21:19) Drug Screen Stat (Urine) (02/06/20 21:19) Hemoglobin A1c (02/06/20 23:23) Ekg Tracing (02/07/20 00:14) Troponin I (02/07/20 00:14) Medications Given in ED Current Medications Medications Dose Ordered Sig/Michaelle Route Start Time Stop Time Status Last Admin Dose Admin Aspirin 324 mg ONCE ONCE PO 02/06/20 21:15 02/06/20 21:18 DC 02/06/20 21:30 324 MG Nitroglycerin 1 inch ONCE ONCE TOP 02/06/20 21:30 02/06/20 21:31 DC 02/06/20 21:30 1 INCH Vital Signs/I&O 02/06/20 02/06/20 02/07/20 21:11 21:42 00:29 Pulse 109 91 Resp 20 17 B/P (MAP) 190/118 (142) 137/104 Pulse Ox 98 96 O2 Delivery Room Air Room Air Room Air Blood Pressure Mean: 142 Progress Progress Note : Progress Note PT PLACED IN ISOLATION ROOM PPE WORN AT ALL TIMES COVID-19 TESTING PERFORMED PT ADVISED OF NEED FOR QUARANTINE GIVEN ASPIRIN NITROPASTE APPLIED FOR CHEST PAIN AND ELEVATED BLOOD PRESSURE--BP DOWN AND PAIN GONE, STATES HE FEELS MUCH BETTER PT HELD FOR REPEAT TROPONIN AND EKG NO RETURN OF CHEST PAIN, BP DOWN, OTHER VITALS STABLE PT ANXIOUS TO GO HOME 0015--PT BECOMING AGITATED AND WANTING TO GO HOME, DEMANDING TO LEAVE, DOES NOT WANT TO WAIT FOR LAB RESULTS. Initial ECG Impression Date: Feb 06, 2020 Initial ECG Impression Time: 21:16 Initial ECG Rate: 100 Initial ECG Rhythm: Normal Sinus EKG : EKG Time: 00:21 Rate: 94 Rhythm: Normal Sinus ECG Comparisson: Unchanged Diagnostic Imaging Comments CXR--NO ACUTE PROCESS, PENDING RADIOLOGIST REVIEW Departure Impression Primary Impression: Chest pain Additional Impressions: Uncontrolled hypertension Uncontrolled non-insulin dependent diabetes mellitus Cocaine use Cigarette smoker Disposition: 01 HOME, SELF-CARE Condition: Improved Departure-Patient Inst. Referrals: JUAN BRICEÑO DO [facility] (PCP/Family) Primary Care Physician MIKE MILES MD Patient Instructions: Chest Pain (DC), DASH Diet, DIABETES, High Blood Pressure (DC) Add. Discharge Instructions: TAKE YOUR MEDICATIONS EVERY DAY--DO NOT MISS DOSES NO DRUGS, NO ALCOHOL, NO SMOKING FOLLOW UP WITH DR. MILES THIS WEEK FOR FURTHER CARE REGARDING BLOOD PRESSURE AND YOUR HEART FOLLOW UP WITH DR. BRICEÑO THIS WEEK FOR FURTHER CARE REGARDING COPD FOLLOW UP WITH JALEN ROGEL THIS WEEK FOR FURTHER CARE OF ELEVATED BLOOD SUGAR All discharge instructions reviewed with patient and/or family. Voiced understanding. Scripts Nitroglycerin (Nitroglycerin) 0.4 Mg Tab.subl 0.4 MG SL Q5MIN PRN for CHEST PAIN , #24 TAB Prov: RALPH POOL DO 02/07/20 RALPH POOL DO Feb 06, 2020 21:52
[2020-02-06 22:05] LABS: BASOPHILS # (AUTO) 0.1 10^3/uL (0.0-0.1); BASOPHILS % (AUTO) 1 % (0-10); EOSINOPHILS # (AUTO) 0.3 10^3/uL (0.0-0.3); EOSINOPHILS % (AUTO) 3 % (0-10); HEMATOCRIT 50 % (40-54); HEMOGLOBIN 16.1 g/dL (13.3-17.7); LYMPHOCYTES # (AUTO) 1.8 10^3/uL (1.0-4.0); LYMPHOCYTES % (AUTO) 17 % (12-44); MEAN CORPUSCULAR HEMOGLOBIN 25 pg (25-34); MEAN CORPUSCULAR HGB CONC 32 g/dL (32-36); MEAN CORPUSCULAR VOLUME 79 fL (80-99); MEAN PLATELET VOLUME 9.5 fL (9.0-12.2); MONOCYTES # (AUTO) 0.8 10^3/uL (0.0-1.0); MONOCYTES % (AUTO) 8 % (0-12); NEUTROPHILS # (AUTO) 7.2 10^3/uL (1.8-7.8); NEUTROPHILS % (AUTO) 70 % (42-75); PLATELET COUNT 371 10^3/uL (130-400); WHITE BLOOD COUNT 10.2 10^3/uL (4.3-11.0)
--- NOTE | 2020-02-06 22:13 | Diagnostic Imaging Report ---
EXAM: Portable chest INDICATION: Chest pain and shortness of breath. COMPARISON is made with a previous study from 12/27/2009. FINDINGS: No focal alveolar consolidation demonstrated. No significant interstitial infiltrate is evident by plain radiography. There is no effusion or pneumothorax. Heart size and mediastinal contours appear appropriate and pulmonary vascularity appears normal. IMPRESSION: 1. No plain film findings of alveolar or interstitial infiltrates or consolidation. Dictated by: Dictated on workstation # [id number]
[2020-02-06 22:26] LABS: BILIRUBIN,URINE NEGATIVE (NEGATIVE); CLARITY,URINE CLEAR; COLOR,URINE YELLOW; GLUCOSE, URINE (UA) 2+ (NEGATIVE); KETONES,URINE NEGATIVE (NEGATIVE); LEUKOCYTE ESTERASE ,URINE NEGATIVE (NEGATIVE); NITRITE,URINE NEGATIVE (NEGATIVE); PH,URINE 7.5 (5-9); PROTEIN,URINE NEGATIVE (NEGATIVE)
[2020-02-06 22:28] LABS: ERYTHROCYTE SEDIMENTATION RATE 1 MM/HR (0-30)
[2020-02-06 22:40] LABS: AMORPHOUS SEDIMENT,UR RARE AMOR PHOSPHATE /LPF; BACTERIA,URINE NEGATIVE /HPF; RBC,URINE 0-2 /HPF
[2020-02-06 22:42] LABS: ALBUMIN 4.3 GM/DL (3.2-4.5); CHLORIDE 101 MMOL/L (98-107); POTASSIUM 3.9 MMOL/L (3.6-5.0); SODIUM 136 MMOL/L (135-145)
[2020-02-06 22:43] LABS: CALCIUM 8.8 MG/DL (8.5-10.1); INR 0.9 (0.8-1.4); PROTHROMBIN TIME PATIENT 12.9 SEC (12.2-14.7)
[2020-02-06 22:44] LABS: AMYLASE 37 U/L (25-125)
[2020-02-06 22:45] LABS: GLUCOSE 253 MG/DL (70-105); TOTAL PROTEIN 7.5 GM/DL (6.4-8.2)
[2020-02-06 22:46] LABS: BILIRUBIN,TOTAL 0.5 MG/DL (0.1-1.0); CARBON DIOXIDE 22 MMOL/L (21-32)
[2020-02-06 22:48] LABS: ALKALINE PHOSPHATASE 91 U/L (40-136); CREATININE SERUM 0.87 MG/DL (0.60-1.30); GFR ESTIMATED > 60
[2020-02-06 22:49] LABS: BUN/CREATININE RATIO 8
[2020-02-06 22:51] LABS: AMPHETAMINE SCREEN, URINE NEGATIVE (NEGATIVE); BARBITURATE SCREEN URINE NEGATIVE (NEGATIVE); BENZODIAZEPINES SCREEN URINE NEGATIVE (NEGATIVE); CANNABINOID SCREEN, URINE NEGATIVE (NEGATIVE); COCAINE SCREEN URINE POSITIVE (NEGATIVE); METHADONE STAT NEGATIVE (NEGATIVE); METHAMPHETAMINE SCREEN URINE S NEGATIVE (NEGATIVE); OPIATE SCREEN URINE NEGATIVE (NEGATIVE); OXYCODONE STAT NEGATIVE (NEGATIVE); PROPOXYPHENE STAT NEGATIVE (NEGATIVE); TRICYCLIC ANTIDEPRESSANTS SCRE NEGATIVE (NEGATIVE)
[2020-02-06 22:51] LABS: ALANINE AMINOTRANSFERASE 19 U/L (0-55)
[2020-02-06 22:52] LABS: MAGNESIUM 2.1 MG/DL (1.6-2.4)
[2020-02-06 22:53] LABS: CREATINE KINASE 147 U/L (30-200); LIPASE 24 U/L (8-78)
[2020-02-06 23:00] LABS: CREATINE KINASE MB 1.6 NG/ML (<6.6)
[2020-02-07] MEDS ORDERED: NITR0.4T42 SL (00:21)
[2020-02-07 00:29] VITALS: BP 137/104
== END 2020-02-07 00:29 | disposition home or self-care (01) ==
LOC: EDUNIT# 21:03 → ER 21:05
DX: R07.9 Chest pain, unspecified (principal); I10 Essential (primary) hypertension; E11.65 Type 2 diabetes mellitus with hyperglycemia; F14.90 Cocaine use, unspecified, uncomplicated; J44.9 Chronic obstructive pulmonary disease, unspecified; I25.2 Old myocardial infarction; E66.9 Obesity, unspecified; F17.210 Nicotine dependence, cigarettes, uncomplicated; Z20.828 Contact with and (suspected) exposure to other viral communicable diseases; Z95.9 Presence of cardiac and vascular implant and graft, unspecified; Z68.41 Body mass index [BMI] 40.0-44.9, adult; Z79.82 Long term (current) use of aspirin
CPT/HCPCS: 71045; 80053; 80306; 81000; 82150; 82550; 82553; 83036; 83615; 83690; 83735; 83874; 83880; 84145; 84484 ×2; 85025; 85610; 85652; 85730; 86141; 87804; 93005 ×2; 93041; 99284; G0480; U0002; 36415; 80320; 87635

== ENCOUNTER 2020-04-05 03:36 | Observation (INO) | payer MEDICAID ==
[~2020-04-05] VITALS: Ht 167.7 cm; Wt 121.0 kg
[2020-04-05] VITALS (8 sets, daily range): BP systolic 142–184; BP diastolic 72–103
[~2020-04-05 03:36] MED LIST changes: -LISI10TA2 PO; +LISI10TA25 PO; +NITR0.4T42 SL
[2020-04-05] MEDS ORDERED: ASPIRIN 81 MG CHEW (CHILDREN'S ASA) ONE (03:51)
[2020-04-05] MEDS ORDERED: LACTATED RINGERS 1,000 ML IV ONE (03:51)
[2020-04-05] MEDS ORDERED: ASPIRIN 81 MG CHEW (CHILDREN'S ASA) PO ONE (04:00)
--- NOTE | 2020-04-05 04:01 | ED Respiratory ---
General Chief Complaint: Respiratory Problems Stated Complaint: SOA,COPD Source: patient Exam Limitations: no limitations History of Present Illness Date Seen by Provider: Apr 05, 2020 Time Seen by Provider: 03:45 Initial Comments Patient presents ER by EMS from home with chief complaint he was sitting on the couch about half an hour prior to arrival and had not gone to bed yet just watching TV when he suddenly was struck with seeing stars, shortness of air and some pressure across his upper abdomen and lower anterior chest radiating from right to left. Not worse with movement. He has a history of coronary disease followed by Dr. Alonzo. Jan Lowry is his primary care doctor. He smokes cigarettes occasionally uses cannabis and drinks around 1/2 pint of alcohol a day. No history of pancreatitis. He also noticed in the last day or so some red swelling show up on the top of his foot. He knows not have a history of injury there. He is a borderline diabetic. Denies a history of gout. He just recently started tablets for diabetes. EMS reports he was diaphoretic and visibly short of air with an oxygen sat of 97% and increased respiratory rate when they arrived. They gave him a single DuoNeb which significantly improved his symptoms. He denies any fever, productive cough or sick contacts. He does not rely on oxygen or CPAP at baseline. History of cocaine use, congestive heart failure with chronic left ventricular systolic dysfunction, nonischemic cardiomyopathy, hypertension, tobaccoism, COPD, questionable hyperlipidemia, alcoholism, historical nonadherence to medical therapy. Cardiac catheterization May [address] Barron showing no significant obstructive disease. Allergies and Home Medications Allergies Coded Allergies: No Known Drug Allergies (Unverified , 06/21/18) Home Medications Albuterol Sulfate 1 Puff Puff, 2 PUFF IH Q6H PRN for SHORTNESS OF BREATH, (Repo rted) Amlodipine Besylate 10 Mg Tablet, 10 MG PO DAILY, (Reported) Aspirin 81 Mg Tablet.dr, 81 MG PO DAILY, (Reported) Carvedilol 3.125 Mg Tablet, 3.125 MG PO BID, (Reported) Metformin HCl 1,000 Mg Tablet, 1,000 MG PO DAILY Increase to twice daily after one week. Prescribed by: NICKY BLANCO on 04/05/20 1336 Nitroglycerin 0.4 Mg Tab.subl, 0.4 MG SL Q5MIN PRN Prescribed by: RALPH POOL on 02/07/20 0021 Omeprazole 40 Mg Capsule.dr, 40 MG PO DAILY, (Reported) Potassium Chloride 10 Meq Tab.er.prt, 10 MEQ PO DAILY, (Reported) Tiotropium [place] 4 Gm Mist.inhal, 2 PUFF IH DAILY PRN for SHORTNESS OF BREATH, (Reported) Patient Home Medication List Home Medication List Reviewed: Yes Review of Systems Review of Systems Constitutional: chills, diaphoresis; No fever; malaise EENTM: No ear discharge, No ear pain Respiratory: No cough, No phlegm; short of breath, wheezing Cardiovascular: see HPI, chest pain; No edema; Hx of Intervention; No palpitations Gastrointestinal: No abdominal pain, No nausea, No vomiting Genitourinary: No discharge, No dysuria Musculoskeletal: see HPI; No back pain, No gout; joint pain (Left foot dorsal) All Other Systems Reviewed Negative Unless Noted: Yes Past Yjjuxol-Nvphyq-Hzweri Hx Patient Social History Alcohol Use: Regular Use Alcohol Beverage of Choice: Cheap Liquor Drug of Choice: cocaine,cannibus Smoking Status: Current Everyday Smoker Type Used: Cigarettes 2nd Hand Smoke Exposure: Yes Recent Hopitalizations: No Immunizations Up To Date Tetanus Booster (TDap): Unknown PED Vaccines UTD: Yes Date of Influenza Vaccine: Oct 31, 2018 Seasonal Allergies Seasonal Allergies: No Past Medical History Surgeries: Yes (CARDIAC CATH) Cardiac Respiratory: Yes COPD Currently Using CPAP: No Cardiac: Yes (NON-ISCHEMIC CARDIOMYOPATHY; CHF; TYPE 2 MO DUE TO CHF 05/2018) Cardiomyopathy, Heart Attack, High Cholesterol, Hypertension Neurological: No Genitourinary: No Gastrointestinal: No Musculoskeletal: Yes Arthritis Endocrine: Yes Diabetes, Non-Insulin dep HEENT: No Cancer: No Psychosocial: Yes Depression Integumentary: No Blood Disorders: No Family Medical History No Pertinent Family Hx SOCIAL HISTORY: -ETOH--REGULAR USE--STATES UP TO A PINT/DAY -DRUGS--SNORTS COCAINE, SMOKES THC -SMOKES 1-2 PPD SURGERIES: -CARDIAC CATH 06/21/18--NO CORNARY DISEASE/NO INTERVENTION; NON-ISCHEMIC CHF WITH DILATED CARDIOMYOPATHY, 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 LONG HISTORY OF NON-COMPLIANCE Physical Exam Vital Signs - First Documented 04/05/20 04/05/20 03:38 03:40 Temp 36.3 Pulse 82 Resp 20 B/P (MAP) 122/93 (103) O2 Delivery Room Air O2 Flow Rate 2.00 Capillary Refill : Height: 5'6.00" Weight: 260lbs. 0.0oz. [id number]; 42.00 BMI Method:Stated General Appearance: mild distress, obese Eyes: Bilateral Eye Normal Inspection, Bilateral Eye PERRL, Bilateral Eye EOMI HEENT: PERRL/EOMI, normal ENT inspection, TMs normal, pharynx normal Neck: full range of motion, normal inspection Respiratory: chest non-tender, lungs clear, normal breath sounds, no respiratory distress, no accessory muscle use Cardiovascular: normal peripheral pulses, regular rate, rhythm Gastrointestinal: normal bowel sounds, non tender, soft Extremities: normal capillary refill, other (Mild patch of erythema over the dorsum of the left foot that is exquisitely tender to light palpation.) Neurologic/Psychiatric: alert, normal mood/affect, oriented x 3 Progress/Results/Core Measures Suspected Sepsis SIRS Temperature: Pulse: Respiratory Rate: Laboratory Tests 04/05/20 03:55: White Blood Count 10.5 Blood Pressure / Mean: Laboratory Tests 04/05/20 03:55: Creatinine 1.33H, INR Comment 1.0, Platelet Count 340, Total Bilirubin 0.6 Results/Orders Lab Results Laboratory Tests Test 04/05/20 03:49 04/05/20 03:55 Range/Units Blood Gas Puncture Site RIGHT RADIAL Blood Gas Patient Temperature 97.3 Arterial Blood pH 7.41 7.37-7.43 Arterial Blood Partial Pressure CO2 41 35-45 MMHG Arterial Blood Partial Pressure O2 71 L 79-93 MMHG Arterial Blood HCO3 26 23-27 MMOL/L Arterial Blood Total CO2 26.9 21.0-31.0 MMOL/L Arterial Blood Oxygen Saturation 93 L 94-100 % Arterial Blood Base Excess 1.2 -2.5-2.5 MMOL/L Derick Test POSITIVE Blood Gas Ventilator Setting NO Blood Gas Inspired Oxygen 2 L White Blood Count 10.5 4.3-11.0 10^3/uL Red Blood Count 5.73 H 4.30-5.52 10^6/uL Hemoglobin 14.8 13.3-17.7 g/dL Hematocrit 45 40-54 % Mean Corpuscular Volume 78 L 80-99 fL Mean Corpuscular Hemoglobin 26 25-34 pg Mean Corpuscular Hemoglobin Concent 33 32-36 g/dL Red Cell Distribution Width 15.3 H 10.0-14.5 % Platelet Count 340 130-400 10^3/uL Mean Platelet Volume 9.5 9.0-12.2 fL Immature Granulocyte % (Auto) 1 % Neutrophils (%) (Auto) 67 42-75 % Lymphocytes (%) (Auto) 19 12-44 % Monocytes (%) (Auto) 8 0-12 % Eosinophils (%) (Auto) 4 0-10 % Basophils (%) (Auto) 1 0-10 % Neutrophils # (Auto) 7.0 1.8-7.8 10^3/uL Lymphocytes # (Auto) 2.1 1.0-4.0 10^3/uL Monocytes # (Auto) 0.9 0.0-1.0 10^3/uL Eosinophils # (Auto) 0.5 H 0.0-0.3 10^3/uL Basophils # (Auto) 0.1 0.0-0.1 10^3/uL Immature Granulocyte # (Auto) 0.1 0.0-0.1 10^3/uL Prothrombin Time 13.5 12.2-14.7 SEC INR Comment 1.0 0.8-1.4 Activated Partial Thromboplast Time 27 24-35 SEC D-Dimer 0.33 0.00-0.49 UG/ML Sodium Level 139 135-145 MMOL/L Potassium Level 3.1 L 3.6-5.0 MMOL/L Chloride Level 102 98-107 MMOL/L Carbon Dioxide Level 23 21-32 MMOL/L Anion Gap 14 5-14 MMOL/L Blood Urea Nitrogen 12 7-18 MG/DL Creatinine 1.33 H 0.60-1.30 MG/DL Estimat Glomerular Filtration Rate > 60 BUN/Creatinine Ratio 9 Glucose Level 233 H 70-105 MG/DL Uric Acid 5.0 2.6-7.2 MG/DL Calcium Level 9.2 8.5-10.1 MG/DL Corrected Calcium 9.2 8.5-10.1 MG/DL Magnesium Level 2.1 1.6-2.4 MG/DL Total Bilirubin 0.6 0.1-1.0 MG/DL Aspartate Amino Transf (AST/SGOT) 17 5-34 U/L Alanine Aminotransferase (ALT/SGPT) 16 0-55 U/L Alkaline Phosphatase 82 40-136 U/L Myoglobin 94.6 H 10.0-92.0 NG/ML Troponin I < 0.028 <0.028 NG/ML C-Reactive Protein High Sensitivity 1.42 H 0.00-0.50 MG/DL B-Type Natriuretic Peptide 39.0 <100.0 PG/ML Total Protein 7.6 6.4-8.2 GM/DL Albumin 4.0 3.2-4.5 GM/DL Lipase 31 8-78 U/L Procalcitonin 0.04 <0.10 NG/ML Serum Alcohol < 10 <10 MG/DL Coronavirus 2019 (TRUNG) Positive H Negative My Orders Orders - ROSALINDA CHOW Aspirin Chewable Tablet (Baby Aspirin Ch (04/05/20 03:51) Lactated Ringers (Lr 1000 Ml Iv Solution (04/05/20 03:51) Cbc With Automated Diff (04/05/20 03:55) Magnesium (04/05/20 03:55) Chest 1 View, Ap/Pa Only (04/05/20 03:55) Ekg Tracing (04/05/20 03:55) Comprehensive Metabolic Panel (04/05/20 03:55) Myoglobin Serum (04/05/20 03:55) Protime With Inr (04/05/20 03:55) Partial Thromboplastin Time (04/05/20 03:55) O2 (04/05/20 03:55) Monitor-Rhythm Ecg Trace Only (04/05/20 03:55) Ed Iv/Invasive Line Start (04/05/20 03:55) Lipase (04/05/20 03:55) BNP (04/05/20 03:55) Fibrin Degradation Products (04/05/20 03:55) Troponin I (04/05/20 03:55) Aspirin Chewable Tablet (Baby Aspirin Ch (04/05/20 04:00) Uric Acid (04/05/20 03:55) Covid 19 Inhouse Test (04/05/20 03:55) Alcohol (04/05/20 04:01) Arterial Blood Gas (04/05/20 04:01) Hs C Reactive Protein (04/05/20 04:36) Procalcitonin (Pct) (04/05/20 04:36) Dexamethasone Injection (Decadron Inje (04/05/20 04:45) Medications Given in ED Vital Signs/I&O 04/05/20 04/05/20 03:38 03:40 Temp 36.3 Pulse 82 Resp 20 B/P (MAP) 122/93 (103) O2 Delivery Room Air Nasal Cannula O2 Flow Rate 2.00 Capillary Refill : Progress Note : Time: 03:59 Progress Note We will give him some aspirin but he is no longer having any pain so no nitroglycerin. He is no longer having any wheezing but his oxygen sats were 93% on room air so we will get an ABG. Put him on 2 L by nasal cannula, chest pain work-up to include chest x-ray and labs as well as a lipase. Alcohol level. ECG Initial ECG Impression Date: Apr 05, 2020 Initial ECG Impression Time: 03:46 Initial ECG Rate: 85 Initial ECG Rhythm: Normal Sinus Initial ECG Intervals: Normal Initial ECG Impression: Normal, Nonspecific Changes Comment Prolonged QTC, left ventricular hypertrophy, normal sinus rhythm without clinically relevant ST changes. Diagnostic Imaging Diagonstic Imaging: Xray Plain Films/CT/US/NM/MRI: chest Comments No acute cardiopulmonary process on 1 view chest x-ray. [facility], [place] NAME: [facility] REC#: [id number] PT STATUS: ADM IN : 1960 PHYSICIAN: ROSALINDA CHOW MD ADMIT DATE: 04/05/20 Signed Date of Exam:04/05/20 CHEST 1 VIEW, AP/PA ONLY Indication: Chest pain, cough and dyspnea Single AP view of the chest is obtained with comparison made study of 02/06/2020 FINDINGS: Heart size and pulmonary vascularity are within normal limits, and the lungs are clear, bilaterally. IMPRESSION: Unremarkable chest. Dictated by: Dictated on workstation # [id number] Dict: 04/05/20 0552 Trans: 04/05/20 0553 [id number] Interpreted by: EMETERIO HU MD Electronically signed by: EMETERIO HU MD 04/05/20 0553 Reviewed: Reviewed by Me Departure Communication (Admissions) Time/Spoke to Admitting Phy: 04:50 Discussed the case with Dr. Blanco and she agrees to admit the patient to the floor on oxygen, dexamethasone, Lovenox and she will address his gout when she sees him. Impression Primary Impression: COVID-19 Additional Impressions: Acute on chronic respiratory failure with hypoxemia Chest pain Qualified Codes: R07.9 - Chest pain, unspecified Acute coronary syndrome Gout attack Qualified Codes: M10.9 - Gout, unspecified Disposition: 09 ADMITTED INPATIENT Condition: Stable Admissions Decision to Admit Reason: Admit from ER (General) Decision to Admit/Date: Apr 05, 2020 Time/Decision to Admit Time: 04:30 Departure-Patient Inst. Referrals: [facility] (PCP/Family) Primary Care Physician Scripts Metformin HCl (Metformin HCl) 1,000 Mg Tablet 1000 MG PO DAILY, #60 TAB 0 Refills Increase to twice daily after one week. Prov: NICKY BLANCO MD 04/05/20 ROSALINDA CHOW Apr 05, 2020 04:01
[2020-04-05 04:04] LABS: ABG BASE EXCESS 1.2 MMOL/L (-2.5-2.5); ABG OXYGEN SATURATION 93 % (94-100); ABG PCO2 41 MMHG (35-45); ABG PH 7.41 (7.37-7.43); ABG PO2 71 MMHG (79-93); ABG TCO2 26.9 MMOL/L (21.0-31.0)
[2020-04-05 04:05] LABS: ALLENS TEST POSITIVE; INSPIRED O2 2 L; PATIENT TEMP 97.3; VENTILATOR NO
[2020-04-05 04:11] LABS: BASOPHILS # (AUTO) 0.1 10^3/uL (0.0-0.1); BASOPHILS % (AUTO) 1 % (0-10); EOSINOPHILS # (AUTO) 0.5 10^3/uL (0.0-0.3); EOSINOPHILS % (AUTO) 4 % (0-10); HEMATOCRIT 45 % (40-54); HEMOGLOBIN 14.8 g/dL (13.3-17.7); LYMPHOCYTES # (AUTO) 2.1 10^3/uL (1.0-4.0); LYMPHOCYTES % (AUTO) 19 % (12-44); MEAN CORPUSCULAR HEMOGLOBIN 26 pg (25-34); MEAN CORPUSCULAR HGB CONC 33 g/dL (32-36); MEAN CORPUSCULAR VOLUME 78 fL (80-99); MEAN PLATELET VOLUME 9.5 fL (9.0-12.2); MONOCYTES # (AUTO) 0.9 10^3/uL (0.0-1.0); MONOCYTES % (AUTO) 8 % (0-12); NEUTROPHILS % (AUTO) 67 % (42-75); PLATELET COUNT 340 10^3/uL (130-400); WHITE BLOOD COUNT 10.5 10^3/uL (4.3-11.0)
[2020-04-05 04:22] LABS: CHLORIDE 102 MMOL/L (98-107); POTASSIUM 3.1 MMOL/L (3.6-5.0); PROTHROMBIN TIME PATIENT 13.5 SEC (12.2-14.7); SODIUM 139 MMOL/L (135-145)
[2020-04-05 04:23] LABS: CALCIUM 9.2 MG/DL (8.5-10.1)
[2020-04-05 04:24] LABS: GLUCOSE 233 MG/DL (70-105); TOTAL PROTEIN 7.6 GM/DL (6.4-8.2)
[2020-04-05 04:25] LABS: CARBON DIOXIDE 23 MMOL/L (21-32)
[2020-04-05 04:26] LABS: BILIRUBIN,TOTAL 0.6 MG/DL (0.1-1.0)
[2020-04-05 04:28] LABS: ALKALINE PHOSPHATASE 82 U/L (40-136); CREATININE SERUM 1.33 MG/DL (0.60-1.30); GFR ESTIMATED > 60
[2020-04-05 04:29] LABS: BUN/CREATININE RATIO 9
[2020-04-05 04:31] LABS: ALANINE AMINOTRANSFERASE 16 U/L (0-55); MAGNESIUM 2.1 MG/DL (1.6-2.4)
[2020-04-05 04:32] LABS: LIPASE 31 U/L (8-78)
[2020-04-05 05:54] LABS: BILIRUBIN,URINE NEGATIVE (NEGATIVE); CLARITY,URINE CLEAR; COLOR,URINE DARK YELLOW; GLUCOSE, URINE (UA) 2+ (NEGATIVE); KETONES,URINE NEGATIVE (NEGATIVE); LEUKOCYTE ESTERASE ,URINE NEGATIVE (NEGATIVE); NITRITE,URINE NEGATIVE (NEGATIVE); PH,URINE 6.5 (5-9); PROTEIN,URINE 2+ (NEGATIVE)
--- NOTE | 2020-04-05 05:54 | Diagnostic Imaging Report ---
Indication: Chest pain, cough and dyspnea Single AP view of the chest is obtained with comparison made study of 02/06/2020 FINDINGS: Heart size and pulmonary vascularity are within normal limits, and the lungs are clear, bilaterally. IMPRESSION: Unremarkable chest. Dictated by: Dictated on workstation # [id number]
[2020-04-05] MEDS ORDERED: 1/2 NS IV SOLUTION 1,000 ML IV PRN (06:00)
[2020-04-05] MEDS ORDERED: LORazepam INJ 2 MG/ML (ATIVAN) VIAL IV PRN (06:00)
[2020-04-05] MEDS ORDERED: D5 1/2 NS 1000 ML IV SOLUTION 1,000 ML IV PRN (06:00)
[2020-04-05] MEDS ORDERED: NITROGLYCERIN 0.4 MG SL TABS BTL 25'S SL PRN (06:00)
[2020-04-05] MEDS ORDERED: LORazepam INJ 2 MG/ML (ATIVAN) VIAL IM/IV PRN (06:00)
[2020-04-05] MEDS ORDERED: ONDANSETRON 4 MG/2 ML (SDV) Z0FRAN IV PRN (06:00)
[2020-04-05] MEDS ORDERED: LORazepam 1 MG (ATIVAN) TAB PO PRN (06:00)
[2020-04-05] MEDS ORDERED: ONDANSETRON 4 MG (ZOFRAN) ORAL DISSOLVE TAB SL PRN (06:00)
[2020-04-05] MEDS ORDERED: morphine INJ 4 MG/ML 1 ML (VIAL/SYRINGE) IV PRN (06:00)
[2020-04-05] MEDS ORDERED: SENNA W/DOCUSATE (SENOKOT S) TABLET PO PRN (06:00)
[2020-04-05] MEDS ORDERED: ANTACID SUSP 30 ML UDC (MYLANTA) PO PRN (06:00)
[2020-04-05 06:08] LABS: AMPHETAMINE SCREEN, URINE NEGATIVE (NEGATIVE); BARBITURATE SCREEN URINE NEGATIVE (NEGATIVE); BENZODIAZEPINES SCREEN URINE NEGATIVE (NEGATIVE); CANNABINOID SCREEN, URINE POSITIVE (NEGATIVE); COCAINE SCREEN URINE POSITIVE (NEGATIVE); METHADONE STAT NEGATIVE (NEGATIVE); METHAMPHETAMINE SCREEN URINE S NEGATIVE (NEGATIVE); OPIATE SCREEN URINE NEGATIVE (NEGATIVE); OXYCODONE STAT NEGATIVE (NEGATIVE); PROPOXYPHENE STAT NEGATIVE (NEGATIVE); TRICYCLIC ANTIDEPRESSANTS SCRE NEGATIVE (NEGATIVE)
[2020-04-05] MEDS ORDERED: NS IV 1000 ML 1,000 ML IV SCH (06:15)
[2020-04-05] MEDS ORDERED: ACETAMINOPHEN 500 MG TAB (TYLENOL) PO PRN (06:15)
[2020-04-05 06:18] LABS: BACTERIA,URINE NEGATIVE /HPF; RBC,URINE 0-2 /HPF; URINE OTHER LG SPERM /HPF
[2020-04-05] MEDS: inSUlin ASPART (NovoLOG) 1 UNIT/0.01 ML (CHARGE PER UNIT) SC SCH ×3 (06:21→12:48)
[2020-04-05 06:40] LABS: BASOPHILS # (AUTO) 0.1 10^3/uL (0.0-0.1); BASOPHILS % (AUTO) 1 % (0-10); EOSINOPHILS # (AUTO) 0.3 10^3/uL (0.0-0.3); EOSINOPHILS % (AUTO) 3 % (0-10); HEMATOCRIT 43 % (40-54); HEMOGLOBIN 13.9 g/dL (13.3-17.7); LYMPHOCYTES % (AUTO) 11 % (12-44); MEAN CORPUSCULAR HEMOGLOBIN 25 pg (25-34); MEAN CORPUSCULAR HGB CONC 33 g/dL (32-36); MEAN CORPUSCULAR VOLUME 78 fL (80-99); MEAN PLATELET VOLUME 9.4 fL (9.0-12.2); MONOCYTES # (AUTO) 0.9 10^3/uL (0.0-1.0); MONOCYTES % (AUTO) 9 % (0-12); NEUTROPHILS # (AUTO) 7.1 10^3/uL (1.8-7.8); NEUTROPHILS % (AUTO) 75 % (42-75); PLATELET COUNT 333 10^3/uL (130-400); WHITE BLOOD COUNT 9.4 10^3/uL (4.3-11.0)
[2020-04-05 06:51] LABS: ALBUMIN 3.8 GM/DL (3.2-4.5)
[2020-04-05 06:52] LABS: CHLORIDE 104 MMOL/L (98-107); POTASSIUM 3.6 MMOL/L (3.6-5.0); SODIUM 138 MMOL/L (135-145)
[2020-04-05 06:53] LABS: CALCIUM 8.9 MG/DL (8.5-10.1)
[2020-04-05 06:54] LABS: GLUCOSE 222 MG/DL (70-105); TOTAL PROTEIN 7.1 GM/DL (6.4-8.2)
[2020-04-05 06:55] LABS: CARBON DIOXIDE 22 MMOL/L (21-32)
[2020-04-05 06:56] LABS: BILIRUBIN,TOTAL 0.4 MG/DL (0.1-1.0)
[2020-04-05 06:57] LABS: ALKALINE PHOSPHATASE 74 U/L (40-136)
[2020-04-05 06:58] LABS: GFR ESTIMATED > 60
[2020-04-05 06:59] LABS: BUN/CREATININE RATIO 11
[2020-04-05 07:00] LABS: ALANINE AMINOTRANSFERASE 16 U/L (0-55)
[2020-04-05] MEDS ORDERED: MULTIVIT W/MINERALS TAB (THERAGRAN M) PO SCH (07:00)
[2020-04-05] MEDS ORDERED: THIAMINE 100 MG (VITAMIN B-1) TAB PO SCH (07:00)
[2020-04-05] MEDS ORDERED: MAGNESIUM OXIDE (MAG-OX)400 MG TAB PO SCH (09:00)
[2020-04-05] MEDS ORDERED: ASPIRIN E.C. 81 MG (ECOTRIN) TAB PO SCH (09:00)
[2020-04-05] MEDS ORDERED: CARVEDILOL 3.125 MG (COREG) TABLET PO SCH (09:00)
[2020-04-05] MEDS ORDERED: ENOXAPARIN 40 MG/0.4 ML (LOVENOX) SYR SC SCH (09:00)
[2020-04-05] MEDS ORDERED: amLODIPine 10 MG (NORVASC) TAB PO SCH (09:00)
[2020-04-05] MEDS ORDERED: FOLIC ACID 1 MG TAB PO SCH (09:00)
[2020-04-05] MEDS ORDERED: KCL 20 MEQ TAB (K-DUR) PO SCH (09:00)
[2020-04-05] MEDS ORDERED: OMEP40CA27 PO (13:21)
[2020-04-05] MEDS ORDERED: CARV3.12 PO (13:21)
[2020-04-05] MEDS ORDERED: AMLO-251 PO (13:21)
[2020-04-05] MEDS ORDERED: [UNRECOGNIZED DRUG - CODE] PO (13:21)
[2020-04-05] MEDS ORDERED: PIOG30TA71 PO (13:21)
[2020-04-05] MEDS ORDERED: POTA10TA14 PO (13:21)
[2020-04-05] MEDS ORDERED: METF-399 PO (13:36)
--- NOTE | 2020-04-05 13:38 | Discharge Summary ---
Discharge [facility] Discharge Medications New, Converted or Re-Newed RX: Transmitted to Pharmacy New Medications: Metformin HCl (Metformin HCl) 1,000 Mg Tablet 1000 MG PO DAILY, #60 TAB 0 Refills Increase to twice daily after one week. Continued Medications: Albuterol Sulfate (Proair Hfa) 1 Puff Puff 2 PUFF IH Q6H PRN for SHORTNESS OF BREATH, INHALER Amlodipine Besylate (Amlodipine Besylate) 10 Mg Tablet 10 MG PO DAILY, TAB Aspirin (Lo-Dose Aspirin EC) 81 Mg Tablet.dr 81 MG PO DAILY, TAB Carvedilol (Coreg) 3.125 Mg Tablet 3.125 MG PO BID, TAB Nitroglycerin (Nitroglycerin) 0.4 Mg Tab.subl 0.4 MG SL Q5MIN PRN for CHEST PAIN , #24 TAB Omeprazole (Omeprazole) 40 Mg Capsule.dr 40 MG PO DAILY, TAB Potassium Chloride (Klor-Con M10) 10 Meq Tab.er.prt 10 MEQ PO DAILY, TAB Tiotropium [place] (Spiriva Respimat 1.25MCG/ACTUATION) 4 Gm Mist.inhal 2 PUFF IH DAILY PRN for SHORTNESS OF BREATH, INHALER Discontinued Medications: Pioglitazone HCl (Pioglitazone HCl) 30 Mg Tablet 30 MG PO DAILY, TAB Patient Instructions Goal/Follow Up Appt: Follow up via telephone visit with Jaycob De La Torre at [facility] on 04/10 at 11:40 am. Patient Instructions: Check your blood sugar fasting (first thing in the morning) and before each meal. Call the clinic if your blood sugar is above 180 to discuss medication adjustments. Oxygen for use with exertion has been ordered. Return to [facility] For: Fever, difficulty breathing, confusion, blood sugar consistently above 250. Activity & Diet Discharge Diet: Low Sodium Diet, ADA Diet, Cardiac Diet Activity as Tolerated: Yes NICKY BLANCO MD Apr 05, 2020 13:38
--- NOTE | 2020-04-05 14:01 | Consultation-Cardiology ---
HPI-Cardiology Cardiology Consultation Date of Consultation 04/05/20 Date of Admission Time Seen by Provider: 12:05 Indication: Dyspnea HPI Patient is 59 y/o male hx of nonischemic cardiomyopathy, COPD, HTN. Presented to the ER with c/o increased dyspnea x 1 days. Denies any chest pain, dizziness or lightheadedness. Reports currently feeling better. Home Medications & Allergies Allergies: Coded Allergies: No Known Drug Allergies (Unverified , 06/21/18) Home Medication List Reviewed: Yes XEF-Xaelio-Zdnqlb Hx Patient Social History Marital Status: single Recreational Drug Use: Yes Drug of Choice: cocaine,MARIJUANA Smoking Status: Current Everyday Smoker Type Used: Cigarettes 2nd Hand Smoke Exposure: Yes Recent Hopitalizations: No Have you traveled recently?: No Alcohol Use?: Yes Substance type: Marijuana, Other Immunizations Up To Date Tetanus Booster (TDap): Unknown Date of Influenza Vaccine: Oct 31, 2018 Past Medical History CHF, HTN, Illicit drug use Family Medical History Significant Family History: No Pertinent Family Hx Review of Systems-General Review of Systems Constitutional: chills, diaphoresis; No fever; malaise EENTM: No ear discharge, No ear pain Respiratory: No cough, No phlegm; short of breath, wheezing Cardiovascular: see HPI, chest pain; No edema; Hx of Intervention; No palpitations Gastrointestinal: No abdominal pain, No nausea, No vomiting Genitourinary: No discharge, No dysuria Musculoskeletal: see HPI; No back pain, No gout; joint pain (Left foot dorsal) All Other Systems Reviewed Negative Unless Noted: Yes Reviewed Test Results Reviewed Test Results Lab Laboratory Tests 04/05/20 03:49: Blood Gas Puncture Site RIGHT RADIAL, Blood Gas Patient Temperature 97.3, Arterial Blood pH 7.41, Arterial Blood Partial Pressure CO2 41, Arterial Blood Partial Pressure O2 71L, Arterial Blood HCO3 26, Arterial Blood Total CO2 26.9, Arterial Blood Oxygen Saturation 93L, Arterial Blood Base Excess 1.2, Derick Test POSITIVE, Blood Gas Ventilator Setting NO, Blood Gas Inspired Oxygen 2 L 04/05/20 03:55: White Blood Count 10.5, Red Blood Count 5.73H, Hemoglobin 14.8, Hematocrit 45, Mean Corpuscular Volume 78L, Mean Corpuscular Hemoglobin 26, Mean Corpuscular Hemoglobin Concent 33, Red Cell Distribution Width 15.3H, Platelet Count 340, Mean Platelet Volume 9.5, Immature Granulocyte % (Auto) 1, Neutrophils (%) (Auto) 67, Lymphocytes (%) (Auto) 19, Monocytes (%) (Auto) 8, Eosinophils (%) (Auto) 4, Basophils (%) (Auto) 1, Neutrophils # (Auto) 7.0, Lymphocytes # (Auto) 2.1, Monocytes # (Auto) 0.9, Eosinophils # (Auto) 0.5H, Basophils # (Auto) 0.1, Immature Granulocyte # (Auto) 0.1, Prothrombin Time 13.5, INR Comment 1.0, Activated Partial Thromboplast Time 27, D-Dimer 0.33, Sodium Level 139, Potassium Level 3.1L, Chloride Level 102, Carbon Dioxide Level 23, Anion Gap 14, Blood Urea Nitrogen 12, Creatinine 1.33H, Estimat Glomerular Filtration Rate > 60, BUN/Creatinine Ratio 9, Glucose Level 233H, Uric Acid 5.0, Calcium Level 9.2, Corrected Calcium 9.2, Magnesium Level 2.1, Total Bilirubin 0.6, Aspartate Amino Transf (AST/SGOT) 17, Alanine Aminotransferase (ALT/SGPT) 16, Alkaline Phosphatase 82, Myoglobin 94.6H, Troponin I < 0.028, C-Reactive Protein High Sensitivity 1.42H, B-Type Natriuretic Peptide 39.0, Total Protein 7.6, Albumin 4.0, Lipase 31, Procalcitonin 0.04, Serum Alcohol < 10, Coronavirus 2019 (TRUNG) PositiveH 04/05/20 05:40: Urine Color DARK YELLOW, Urine Clarity CLEAR, Urine pH 6.5, Urine Specific [place] 1.020, Urine Protein 2+H, Urine Glucose (UA) 2+H, Urine Ketones NEGATIVE, Urine Nitrite NEGATIVE, Urine Bilirubin NEGATIVE, Urine Urobilinogen 0.2, Urine Leukocyte Esterase NEGATIVE, Urine RBC (Auto) TRACE-L, Urine RBC 0-2, Urine WBC 2-5, Urine Squamous Epithelial Cells NONE, Urine Crystals NONE, Urine Bacteria NEGATIVE, Urine Casts NONE, Urine Mucus SMALLH, Urine Other LG SPERMH, Urine Culture Indicated NO, Urine Opiates Screen NEGATIVE, Urine Oxycodone Screen NEGATIVE, Urine Methadone Screen NEGATIVE, Urine Propoxyphene Screen NEGATIVE, Urine Barbiturates Screen NEGATIVE, Ur Tricyclic Antidepressants Screen NEGATIVE, Urine Phencyclidine Screen NEGATIVE, Urine Amphetamines Screen NEGATIVE, Urine Methamphetamines Screen NEGATIVE, Urine Benzodiazepines Screen NEGATIVE, Urine Cocaine Screen POSITIVEH, Urine Cannabinoids Screen POSITIVEH 04/05/20 06:00: Glucometer 193H 04/05/20 06:30: White Blood Count 9.4, Red Blood Count 5.48, Hemoglobin 13.9, Hematocrit 43, Mean Corpuscular Volume 78L, Mean Corpuscular Hemoglobin 25, Mean Corpuscular Hemoglobin Concent 33, Red Cell Distribution Width 15.1H, Platelet Count 333, Mean Platelet Volume 9.4, Immature Granulocyte % (Auto) 1, Neutrophils (%) (Auto) 75, Lymphocytes (%) (Auto) 11L, Monocytes (%) (Auto) 9, Eosinophils (%) (Auto) 3, Basophils (%) (Auto) 1, Neutrophils # (Auto) 7.1, Lymphocytes # (Auto) 1.0, Monocytes # (Auto) 0.9, Eosinophils # (Auto) 0.3, Basophils # (Auto) 0.1, Immature Granulocyte # (Auto) 0.1, Sodium Level 138, Potassium Level 3.6, Chloride Level 104, Carbon Dioxide Level 22, Anion Gap 12, Blood Urea Nitrogen 12, Creatinine 1.10, Estimat Glomerular Filtration Rate > 60, BUN/Creatinine Ratio 11, Glucose Level 222H, Calcium Level 8.9, Corrected Calcium 9.1, Total Bilirubin 0.4, Aspartate Amino Transf (AST/SGOT) 17, Alanine Aminotransferase (ALT/SGPT) 16, Alkaline Phosphatase 74, Total Protein 7.1, Albumin 3.8 04/05/20 10:08: Troponin I < 0.028 04/05/20 11:14: Glucometer 305H ECG Impression ECG Initial ECG Rhythm: Normal Sinus Physical Exam Physical Exam Vital Signs Vital Signs - First Documented 04/05/20 04/05/20 04/05/20 03:38 03:40 05:42 Temp 36.3 Pulse 82 Resp 20 B/P (MAP) 122/93 (103) Pulse Ox 100 O2 Delivery Room Air O2 Flow Rate 2.00 Capillary Refill : Less Than 3 Seconds Height, Weight, BMI Height: 5'6.00" Weight: 260lbs. 0.0oz. 117.355966au; 43.02 BMI Method:Stated General Appearance: No Apparent Distress, WD/WN Eyes: Bilateral Eye Normal Inspection, Bilateral Eye PERRL, Bilateral Eye EOMI HEENT: TMs Normal Neck: Full Range of Motion, Normal Inspection, Non Tender, Supple Respiratory: Chest Non Tender, Other (decreased breath sounds bibasilarly) Cardiovascular: Regular Rate, Rhythm, No Edema, No JVD, No Murmur, Normal Peripheral Pulses Gastrointestinal: Non Tender, Soft, Distended A/P-Cardiology Admission Diagnosis Covid-19 CHF HTN Illicit drug use Assessment/Plan COVID-19 illness, management per primary care. Coronary artery disease- cardiac catheterization May [address] Barron showing no significant obstructive disease Congestive heart failure, chronic left ventricular systolic dysfunction, nonischemic cardiomyopathy. Most recent 2D Echo done Dec 18 showing EF 35-40%. Was maintained on Entresto and Coreg as outpatient. Hypertension, mildly elevated. Restart home blood pressure medications and continue to monitor. UDS + for cocaine- discussed sustaining from illicit drugs Tobaccoism, educated on avoiding tobacco product Alcoholism, educated on avoiding alcohol product Noncompliance with medications, discussed the importance of compliance with his medications. Thank you for allowing us to participate in the management of Mr. Atkins. This is Rema Sibley PA-C as a scribe for Dr. Alonzo. Patient was seen and evaluated with Rema, management plan was discussed, agree with the current scribed note, I made few changes to the note using Italic font To limit exposure and transmission of COVID-19 infection, we limited the visit and evaluation to 1 percent Patient has history of coronary artery disease, admitted for COVID-19 management, has history of congestive heart failure, ejection fraction 35-40 percent, history of hypertension and tobaccoism, alcoholism Feeling better at this time. Patient was educated on compliance with medications. REMA HUMPHREY Apr 05, 2020 14:01 MIKE ALONZO MD Apr 05, 2020 14:19
--- NOTE | 2020-04-05 21:28 | Short Stay Summary ---
HPI History of Present Illness: Pt came to ER due to an episode of chest tightness, feeling dizzy and mildly confused. He thought it was one of his "normal" episodes, and was surprised to test positive for COVID. This morning he denies chest pain, shortness of breath or any other concerns, and is anxious to go home. Source: patient Date seen by provider: Apr 05, 2020 Time Seen by Provider: 12:45 Attending Physician Nicky Bustillo MD [facility] [place],[facility] [place] Consult Date of Admission Apr 05, 2020 at 04:50 Home Medications Home Medications Reviewed patient Home Medication Reconciliation performed by pharmacy medication reconciliations automotive specialty technician and/or nursing. Patients Allergies have been reviewed. Allergies Coded Allergies: No Known Drug Allergies (Unverified , 06/21/18) JHL-[id number]-Yfjbey Hx Patient Social History Marrital Status: single Drug of Choice: cocaine,MARIJUANA Smoking Status: Current Everyday Smoker 2nd Hand Smoke Exposure: Yes Recent Hopitalizations: No Alcohol Use?: Yes Substance type: Marijuana, Other Tobacco type used: Cigarettes Have you traveled recently?: No Immunizations Up To Date Tetanus Booster (TDap): Unknown Date of Influenza Vaccine: Oct 31, 2018 Past Medical History PMHx: HTN HLD Tobacco Abuse Cocaine use DMII Family Medical History Significant Family History: No Pertinent Family Hx Other Significan Family Hx: SOCIAL HISTORY: -ETOH--REGULAR USE--STATES UP TO A PINT/DAY -DRUGS--SNORTS COCAINE, SMOKES THC -SMOKES 1-2 PPD SURGERIES: -CARDIAC CATH 06/21/18--NO CORNARY DISEASE/NO INTERVENTION; NON-ISCHEMIC CHF WITH DILATED CARDIOMYOPATHY, 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 LONG HISTORY OF NON-COMPLIANCE Review of Systems ([facility]) Constitutional: No fever EENTM: No nose congestion, No throat pain Respiratory: No cough, No short of breath Cardiovascular: No chest pain Gastrointestinal: No abdominal pain Genitourinary: no symptoms reported Musculoskeletal: no symptoms reported Skin: other (red area on left foot) Reviewed Test Results Reviewed Test Results Lab Laboratory Tests Test 04/05/20 03:49 04/05/20 03:55 04/05/20 05:40 04/05/20 06:00 Range/Units Blood Gas Puncture Site RIGHT RADIAL Blood Gas Patient Temperature 97.3 Arterial Blood pH 7.41 7.37-7.43 Arterial Blood Partial Pressure CO2 41 35-45 MMHG Arterial Blood Partial Pressure O2 71 L 79-93 MMHG Arterial Blood HCO3 26 23-27 MMOL/L Arterial Blood Total CO2 26.9 21.0-31.0 MMOL/L Arterial Blood Oxygen Saturation 93 L 94-100 % Arterial Blood Base Excess 1.2 -2.5-2.5 MMOL/L Derick Test POSITIVE Blood Gas Ventilator Setting NO Blood Gas Inspired Oxygen 2 L White Blood Count 10.5 4.3-11.0 10^3/uL Red Blood Count 5.73 H 4.30-5.52 10^6/uL Hemoglobin 14.8 13.3-17.7 g/dL Hematocrit 45 40-54 % Mean Corpuscular Volume 78 L 80-99 fL Mean Corpuscular Hemoglobin 26 25-34 pg Mean Corpuscular Hemoglobin Concent 33 32-36 g/dL Red Cell Distribution Width 15.3 H 10.0-14.5 % Platelet Count 340 130-400 10^3/uL Mean Platelet Volume 9.5 9.0-12.2 fL Immature Granulocyte % (Auto) 1 % Neutrophils (%) (Auto) 67 42-75 % Lymphocytes (%) (Auto) 19 12-44 % Monocytes (%) (Auto) 8 0-12 % Eosinophils (%) (Auto) 4 0-10 % Basophils (%) (Auto) 1 0-10 % Neutrophils # (Auto) 7.0 1.8-7.8 10^3/uL Lymphocytes # (Auto) 2.1 1.0-4.0 10^3/uL Monocytes # (Auto) 0.9 0.0-1.0 10^3/uL Eosinophils # (Auto) 0.5 H 0.0-0.3 10^3/uL Basophils # (Auto) 0.1 0.0-0.1 10^3/uL Immature Granulocyte # (Auto) 0.1 0.0-0.1 10^3/uL Prothrombin Time 13.5 12.2-14.7 SEC INR Comment 1.0 0.8-1.4 Activated Partial Thromboplast Time 27 24-35 SEC D-Dimer 0.33 0.00-0.49 UG/ML Sodium Level 139 135-145 MMOL/L Potassium Level 3.1 L 3.6-5.0 MMOL/L Chloride Level 102 98-107 MMOL/L Carbon Dioxide Level 23 21-32 MMOL/L Anion Gap 14 5-14 MMOL/L Blood Urea Nitrogen 12 7-18 MG/DL Creatinine 1.33 H 0.60-1.30 MG/DL Estimat Glomerular Filtration Rate > 60 BUN/Creatinine Ratio 9 Glucose Level 233 H 70-105 MG/DL Uric Acid 5.0 2.6-7.2 MG/DL Calcium Level 9.2 8.5-10.1 MG/DL Corrected Calcium 9.2 8.5-10.1 MG/DL Magnesium Level 2.1 1.6-2.4 MG/DL Total Bilirubin 0.6 0.1-1.0 MG/DL Aspartate Amino Transf (AST/SGOT) 17 5-34 U/L Alanine Aminotransferase (ALT/SGPT) 16 0-55 U/L Alkaline Phosphatase 82 40-136 U/L Myoglobin 94.6 H 10.0-92.0 NG/ML Troponin I < 0.028 <0.028 NG/ML C-Reactive Protein High Sensitivity 1.42 H 0.00-0.50 MG/DL B-Type Natriuretic Peptide 39.0 <100.0 PG/ML Total Protein 7.6 6.4-8.2 GM/DL Albumin 4.0 3.2-4.5 GM/DL Lipase 31 8-78 U/L Procalcitonin 0.04 <0.10 NG/ML Serum Alcohol < 10 <10 MG/DL Coronavirus 2019 (TRUNG) Positive H Negative Urine Color DARK YELLOW Urine Clarity CLEAR Urine pH 6.5 5-9 Urine Specific Percival 1.020 1.016-1.022 Urine Protein 2+ H NEGATIVE Urine Glucose (UA) 2+ H NEGATIVE Urine Ketones NEGATIVE NEGATIVE Urine Nitrite NEGATIVE NEGATIVE Urine Bilirubin NEGATIVE NEGATIVE Urine Urobilinogen 0.2 < = 1.0 MG/DL Urine Leukocyte Esterase NEGATIVE NEGATIVE Urine RBC (Auto) TRACE-L NEGATIVE Urine RBC 0-2 /HPF Urine WBC 2-5 /HPF Urine Squamous Epithelial Cells NONE /HPF Urine Crystals NONE /LPF Urine Bacteria NEGATIVE /HPF Urine Casts NONE /LPF Urine Mucus SMALL H /LPF Urine Other LG SPERM H /HPF Urine Culture Indicated NO Urine Opiates Screen NEGATIVE NEGATIVE Urine Oxycodone Screen NEGATIVE NEGATIVE Urine Methadone Screen NEGATIVE NEGATIVE Urine Propoxyphene Screen NEGATIVE NEGATIVE Urine Barbiturates Screen NEGATIVE NEGATIVE Ur Tricyclic Antidepressants Screen NEGATIVE NEGATIVE Urine Phencyclidine Screen NEGATIVE NEGATIVE Urine Amphetamines Screen NEGATIVE NEGATIVE Urine Methamphetamines Screen NEGATIVE NEGATIVE Urine Benzodiazepines Screen NEGATIVE NEGATIVE Urine Cocaine Screen POSITIVE H NEGATIVE Urine Cannabinoids Screen POSITIVE H NEGATIVE Glucometer 193 H 70-110 MG/DL Test 04/05/20 06:30 04/05/20 10:08 04/05/20 11:14 Range/Units White Blood Count 9.4 4.3-11.0 10^3/uL Red Blood Count 5.48 4.30-5.52 10^6/uL Hemoglobin 13.9 13.3-17.7 g/dL Hematocrit 43 40-54 % Mean Corpuscular Volume 78 L 80-99 fL Mean Corpuscular Hemoglobin 25 25-34 pg Mean Corpuscular Hemoglobin Concent 33 32-36 g/dL Red Cell Distribution Width 15.1 H 10.0-14.5 % Platelet Count 333 130-400 10^3/uL Mean Platelet Volume 9.4 9.0-12.2 fL Immature Granulocyte % (Auto) 1 % Neutrophils (%) (Auto) 75 42-75 % Lymphocytes (%) (Auto) 11 L 12-44 % Monocytes (%) (Auto) 9 0-12 % Eosinophils (%) (Auto) 3 0-10 % Basophils (%) (Auto) 1 0-10 % Neutrophils # (Auto) 7.1 1.8-7.8 10^3/uL Lymphocytes # (Auto) 1.0 1.0-4.0 10^3/uL Monocytes # (Auto) 0.9 0.0-1.0 10^3/uL Eosinophils # (Auto) 0.3 0.0-0.3 10^3/uL Basophils # (Auto) 0.1 0.0-0.1 10^3/uL Immature Granulocyte # (Auto) 0.1 0.0-0.1 10^3/uL Sodium Level 138 135-145 MMOL/L Potassium Level 3.6 3.6-5.0 MMOL/L Chloride Level 104 98-107 MMOL/L Carbon Dioxide Level 22 21-32 MMOL/L Anion Gap 12 5-14 MMOL/L Blood Urea Nitrogen 12 7-18 MG/DL Creatinine 1.10 0.60-1.30 MG/DL Estimat Glomerular Filtration Rate > 60 BUN/Creatinine Ratio 11 Glucose Level 222 H 70-105 MG/DL Calcium Level 8.9 8.5-10.1 MG/DL Corrected Calcium 9.1 8.5-10.1 MG/DL Total Bilirubin 0.4 0.1-1.0 MG/DL Aspartate Amino Transf (AST/SGOT) 17 5-34 U/L Alanine Aminotransferase (ALT/SGPT) 16 0-55 U/L Alkaline Phosphatase 74 40-136 U/L Total Protein 7.1 6.4-8.2 GM/DL Albumin 3.8 3.2-4.5 GM/DL Troponin I < 0.028 <0.028 NG/ML Glucometer 305 H 70-110 MG/DL Radiology CXR unremarkable Physical Exam-([facility]) Physical Exam Vital Signs VS - Last 72 Hours, by Label 04/05/20 04/05/20 04/05/20 04/05/20 03:38 03:40 05:42 05:55 Temp 36.3 36.3 36.2 Pulse 82 90 90 Resp 20 16 20 B/P (MAP) 122/93 (103) 150/89 (103) 168/92 (117) Pulse Ox 100 96 O2 Delivery Room Air Nasal Cannula Nasal Cannula Room Air O2 Flow Rate 2.00 2.00 04/05/20 04/05/20 04/05/20 04/05/20 06:00 06:09 06:25 06:40 Pulse 86 B/P (MAP) 177/103 (127) 170/74 (106) 150/74 (99) O2 Delivery Room Air O2 Flow Rate 2.00 04/05/20 04/05/20 04/05/20 04/05/20 07:40 08:00 08:40 09:18 Pulse 88 83 85 B/P (MAP) 142/72 (95) 146/75 (98) Pulse Ox 96 O2 Delivery Nasal Cannula O2 Flow Rate 2.00 04/05/20 04/05/20 04/05/20 04/05/20 11:35 12:56 13:00 14:45 Temp 36.4 36.4 Pulse 110 88 90 90 Resp 20 20 B/P (MAP) 184/97 (126) 184/97 Pulse Ox 84 97 97 O2 Delivery Room Air Room Air O2 Flow Rate 2.00 Capillary Refill : Less Than 3 Seconds General Appearance: no apparent distress, obese Respiratory: lungs clear, normal breath sounds Cardiovascular: regular rate, rhythm, no murmur Gastrointestinal: normal bowel sounds, non tender, soft Extremities: other (trace edema left foot, mild ttp over dorsum of left foot around third metatarsal, no appreciable redness at this time) Neurologic/Psychiatric: alert, normal mood/affect Skin: normal color, warm/dry Short Stay Diagnosis Discharge Diagnosis-Short Stay Admission Diagnosis See problem list Final Discharge Diagnosis See problem list Conclusion Plan See problem list Assessment/Plan Assessment/Plan Admission Status: Observation (1) COVID-19 Status: Acute Assessment & Plan: Patient adamant about going home, discussed risks of severe disease given his underlying comorbidities and high blood sugar, but he wants to go home. Does not need oxyen at rest, but did need 2 lpm with exertion which was set up for home. (2) Hypertension Status: Chronic Qualifiers: Qualified Codes: I10 - Essential (primary) hypertension (3) Chronic systolic (congestive) heart failure Status: Chronic Assessment & Plan: Stable, no evidence of decompensation. (4) Substance abuse Status: Chronic Assessment & Plan: positive urine drug screen for cocaine on admit, he states he quit cocaine and has not used, but does use marijuana (5) Uncontrolled non insulin dependent diabetes mellitus Status: Chronic Assessment & Plan: Recently diagnosed, was started on pioglitazone in January, according to clinic chart was already on metformin when diagnosed, however, he does not even recall the name metformin and med rec at hospital did not reveal that he had been getting it. Due to his CHF, discontinued pioglitazone and started metformin, had diabetic education meet with him and get meter, encouraged to call clinic if blood sugar continues to run high and discussed possible need for insulin- did agree to one dose inpatient and stated he would use at home if needed. (6) Chest pain Status: Acute Assessment & Plan: Troponin negative, Cardiology consulted, appreciate recommendations. no changes to regimen. Qualifiers: Qualified Codes: R07.9 - Chest pain, unspecified NICKY BUSTILLO MD Apr 05, 2020 21:28
== END 2020-04-05 13:35 | disposition home or self-care (01) ==
LOC: EDUNIT# 03:36 → ER 03:38 → INTOOBSV 04:50 → 4TH 04:50 → UNDOADMOB 04:50 → 4TH 05:55 → UNDODISOB 14:45
PROVIDERS: ADMIT Family Medicine; ATTEND Family Medicine
DX: U07.1 COVID-19 (principal); I11.0 Hypertensive heart disease with heart failure; I50.22 Chronic systolic (congestive) heart failure; E11.9 Type 2 diabetes mellitus without complications; J44.9 Chronic obstructive pulmonary disease, unspecified; E78.00 Pure hypercholesterolemia, unspecified; M19.90 Unspecified osteoarthritis, unspecified site; M10.9 Gout, unspecified; I24.9 Acute ischemic heart disease, unspecified; F17.210 Nicotine dependence, cigarettes, uncomplicated; Z79.82 Long term (current) use of aspirin; Z79.51 Long term (current) use of inhaled steroids; Z79.84 Long term (current) use of oral hypoglycemic drugs; Z79.899 Other long term (current) drug therapy
CPT/HCPCS: 71045; 80053; 80306; 81000; 82805; 82962; 83690; 83735; 83874; 83880; 84145; 84484; 84550; 85025; 85379; 85610; 85730; 86141; 93005; 93041; 94761; 96361; 96374; 99285; G0378; G0480; U0002; 36415; 80320; 87635

== ENCOUNTER → 2020-05-30 | Outpatient (CLI) | payer MEDICAID ==
[~2020-05-30] MED LIST changes: +CARV3.12 PO; +METF-399 PO; +OMEP40CA27 PO; +PIOG30TA71 PO; +POTA10TA14 PO; +[UNRECOGNIZED DRUG - CODE] PO
== END ==
LOC: CARD 14:10
PROVIDERS: ATTEND Physician Assistant
DX: I11.9 Hypertensive heart disease without heart failure (principal); I34.0 Nonrheumatic mitral (valve) insufficiency

== ENCOUNTER → 2020-05-30 | Outpatient (CLI) | payer MEDICAID ==
[~2020-05-30] MED LIST changes: +CATHETER FLUSH 10 ML SYR IV PRN; +HOLD METFORMIN - RECEIVED CONTRAST 20 ML VIAL IV SCH; +IOHEXOL 350 MG/ML 100 ML (OMNIPAQUE 350) VIAL IV ONE; +NS 100 ML (IVPB) BAG IV ONE
[2020-05-30 14:49] LABS: BUN/CREATININE RATIO 13; CREATININE SERUM 0.85 MG/DL (0.60-1.30); GFR ESTIMATED > 60
--- NOTE | 2020-05-30 16:33 | Diagnostic Imaging Report ---
PROCEDURE: CT chest with contrast only. TECHNIQUE: Multiple contiguous axial images were obtained through the chest after administration of intravenous contrast. Auto Exposure Controls were utilized during the CT exam to meet ALARA standards for radiation dose reduction. DATE: May 30, 2020. COMPARISON: Chest radiograph April 05, 2020. CT chest June 21, 2018. INDICATION: 59-year-old male, chest pain and cough. FINDINGS: There is a 3 mm calcified granuloma in the lingula on axial image 83. There is a 4 mm calcified left lower lobe granuloma. There are minimal linear opacities in the left lower lobe and lingula, consistent with minimal atelectasis and/or scarring. There is a 3 mm pleurally based right sided pulmonary nodule on axial image 72. There is a 3 mm pleurally based right lower lobe pulmonary nodule on axial image 79. There is a potential 3 mm right upper lobe pulmonary nodule on axial image 76. There is no lung mass. There is no additional focal airspace consolidation. There is no pneumothorax. There is no pleural effusion. The central airways are patent. There is no identified central pulmonary embolus. The heart is not enlarged. There is no pericardial effusion. There is no identified abnormally enlarged mediastinal, hilar, or axillary lymph node meeting CT size criteria for adenopathy. There is an exophytic 6 mm low-attenuation left renal lesion, too small to characterize, on axial image 175. There is no identified acute bony abnormality. There are degenerative changes of the spine. IMPRESSION: 1. No identified acute cardiopulmonary abnormality. 2. Subcentimeter pulmonary nodules. These were not all definitely seen on the prior CT of June 11, 2018. Recommend followup CT chest in 6 months to evaluate for stability. Dictated by: Dictated on workstation # [id number]
== END ==
LOC: RAD 14:12
PROVIDERS: ATTEND Nurse Practitioner Family
DX: R91.8 Other nonspecific abnormal finding of lung field (principal)
CPT/HCPCS: 36415; 71260; 82565; 84520

== ENCOUNTER 2020-08-27 09:59 | Emergency (ER) | payer MEDICAID ==
[~2020-08-27] VITALS: Ht 167 cm; Wt 116.5 kg
[~2020-08-27 09:59] MED LIST changes: -CATHETER FLUSH 10 ML SYR IV PRN; -HOLD METFORMIN - RECEIVED CONTRAST 20 ML VIAL IV SCH; -IOHEXOL 350 MG/ML 100 ML (OMNIPAQUE 350) VIAL IV ONE; -NS 100 ML (IVPB) BAG IV ONE; -OMEP40CA27 PO; +OMEP40CA6 PO
[2020-08-27] MEDS ORDERED: ORPHENADRINE 60 MG/2 ML (NORFLEX) AMP (ED ONLY) ONE (10:52)
[2020-08-27] MEDS ORDERED: NS IV 1000 ML 1,000 ML ONE (10:53)
[2020-08-27] MEDS ORDERED: HYDROcodone/APAP 7.5 MG/325 MG (LORTAB, LORCET PLUS) TABLET PO ONE ×2 (10:53→12:00)
[2020-08-27 11:15] LABS: BASOPHILS # (AUTO) 0.1 10^3/uL (0.0-0.1); BASOPHILS % (AUTO) 1 % (0-10); EOSINOPHILS # (AUTO) 0.8 10^3/uL (0.0-0.3); EOSINOPHILS % (AUTO) 9 % (0-10); HEMATOCRIT 45 % (40-54); HEMOGLOBIN 14.3 g/dL (13.3-17.7); LYMPHOCYTES # (AUTO) 1.3 10^3/uL (1.0-4.0); LYMPHOCYTES % (AUTO) 16 % (12-44); MEAN CORPUSCULAR HEMOGLOBIN 26 pg (25-34); MEAN CORPUSCULAR HGB CONC 32 g/dL (32-36); MEAN CORPUSCULAR VOLUME 81 fL (80-99); MEAN PLATELET VOLUME 9.8 fL (9.0-12.2); MONOCYTES # (AUTO) 0.7 10^3/uL (0.0-1.0); MONOCYTES % (AUTO) 9 % (0-12); NEUTROPHILS # (AUTO) 5.3 10^3/uL (1.8-7.8); NEUTROPHILS % (AUTO) 65 % (42-75); PLATELET COUNT 352 10^3/uL (130-400); WHITE BLOOD COUNT 8.1 10^3/uL (4.3-11.0)
--- NOTE | 2020-08-27 11:16 | ED EENT ---
History of Present Illness General Chief Complaint: Facial Problems Stated Complaint: R FACIAL SWELLING, ESCAMILLA Nursing Triage Note: PT PRESENTS TO ED WITH COMPLAINTS OF 3 WEEKS OF R SIDE FACIAL SWELLING AND PAIN. REPORTS HE SAW A [facility] AND PRESCRIBED AMOXICILLIN AND HAD A CT SCAN OF HIS FACE. REPORTS IT HAS NOT GOTTEN BETTER DESPITE ANTIBIOTICS. Source: patient Exam Limitations: no limitations History of Present Illness Date Seen by Provider: Aug 27, 2020 Time Seen by Provider: 10:30 Initial Comments Patient is a 60-year-old male who has a history of hypertension and diabetes who presents to the emergency department today with a chief complaint of right facial right neck swelling. Patient states that he saw his primary care provider at [facility] on the and was prescribed some amoxicillin. He has been taking ibuprofen but ran out of these medications 3 days ago. Patient complains of increased pain and swelling. He states that he has a little bit of difficulty swallowing. He denies fevers or chills or shortness of breath. He states that his ear has been hurting just inferior to the ear. He did mention some drainage from the right ear however the none is appreciated. He has never had anything like this before. He does not have a sore throat. No wounds that he is aware of. Nothing makes the pain any better or any worse. He states that he has so much pain that he is having a difficult time turning his head to the right. All other review of systems reviewed and negative except as stated above. Timing/Duration: gradual Severity: severe (Rated at a "10") Location: ear (R), other (Right facial) Prearrival Treatment: no prearrival treatment Associated Symptoms: denies symptoms Allergies and Home Medications Allergies Coded Allergies: No Known Drug Allergies (Unverified , 06/21/18) Home Medications Albuterol Sulfate 1 Puff Puff, 2 PUFF IH Q6H PRN for SHORTNESS OF BREATH, (Reported) Amlodipine Besylate 10 Mg Tablet, 10 MG PO DAILY, (Reported) Aspirin 81 Mg Tablet.dr, 81 MG PO DAILY, (Reported) Carvedilol 3.125 Mg Tablet, 3.125 MG PO BID, (Reported) Cyclobenzaprine HCl 10 Mg Tablet, 10 MG PO Q8H PRN for muscle spasm Prescribed by: MELA KNOX on 08/27/20 1305 Ibuprofen 800 Mg Tablet, 800 MG PO Q8H PRN for PAIN Prescribed by: MELA KNOX on 08/27/20 1305 Metformin HCl 1,000 Mg Tablet, 1,000 MG PO DAILY Increase to twice daily after one week. Prescribed by: NICKY BLANCO on 04/05/20 1336 Nitroglycerin 0.4 Mg Tab.subl, 0.4 MG SL Q5MIN PRN Prescribed by: RALPH POOL on 02/07/20 0021 Omeprazole 40 Mg Capsule.dr, 40 MG PO DAILY, (Reported) Potassium Chloride 10 Meq Tab.er.prt, 10 MEQ PO DAILY, (Reported) Tiotropium [place] 4 Gm Mist.inhal, 2 PUFF IH DAILY PRN for SHORTNESS OF BREATH, (Reported) Patient Home Medication List Home Medication List Reviewed: Yes Review of Systems Review of Systems Constitutional: see HPI Eyes: No Symptoms Reported Ears: Pain Nose: no symptoms reported Mouth: no symptoms reported Throat: other (Slight difficulty with swallowing) Respiratory: no symptoms reported; No cough, No short of breath Cardiovascular: No chest pain Gastrointestinal: no symptoms reported; No nausea, No vomiting Skin: no symptoms reported Neurological: No Symptoms Reported All Other Systems Reviewed Negative Unless Noted: Yes Past Jnyhulm-Feouls-Oejjzd Hx Patient Social History Alcohol Use: Occasionally Uses Number of Drinks Today: CC Alcohol Beverage of Choice: Cheap Liquor Drug of Choice: cocaine,MARIJUANA Smoking Status: Current Everyday Smoker Type Used: Cigarettes 2nd Hand Smoke Exposure: Yes Recent Infectious Disease Expo: No Recent Hopitalizations: No Immunizations Up To Date Tetanus Booster (TDap): Unknown PED Vaccines UTD: Yes Date of Influenza Vaccine: Oct 31, 2018 Seasonal Allergies Seasonal Allergies: No Past Medical History Surgeries: Yes (CARDIAC CATH) Cardiac Respiratory: Yes COPD Currently Using CPAP: No Cardiac: Yes (NON-ISCHEMIC CARDIOMYOPATHY; CHF; TYPE 2 MN DUE TO CHF 05/2018) Cardiomyopathy, Heart Attack, High Cholesterol, Hypertension Neurological: No Genitourinary: No Gastrointestinal: No Musculoskeletal: Yes Arthritis Endocrine: Yes Diabetes, Non-Insulin dep HEENT: No Cancer: No Psychosocial: Yes Depression Integumentary: No Blood Disorders: No Family Medical History No Pertinent Family Hx SOCIAL HISTORY: -ETOH--REGULAR USE--STATES UP TO A PINT/DAY -DRUGS--SNORTS COCAINE, SMOKES THC -SMOKES 1-2 PPD SURGERIES: -CARDIAC CATH 06/21/18--NO CORNARY DISEASE/NO INTERVENTION; NON-ISCHEMIC CHF WITH DILATED CARDIOMYOPATHY, 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 LONG HISTORY OF NON-COMPLIANCE Physical Exam Vital Signs Vital Signs - First Documented 08/27/20 10:24 Temp 36.0 Pulse 91 Resp 18 B/P (MAP) 211/135 (160) Pulse Ox 98 Height, Weight, BMI Height: 5'6.00" Weight: 260lbs. 0.0oz. [id number]; 41.00 BMI Method:Stated General Appearance: WD/WN, no apparent distress Eyes: bilateral eye normal inspection, bilateral eye PERRL, bilateral eye EOMI Ears: bilateral ear auricle normal, bilateral ear canal normal, bilateral ear TM normal Nose: normal inspection Mouth/Throat: normal mouth inspection Neck: full range of motion, other (Tenderness to palpation over the right parotid inferiorly to the angle of the mandible inferiorly under the submental space more to the right. Patient is noted to have some supraclavicular fullness without discrete lymphadenopathy palpable) Cardiovascular: regular rate, rhythm, no murmur Respiratory: lungs clear, normal breath sounds, no respiratory distress Gastrointestinal: non tender, soft Neurologic/Psychiatric: alert, normal mood/affect, oriented x 3 Skin: normal color, warm/dry Progress/Results/Core Measures Results/Orders Lab Results Laboratory Tests Test 08/27/20 11:02 Range/Units White Blood Count 8.1 4.3-11.0 10^3/uL Red Blood Count 5.57 H 4.30-5.52 10^6/uL Hemoglobin 14.3 13.3-17.7 g/dL Hematocrit 45 40-54 % Mean Corpuscular Volume 81 80-99 fL Mean Corpuscular Hemoglobin 26 25-34 pg Mean Corpuscular Hemoglobin Concent 32 32-36 g/dL Red Cell Distribution Width 15.6 H 10.0-14.5 % Platelet Count 352 130-400 10^3/uL Mean Platelet Volume 9.8 9.0-12.2 fL Immature Granulocyte % (Auto) 1 % Neutrophils (%) (Auto) 65 42-75 % Lymphocytes (%) (Auto) 16 12-44 % Monocytes (%) (Auto) 9 0-12 % Eosinophils (%) (Auto) 9 0-10 % Basophils (%) (Auto) 1 0-10 % Neutrophils # (Auto) 5.3 1.8-7.8 10^3/uL Lymphocytes # (Auto) 1.3 1.0-4.0 10^3/uL Monocytes # (Auto) 0.7 0.0-1.0 10^3/uL Eosinophils # (Auto) 0.8 H 0.0-0.3 10^3/uL Basophils # (Auto) 0.1 0.0-0.1 10^3/uL Immature Granulocyte # (Auto) 0.1 0.0-0.1 10^3/uL Sodium Level 137 135-145 MMOL/L Potassium Level 3.5 L 3.6-5.0 MMOL/L Chloride Level 101 98-107 MMOL/L Carbon Dioxide Level 26 21-32 MMOL/L Anion Gap 10 5-14 MMOL/L Blood Urea Nitrogen 10 7-18 MG/DL Creatinine 0.89 0.60-1.30 MG/DL Estimat Glomerular Filtration Rate > 60 BUN/Creatinine Ratio 11 Glucose Level 259 H 70-105 MG/DL Calcium Level 8.8 8.5-10.1 MG/DL My Orders Orders - MELA KNOX MD Basic Metabolic Panel (08/27/20 10:50) Cbc With Automated Diff (08/27/20 10:50) Orphenadrine Inj (Ed Only) (Norflex Inje (08/27/20 10:52) Hydrocodone/Apap 7.5/325 Tab (Lortab 7. (08/27/20 10:53) Ns Iv 1000 Ml (Sodium Chloride 0.9%) (08/27/20 10:53) Ct Neck (Soft Tissue) W (08/27/20 11:38) Iohexol Injection (Omnipaque 350 Mg/Ml 1 (08/27/20 11:45) Received Contrast (Hold Metformin- Contr (08/27/20 11:45) Ns (Ivpb) (Sodium Chloride 0.9% Ivpb Bag (08/27/20 11:45) Clonidine Tablet (Catapres Tablet) (08/27/20 12:00) Hydrocodone/Apap 7.5/325 Tab (Lortab 7. (08/27/20 12:00) Ns Iv 1000 Ml (Sodium Chloride 0.9%) (08/27/20 12:00) Orphenadrine Inj (Ed Only) (Norflex Inje (08/27/20 12:00) Medications Given in ED Current Medications Medications Dose Ordered Sig/Michaelle Route Start Time Stop Time Status Last Admin Dose Admin Acetaminophen/ Hydrocodone Bitart 1 ea ONCE ONCE PO 08/27/20 12:00 08/27/20 12:01 DC 08/27/20 11:00 1 EA Clonidine HCl 0.2 mg ONCE ONCE PO 08/27/20 12:00 08/27/20 12:01 DC 08/27/20 11:54 0.2 MG Iohexol 100 ml ONCE ONCE IV 08/27/20 11:45 08/27/20 11:46 DC 08/27/20 12:04 71 ML Orphenadrine Citrate 60 mg ONCE ONCE IV 08/27/20 12:00 08/27/20 12:01 DC 08/27/20 11:00 60 MG Sodium Chloride 100 ml ONCE ONCE IV 08/27/20 11:45 08/27/20 11:46 DC 08/27/20 12:04 80 ML Sodium Chloride 1,000 ml @ 999 mls/hr ONCE ONCE IV 08/27/20 12:00 08/27/20 13:00 DC 08/27/20 11:00 999 MLS/HR Vital Signs/I&O 08/27/20 10:24 Temp 36.0 Pulse 91 Resp 18 B/P (MAP) 211/135 (160) Pulse Ox 98 Blood Pressure Mean: 160 Progress Progress Note : Time: 13:02 Progress Note Patient seen and examined by me, 60-year-old with right-sided facial swelling and discomfort with swallowing. Patient evaluation today includes basic laborat ory studies as well as a CT scan soft tissue neck with IV contrast. No evidence for abscess or significant cellulitis is found on CT. Patient was treated in the emergency department with Norflex and hydrocodone. He had significant relief of symptoms. He is asking for a prescription for ibuprofen 800 mg and I will give him some muscle relaxer on an outpatient basis. He will follow up with his primary nurse practitioner at [facility]. I have given him good return precautions. He verbalized understanding, he seems happy with his course of treatment. All questions are sought and answered. Patient is stable for discharge. Diagnostic Imaging Diagonstic Imaging: CT Plain Films/CT/US/NM/MRI: other (neck) Comments [facility]. [place], [place] NAME: JAMIN FELDER [facility] REC#: [id number] PT STATUS: REG ER : 1960 PHYSICIAN: MELA KNOX MD ADMIT DATE: 08/27/20/ER Draft Date of Exam:08/27/20 CT NECK (SOFT TISSUE) W PROCEDURE: CT neck soft tissue with contrast. TECHNIQUE: Multiple contiguous axial images were obtained through the neck after the administration of contrast. Auto Exposure Controls were utilized during the CT exam to meet ALARA standards for radiation dose reduction. INDICATION: Right-sided facial swelling. No prior CT neck studies are available for comparison. Visualized intracranial structures are unremarkable. Bilateral orbits and globes are unremarkable. No significant inflammatory changes involving the soft tissues of the face are identified. There is no evidence of cellulitic changes or abscess. No definite cervical lymphadenopathy is seen. There is no thyroid mass. Submandibular and parotid glands are unremarkable apart from a circumscribed low-attenuation nodule in the posterolateral aspect of the left parotid gland measuring 17 mm. There is some mucosal thickening of the ethmoid air cells bilaterally. There is a small mucous retention cyst or polyp in the right maxillary sinus. IMPRESSION: 1. No evidence of facial cellulitis or soft tissue abscess. 2. Left parotid low-attenuation nodule. A parotid ultrasound and/or MRI soft tissue neck with and without IV contrast study could be performed on nonemergent basis. 3. Paranasal sinus mucosal disease. Dictated on workstation # [id number] Dict: 08/27/20 1235 Trans: 08/27/20 1247 [facility] [id number] Interpreted by: RL FISH MD Electronically signed by: Departure Impression Primary Impression: Neck pain on right side Disposition: 01 HOME, SELF-CARE Condition: Stable Departure-Patient Inst. Decision time for Depature: 13:03 Referrals: [facility] (PCP/Family) Primary Care Physician Patient Instructions: Neck Pain ED Add. Discharge Instructions: You can apply ice packs or heating packs to the right side of your neck as needed for pain and tenderness. Ibuprofen 800 mg every 8 hours with food for the next 3 to 5 days. I have also given you a prescription for muscle relaxers, you can take these every 8 hours as needed for muscle spasm and pain. Please follow-up with [facility] within the week. Come back to the emergency department for any worsening symptoms of pain, swelling, fever or other emergent concerning symptoms. Scripts Hydrocodone/Acetaminophen (Hydrocodone-Acetamin 5-325 mg) 1 Each Tablet 1 TAB PO Q6H PRN for PAIN-MODERATE (5-7), #10 TAB Prov: MELA KNOX MD 08/27/20 Cyclobenzaprine HCl (Cyclobenzaprine HCl) 10 Mg Tablet 10 MG PO Q8H PRN for muscle spasm, #10 TAB Prov: MELA KNOX MD 08/27/20 Ibuprofen (Ibuprofen) 800 Mg Tablet 800 MG PO Q8H PRN for PAIN, #20 TAB 0 Refills Prov: MELA KNOX MD 08/27/20 MELA KNOX MD Aug 27, 2020 11:16
[2020-08-27 11:17] LABS: CHLORIDE 101 MMOL/L (98-107); POTASSIUM 3.5 MMOL/L (3.6-5.0); SODIUM 137 MMOL/L (135-145)
[2020-08-27 11:18] LABS: CALCIUM 8.8 MG/DL (8.5-10.1)
[2020-08-27 11:19] LABS: GLUCOSE 259 MG/DL (70-105)
[2020-08-27 11:20] LABS: CARBON DIOXIDE 26 MMOL/L (21-32)
[2020-08-27 11:23] LABS: CREATININE SERUM 0.89 MG/DL (0.60-1.30); GFR ESTIMATED > 60
[2020-08-27 11:24] LABS: BUN/CREATININE RATIO 11
[2020-08-27] MEDS ORDERED: NS 100 ML (IVPB) BAG IV ONE (11:45)
[2020-08-27] MEDS ORDERED: IOHEXOL 350 MG/ML 100 ML (OMNIPAQUE 350) VIAL IV ONE (11:45)
[2020-08-27] MEDS ORDERED: HOLD METFORMIN - RECEIVED CONTRAST 20 ML VIAL IV SCH (11:45)
[2020-08-27] MEDS ORDERED: NS IV 1000 ML 1,000 ML IV ONE (12:00)
[2020-08-27] MEDS ORDERED: cloNIDine 0.2 MG (CATAPRES) TAB PO ONE (12:00)
[2020-08-27] MEDS ORDERED: ORPHENADRINE 60 MG/2 ML (NORFLEX) AMP (ED ONLY) IV ONE (12:00)
--- NOTE | 2020-08-27 12:48 | Diagnostic Imaging Report ---
PROCEDURE: CT neck soft tissue with contrast. TECHNIQUE: Multiple contiguous axial images were obtained through the neck after the administration of contrast. Auto Exposure Controls were utilized during the CT exam to meet ALARA standards for radiation dose reduction. INDICATION: Right-sided facial swelling. No prior CT neck studies are available for comparison. Visualized intracranial structures are unremarkable. Bilateral orbits and globes are unremarkable. No significant inflammatory changes involving the soft tissues of the face are identified. There is no evidence of cellulitic changes or abscess. No definite cervical lymphadenopathy is seen. There is no thyroid mass. Submandibular and parotid glands are unremarkable apart from a circumscribed low-attenuation nodule in the posterolateral aspect of the left parotid gland measuring 17 mm. There is some mucosal thickening of the ethmoid air cells bilaterally. There is a small mucous retention cyst or polyp in the right maxillary sinus. IMPRESSION: 1. No evidence of facial cellulitis or soft tissue abscess. 2. Left parotid low-attenuation nodule. A parotid ultrasound and/or MRI soft tissue neck with and without IV contrast study could be performed on nonemergent basis. 3. Paranasal sinus mucosal disease. Dictated by: Dictated on workstation # [id number]
[2020-08-27] MEDS ORDERED: CYCL10TA9 PO (13:05)
[2020-08-27] MEDS ORDERED: IBUP-1780 PO (13:05)
[2020-08-27] MEDS ORDERED: ACHD5005 PO (13:13)
[2020-08-27 13:19] VITALS: BP 183/133
== END 2020-08-27 13:19 | disposition home or self-care (01) ==
LOC: EDUNIT# 09:59 → ER 10:00
DX: M54.2 Cervicalgia (principal); I25.2 Old myocardial infarction; J44.9 Chronic obstructive pulmonary disease, unspecified; I10 Essential (primary) hypertension; E11.9 Type 2 diabetes mellitus without complications; F17.210 Nicotine dependence, cigarettes, uncomplicated; Z79.82 Long term (current) use of aspirin; Z79.84 Long term (current) use of oral hypoglycemic drugs; Z79.899 Other long term (current) drug therapy
CPT/HCPCS: 36415; 70491; 80048; 85025

== ENCOUNTER 2020-09-20 13:22 | Emergency (ER) | payer MEDICAID ==
[~2020-09-20] VITALS: Ht 167.7 cm; Wt 122.5 kg
[~2020-09-20 13:22] MED LIST changes: +ACHD5005 PO; +CYCL10TA9 PO; +IBUP-1780 PO
--- NOTE | 2020-09-20 13:42 | ED Syncope ---
General Stated Complaint: N/V,DIZZINESS Source of Information: Patient Exam Limitations: No Limitations History of Present Illness Date Seen by Provider: Sep 20, 2020 Time Seen by Provider: 13:26 Initial Comments Patient ER by EMS from home with chief complaint was sitting on his porch just finished eating lunch and also and became very sweaty, like he was going to pass out seeing white light. States the same episode happened before when he was brought to the ER and they discovered he was diabetic. He recently started a new injectable insulin about a month ago. Blood sugar was 300+ with ketones per EMS. Orthostatics were negative. No chest pain. He has a history of heart disease. patient denies drinking alcohol but smokes cigarettes, cannabis and about 2 days ago had snorted some cocaine. On earlier visits he had admitted to drinking about half of a pint of alcohol a day. States that he uses 2.5 L of oxygen at all times while at home. History of cocaine use, congestive heart failure with chronic left ventricular systolic dysfunction, nonischemic cardiomyopathy, hypertension, tobaccoism, COPD, questionable hyperlipidemia, alcoholism, historical nonadherence to medical therapy. Cardiac catheterization May [address] Barron showing no significant obstructive disease. COVID-19 positive 3 months ago. 2D echocardiogram in 2019 showing EF of 35 to 40%. Allergies and Home Medications Allergies Coded Allergies: No Known Drug Allergies (Unverified , 06/21/18) Home Medications Albuterol Sulfate 1 Puff Puff, 2 PUFF IH Q6H PRN for SHORTNESS OF BREATH, (Reported) Amlodipine Besylate 10 Mg Tablet, 10 MG PO DAILY, (Reported) Aspirin 81 Mg Tablet.dr, 81 MG PO DAILY, (Reported) Carvedilol 3.125 Mg Tablet, 3.125 MG PO BID, (Reported) Cyclobenzaprine HCl 10 Mg Tablet, 10 MG PO Q8H PRN for muscle spasm Prescribed by: MELA KNOX on 08/27/20 1305 Hydrocodone/Acetaminophen 1 Each Tablet, 1 TAB PO Q6H PRN for PAIN-MODERATE (5- 7) Prescribed by: MELA KNOX on 08/27/20 1314 Ibuprofen 800 Mg Tablet, 800 MG PO Q8H PRN for PAIN Prescribed by: MELA KNOX on 08/27/20 1305 Metformin HCl 1,000 Mg Tablet, 1,000 MG PO DAILY Increase to twice daily after one week. Prescribed by: NICKY BLANCO on 04/05/20 1336 Nitroglycerin 0.4 Mg Tab.subl, 0.4 MG SL Q5MIN PRN Prescribed by: RALPH POOL on 02/07/20 0021 Omeprazole 40 Mg Capsule.dr, 40 MG PO DAILY, (Reported) Potassium Chloride 10 Meq Tab.er.prt, 10 MEQ PO DAILY, (Reported) Tiotropium [place] 4 Gm Mist.inhal, 2 PUFF IH DAILY PRN for SHORTNESS OF BREATH, (Reported) Patient Home Medication List Home Medication List Reviewed: Yes Review of Systems Constitutional: chills, diaphoresis, dizziness; No fever; malaise EENTM: No ear discharge, No ear pain Respiratory: cough (Occasional), short of breath Cardiovascular: No chest pain, No palpitations Gastrointestinal: No abdominal pain, No constipation, No diarrhea, No dysphagia Genitourinary: No discharge, No dysuria Musculoskeletal: No back pain, No joint pain All Other Systems Reviewed Negative Unless Noted: Yes Past Eedjddr-Cpoglj-Icclpg Hx Patient Social History Tobacco Use?: Yes Tobacco type used: Cigarettes Use of E-Cig and/or Vaping dev: No Substance use?: Yes Substance type: Marijuana, Other (Cocaine) Substance frequency: Couple times a week Alcohol Use?: Yes Alcohol Frequency: Once in a while Immunizations Up To Date Tetanus Booster (TDap): Unknown PED Vaccines UTD: Yes Seasonal Allergies Seasonal Allergies: No Past Medical History Surgeries: Yes (CARDIAC CATH) Cardiac Respiratory: Yes COPD Currently Using CPAP: No Cardiac: Yes (NON-ISCHEMIC CARDIOMYOPATHY; CHF; TYPE 2 AR DUE TO CHF 05/2018) Cardiomyopathy, Heart Attack, High Cholesterol, Hypertension Neurological: No Genitourinary: No Gastrointestinal: No Musculoskeletal: Yes Arthritis Endocrine: Yes Diabetes, Non-Insulin dep HEENT: No Cancer: No Psychosocial: Yes Depression Integumentary: No Blood Disorders: No Family Medical History No Pertinent Family Hx SOCIAL HISTORY: -ETOH--REGULAR USE--STATES UP TO A PINT/DAY -DRUGS--SNORTS COCAINE, SMOKES THC -SMOKES 1-2 PPD SURGERIES: -CARDIAC CATH 06/21/18--NO CORNARY DISEASE/NO INTERVENTION; NON-ISCHEMIC CHF WITH DILATED CARDIOMYOPATHY, 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 LONG HISTORY OF NON-COMPLIANCE Physical Exam Vital Signs Vital Signs - First Documented 09/20/20 13:24 Temp 37.0 Pulse 103 Resp 20 B/P (MAP) 135/83 (100) Pulse Ox 92 O2 Delivery Room Air Capillary Refill : Height, Weight, BMI Height: 5'6.00" Weight: 260lbs. 0.0oz. 117.029822cl; 41.00 BMI Method:Stated General Appearance: Mild Distress, Obese HEENT: PERRL/EOMI, Pharynx Normal, Moist Mucous Membranes Neck: Normal Inspection, Non Tender, Supple Cardiovascular: Regular Rate, Rhythm, No Edema, Normal Peripheral Pulses Respiratory: Lungs Clear, Normal Breath Sounds, No Accessory Muscle Use, No Respiratory Distress Gastrointestinal: Normal Bowel Sounds, Non Tender, Soft Neurologic/Psychiatric: Alert, Oriented x3, No Motor/Sensory Deficits Cranial Nerves: Normal Hearing, Normal Speech, PERRL Motor/Sensory: No Motor Deficit, No Pronator Drift Skin: Normal Color, Warm/Dry Progress/Results/Core Measures Results/Orders Lab Results Laboratory Tests Test 09/20/20 13:25 09/20/20 13:30 09/20/20 14:32 Range/Units White Blood Count 5.1 4.3-11.0 10^3/uL Red Blood Count 6.07 H 4.30-5.52 10^6/uL Hemoglobin 15.7 13.3-17.7 g/dL Hematocrit 48 40-54 % Mean Corpuscular Volume 80 80-99 fL Mean Corpuscular Hemoglobin 26 25-34 pg Mean Corpuscular Hemoglobin Concent 33 32-36 g/dL Red Cell Distribution Width 15.3 H 10.0-14.5 % Platelet Count 271 130-400 10^3/uL Mean Platelet Volume 9.8 9.0-12.2 fL Immature Granulocyte % (Auto) 1 % Neutrophils (%) (Auto) 71 42-75 % Lymphocytes (%) (Auto) 17 12-44 % Monocytes (%) (Auto) 10 0-12 % Eosinophils (%) (Auto) 0 0-10 % Basophils (%) (Auto) 0 0-10 % Neutrophils # (Auto) 3.6 1.8-7.8 10^3/uL Lymphocytes # (Auto) 0.8 L 1.0-4.0 10^3/uL Monocytes # (Auto) 0.5 0.0-1.0 10^3/uL Eosinophils # (Auto) 0.0 0.0-0.3 10^3/uL Basophils # (Auto) 0.0 0.0-0.1 10^3/uL Immature Granulocyte # (Auto) 0.1 0.0-0.1 10^3/uL Sodium Level 136 135-145 MMOL/L Potassium Level 3.6 3.6-5.0 MMOL/L Chloride Level 100 98-107 MMOL/L Carbon Dioxide Level 22 21-32 MMOL/L Anion Gap 14 5-14 MMOL/L Blood Urea Nitrogen 8 7-18 MG/DL Creatinine 1.35 H 0.60-1.30 MG/DL Estimat Glomerular Filtration Rate 66 BUN/Creatinine Ratio 6 Glucose Level 403 *H 70-105 MG/DL Calcium Level 8.6 8.5-10.1 MG/DL Corrected Calcium 8.8 8.5-10.1 MG/DL Total Bilirubin 0.3 0.1-1.0 MG/DL Aspartate Amino Transf (AST/SGOT) 27 5-34 U/L Alanine Aminotransferase (ALT/SGPT) 35 0-55 U/L Alkaline Phosphatase 85 40-136 U/L Troponin I 0.047 H <0.028 NG/ML C-Reactive Protein High Sensitivity 2.39 H 0.00-0.50 MG/DL B-Type Natriuretic Peptide 43.5 <100.0 PG/ML Total Protein 7.4 6.4-8.2 GM/DL Albumin 3.7 3.2-4.5 GM/DL Serum Alcohol < 10 <10 MG/DL Influenza Type A (RT-PCR) Not Detected Not Detecte Influenza Type B (RT-PCR) Not Detected Not Detecte SARS-CoV-2 RNA (RT-PCR) Detected H Not Detecte Urine Color YELLOW Urine Clarity CLEAR Urine pH 6.5 5-9 Urine Specific [place] 1.015 L 1.016-1.022 Urine Protein 2+ H NEGATIVE Urine Glucose (UA) 3+ H NEGATIVE Urine Ketones NEGATIVE NEGATIVE Urine Nitrite NEGATIVE NEGATIVE Urine Bilirubin NEGATIVE NEGATIVE Urine Urobilinogen 0.2 < = 1.0 MG/DL Urine Leukocyte Esterase NEGATIVE NEGATIVE Urine RBC (Auto) TRACE-I NEGATIVE Urine RBC 0-2 /HPF Urine WBC 0-2 /HPF Urine Squamous Epithelial Cells NONE /HPF Urine Crystals NONE /LPF Urine Bacteria NEGATIVE /HPF Urine Casts NONE /LPF Urine Mucus NEGATIVE /LPF Urine Culture Indicated NO Urine Opiates Screen NEGATIVE NEGATIVE Urine Oxycodone Screen NEGATIVE NEGATIVE Urine Methadone Screen NEGATIVE NEGATIVE Urine Propoxyphene Screen NEGATIVE NEGATIVE Urine Barbiturates Screen NEGATIVE NEGATIVE Ur Tricyclic Antidepressants Screen NEGATIVE NEGATIVE Urine Phencyclidine Screen NEGATIVE NEGATIVE Urine Amphetamines Screen NEGATIVE NEGATIVE Urine Methamphetamines Screen NEGATIVE NEGATIVE Urine Benzodiazepines Screen NEGATIVE NEGATIVE Urine Cocaine Screen POSITIVE H NEGATIVE Urine Cannabinoids Screen NEGATIVE NEGATIVE My Orders Orders - ROSALINDA CHOW Covid 19 Inhouse Test (09/20/20 13:33) Influenza A And B By Pcr (09/20/20 13:33) Cbc With Automated Diff (09/20/20 13:33) Comprehensive Metabolic Panel (09/20/20 13:33) Hs C Reactive Protein (09/20/20 13:33) Chest 1 View, Ap/Pa Only (09/20/20 13:33) BNP (09/20/20 13:33) Continuous Ekg Monitoring (09/20/20 13:33) Ekg Tracing (09/20/20 13:33) Troponin I (09/20/20 13:33) Ua Culture If Indicated (09/20/20 13:33) Drug Screen Stat (Urine) (09/20/20 13:33) Alcohol (09/20/20 13:33) Aspirin Chewable Tablet (Baby Aspirin Ch (09/20/20 13:45) Troponin I (09/20/20 15:28) Medications Given in ED Current Medications Medications Dose Ordered Sig/Michaelle Route Start Time Stop Time Status Last Admin Dose Admin Aspirin 324 mg ONCE ONCE PO 09/20/20 13:45 09/20/20 13:46 DC 09/20/20 14:33 324 MG Vital Signs/I&O 09/20/20 09/20/20 13:24 15:30 Temp 37.0 Pulse 103 0 Resp 20 0 B/P (MAP) 135/83 (100) 0/0 Pulse Ox 92 0 O2 Delivery Room Air Progress Progress Note #1: Time: 15:28 Progress Note Patient is a marginal elevation in his troponin which could be from the cocaine. He is on his baseline oxygen 2 L. He typically takes 2.5 at home. Patient maintaining good oxygen saturations and has no increased work of breathing. Patient is adamant that he does not want to stay in the hospital. We will do a delta troponin now and have him follow-up outpatient then. Progress Note #2: Time: 15:32 Progress Note Patient just elected to not stay for the delta troponin and would like to go AGAINST MEDICAL ADVICE. Encouraged him to follow-up outpatient Initial ECG Impression Date: Sep 20, 2020 Initial ECG Impression Time: 15:17 Initial ECG Rate: 107 Initial ECG Rhythm: S.Tach Initial ECG Intervals: Normal Initial ECG Impression: Normal Initial ECG Comparisson: Unchanged Comment Sinus tachycardia with LVH and no clinically relevant ST elevation. He does have some marginal 1 box of elevation in leads V2, V3. Diagnostic Imaging Diagonstic Imaging: Xray Plain Films/CT/US/NM/MRI: chest Comments [facility] [place] NAME: JAMIN FELDER [facility] REC#: [id number] PT STATUS: REG ER : 1960 PHYSICIAN: ROSALINDA CHOW MD ADMIT DATE: 09/20/20/ER Draft Date of Exam:09/20/20 CHEST 1 VIEW, AP/PA ONLY INDICATION: COVID pneumonia. EXAMINATION: Portable chest at 3:07 p.m. FINDINGS: There is a large area of consolidation in the left mid lateral chest. Right lung is unremarkable. There is a suboptimal inspiration. IMPRESSION: Expiratory chest. Large area of consolidation of approximately 6 cm in diameter in the left mid lateral chest. Dictated on workstation # [id number] Dict: 09/20/20 1535 Trans: 09/20/20 1538 [id number] Interpreted by: MARLEY MALDONADO MD Electronically signed by: Reviewed: Reviewed by Me Departure Impression Primary Impression: COVID-19 Additional Impressions: Syncope Qualified Codes: R55 - Syncope and collapse Elevated troponin I level Cocaine use Disposition: AGAINST MEDICAL ADVICE Condition: Against Medical Advice Departure-Patient Inst. Decision time for Depature: 15:32 Referrals: [facility] (PCP/Family) Primary Care Physician Patient Instructions: Syncope (Fainting) (DC) Add. Discharge Instructions: Follow-up with your toeing stockings. Return to ER if your shortness of breath worsens or you have chest pain. Drink plenty of fluids. Tylenol 1000 mg as necessary for fever or body aches. You are to be on isolation for 10 days after the start of your symptoms and must be 24 hours symptom-free for the last day before going off isolation. ROSALINDA CHOW Sep 20, 2020 13:42
[2020-09-20 13:44] LABS: BASOPHILS % (AUTO) 0 % (0-10); EOSINOPHILS % (AUTO) 0 % (0-10); HEMATOCRIT 48 % (40-54); HEMOGLOBIN 15.7 g/dL (13.3-17.7); LYMPHOCYTES # (AUTO) 0.8 10^3/uL (1.0-4.0); LYMPHOCYTES % (AUTO) 17 % (12-44); MEAN CORPUSCULAR HEMOGLOBIN 26 pg (25-34); MEAN CORPUSCULAR HGB CONC 33 g/dL (32-36); MEAN CORPUSCULAR VOLUME 80 fL (80-99); MEAN PLATELET VOLUME 9.8 fL (9.0-12.2); MONOCYTES # (AUTO) 0.5 10^3/uL (0.0-1.0); MONOCYTES % (AUTO) 10 % (0-12); NEUTROPHILS # (AUTO) 3.6 10^3/uL (1.8-7.8); NEUTROPHILS % (AUTO) 71 % (42-75); PLATELET COUNT 271 10^3/uL (130-400); WHITE BLOOD COUNT 5.1 10^3/uL (4.3-11.0)
[2020-09-20] MEDS ORDERED: ASPIRIN 81 MG CHEW (CHILDREN'S ASA) PO ONE (13:45)
[2020-09-20 13:58] LABS: ALBUMIN 3.7 GM/DL (3.2-4.5); CHLORIDE 100 MMOL/L (98-107); POTASSIUM 3.6 MMOL/L (3.6-5.0); SODIUM 136 MMOL/L (135-145)
[2020-09-20 13:59] LABS: CALCIUM 8.6 MG/DL (8.5-10.1)
[2020-09-20 14:00] LABS: TOTAL PROTEIN 7.4 GM/DL (6.4-8.2)
[2020-09-20 14:01] LABS: CARBON DIOXIDE 22 MMOL/L (21-32)
[2020-09-20 14:02] LABS: BILIRUBIN,TOTAL 0.3 MG/DL (0.1-1.0); GLUCOSE 403 MG/DL (70-105)
[2020-09-20 14:04] LABS: ALKALINE PHOSPHATASE 85 U/L (40-136); CREATININE SERUM 1.35 MG/DL (0.60-1.30); GFR ESTIMATED 66
[2020-09-20 14:05] LABS: BUN/CREATININE RATIO 6
[2020-09-20 14:07] LABS: ALANINE AMINOTRANSFERASE 35 U/L (0-55)
[2020-09-20 14:43] LABS: BILIRUBIN,URINE NEGATIVE (NEGATIVE); CLARITY,URINE CLEAR; COLOR,URINE YELLOW; GLUCOSE, URINE (UA) 3+ (NEGATIVE); KETONES,URINE NEGATIVE (NEGATIVE); LEUKOCYTE ESTERASE ,URINE NEGATIVE (NEGATIVE); NITRITE,URINE NEGATIVE (NEGATIVE); PH,URINE 6.5 (5-9); PROTEIN,URINE 2+ (NEGATIVE)
[2020-09-20 14:50] LABS: BACTERIA,URINE NEGATIVE /HPF; RBC,URINE 0-2 /HPF; WBC,URINE 0-2 /HPF
[2020-09-20 14:55] LABS: AMPHETAMINE SCREEN, URINE NEGATIVE (NEGATIVE); BARBITURATE SCREEN URINE NEGATIVE (NEGATIVE); BENZODIAZEPINES SCREEN URINE NEGATIVE (NEGATIVE); CANNABINOID SCREEN, URINE NEGATIVE (NEGATIVE); COCAINE SCREEN URINE POSITIVE (NEGATIVE); METHADONE STAT NEGATIVE (NEGATIVE); METHAMPHETAMINE SCREEN URINE S NEGATIVE (NEGATIVE); OPIATE SCREEN URINE NEGATIVE (NEGATIVE); OXYCODONE STAT NEGATIVE (NEGATIVE); PROPOXYPHENE STAT NEGATIVE (NEGATIVE); TRICYCLIC ANTIDEPRESSANTS SCRE NEGATIVE (NEGATIVE)
[2020-09-20 15:30] VITALS: BP 0/0
--- NOTE | 2020-09-20 15:38 | Diagnostic Imaging Report ---
INDICATION: COVID pneumonia. EXAMINATION: Portable chest at 3:07 p.m. FINDINGS: There is a large area of consolidation in the left mid lateral chest. Right lung is unremarkable. There is a suboptimal inspiration. IMPRESSION: Expiratory chest. Large area of consolidation of approximately 6 cm in diameter in the left mid lateral chest. Dictated by: Dictated on workstation # [id number]
== END 2020-09-20 15:30 | disposition left against medical advice (07) ==
LOC: EDUNIT# 13:32 → ER 13:33
DX: U07.1 COVID-19 (principal); R55 Syncope and collapse; R77.8 Other specified abnormalities of plasma proteins; F14.90 Cocaine use, unspecified, uncomplicated; E66.9 Obesity, unspecified; I25.2 Old myocardial infarction; I11.0 Hypertensive heart disease with heart failure; I50.9 Heart failure, unspecified; J44.9 Chronic obstructive pulmonary disease, unspecified; E11.9 Type 2 diabetes mellitus without complications; F17.210 Nicotine dependence, cigarettes, uncomplicated; Z68.41 Body mass index [BMI] 40.0-44.9, adult; Z79.84 Long term (current) use of oral hypoglycemic drugs; Z79.82 Long term (current) use of aspirin; Z79.899 Other long term (current) drug therapy
CPT/HCPCS: 71045; 80053; 80306; 81000; 83880; 84484; 85025; 86141; 87636; 93005; 99284; G0480; 36415; 80320

== ENCOUNTER 2020-09-22 19:10 | Inpatient (IN) | payer MEDICAID ==
[~2020-09-22] VITALS: Ht 167 cm; Wt 119.5 kg
[2020-09-22 20:13] LABS: BASOPHILS % (AUTO) 0 % (0-10); EOSINOPHILS % (AUTO) 0 % (0-10); HEMATOCRIT 48 % (40-54); HEMOGLOBIN 15.6 g/dL (13.3-17.7); LYMPHOCYTES # (AUTO) 0.7 10^3/uL (1.0-4.0); LYMPHOCYTES % (AUTO) 15 % (12-44); MEAN CORPUSCULAR HEMOGLOBIN 25 pg (25-34); MEAN CORPUSCULAR HGB CONC 32 g/dL (32-36); MEAN CORPUSCULAR VOLUME 79 fL (80-99); MEAN PLATELET VOLUME 9.8 fL (9.0-12.2); MONOCYTES # (AUTO) 0.2 10^3/uL (0.0-1.0); MONOCYTES % (AUTO) 5 % (0-12); NEUTROPHILS # (AUTO) 3.7 10^3/uL (1.8-7.8); NEUTROPHILS % (AUTO) 80 % (42-75); PLATELET COUNT 249 10^3/uL (130-400); WHITE BLOOD COUNT 4.6 10^3/uL (4.3-11.0)
[2020-09-22 20:27] LABS: ALBUMIN 3.6 GM/DL (3.2-4.5); BILIRUBIN,TOTAL 0.4 MG/DL (0.1-1.0); CALCIUM 8.8 MG/DL (8.5-10.1); CREATININE SERUM 1.08 MG/DL (0.60-1.30); POTASSIUM 4.3 MMOL/L (3.6-5.0); TOTAL PROTEIN 7.4 GM/DL (6.4-8.2)
--- NOTE | 2020-09-22 20:37 | ED Respiratory ---
General Chief Complaint: Respiratory Problems Stated Complaint: NO APPETITE,FEVER,COVID POSITIVE Nursing Triage Note: PT PRESENTS TO THE ED C/O SOB THAT HAS BEEN PROGRESSIVELY WORSENING FOR THREE DAYS. PT STATES HE WAS DX WITH COVID THREE DAYS AGO. VERBALIZES EXERTIONAL SOB AND MID STERNAL CP AND FEVER. PT ALSO REPORTS LOOSE STOOLS THAT ONSET TODAY Source: patient Exam Limitations: no limitations History of Present Illness Date Seen by Provider: Sep 22, 2020 Time Seen by Provider: 20:36 Initial Comments To ER with reports of no appetite fever and Covid positive. Has had worsening dyspnea over the past 3 days. He was seen here at the onset of this diagnosed with COVID-19. Has history of cocaine use, congestive heart failure with chronic left ventricular systolic dysfunction, nonischemic cardiomyopathy, hypertension, tobaccoism, COPD, questionable hyperlipidemia, alcoholism, historical nonadherence to medical therapy. Cardiac catheterization May [address] Barron showing no significant obstructive disease.COVID-19 positive 3 months ago. 2D echocardiogram in 2019 showing EF of 35 to 40%. Timing/Duration: week, getting worse Severity: moderate Associated Symptoms: cough, shortness of breath Allergies and Home Medications Allergies Coded Allergies: No Known Drug Allergies (Unverified , 06/21/18) Home Medications Albuterol Sulfate 1 Puff Puff, 2 PUFF IH Q6H PRN for SHORTNESS OF BREATH, (Reported) Amlodipine Besylate 10 Mg Tablet, 10 MG PO DAILY, (Reported) Aspirin 81 Mg Tablet.dr, 81 MG PO DAILY, (Reported) Carvedilol 3.125 Mg Tablet, 3.125 MG PO BID, (Reported) Cyclobenzaprine HCl 10 Mg Tablet, 10 MG PO Q8H PRN for muscle spasm Prescribed by: MELA KNOX on 08/27/20 1305 Hydrocodone/Acetaminophen 1 Each Tablet, 1 TAB PO Q6H PRN for PAIN-MODERATE (5-7 ) Prescribed by: MELA KNOX on 08/27/20 1314 Ibuprofen 800 Mg Tablet, 800 MG PO Q8H PRN for PAIN Prescribed by: MELA KNOX on 08/27/20 1305 Metformin HCl 1,000 Mg Tablet, 1,000 MG PO DAILY Increase to twice daily after one week. Prescribed by: NICKY BLANCO on 04/05/20 1336 Nitroglycerin 0.4 Mg Tab.subl, 0.4 MG SL Q5MIN PRN Prescribed by: RALPH POOL on 02/07/20 0021 Omeprazole 40 Mg Capsule.dr, 40 MG PO DAILY, (Reported) Potassium Chloride 10 Meq Tab.er.prt, 10 MEQ PO DAILY, (Reported) Tiotropium [place] 4 Gm Mist.inhal, 2 PUFF IH DAILY PRN for SHORTNESS OF BREATH, (Reported) Patient Home Medication List Home Medication List Reviewed: Yes Review of Systems Review of Systems Constitutional: see HPI, chills, fever EENTM: see HPI Respiratory: see HPI, cough, dyspnea on exertion Cardiovascular: no symptoms reported Genitourinary: no symptoms reported Musculoskeletal: no symptoms reported Skin: no symptoms reported Psychiatric/Neurological: No Symptoms Reported Hematologic/Lymphatic: No Symptoms Reported Immunological/Allergic: no symptoms reported Past Cacyqru-Xrnavk-Cpsvtp Hx Patient Social History Tobacco Use?: Yes Tobacco type used: Cigarettes Substance use?: Yes Substance type: Marijuana, Other Additional substance use comme: cocaine hx Substance frequency: Once in a while Alcohol Use?: Yes Alcohol Frequency: Once in a while Immunizations Up To Date Tetanus Booster (TDap): Unknown PED Vaccines UTD: Yes Influenza Vaccine Up-to-Date: Yes; Up-to-Date Seasonal Allergies Seasonal Allergies: No Past Medical History Surgeries: Yes (CARDIAC CATH) Cardiac Respiratory: Yes COPD Currently Using CPAP: No Cardiac: Yes (NON-ISCHEMIC CARDIOMYOPATHY; CHF; TYPE 2 PA DUE TO CHF 05/2018) Cardiomyopathy, Heart Attack, High Cholesterol, Hypertension Neurological: No Genitourinary: No Gastrointestinal: No Musculoskeletal: Yes Arthritis Endocrine: Yes Diabetes, Non-Insulin dep HEENT: No Cancer: No Psychosocial: Yes Depression Integumentary: No Blood Disorders: No Family Medical History No Pertinent Family Hx SOCIAL HISTORY: -ETOH--REGULAR USE--STATES UP TO A PINT/DAY -DRUGS--SNORTS COCAINE, SMOKES THC -SMOKES 1-2 PPD SURGERIES: -CARDIAC CATH 06/21/18--NO CORNARY DISEASE/NO INTERVENTION; NON-ISCHEMIC CHF WITH DILATED CARDIOMYOPATHY, 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 LONG HISTORY OF NON-COMPLIANCE Physical Exam Vital Signs - First Documented 09/22/20 19:34 Temp 39.7 Pulse 118 Resp 26 B/P (MAP) 141/127 (132) Pulse Ox 93 O2 Delivery Room Air Capillary Refill : Less Than 3 Seconds Height: 5'6.00" Weight: 260lbs. 0.0oz. 117.889226dg; 43.00 BMI Method:Stated General Appearance: WD/WN, no apparent distress, obese, other (Febrile at 103. Heart rate 130. Oxygen 90% room air. Up to 94% with 2 L.) Respiratory: no respiratory distress, no accessory muscle use Cardiovascular: no murmur, tachycardia Gastrointestinal: normal bowel sounds, non tender, soft Neurologic/Psychiatric: alert, normal mood/affect, oriented x 3 Skin: normal color, warm/dry Progress/Results/Core Measures Suspected Sepsis SIRS Temperature: Pulse: 118 Respiratory Rate: 26 Laboratory Tests 09/22/20 19:57: White Blood Count 4.6 Blood Pressure 141 /127 Mean: 132 Laboratory Tests 09/22/20 19:57: Creatinine 1.08, Platelet Count 249, Total Bilirubin 0.4 Results/Orders Lab Results Laboratory Tests Test 09/22/20 19:57 09/22/20 20:36 Range/Units White Blood Count 4.6 4.3-11.0 10^3/uL Red Blood Count 6.14 H 4.30-5.52 10^6/uL Hemoglobin 15.6 13.3-17.7 g/dL Hematocrit 48 40-54 % Mean Corpuscular Volume 79 L 80-99 fL Mean Corpuscular Hemoglobin 25 25-34 pg Mean Corpuscular Hemoglobin Concent 32 32-36 g/dL Red Cell Distribution Width 15.6 H 10.0-14.5 % Platelet Count 249 130-400 10^3/uL Mean Platelet Volume 9.8 9.0-12.2 fL Immature Granulocyte % (Auto) 0 % Neutrophils (%) (Auto) 80 H 42-75 % Lymphocytes (%) (Auto) 15 12-44 % Monocytes (%) (Auto) 5 0-12 % Eosinophils (%) (Auto) 0 0-10 % Basophils (%) (Auto) 0 0-10 % Neutrophils # (Auto) 3.7 1.8-7.8 10^3/uL Lymphocytes # (Auto) 0.7 L 1.0-4.0 10^3/uL Monocytes # (Auto) 0.2 0.0-1.0 10^3/uL Eosinophils # (Auto) 0.0 0.0-0.3 10^3/uL Basophils # (Auto) 0.0 0.0-0.1 10^3/uL Immature Granulocyte # (Auto) 0.0 0.0-0.1 10^3/uL Sodium Level 136 135-145 MMOL/L Potassium Level 4.3 3.6-5.0 MMOL/L Chloride Level 101 98-107 MMOL/L Carbon Dioxide Level 24 21-32 MMOL/L Anion Gap 11 5-14 MMOL/L Blood Urea Nitrogen 8 7-18 MG/DL Creatinine 1.08 0.60-1.30 MG/DL Estimat Glomerular Filtration Rate 85 BUN/Creatinine Ratio 7 Glucose Level 208 H 70-105 MG/DL Calcium Level 8.8 8.5-10.1 MG/DL Corrected Calcium 9.1 8.5-10.1 MG/DL Total Bilirubin 0.4 0.1-1.0 MG/DL Aspartate Amino Transf (AST/SGOT) 30 5-34 U/L Alanine Aminotransferase (ALT/SGPT) 24 0-55 U/L Alkaline Phosphatase 73 40-136 U/L Troponin I 0.043 H <0.028 NG/ML C-Reactive Protein High Sensitivity 7.93 H 0.00-0.50 MG/DL B-Type Natriuretic Peptide 14.0 <100.0 PG/ML Total Protein 7.4 6.4-8.2 GM/DL Albumin 3.6 3.2-4.5 GM/DL Urine Color YELLOW Urine Clarity SL CLOUDY Urine pH 7.0 5-9 Urine Specific [place] 1.025 H 1.016-1.022 Urine Protein 2+ H NEGATIVE Urine Glucose (UA) 2+ H NEGATIVE Urine Ketones NEGATIVE NEGATIVE Urine Nitrite NEGATIVE NEGATIVE Urine Bilirubin NEGATIVE NEGATIVE Urine Urobilinogen 1.0 < = 1.0 MG/DL Urine Leukocyte Esterase NEGATIVE NEGATIVE Urine RBC (Auto) TRACE-I NEGATIVE Urine RBC NONE /HPF Urine WBC 0-2 /HPF Urine Squamous Epithelial Cells NONE /HPF Urine Renal Epithelial Cells NONE /HPF Urine Crystals NONE /LPF Urine Bacteria NEGATIVE /HPF Urine Casts NONE /LPF Urine Mucus NEGATIVE /LPF Urine Culture Indicated NO Urine Opiates Screen NEGATIVE NEGATIVE Urine Oxycodone Screen NEGATIVE NEGATIVE Urine Methadone Screen NEGATIVE NEGATIVE Urine Propoxyphene Screen NEGATIVE NEGATIVE Urine Barbiturates Screen NEGATIVE NEGATIVE Ur Tricyclic Antidepressants Screen NEGATIVE NEGATIVE Urine Phencyclidine Screen NEGATIVE NEGATIVE Urine Amphetamines Screen NEGATIVE NEGATIVE Urine Methamphetamines Screen NEGATIVE NEGATIVE Urine Benzodiazepines Screen NEGATIVE NEGATIVE Urine Cocaine Screen POSITIVE H NEGATIVE Urine Cannabinoids Screen POSITIVE H NEGATIVE My Orders Orders - JALEESA FLORES APRN Cbc With Automated Diff (09/22/20 20:07) Comprehensive Metabolic Panel (09/22/20 20:07) Ua Culture If Indicated (09/22/20 20:07) Drug Screen Stat (Urine) (09/22/20 20:07) BNP (09/22/20 20:07) Hs C Reactive Protein (09/22/20 20:07) Chest 1 View, Ap/Pa Only (09/22/20 20:07) Troponin I (09/22/20 19:57) Ibuprofen Tablet (Motrin Tablet) (09/22/20 21:30) Hydrocodone/Apap 5/325 Tablet (Lortab 5 (09/22/20 21:30) Medications Given in ED Current Medications Medications Dose Ordered Sig/Michaelle Route Start Time Stop Time Status Last Admin Dose Admin Acetaminophen/ Hydrocodone Bitart 1 ea ONCE ONCE PO 09/22/20 21:30 09/22/20 21:31 DC 09/22/20 21:35 1 EA Ibuprofen 800 mg ONCE ONCE PO 09/22/20 21:30 09/22/20 21:31 DC 09/22/20 21:36 800 MG Vital Signs/I&O 09/22/20 09/22/20 19:34 21:36 Temp 39.7 39.7 Pulse 118 Resp 26 B/P (MAP) 141/127 (132) Pulse Ox 93 O2 Delivery Room Air Capillary Refill : Less Than 3 Seconds Blood Pressure Mean: 132 Diagnostic Imaging Diagonstic Imaging: Xray Comments NAME: JAMIN FELDER [facility] REC#: [id number] PT STATUS: REG ER : 1960 PHYSICIAN: JALEESA FLORES APRN ADMIT DATE: 09/22/20/ER Draft Date of Exam:09/22/20 CHEST 1 VIEW, AP/PA ONLY EXAMINATION: Chest radiograph, portable AP view. DATE: 09/22/2020 8:32 PM INDICATION: 60-year-old male, COVID 19 infection. Shortness of breath. COMPARISON: September 20, 2020. FINDINGS: Heart size and mediastinal contours are essentially unchanged. There is no identified pneumothorax. There is extensive multifocal bilateral lung consolidation which is essentially unchanged. IMPRESSION: 1. Redemonstrated extensive multifocal bilateral lung consolidation which is essentially unchanged. This may relate to provided history of COVID 19 infection and multifocal pneumonia/pneumonitis although is not specific. Dictated on workstation # [id number] Dict: 09/22/202032 Trans: 09/22/202034 CV [id number] Interpreted by: PEPE JOHNSON MD Electronically signed by: Departure Communication (Admissions) Oxygen saturation 90% on room air he was given 2 L and is now at 94%. 2126-spoke with Dr. Almeida, will admit consult cardiology use remdesivir. Impression Primary Impression: COVID-19 Additional Impression: Obesity Disposition: ADMITTED INPATIENT Condition: Stable Admissions Decision to Admit Reason: Admit from ER (General) Decision to Admit/Date: Sep 22, 2020 Time/Decision to Admit Time: 21:28 Departure-Patient Inst. Referrals: [facility] [place] (PCP/Family) Primary Care Physician JALEESA FLORES APRN Sep 22, 2020 20:36
[2020-09-22 20:43] LABS: BILIRUBIN,URINE NEGATIVE (NEGATIVE); CLARITY,URINE SL CLOUDY; COLOR,URINE YELLOW; GLUCOSE, URINE (UA) 2+ (NEGATIVE); KETONES,URINE NEGATIVE (NEGATIVE); LEUKOCYTE ESTERASE ,URINE NEGATIVE (NEGATIVE); NITRITE,URINE NEGATIVE (NEGATIVE); PROTEIN,URINE 2+ (NEGATIVE)
[2020-09-22 20:53] LABS: BACTERIA,URINE NEGATIVE /HPF; WBC,URINE 0-2 /HPF
[2020-09-22 20:58] LABS: AMPHETAMINE SCREEN, URINE NEGATIVE (NEGATIVE); BARBITURATE SCREEN URINE NEGATIVE (NEGATIVE); BENZODIAZEPINES SCREEN URINE NEGATIVE (NEGATIVE); CANNABINOID SCREEN, URINE POSITIVE (NEGATIVE); COCAINE SCREEN URINE POSITIVE (NEGATIVE); METHADONE STAT NEGATIVE (NEGATIVE); METHAMPHETAMINE SCREEN URINE S NEGATIVE (NEGATIVE); OPIATE SCREEN URINE NEGATIVE (NEGATIVE); OXYCODONE STAT NEGATIVE (NEGATIVE); PROPOXYPHENE STAT NEGATIVE (NEGATIVE); TRICYCLIC ANTIDEPRESSANTS SCRE NEGATIVE (NEGATIVE)
[2020-09-22] MEDS ORDERED: HYDROcodone/APAP 5 MG/325 MG (LORTAB) TAB PO ONE (21:30)
[2020-09-22] MEDS ORDERED: IBUPROFEN 800 MG (MOTRIN) TAB PO ONE (21:30)
[2020-09-22 22:12] VITALS: BP 100/63
[2020-09-22] MEDS ORDERED: CATHETER FLUSH 10 ML SYR IV PRN (22:45)
[2020-09-22] MEDS ORDERED: ONDANSETRON 4 MG/2 ML (SDV) Z0FRAN IV PRN (22:45)
[2020-09-22] MEDS ORDERED: ACETAMINOPHEN 325 MG TABLET PO PRN (22:45)
[2020-09-22] MEDS: ENOXAPARIN 40 MG/0.4 ML (LOVENOX) SYR SC SCH (23:18)
[2020-09-22] MEDS: dexAMETHasone 6 MG TAB (DECADRON) PO SCH (23:18)
[2020-09-22] MEDS ORDERED: TMSL.4C PO (23:35)
[2020-09-22] MEDS ORDERED: FURO-125 PO (23:35)
[2020-09-22 23:43] VITALS: BP 115/72
[2020-09-23 03:59] VITALS: BP 167/98
[2020-09-23] MEDS: inSUlin ASPART (NovoLOG) 1 UNIT/0.01 ML (CHARGE PER UNIT) SC SCH ×4 (05:52→21:23)
[2020-09-23] MEDS: CATHETER FLUSH 10 ML SYR IV SCH ×3 (05:52→21:26)
[2020-09-23] MEDS: HYDROcodone/APAP 5 MG/325 MG (LORTAB) TAB PO PRN ×2 (06:15→21:23)
[2020-09-23 06:22] LABS: BASOPHILS % (AUTO) 0 % (0-10); EOSINOPHILS % (AUTO) 0 % (0-10); HEMATOCRIT 51 % (40-54); HEMOGLOBIN 16.6 g/dL (13.3-17.7); LYMPHOCYTES # (AUTO) 0.5 10^3/uL (1.0-4.0); LYMPHOCYTES % (AUTO) 9 % (12-44); MEAN CORPUSCULAR HEMOGLOBIN 26 pg (25-34); MEAN CORPUSCULAR HGB CONC 32 g/dL (32-36); MEAN CORPUSCULAR VOLUME 79 fL (80-99); MEAN PLATELET VOLUME 10.1 fL (9.0-12.2); MONOCYTES # (AUTO) 0.1 10^3/uL (0.0-1.0); MONOCYTES % (AUTO) 2 % (0-12); NEUTROPHILS # (AUTO) 5.3 10^3/uL (1.8-7.8); NEUTROPHILS % (AUTO) 89 % (42-75); PLATELET COUNT 256 10^3/uL (130-400)
[2020-09-23 06:34] LABS: ALBUMIN 3.8 GM/DL (3.2-4.5); POTASSIUM 4.5 MMOL/L (3.6-5.0)
[2020-09-23 06:35] LABS: CALCIUM 9.2 MG/DL (8.5-10.1)
[2020-09-23 06:37] LABS: TOTAL PROTEIN 7.8 GM/DL (6.4-8.2)
[2020-09-23 06:39] LABS: BILIRUBIN,TOTAL 0.4 MG/DL (0.1-1.0)
[2020-09-23 06:40] LABS: CREATININE SERUM 1.02 MG/DL (0.60-1.30)
--- NOTE | 2020-09-23 06:53 | History & Physical-Hospitalist ---
History of Present Illness HPI/Chief Complaint Chief complaint: COVID-19 pneumonia History of present illness: This is a 60-year-old white male clinic patient of [facility] who has a past medical history of hypertension and CAD who normally wears 2 L of oxygen at night who presented to the ER with shortness of breath and increasing work of breathing found to have elevated troponin and indications for admission. Currently patient is feeling much better and ready to eat lunch. I restarted all of his pain medication and home medication for hypertension. He does have a history of cardiomyopathy. His urine drug screen showed use of cocaine. Source: patient Exam Limitations: no limitations Date Seen 09/23/20 Time Seen by a Provider: 12:00 Attending Physician Laura Almeida DO [facility] Referring Physician Date of Admission Sep 22, 2020 at 21:31 Home Medications & Allergies Home Medications Reviewed patient Home Medication Reconciliation performed by pharmacy medication reconciliations master certified rv technician and/or nursing. Patients Allergies have been reviewed. Allergies Allergies Coded Allergies No Known Drug Allergies (Unverified06/21/18) Past Cjuwcah-Tngidg-Bijjwh Hx Patient Social History Marrital Status: single Employed/Student: unemployed Tobacco Use?: Yes Tobacco type used: Cigarettes Smoking Status: Current Everyday Smoker Use of E-Cig and/or Vaping dev: No Substance use?: Yes Substance type: Amphetamines, Marijuana Additional substance use comme: cocaine hx Substance frequency: Once in a while Alcohol Use?: No Alcohol Frequency: Once in a while Pt feels they are or have been: No Immunizations Up To Date Date of Influenza Vaccine: Oct 31, 2018 Tetanus Booster (TDap): More Than 5 Years Hepatitis A: Yes Hepatitis B: Yes PED Vaccines UTD: Yes Seasonal Allergies Seasonal Allergies: No Current Status Advance Directives: Yes Advance Directive Location: Home Communicates: Verbally Primary Language: Romansh Preferred Spoken Language: Romansh Is interpretation needed?: No Sensory deficits: Vision impairment Past Medical History Surgeries: Cardiac COPD Currently Using CPAP: No Cardiomyopathy, Heart Attack, High Cholesterol, Hypertension Arthritis Diabetes, Non-Insulin dep Depression Blood Disorders: No PMHx: HTN HLD Tobacco Abuse Cocaine use DMII Family Medical History No Pertinent Family Hx SOCIAL HISTORY: -ETOH--REGULAR USE--STATES UP TO A PINT/DAY -DRUGS--SNORTS COCAINE, SMOKES THC -SMOKES 1-2 PPD SURGERIES: -CARDIAC CATH 06/21/18--NO CORNARY DISEASE/NO INTERVENTION; NON-ISCHEMIC CHF WITH DILATED CARDIOMYOPATHY, 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 LONG HISTORY OF NON-COMPLIANCE Review of Systems Constitutional: see HPI Respiratory: dyspnea on exertion, short of breath Physical Exam Physical Exam Vital Signs Vital Signs - First Documented 09/22/20 09/22/20 19:34 23:43 Temp 39.7 Pulse 118 Resp 26 B/P (MAP) 141/127 (132) Pulse Ox 93 O2 Delivery Room Air O2 Flow Rate 3.00 Capillary Refill : Less Than 3 Seconds Height, Weight, BMI Height: 5'6.00" Weight: 260lbs. 0.0oz. 117.459450zy; 43.49 BMI Method:Stated General Appearance: No Apparent Distress, Chronically ill, Obese Eyes: Right Eye Normal Inspection, Right Eye PERRL HEENT: PERRL/EOMI, Normal ENT Inspection, Pharynx Normal, Moist Mucous Membranes Neck: Full Range of Motion, Normal Inspection, Non Tender Respiratory: Chest Non Tender, Lungs Clear, Normal Breath Sounds, No Accessory Muscle Use, No Respiratory Distress, Decreased Breath Sounds Cardiovascular: Regular Rate, Rhythm, No Edema, No Gallop, No JVD, No Murmur, Normal Peripheral Pulses Gastrointestinal: Normal Bowel Sounds, No Organomegaly, No Pulsatile Mass, Non Tender, Soft Back: Normal Inspection, No CVA Tenderness, No Vertebral Tenderness Extremity: Normal Capillary Refill, Normal Inspection, Normal Range of Motion, Non Tender, No Calf Tenderness, No Pedal Edema Neurologic/Psychiatric: Alert, Oriented x3, No Motor/Sensory Deficits, Normal Mood/Affect Skin: Normal Color, Warm/Dry Lymphatic: No Adenopathy Results Results/Procedures Labs Laboratory Tests 09/22/20 19:57 09/23/20 06:09 Patient resulted labs reviewed. Assessment/Plan Admission Diagnosis Assessment: COVID-19 pneumonia Acute hypoxic respiratory failure Cardiomyopathy Hypertension Chronic pain Elevated troponin Cocaine on drug screen Plan: Supportive care Oxygen Monitor closely Admission Status: Inpatient Order (span 2 midnights) Reason for Inpatient Admission: COVID-19 LAURA ALMEIDA DO Sep 23, 2020 06:53
[2020-09-23] MEDS ORDERED: REMDESIVIR 200 MG/NS 250 ML IVPB IV ONE ×2 (08:00)
[2020-09-23 08:12] VITALS: BP 138/78
[2020-09-23] MEDS: ENOXAPARIN 40 MG/0.4 ML (LOVENOX) SYR SC SCH ×2 (08:17→21:18)
[2020-09-23 11:20] VITALS: BP 177/93
[2020-09-23] MEDS ORDERED: IBUPROFEN 800 MG (MOTRIN) TAB PO PRN (14:00)
[2020-09-23 16:18] VITALS: BP 153/85
[2020-09-23] MEDS: TAMSULOSIN 0.4 MG (FLOMAX) CAP PO SCH (17:19)
[2020-09-23 20:59] VITALS: BP 152/105
[2020-09-23] MEDS: dexAMETHasone 6 MG TAB (DECADRON) PO SCH (21:16)
[2020-09-23 23:31] VITALS: BP 147/94
[2020-09-23] MEDS: IBUPROFEN 800 MG (MOTRIN) TAB PO PRN (23:40)
[2020-09-24] VITALS (12 sets, daily range): BP systolic 79–174; BP diastolic 46–130
--- NOTE | 2020-09-24 06:19 | Progress Note - Hospitalist ---
Subjective HPI/CC On Admission Date Seen by Provider: Sep 24, 2020 Time Seen by Provider: 10:00 Chief complaint: COVID-19 pneumonia History of present illness: This is a 60-year-old white male clinic patient of [facility] who has a past medical history of hypertension and CAD who normally wears 2 L of oxygen at night who presented to the ER with shortness of breath and increasing work of breathing found to have elevated troponin and indications for admission. Currently patient is feeling much better and ready to eat lunch. I restarted all of his pain medication and home medication for hypertension. He does have a history of cardiomyopathy. His urine drug screen showed use of cocaine. Subjective/Events-last exam Patient was originally planning on going home in a decompensated Moved to ICU for respiratory insufficiency Hospital Course: Pt had an uneventful hospital course. He was admitted for Covid-19 pneumonia with hypoxia, acute on chronic type. Pt stabilized, placed on empiric antibiotics for slightly elevated Procalcitonin, home O2 evaluate was not needed since he already had home oxygen. PT and OT ordered, cardiology was consulted, no evidence for any need in delay of DC and he was discharged in improved condition. Review of Systems General: Fatigue Pulmonary: Dyspnea Objective Exam Vital Signs Vital Signs Date Time Temp Pulse Resp B/P (MAP) Pulse Ox O2 Delivery O2 Flow Rate FiO2 09/25/20 02:56 66 37 95 80.00 09/25/20 01:45 NIV Bilevel 09/25/20 00:02 139/107 (118) 09/25/20 00:00 100 09/24/20 23:49 36.4 Capillary Refill : Less Than 3 Seconds General Appearance: Chronically ill, Mild Distress, Obese Respiratory: Decreased Breath Sounds Cardiovascular: Regular Rate, Rhythm Neurologic/Psychiatric: Alert, Oriented x3 Results/Procedures Lab Laboratory Tests 09/24/20 06:45 09/24/20 16:20 09/24/20 16:56 09/25/20 02:50 Patient resulted labs reviewed. Assessment/Plan Assessment and Plan Assess & Plan/Chief Complaint Assessment: COVID-19 pneumonia Acute hypoxic respiratory failure Cardiomyopathy Hypertension Chronic pain Elevated troponin Cocaine on drug screen Plan: Supportive care Oxygen Monitor closely 09/24/2020: Supportive care ASHISH WILEY DO Sep 24, 2020 06:19
[2020-09-24] MEDS: inSUlin ASPART (NovoLOG) 1 UNIT/0.01 ML (CHARGE PER UNIT) SC SCH ×4 (06:24→20:52)
[2020-09-24] MEDS: CATHETER FLUSH 10 ML SYR IV SCH ×3 (06:24→21:51)
[2020-09-24 06:56] LABS: BASOPHILS % (AUTO) 0 % (0-10); EOSINOPHILS % (AUTO) 0 % (0-10); HEMATOCRIT 48 % (40-54); HEMOGLOBIN 15.7 g/dL (13.3-17.7); LYMPHOCYTES # (AUTO) 0.4 10^3/uL (1.0-4.0); LYMPHOCYTES % (AUTO) 5 % (12-44); MEAN CORPUSCULAR HEMOGLOBIN 26 pg (25-34); MEAN CORPUSCULAR HGB CONC 33 g/dL (32-36); MEAN CORPUSCULAR VOLUME 79 fL (80-99); MEAN PLATELET VOLUME 9.8 fL (9.0-12.2); MONOCYTES # (AUTO) 0.2 10^3/uL (0.0-1.0); MONOCYTES % (AUTO) 3 % (0-12); NEUTROPHILS # (AUTO) 7.5 10^3/uL (1.8-7.8); NEUTROPHILS % (AUTO) 91 % (42-75); PLATELET COUNT 255 10^3/uL (130-400); WHITE BLOOD COUNT 8.2 10^3/uL (4.3-11.0)
[2020-09-24 07:05] LABS: ALBUMIN 3.6 GM/DL (3.2-4.5); POTASSIUM 4.3 MMOL/L (3.6-5.0)
[2020-09-24 07:06] LABS: CALCIUM 8.9 MG/DL (8.5-10.1)
[2020-09-24 07:08] LABS: TOTAL PROTEIN 7.3 GM/DL (6.4-8.2)
[2020-09-24 07:10] LABS: BILIRUBIN,TOTAL 0.3 MG/DL (0.1-1.0)
[2020-09-24 07:11] LABS: CREATININE SERUM 0.94 MG/DL (0.60-1.30)
[2020-09-24 08:14] LABS: ANISOCYTOSIS SLIGHT; BAND NEUTROPHILS 8 %; BASOPHILS % (MANUAL) 0 %; EOSINOPHILS % (MANUAL) 0 %; LYMPHOCYTES % (MANUAL) 9 %; MONOCYTES % (MANUAL) 2 %; NEUTROPHILS % (MANUAL) 81 %
[2020-09-24] MEDS: amLODIPine 10 MG (NORVASC) TAB PO SCH (09:16)
[2020-09-24] MEDS: KCL 10 MEQ TAB (MICRO K) PO SCH (09:16)
[2020-09-24] MEDS: FUROSEMIDE 20 MG (LASIX) TAB PO SCH (09:17)
[2020-09-24] MEDS: ASPIRIN E.C. 81 MG (ECOTRIN) TAB PO SCH (09:17)
[2020-09-24] MEDS: ENOXAPARIN 40 MG/0.4 ML (LOVENOX) SYR SC SCH ×2 (09:18→19:34)
[2020-09-24] MEDS: REMDESIVIR 100 MG/NS 250 ML IVPB IV SCH ×2 (10:23)
--- NOTE | 2020-09-24 13:25 | Physical Therapy Evaluation ---
PT Evaluation-General Medical Diagnosis Admission Date Sep 22, 2020 at 21:31 Medical Diagnosis: covid 19 Onset Date: Sep 22, 2020 Therapy Diagnosis Therapy Diagnosis: impaired endurance Height/Weight Height (Feet): 5 Height (Inches): 6.00 Weight (Pounds): 260 Weight (Ounces): 0.0 Precautions Precautions/Isolations: Airborne Isolation, Contact Isolation, Droplet Isolation Referral Physician: Laura Almeida DO Reason for Referral: Evaluation/Treatment Medical History Additional Medical History Past Medical History Surgeries: Cardiac COPD Currently Using CPAP: No Cardiomyopathy, Heart Attack, High Cholesterol, Hypertension Arthritis Diabetes, Non-Insulin dep Depression Reviewed History: Yes Social History Home: Apartment Current Living Status: Alone Entry Into Home: Elevator Prior Prior Level of Function SCALE: Activities may be completed with or without assistive devices. 0-Wasuvppdsc-lltilxv completes the activity by him/herself with no assistance from a helper. 5-Set-up or Clean-up Assistance-helper sets up or cleans up; patient completes activity. [place] assists only prior to or following the activity. 4-Supervision or Touching Assistance-helper provides verbal cues and/or touching/steadying and/or contact guard assistance as patient completes activity. Assistance may be provided throughout the activity or intermittently. 3-Partial/Moderate Assistance-helper does LESS THAN HALF the effort. [place] lifts, holds or supports trunk or limbs, but provides less than half the effort. 2-Substantial/Maximal Assistance-helper does MORE THAN HALF the effort. [place] lifts or holds trunk or limbs and provides more than half the effort. 0-Issznnics-vysxsp does ALL the effort. Patient does none of the effort to complete the activity. Or, the assistance of 2 or more helpers is required for the patient to complete the activity. If activity was not attempted, code reason: 7-Patient Refused. 9-Not Applicable-not attempted and the patient did not perform the activity before the current illness, exacerbation or injury. 10-Not Attempted due to Environmental Limitations-(lack of equipment, weather restraints, etc.). 88-Not Attempted due to Medical Conditions or Safety Concerns. Bed Mobility: 6 Transfers (B,C,W/C): 6 Gait: 6 Indoor Mobility (Ambulation): Independent PT Evaluation-Current Subjective Patient in recliner pre tx, agrees to PT, has no complaints of pain. Patient st ates his only problem is getting SOB with activity, he was on O2 at home previously and is now also. Pt/Family Goals "to be able to breathe better" Objective Patient Orientation: Person, Place, Situation Attachments: Oxygen ROM/Strength ROM Lower Extremities WNL Strength Lower Extremities 5/5 gross BLE Sensory Vision: Functional Hearing: Functional Sensation Right Lower Extremit: Intact Sensation Left Lower Extremity: Intact Transfers Roll Left to Right (QC): 6 Sit to Lying (QC): 6 Lying to Sitting/Side of Bed(Q: 6 Sit to Stand (QC): 6 Chair/Ozx-py-Mmefw Xfer(QC): 6 Toilet Transfer (QC): 6 Gait Does the Patient Walk?: Yes Mode of Locomotion: Walk Anticipated Mode of Locomotion: Walk Walk 10 feet (QC): 6 Walk 50 ft with 2 Turns(QC): 6 Distance: 50' Gait Assistive Device: None Comments/Gait Description Patient ambulates independently without an assistive device. He does get moderately SOB after ambulating but recovers mostly after about 30 seconds of purse lip breathing. Balance Sitting Static: Normal Sitting Dynamic: Normal Standing Static: Normal Standing Dynamic: Normal Assessment/Needs Patient has impaired endurance. Patient in recliner post tx with nurse call, phone, tray, all needs met. Patient is independent with functional mobility but gets SOB. Rehab Potential: Fair PT Intermediate Goals Ur Coordinator Goals PT Ur Coordinator Goals Time Frame: Oct 01, 2020 Roll Left & Right (QC): 6 Sit to Lying (QC): 6 Lying-Sitting on Side/Bed(QC): 6 Sit to Stand (QC): 6 Chair/Gts-nn-Gplkj Xfer(QC): 6 Walk 10 feet (QC): 6 Walk 50ft with 2 Turns (QC): 6 Walk 150 ft (QC): 6 PT Plan Problem List Problem List: Activity Tolerance, Functional Strength, Safety, Balance, Gait, Transfer Treatment/Plan Treatment Plan: Continue Plan of Care Treatment Plan: Education, Functional Activity Erika, Functional Strength, Gait, Safety, Therapeutic Exercise, Transfers Treatment Duration: Oct 01, 2020 Frequency: 6 times per week Estimated Hrs Per Day: .25 hour per day Patient and/or Family Agrees t: Yes Safety Risks/Education Patient Education: Gait Training, Transfer Techniques, Correct Positioning, Safety Issues Teaching Recipient: Patient Teaching Methods: Demonstration, Discussion Response to Teaching: Reinforcement Needed Discharge Recommendations Plan Patient will perform bed mobility and transfer training, balance and endurance training, functional strengthening, gait training, and education, to improve functional mobility and independence at home. Therapy Discharge Recommendati: Scheduled Assistance, Home & Family, Post Acute PT Time/GCodes Time In: 1300 Time Out: 1310 Total Billed Treatment Time: 10 Total Billed Treatment 1 visit EVL Vivien' SHONNA LAMBERT PT Sep 24, 2020 13:25
--- NOTE | 2020-09-24 13:29 | Occupational Therapy Eval ---
OT Evaluation-General/PLF Medical Diagnosis Admission Date Sep 22, 2020 at 21:31 Medical Diagnosis: COVID-19 Onset Date: Sep 22, 2020 Therapy Diagnosis Therapy Diagnosis: decreased Activity tolerance. Height/Weight Height (Feet): 5 Height (Inches): 6.00 Weight (Pounds): 260 Weight (Ounces): 0.0 Precautions Precautions/Isolations: Airborne Isolation, Contact Isolation, Droplet [place] Referral Physician: Elle Dunbar Reason: Evaluation/Treatment Medical History Additional Medical History HTN, CAD (2L O2 at night), Cardiomyopathy. Urine drug screen showed use of cocaine. Current History ED due to SOB and increasing work of breathing, found to have elevated troponin. Social History Home: Apartment Current Living Status: Alone Entry Into Home: Elevator ADL-Prior Level of Function SCALE: Activities may be completed with or without assistive devices. 4-Nlywilhcjl-hcbqsre completes the activity by him/herself with no assistance from a helper. 5-Set-up or Clean-up Assistance-helper sets up or cleans up; patient completes activity. [place] assists only prior to or following the activity. 4-Supervision or Touching Assistance-helper provides verbal cues and/or touching /steadying and/or contact guard assistance as patient completes activity. Assistance may be provided throughout the activity or intermittently. 3-Partial/Moderate Assistance-helper does LESS THAN HALF the effort. [place] lifts, holds or supports trunk or limbs, but provides less than half the effort. 2-Substantial/Maximal Assistance-helper does MORE THAN HALF the effort. [place] lifts or holds trunk or limbs and provides more than half the effort. 1-Ftreiyytj-pfxjhe does ALL the effort. Patient does none of the effort to complete the activity. Or, the assistance of 2 or more helpers is required for the patient to complete the activity. If activity was not attempted, code reason: 7-Patient Refused. 9-Not Applicable-not attempted and the patient did not perform the activity before the current illness, exacerbation or injury. 10-Not Attempted due to Environmental Limitations-(lack of equipment, weather restraints, etc.). 88-Not Attempted due to Medical Conditions or Safety Concerns. ADL PLOF Comments IND with ADLs at PLOF Self Care: Independent Functional Cognition: Independent OT Current Status Subjective Pt seated upright in recliner, agreeable to OT evaluation. Current Upper Extremity ROM WFL Upper Extremity Coordination WFL Upper Extremity Sensation WFL Upper Extremity Strength WFL ADL-Treatment Eating (QC): 6 Oral Hygiene (QC): 6 Toileting Hygiene (QC): 6 Other Treatments Pt seated in recliner, states he is currently IND with ADLs and has no concerns with his ability to complete ADLs at discharge. He is hoping to be able to discharge soon. OT educated pt on energy conservation techniques, and educated him on UE exercises in order to increase pulmonary function, UE strength and activity tolerance. Pt performed x10 reps each of the following: shoulder flexion, elbow flexion/extension. Per PT evaluation, pt independent with functional mobility, 50' in room, no AD. Post tx, pt seated in recliner, call light in reach and all needs met. Education OT Patient Education: Correct positioning, Modified ADL techniques, Progress toward Goal/Update tx plan, Purpose of tx/functional activities, Rehab process Teaching Recipient: Patient Teaching Methods: Discussion Response to Teaching: Verbalize Understanding OT Painter Plate Goals Painter Plate Goals 1=Demonstrate adherence to instructed precautions during ADL tasks. 2=Patient will verbalize/demonstrate understanding of assistive devices/modifications for ADL. 3=Patient will improve strength/tolerance for activity to enable patient to perform ADL's. OT Education/Plan Problem List/Assessment Assessment: No Skilled OT Needs ID'd No skilled OT services indicated at this time, as pt is independent with ADLs and functional mobility and is currently at his PLOF. Discharge Recommendations Plan/Recommendations: Discharge/Goals Met Treatment Plan/Plan of Care Patient would benefit from OT for education, treatment and training to promote independence in ADL's, mobility, safety and/or upper extremity function for ADL's. Plan of Care: ADL Retraining, Functional Mobility, UE Funct Exercise/Act Treatment Duration: Sep 24, 2020 Frequency: 1 time per week (eval only) Time/GCodes Start Time: 13:10 Stop Time: 13:20 Total Time Billed (hr/min): 10 Billed Treatment Time 1, BRAD BOND OT Sep 24, 2020 13:29
[2020-09-24] MEDS ORDERED: PIOG30TA71 PO (13:57)
[2020-09-24] MEDS ORDERED: DULA0.75 SC (13:57)
[2020-09-24] MEDS ORDERED: CETI10TA17 PO (13:57)
[2020-09-24] MEDS ORDERED: SACU1TAB7 PO (13:57)
[2020-09-24] MEDS ORDERED: RT-ALBUTEROL SULF 2.5 MG/3 ML PRE-MIX VIAL INH SCH (14:00)
--- NOTE | 2020-09-24 14:51 | Consultation-Cardiology ---
HPI-Cardiology Cardiology Consultation: Date of Consultation 09/24/20 Time Seen by a Provider: 12:45 Date of Admission Attending Physician Laura Almeida DO Admitting Physician [facility] Consulting Physician LEE ATKINS MD, MA, FACP, FACC, [facility], [facility] Physician requesting consult: Dr Almeida Primary visitor service assistant: Dr Alonzo HPI: Chief Complaint: Reason for consultation: Minimal troponin elevation HPI 60 yo man admitted to Dr Almeida on 09/22/20 with shortness of breath and COVID pneumonia. We have been asked to see him for minimal troponin elevation. Shortness of breath has improved since admission. No cp or palp or syncope or leg swelling. Has gen malaise. No focal weakness Review of Systems-Cardiology Review of Systems Constitutional: malaise; No weight loss, No weight gain Eyes: No vision change Ears/Nose/Throat: No ear discharge, No nasal drainage, No recent hearing loss Respiratory: As described under HPI Cardiovascular: As described under HPI Gastrointestinal: No diarrhea, No nausea, No vomiting Genitourinary: No dysuria, No hematuria, No urine frequency changes Musculoskeletal: No back pain, No joint pain Skin: No rash, No ulcerations Psychiatric/Neurological: No seizure, No focal weakness, No syncope Hematologic: No bleeding abnormalities ZWB-Dyjten-Gqwcls Hx Patient Social History Marrital Status: single Employed/Student: unemployed Smoking Status: Current Everyday Smoker 2nd Hand Smoke Exposure: Yes Have you traveled recently?: No Alcohol Use?: No Substance type: Amphetamines, Marijuana Pt feels they are or have been: No Tobacco type used: Cigarettes Immunizations Up To Date Tetanus Booster (TDap): Unknown Date of Influenza Vaccine: Oct 31, 2018 Past Medical History PMH As described under Assessment. Family Medical History Family Medical History: Does not report fam h/o early CAD Allergies and Home Medications Allergies Coded Allergies: No Known Drug Allergies (Unverified , 06/21/18) Home Medications Amlodipine Besylate 10 Mg Tablet, 10 MG PO DAILY, (Reported) LAST FILLED 04-04-2020 #90/90 DAY SUPPLY Last Action: Reviewed Aspirin 81 Mg Tablet.dr, 81 MG PO DAILY, (Reported) Last Action: Reviewed Carvedilol 3.125 Mg Tablet, 3.125 MG PO BID, (Reported) Last Action: Reviewed Cetirizine HCl 10 Mg Tablet, 10 MG PO DAILY, (Reported) Last Action: Reviewed Dulaglutide 0.75 Mg/0.5 Ml Pen.injctr, 0.75 MG SC FRI, (Reported) Last Action: Reviewed Furosemide 20 Mg Tablet, 20 MG PO DAILY, (Reported) Last Action: Reviewed Pioglitazone HCl 30 Mg Tablet, 30 MG PO DAILY, (Reported) Last Action: Reviewed Potassium Chloride 10 Meq Tab.er.prt, 10 MEQ PO DAILY, (Reported) Last Action: Reviewed Sacubitril/Valsartan 1 Each Tablet, 1 EA PO BID, (Reported) Last Action: Reviewed Tamsulosin HCl 0.4 Mg Cap, 0.4 MG PO DAILY, (Reported) Last Action: Reviewed Patient Home Medication List Home Medication List Reviewed: Yes Physical Exam-Cardiology Physical Exam Vital Signs/I&O 09/24/20 09/24/20 09/24/20 09/24/20 03:44 07:22 10:33 11:08 Temp 36.2 36.5 36.2 Pulse 98 92 99 Resp 24 20 20 B/P (MAP) 129/88 (102) 143/87 (105) 121/78 (92) Pulse Ox 93 93 90 O2 Delivery Nasal Cannula Nasal Cannula Nasal Cannula Nasal Cannula O2 Flow Rate 2.50 2.50 2.50 2.50 09/24/20 14:08 Pulse 121 Pulse Ox 88 82 O2 Flow Rate 4.00 09/24/20 00:00 Intake Total 1300 ml Balance 1300 ml Capillary Refill : Less Than 3 Seconds Constitutional: AAO x 3, well-developed, well-nourished HEENT: EOMI, hearing is well preserved; No xanthelasmas are seen Neck: carotid pulses are 2 + bilaterally, with good upstrokes Respiratory: No accessory muscle use; other (good, bilateral air entry) Cardiovascular: regular rate-rhythm, S1 and S2, systolic murmur (soft NELIA at card base) Gastrointestinal: No tender; soft; No guarding, No rebound; audible bowel sounds Extremities: No clubbing, No cyanosis, No significant edema Neurologic/Psychiatric: oriented x 3, other (moves all limbs equally) Skin: No rash on exposed areas, No ulcerations on exposed areas Data Review Labs Laboratory Tests 09/23/20 16:16: Glucometer 294H 09/23/20 21:15: Glucometer 187H 09/24/20 05:09: Glucometer 260H 09/24/20 06:45: White Blood Count 8.2, Red Blood Count 6.10H, Hemoglobin 15.7, Hematocrit 48, Mean Corpuscular Volume 79L, Mean Corpuscular Hemoglobin 26, Mean Corpuscular Hemoglobin Concent 33, Red Cell Distribution Width 15.3H, Platelet Count 255, Mean Platelet Volume 9.8, Immature Granulocyte % (Auto) 1, Neutrophils (%) (Auto) 91H, Lymphocytes (%) (Auto) 5L, Monocytes (%) (Auto) 3, Eosinophils (%) (Auto) 0, Basophils (%) (Auto) 0, Neutrophils # (Auto) 7.5, Lymphocytes # (Auto) 0.4L, Monocytes # (Auto) 0.2, Eosinophils # (Auto) 0.0, Basophils # (Auto) 0.0, Immature Granulocyte # (Auto) 0.1, Neutrophils % (Manual) 81, Lymphocytes % (Manual) 9, Monocytes % (Manual) 2, Eosinophils % (Manual) 0, Basophils % (Manual) 0, Band Neutrophils 8, Anisocytosis SLIGHT, Sodium Level 137, Potassium Level 4.3, Chloride Level 103, Carbon Dioxide Level 21, Anion Gap 13, Blood Urea Nitrogen 17, Creatinine 0.94, Estimat Glomerular Filtration Rate 100, BUN/Crea tinine Ratio 18, Glucose Level 263H, Calcium Level 8.9, Corrected Calcium 9.2, Total Bilirubin 0.3, Aspartate Amino Transf (AST/SGOT) 30, Alanine Aminotransferase (ALT/SGPT) 26, Alkaline Phosphatase 65, Total Protein 7.3, Albumin 3.6 09/24/20 10:18: Glucometer 333H A/P-Cardiology Assessment/Admission Diagnosis COVID-19 and COVID pneumonia, managed by Dr Almeida Minimal troponin elevation, likely due to type 2 ND due to COVID pneumonia No significant CAD on card cath by Dr Barron in May 2018 H/o nonischemic cardiomyopathy, recovered, echo of 06/05/[address] Alonzo: LVEF 55- 65%, mild LA enlargement, mild MR, PASP 25 mmHg H/o tobaccoism, and drug and alcohol abuse Discussion and Recomendations * We advised him to refrain from tobacco, alcohol or street drug use * We have advised continuation of and compliance with previous cardiac regimen * We have advised f/u with his visitor service assistant Dr Alonzo in 2-3 weeks LEE ATKINS MD [facility] Sep 24, 2020 14:51
[2020-09-24] MEDS: RT-ALBUTEROL INHALER HFA (VENTOLIN HFA) 18 GM IH SCH ×2 (15:17→20:32)
[2020-09-24 16:26] LABS: BASOPHILS % (AUTO) 0 % (0-10); EOSINOPHILS % (AUTO) 0 % (0-10); HEMATOCRIT 52 % (40-54); HEMOGLOBIN 16.7 g/dL (13.3-17.7); LYMPHOCYTES # (AUTO) 0.6 10^3/uL (1.0-4.0); LYMPHOCYTES % (AUTO) 7 % (12-44); MEAN CORPUSCULAR HEMOGLOBIN 25 pg (25-34); MEAN CORPUSCULAR HGB CONC 32 g/dL (32-36); MEAN CORPUSCULAR VOLUME 79 fL (80-99); MEAN PLATELET VOLUME 10.1 fL (9.0-12.2); MONOCYTES # (AUTO) 0.3 10^3/uL (0.0-1.0); MONOCYTES % (AUTO) 3 % (0-12); NEUTROPHILS % (AUTO) 89 % (42-75); PLATELET COUNT 283 10^3/uL (130-400); WHITE BLOOD COUNT 7.9 10^3/uL (4.3-11.0)
[2020-09-24 16:52] LABS: ABG OXYGEN SATURATION 89 % (94-100); ABG PCO2 36 MMHG (35-45); ABG PH 7.45 (7.37-7.43); ABG PO2 55 MMHG (79-93); ABG TCO2 25.9 MMOL/L (21.0-31.0)
[2020-09-24 16:53] LABS: ALLENS TEST YES-POS; INSPIRED O2 35/90% VAPO; PATIENT TEMP 36.2; VENTILATOR NO
--- NOTE | 2020-09-24 16:56 | Diagnostic Imaging Report ---
INDICATION: Hypoxia, pneumonia, Covid positive. TECHNIQUE: Single view chest at 4:24 PM. CORRELATION STUDY: 09/22/2020, 09/20/2020. FINDINGS: The heart size and mediastinum are enlarged and prominent but generally stable. The vasculature is somewhat obscured. Extensive patchy areas of consolidation with multilobe pneumonia are again demonstrated. Overall, these have progressed from the prior exam and are most noticeable at the right lung. IMPRESSION: Extensive multilobe consolidation overall appears increased, particularly through the right lung. Consistent with multilobe pneumonia which would include the provided history of Covid 19 pneumonia. The report was faxed to Infection Control by [email or web address]@4:56 PM. Dictated by: Dictated on workstation # [id number]
[2020-09-24 17:14] LABS: ALBUMIN 3.9 GM/DL (3.2-4.5); CHLORIDE 102 MMOL/L (98-107); POTASSIUM 4.2 MMOL/L (3.6-5.0); SODIUM 138 MMOL/L (135-145)
[2020-09-24 17:15] LABS: CALCIUM 9.3 MG/DL (8.5-10.1)
[2020-09-24 17:16] LABS: GLUCOSE 179 MG/DL (70-105); TOTAL PROTEIN 8.1 GM/DL (6.4-8.2)
[2020-09-24 17:17] LABS: CARBON DIOXIDE 24 MMOL/L (21-32)
[2020-09-24 17:18] LABS: BILIRUBIN,TOTAL 0.3 MG/DL (0.1-1.0)
[2020-09-24 17:20] LABS: ALKALINE PHOSPHATASE 74 U/L (40-136); CREATININE SERUM 0.85 MG/DL (0.60-1.30); GFR ESTIMATED 112
[2020-09-24 17:21] LABS: BUN/CREATININE RATIO 18
[2020-09-24 17:23] LABS: ALANINE AMINOTRANSFERASE 28 U/L (0-55)
[2020-09-24] MEDS: TAMSULOSIN 0.4 MG (FLOMAX) CAP PO SCH (17:53)
[2020-09-24] MEDS: HYDROcodone/APAP 5 MG/325 MG (LORTAB) TAB PO PRN (19:25)
[2020-09-24] MEDS: dexAMETHasone 6 MG TAB (DECADRON) PO SCH (19:25)
[2020-09-24] MEDS: IBUPROFEN 800 MG (MOTRIN) TAB PO PRN (19:26)
[2020-09-24] MEDS: CEFEPIME INJECTION 1,000 MG in WATER (STERILE) FOR INJECTION 10 ML IV SCH ×2 (19:26→23:11)
--- NOTE | 2020-09-24 19:46 | Tele-ICU Consult ---
History of Present Illness History of Present Illness Date Seen by Provider: Sep 24, 2020 Time Seen by Provider: 19:30 Date of Admission History of Present Illness Patient acknowledged, consented, and participated in this virtual visit which was conducted using real time audio/video. Thank you for asking us to see this patient for respiratory insufficiency and distress. HPC: Recent events: admitted 09/22 w Covid pna. S/B Cards for Troponin leak PMH: htn DM Previous non isch CMP Drug/tobacco abuse SH: smoking history yes FH: Non-contributory ROS: pain resolved PE: VSS HR 89 nsr BP 120/81 RR 27 O2 90 % sat on 4L NC. HEENT: No obvious masses, adenopathy or JVD. Chest: clear to auscultation. CV: RRR S1 S2 No murmur or added sounds. Abd: Non-tender. Bowel sounds . : Unremarkable. 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 No obvious focal findings. Extremities: No edema. Capillary refill < 3 seconds. Skin: unremarkable. Results: Elevated BG. A/P: Respiratory insufficiency/distress: CPm Available chart/ vitals / labs / Images reviewed. Video assessment done using teleICU camera, rest of exam as per RN. Respiratory: Continue present management with NC Monitor for increasing oxygenation needs and/or need for Intubation. Critical Care: critically ill patient. Discussed with RN. Asked RN to reach out to eICU if any questions or concerns later. Time spent with patient/coordination of care with other health professionals (mins): 20 Allergies and Home Medications Allergies Coded Allergies: No Known Drug Allergies (Unverified , 06/21/18) Home Medications Amlodipine Besylate 10 Mg Tablet, 10 MG PO DAILY, (Reported) LAST FILLED 04-04-2020 #90/90 DAY SUPPLY Aspirin 81 Mg Tablet.dr, 81 MG PO DAILY, (Reported) Carvedilol 3.125 Mg Tablet, 3.125 MG PO BID, (Reported) Cetirizine HCl 10 Mg Tablet, 10 MG PO DAILY, (Reported) Dulaglutide 0.75 Mg/0.5 Ml Pen.injctr, 0.75 MG SC THU, (Reported) Furosemide 20 Mg Tablet, 20 MG PO DAILY, (Reported) Pioglitazone HCl 30 Mg Tablet, 30 MG PO DAILY, (Reported) Potassium Chloride 10 Meq Tab.er.prt, 10 MEQ PO DAILY, (Reported) Sacubitril/Valsartan 1 Each Tablet, 1 EA PO BID, (Reported) Tamsulosin HCl 0.4 Mg Cap, 0.4 MG PO DAILY, (Reported) Past Medical/Social/Family Hx Patient Social History Marrital Status: single Employed/Student: unemployed Tobacco Use?: Yes Tobacco type used: Cigarettes Smoking Status: Current Everyday Smoker Use of E-Cig and/or Vaping dev: No Substance use?: Yes Substance type: Amphetamines, Marijuana cocaine hx Substance frequency: Once in a while Alcohol Use?: No Alcohol Frequency: Once in a while Pt stated abuse/neglect: No Immunizations Up To Date Influenza Vaccine Up-to-Date: No; Not Current Tetanus Booster (TDap): More Than 5 Years Hepatitis A: Yes Hepatitis B: Yes Current Status Advance Directives: Yes Advance Directive Location: Home Communicates: Verbally Primary Language: Croatian Preferred Spoken Language: Croatian Is interpretation needed?: No Sensory deficits: Vision impairment Past Medical History PMHx: HTN HLD Tobacco Abuse Cocaine use DMII Family Medical History Family Hx: SOCIAL HISTORY: -ETOH--REGULAR USE--STATES UP TO A PINT/DAY -DRUGS--SNORTS COCAINE, SMOKES THC -SMOKES 1-2 PPD SURGERIES: -CARDIAC CATH 06/21/18--NO CORNARY DISEASE/NO INTERVENTION; NON-ISCHEMIC CHF WITH DILATED CARDIOMYOPATHY, 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 0.0oz. [id number]; 43.49 BMI Method:Stated Exam Exam Patient acknowledged, consented, and participated in this virtual visit which was conducted using real time audio/video Vital Signs Date Time Temp Pulse Resp B/P (MAP) Pulse Ox O2 Delivery O2 Flow Rate FiO2 09/24/20 18:29 90 Vapotherm 40.00 100 09/24/20 16:00 90 Vapotherm 35.00 90.00 09/24/20 15:55 110 137/85 (102) 09/24/20 15:20 88 Nasal Cannula 4.00 09/24/20 14:08 121 88 4.00 82 09/24/20 11:08 36.2 99 20 121/78 (92) 90 Nasal Cannula 2.50 09/24/20 10:33 Nasal Cannula 2.50 09/24/20 07:22 36.5 92 20 143/87 (105) 93 Nasal Cannula 2.50 09/24/20 03:44 36.2 98 24 129/88 (102) 93 Nasal Cannula 2.50 09/23/20 23:31 38.0 115 24 147/94 (111) 93 Nasal Cannula 2.50 09/23/20 21:55 36.4 09/23/20 20:59 36.4 118 20 152/105 (121) 91 Nasal Cannula 2.00 09/23/20 20:55 Nasal Cannula 2.00 I & O 09/24/20 07:00 Intake Total 1950 ml Balance 1950 ml Height & Weight Height: 5'6.00" Weight: 260lbs. 0.0oz. 117.878669vi; 43.49 BMI Method:Stated General Appearance: No Apparent Distress, Chronically ill, Obese HEENT: PERRL/EOMI, Normal ENT Inspection, Pharynx Normal, Moist Mucous Membranes Neck: Full Range of Motion, Normal Inspection, Non Tender Respiratory: Chest Non Tender, Lungs Clear, Normal Breath Sounds, No Accessory Muscle Use, No Respiratory Distress, Decreased Breath Sounds Cardiovascular: Regular Rate, Rhythm, No Edema, No Gallop, No JVD, No Murmur, Normal Peripheral Pulses Capillary Refill: Less Than 3 Seconds Peripheral Pulses: 1+ Dorsalis Pedis (R), 1+ Left Dors-Pedis (L) Gastrointestinal: normal bowel sounds, non tender, soft Extremity: Normal Capillary Refill, Normal Inspection, Normal Range of Motion, Non Tender, No Calf Tenderness, No Pedal Edema Neurologic/Psychiatric: Alert, Oriented x3, No Motor/Sensory Deficits, Normal Mood/Affect Skin: Normal Color, Warm/Dry Lymphatic: No Adenopathy Results Lab Laboratory Tests 09/22/20 19:57 09/23/20 06:09 09/24/20 06:45 09/24/20 16:20 09/24/20 16:56 Assessment/Plan Assessment/Plan Covid pna:. Cont NC and monitor. Cont abx, remdes and decadron. Diagnosis/Problems Problems/Diagonsis (1) RESPIRATORY FAILURE, UNSP, UNSP W HYPOXIA OR HYPERCAPNIA (2) Substance abuse Status: Chronic (3) Tobacco abuse Status: Chronic MARK SARABIA MD Sep 24, 2020 19:45
[2020-09-24] MEDS: AZITHROMYCIN INJECTION 500 MG in NS (IVPB) 250 ML IV SCH (19:53)
[2020-09-24] MEDS: DexMEDEtomidine 250 ML DRIP 250 ML IV SCH (19:59)
[2020-09-24] MEDS ORDERED: NS IV 1000 ML 1,000 ML ONE (21:43)
[2020-09-24] MEDS ORDERED: NS IV 1000 ML 1,000 ML IV SCH ×2 (21:45→23:45)
[2020-09-25] VITALS (26 sets, daily range): BP systolic 109–199; BP diastolic 35–120
--- NOTE | 2020-09-25 00:42 | Consultation - Surgery ---
History of Present Illness History of Present Illness Patient Consulted On(rachna/time) 09/25/20 00:36 Time Seen by Provider: 23:48 History of Present Illness Surgery asked to consult regarding hypotension. HPI per IM: History of present illness: This is a 60-year-old white male clinic patient of [facility] who has a past medical history of hypertension and CAD who normally wears 2 L of oxygen at night who presented to the ER with shortness of breath and increasing work of breathing found to have elevated troponin and indications for admission. Currently patient is feeling much better and ready to eat lunch. I restarted all of his pain medication and home medication for hypertension. He does have a history of cardiomyopathy. His urine drug screen showed use of cocaine. When I spoke to pt he was maxed out on BiPap and refusing to be intubated. The nurse states his pressures dropped into the 60-70 systolic, but did come up with fluid bolus; this happened twice. She was worried he would need pressors in the middle of the night and "he is a hard stick". Pt asked me about a central line and "why do I need an IV in my neck?" Allergies and Home Medications Allergies Coded Allergies: No Known Drug Allergies (Unverified , 06/21/18) Home Medications Amlodipine Besylate 10 Mg Tablet, 10 MG PO DAILY, (Reported) LAST FILLED 04-04-2020 #90/90 DAY SUPPLY Last Action: Reviewed Aspirin 81 Mg Tablet.dr, 81 MG PO DAILY, (Reported) Last Action: Reviewed Carvedilol 3.125 Mg Tablet, 3.125 MG PO BID, (Reported) Last Action: Reviewed Cetirizine HCl 10 Mg Tablet, 10 MG PO DAILY, (Reported) Last Action: Reviewed Dulaglutide 0.75 Mg/0.5 Ml Pen.injctr, 0.75 MG SC FRI, (Reported) Last Action: Reviewed Furosemide 20 Mg Tablet, 20 MG PO DAILY, (Reported) Last Action: Reviewed Pioglitazone HCl 30 Mg Tablet, 30 MG PO DAILY, (Reported) Last Action: Reviewed Potassium Chloride 10 Meq Tab.er.prt, 10 MEQ PO DAILY, (Reported) Last Action: Reviewed Sacubitril/Valsartan 1 Each Tablet, 1 EA PO BID, (Reported) Last Action: Reviewed Tamsulosin HCl 0.4 Mg Cap, 0.4 MG PO DAILY, (Reported) Last Action: Reviewed Patient Home Medication List Home Medication List Reviewed: Yes Past Yhfaxso-Gigjfy-Xnuvib Hx Patient Social History Drug of Choice: cocaine,MARIJUANA Smoking Status: Current Everyday Smoker Type Used: Cigarettes 2nd Hand Smoke Exposure: Yes Recent Hopitalizations: No Alcohol Use?: No Substance type: Amphetamines, Marijuana Have you traveled recently?: No Immunizations Up To Date Tetanus Booster (TDap): Unknown PED Vaccines UTD: Yes Date of Influenza Vaccine: Oct 31, 2018 Seasonal Allergies Seasonal Allergies: No Surgeries History of Surgeries: Yes (CARDIAC CATH) Surgeries: Cardiac Respiratory History of Respiratory Disorde: Yes Respiratory Disorders: COPD Cardiovascular History of Cardiac Disorders: Yes (NON-ISCHEMIC CARDIOMYOPATHY; CHF; TYPE 2 WI DUE TO CHF 05/2018) Cardiac Disorders: Cardiomyopathy, Heart Attack, High Cholesterol, Hypertension Neurological History of Neurological Disord: No Genitourinary History of Genitourinary Disor: No Gastrointestinal History of Gastrointestinal Di: No Musculoskeletal History of Musculoskeletal Dis: Yes Musculoskeletal Disorders: Arthritis Endocrine History of Endocrine Disorders: Yes Endocrine Disorders: Diabetes, Non-Insulin dep HEENT History of HEENT Disorders: No Cancer History of Cancer: No Psychosocial History of Psychiatric Problem: Yes Behavioral Health Disorders: Depression Integumentary History of Skin or Integumenta: No Blood Transfusions History of Blood Disorders: No Family Medical History Significant Family History: Diabetes Review of Systems-General Constitutional: fever, malaise EENTM: No blurred vision, No double vision, No epistaxis Respiratory: cough, dyspnea on exertion; No phlegm; short of breath Cardiovascular: No chest pain, No palpitations Gastrointestinal: No abdominal pain, No nausea, No vomiting Genitourinary: No dysuria, No frequency, No hematuria Musculoskeletal: joint pain, joint swelling, muscle stiffness Skin: No change in color, No change in hair/nails Psychiatric/Neurological: Depressed; Denies Seizure, Denies Tremors Physical Exam-General Problems Physical Exam Vital Signs Vital Signs - First Documented 09/22/20 09/22/20 09/24/20 19:34 23:43 18:29 Temp 39.7 Pulse 118 Resp 26 B/P (MAP) 141/127 (132) Pulse Ox 93 O2 Delivery Room Air O2 Flow Rate 3.00 FiO2 100 Capillary Refill : Less Than 3 Seconds General Appearance: moderate distress, obese (morbidly) Eyes: Bilateral Eye PERRL, Bilateral Eye EOMI HEENT: No scleral icterus (R), No scleral icterus (L); other (BiPap in place) Neck: non-tender, supple Respiratory: decreased breath sounds, accessory muscle use, crackles, wheezing Cardiovascular: no murmur, tachycardia Gastrointestinal: non tender, soft, no organomegaly Extremities: no pedal edema, no calf tenderness 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, alert, oriented x 3 Skin: normal color, warm/dry Lymphatic: no adenopathy (neck, axilla or groin) Data Review Labs Laboratory Tests 09/24/20 05:09: Glucometer 260H 09/24/20 06:45: White Blood Count 8.2, Red Blood Count 6.10H, Hemoglobin 15.7, Hematocrit 48, Mean Corpuscular Volume 79L, Mean Corpuscular Hemoglobin 26, Mean Corpuscular Hemoglobin Concent 33, Red Cell Distribution Width 15.3H, Platelet Count 255, Mean Platelet Volume 9.8, Immature Granulocyte % (Auto) 1, Neutrophils (%) (Auto) 91H, Lymphocytes (%) (Auto) 5L, Monocytes (%) (Auto) 3, Eosinophils (%) (Auto) 0, Basophils (%) (Auto) 0, Neutrophils # (Auto) 7.5, Lymphocytes # (Auto) 0.4L, Monocytes # (Auto) 0.2, Eosinophils # (Auto) 0.0, Basophils # (Auto) 0.0, Immature Granulocyte # (Auto) 0.1, Neutrophils % (Manual) 81, Lymphocytes % (Manual) 9, Monocytes % (Manual) 2, Eosinophils % (Manual) 0, Basophils % (Manual) 0, Band Neutrophils 8, Anisocytosis SLIGHT, Sodium Level 137, Potassium Level 4.3, Chloride Level 103, Carbon Dioxide Level 21, Anion Gap 13, Blood Urea Nitrogen 17, Creatinine 0.94, Estimat Glomerular Filtration Rate 100, BUN/Creatinine Ratio 18, Glucose Level 263H, Calcium Level 8.9, Corrected Calcium 9.2, Total Bilirubin 0.3, Aspartate Amino Transf (AST/SGOT) 30, Alanine Aminotransferase (ALT/SGPT) 26, Alkaline Phosphatase 65, Total Protein 7.3, Albumin 3.6 09/24/20 10:18: Glucometer 333H 09/24/20 15:59: Glucometer 173H 09/24/20 16:20: White Blood Count 7.9, Red Blood Count 6.57H, Hemoglobin 16.7, Hematocrit 52, Mean Corpuscular Volume 79L, Mean Corpuscular Hemoglobin 25, Mean Corpuscular Hemoglobin Concent 32, Red Cell Distribution Width 16.7H, Platelet Count 283, Mean Platelet Volume 10.1, Immature Granulocyte % (Auto) 1, Neutrophils (%) (Auto) 89H, Lymphocytes (%) (Auto) 7L, Monocytes (%) (Auto) 3, Eosinophils (%) (Auto) 0, Basophils (%) (Auto) 0, Neutrophils # (Auto) 7.0, Lymphocytes # (Auto) 0.6L, Monocytes # (Auto) 0.3, Eosinophils # (Auto) 0.0, Basophils # (Auto) 0.0, Immature Granulocyte # (Auto) 0.0, D-Dimer 0.50H, B-Type Natriuretic Peptide 18.6 09/24/20 16:49: Blood Gas Puncture Site R RAD, Blood Gas Patient Temperature 36.2, Arterial Blood pH 7.45H, Arterial Blood Partial Pressure CO2 36, Arterial Blood Partial Pressure O2 55L, Arterial Blood HCO3 25, Arterial Blood Total CO2 25.9, Arterial Blood Oxygen Saturation 89L, Arterial Blood Base Excess 1.0, Derick Test YES-POS, Blood Gas Ventilator Setting NO, Blood Gas Inspired Oxygen 35/90% VAPO 09/24/20 16:56: Sodium Level 138, Potassium Level 4.2, Chloride Level 102, Carbon Dioxide Level 24, Anion Gap 12, Blood Urea Nitrogen 15, Creatinine 0.85, Estimat Glomerular Filtration Rate 112, BUN/Creatinine Ratio 18, Glucose Level 179H, Calcium Level 9.3, Corrected Calcium 9.4, Total Bilirubin 0.3, Aspartate Amino Transf (AST/SGOT) 32, Alanine Aminotransferase (ALT/SGPT) 28, Alkaline Phosphatase 74, Troponin I < 0.028, Total Protein 8.1, Albumin 3.9, Procalcitonin 0.09 09/24/20 20:19: Glucometer 150H Radiology Date of Exam:09/24/20 CHEST 1 VIEW, AP/PA ONLY INDICATION: Hypoxia, pneumonia, Covid positive. TECHNIQUE: Single view chest at 4:24 PM. CORRELATION STUDY: 09/22/2020, 09/20/2020. FINDINGS: The heart size and mediastinum are enlarged and prominent but generally stable. The vasculature is somewhat obscured. Extensive patchy areas of consolidation with multilobe pneumonia are again demonstrated. Overall, these have progressed from the prior exam and are most noticeable at the right lung. IMPRESSION: Extensive multilobe consolidation overall appears increased, particularly through the right lung. Consistent with multilobe pneumonia which would include the provided history of Covid 19 pneumonia. The report was faxed to Infection Control by nancy@4:56 PM. Dictated by: Dictated on workstation # [id number] Dict: 09/24/20 1635 Trans: 09/24/20 1728 [id number] Interpreted by: TJ CRUZ DO Electronically signed by: TJ CRUZ DO 09/24/20 1728 Assessment/Plan Assessment/Plan Assessment/Plan Hypotension Venous insufficiency Covid 19 + Pneumonia Pt is barely keeping his O2 up on the BiPap, but refusing intubation and saying he'd rather . His BP has been dropping and I talked to him about a central line; how it can help, why it can help and how we put it in. Pt stated "go ahead and lets do it". Central line placed without difficulty. MARK DALY DO Sep 25, 2020 00:42
--- NOTE | 2020-09-25 00:50 | Progress Note-Post Operative ---
Post-Operative Progess Note Surgeon (s)/Art Editor (s) Surgeon MARK DALY DO Art Editor: none Pre-Operative Diagnosis Hypotension, Venous insufficiency, Covid -19 Pneumonia Post-Operative Diagnosis same Procedure & Operative Findings Date of Procedure 09/25/20 Procedure Performed/Findings The patient was in their bed in the ICU, was prepped and draped in the sterile fashion. A surgical pause was performed. Ultrasound was used to locate the internal jugular vein. Once located anesthetic was infiltrated above it. Using an 18 gauge finder needle and watching with the US; the right internal jugular vein was accessed. Dark nonpulsatile blood was withdrawn. The wire was inserted. Fluoroscopy assured proper placement. The needle was removed. A [#11] blade scalpel was used to make a stab incision along the guidewire. Dilator sheath was then advanced over the wire using Seldinger technique and the dilator was removed. The Groshong catheter was inserted over the guide wire using the Seldinger technique. The Groshong wire was removed. The catheter was then accessed in all three ports without difficulty. Good flash of blood was seen and it was then flushed with saline. The catheter was sutured in place with 3-0 silk on a pablo needle. The areas were then washed and dried. Sterile dressing was placed over incision. The patient tolerated the procedure well without complication. Anesthesia Type local lidocaine Estimated Blood Loss Estimated blood loss (mL): scant Specimens/Packing Specimens Removed none MARK DALY DO Sep 25, 2020 00:50
[2020-09-25 02:57] LABS: BASOPHILS % (AUTO) 0 % (0-10); EOSINOPHILS % (AUTO) 0 % (0-10); HEMATOCRIT 45 % (40-54); HEMOGLOBIN 14.4 g/dL (13.3-17.7); LYMPHOCYTES # (AUTO) 0.5 10^3/uL (1.0-4.0); LYMPHOCYTES % (AUTO) 7 % (12-44); MEAN CORPUSCULAR HEMOGLOBIN 25 pg (25-34); MEAN CORPUSCULAR HGB CONC 32 g/dL (32-36); MEAN CORPUSCULAR VOLUME 80 fL (80-99); MEAN PLATELET VOLUME 9.7 fL (9.0-12.2); MONOCYTES # (AUTO) 0.3 10^3/uL (0.0-1.0); MONOCYTES % (AUTO) 4 % (0-12); NEUTROPHILS % (AUTO) 89 % (42-75); PLATELET COUNT 274 10^3/uL (130-400); WHITE BLOOD COUNT 7.9 10^3/uL (4.3-11.0)
[2020-09-25 03:08] LABS: POTASSIUM 4.5 MMOL/L (3.6-5.0)
[2020-09-25 03:09] LABS: CALCIUM 8.1 MG/DL (8.5-10.1)
[2020-09-25 03:13] LABS: CREATININE SERUM 1.21 MG/DL (0.60-1.30)
[2020-09-25] MEDS: MAGNESIUM 1 GM/100 ML IVPB 100 ML IV SCH (05:14)
[2020-09-25] MEDS: POTASSIUM CL 10MEQ/50ML IVPB 50 ML IV SCH (05:14)
[2020-09-25] MEDS: KCL 20 MEQ TAB (K-DUR) PO SCH (05:14)
--- NOTE | 2020-09-25 05:32 | Progress Note - Hospitalist ---
Subjective HPI/CC On Admission Date Seen by Provider: Sep 25, 2020 Time Seen by Provider: 11:00 Chief complaint: COVID-19 pneumonia History of present illness: This is a 60-year-old white male clinic patient of [facility] who has a past medical history of hypertension and CAD who normally wears 2 L of oxygen at night who presented to the ER with shortness of breath and increasing work of breathing found to have elevated troponin and indications for admission. Currently patient is feeling much better and ready to eat lunch. I restarted all of his pain medication and home medication for hypertension. He does have a history of cardiomyopathy. His urine drug screen showed use of cocaine. Subjective/Events-last exam Pt having difficulty last night Was cursing and very aggressive towards nurse Precedex seems to have helped him Maintain on BiPAP for respiratory failure If he continues to be belligerent and having difficulty and verbally and physically abusive and he is in respiratory may need to intubate him Review of Systems General: Fatigue Pulmonary: Dyspnea, Cough Objective Exam Vital Signs Vital Signs Date Time Temp Pulse Resp B/P (MAP) Pulse Ox O2 Delivery O2 Flow Rate FiO2 09/25/20 20:49 36.0 09/25/20 20:40 80 37 91 100.00 09/25/20 20:00 NIV Bilevel 100 09/25/20 18:00 109/56 (73) Capillary Refill : Less Than 3 Seconds General Appearance: No Apparent Distress, WD/WN, Chronically ill Respiratory: No Accessory Muscle Use, No Respiratory Distress, Decreased Breath Sounds Cardiovascular: Regular Rate, Rhythm Neurologic/Psychiatric: Alert, Oriented x3 Results/Procedures Lab Laboratory Tests 09/25/20 02:50 Patient resulted labs reviewed. Assessment/Plan Assessment and Plan Assess & Plan/Chief Complaint Assessment: COVID-19 pneumonia Acute hypoxic respiratory failure Cardiomyopathy Hypertension Chronic pain Elevated troponin Cocaine on drug screen Plan: Supportive care Oxygen Monitor closely 09/24/2020: Supportive care 09/25/2020: BiPAP Vapotherm May leave AMA Very aggressive ASHISH WILEY DO Sep 25, 2020 05:32
[2020-09-25] MEDS: CATHETER FLUSH 10 ML SYR IV SCH ×3 (05:37→21:22)
[2020-09-25] MEDS: CEFEPIME INJECTION 1,000 MG in WATER (STERILE) FOR INJECTION 10 ML IV SCH ×4 (05:37→23:00)
[2020-09-25] MEDS: inSUlin ASPART (NovoLOG) 1 UNIT/0.01 ML (CHARGE PER UNIT) SC SCH ×6 (05:40→22:17)
[2020-09-25] MEDS: RT-ALBUTEROL INHALER HFA (VENTOLIN HFA) 18 GM IH SCH ×3 (07:21→20:43)
--- NOTE | 2020-09-25 08:25 | Physical Therapy Progress Note ---
Therapy Progress Note Patient transferred to ICU. PT will require new orders due to transfer. ANY GARCIA PT Sep 25, 2020 08:25
[2020-09-25] MEDS: amLODIPine 10 MG (NORVASC) TAB PO SCH (09:24)
[2020-09-25] MEDS: ENOXAPARIN 40 MG/0.4 ML (LOVENOX) SYR SC SCH ×3 (09:24→22:17)
[2020-09-25] MEDS: REMDESIVIR 100 MG/NS 250 ML IVPB IV SCH ×2 (09:24)
[2020-09-25] MEDS: KCL 10 MEQ TAB (MICRO K) PO SCH (09:25)
[2020-09-25] MEDS: ASPIRIN E.C. 81 MG (ECOTRIN) TAB PO SCH (09:25)
[2020-09-25] MEDS: FUROSEMIDE 20 MG (LASIX) TAB PO SCH (09:25)
--- NOTE | 2020-09-25 11:56 | Tele-ICU Progress Note ---
Subjective Date Seen by a Provider: Sep 25, 2020 Time Seen by a Provider: 11:55 Sepsis Event Evaluation Height, Weight, BMI Height: 5'6.00" Weight: 260lbs. 0.0oz. 117.551840zs; 43.49 BMI Method:Stated Exam Exam Patient acknowledged, consented, and participated in this virtual visit which was conducted using real time audio/video Vital Signs Date Time Temp Pulse Resp B/P (MAP) Pulse Ox O2 Delivery O2 Flow Rate FiO2 09/25/20 08:02 36.7 09/25/20 08:00 NIV Bilevel 75 09/25/20 07:22 79 37 92 75.00 09/25/20 07:00 79 09/25/20 06:00 78 25 138/93 (108) 94 NIV Bilevel 75.00 09/25/20 05:38 NIV Bilevel 09/25/20 05:00 79 18 134/93 (107) 94 NIV Bilevel 75.00 09/25/20 04:15 36.8 NIV Bilevel 75.00 09/25/20 04:00 80 22 132/95 (107) 96 NIV Bilevel 80.00 09/25/20 03:00 82 17 144/97 (113) 94 NIV Bilevel 80.00 09/25/20 02:56 66 37 95 80.00 09/25/20 02:00 75 9 130/88 (102) 95 NIV Bilevel 80.00 09/25/20 01:45 NIV Bilevel 80.00 09/25/20 01:00 77 28 133/91 (105) 95 NIV Bilevel 85.00 09/25/20 01:00 77 09/25/20 00:29 85 29 126/85 (99) 94 NIV Bilevel 85.00 09/25/20 00:02 87 28 139/107 (118) 96 NIV Bilevel 85.00 09/25/20 00:00 NIV Bilevel 100 09/24/20 23:49 36.4 NIV Bilevel 85.00 09/24/20 23:13 NIV Bilevel 90.00 09/24/20 23:00 84 28 82/53 (63) 97 NIV Bilevel 60.00 09/24/20 22:00 84 22 79/56 (64) 95 NIV Bilevel 60.00 09/24/20 21:00 94 28 89/63 (72) 91 NIV Bilevel 60.00 09/24/20 20:45 98 22 88/66 (72) 91 NIV Bilevel 09/24/20 20:32 105 27 93 100.00 09/24/20 20:30 101 25 102/66 (72) 92 NIV Bilevel 09/24/20 20:25 36.8 NIV Bilevel 100.00 09/24/20 20:15 97 28 121/61 (69) 89 NIV Bilevel 60.00 09/24/20 20:01 110 27 95 60.00 09/24/20 20:00 123 31 174/130 (145) 91 NIV Bilevel 60.00 09/24/20 19:59 NIV Bilevel 60.00 09/24/20 19:59 118 09/24/20 19:25 Vapotherm 40.00 100 09/24/20 19:00 115 09/24/20 19:00 Vapotherm 40.00 100.00 09/24/20 19:00 115 17 153/96 (115) 88 Vapotherm 40.00 100.00 09/24/20 18:29 90 Vapotherm 40.00 100 09/24/20 16:00 90 Vapotherm 35.00 90.00 09/24/20 15:55 110 137/85 (102) 09/24/20 15:20 88 Nasal Cannula 4.00 09/24/20 14:08 121 88 4.00 82 I & O 09/25/20 07:00 Intake Total 3440 ml Balance 3440 ml Height & Weight Height: 5'6.00" Weight: 260lbs. 0.0oz. [id number]; 43.49 BMI Method:Stated General Appearance: Chronically ill, Mild Distress, Obese HEENT: PERRL/EOMI, Normal ENT Inspection, Pharynx Normal, Moist Mucous Membranes Neck: Full Range of Motion, Normal Inspection, Non Tender Respiratory: Decreased Breath Sounds Cardiovascular: Regular Rate, Rhythm Capillary Refill: Less Than 3 Seconds Peripheral Pulses: 1+ Dorsalis Pedis (R), 1+ Left Dors-Pedis (L) Gastrointestinal: non tender, soft, no organomegaly Extremity: Normal Capillary Refill, Normal Inspection, Normal Range of Motion, Non Tender, No Calf Tenderness, No Pedal Edema Neurologic/Psychiatric: Alert, Oriented x3 Skin: Normal Color, Warm/Dry Lymphatic: No Adenopathy Results Lab Laboratory Tests 09/24/20 06:45 09/24/20 16:20 09/24/20 16:56 09/25/20 02:50 Assessment/Plan Assessment/Plan PLEASE OMIT - double entry SUSANNE VASQUEZ MD Sep 25, 2020 11:56
--- NOTE | 2020-09-25 12:40 | Tele-ICU Progress Note ---
Subjective Date Seen by a Provider: Sep 25, 2020 Time Seen by a Provider: 12:40 Sepsis Event Evaluation Height, Weight, BMI Height: 5'6.00" Weight: 260lbs. 0.0oz. 117.933551js; 43.49 BMI Method:Stated Exam Exam Patient acknowledged, consented, and participated in this virtual visit which was conducted using real time audio/video Vital Signs Date Time Temp Pulse Resp B/P (MAP) Pulse Ox O2 Delivery O2 Flow Rate FiO2 09/25/20 11:00 84 27 89 NIV Bilevel 75.00 09/25/20 10:00 86 33 142/64 (90) 88 NIV Bilevel 75.00 09/25/20 09:00 79 29 167/120 (136) 92 NIV Bilevel 75.00 09/25/20 08:02 36.7 09/25/20 08:00 75 37 155/113 (127) 93 NIV Bilevel 75.00 09/25/20 08:00 NIV Bilevel 75 09/25/20 07:22 79 37 92 75.00 09/25/20 07:00 78 129/87 (101) 94 NIV Bilevel 75.00 09/25/20 07:00 79 09/25/20 06:00 78 25 138/93 (108) 94 NIV Bilevel 75.00 09/25/20 05:38 NIV Bilevel 09/25/20 05:00 79 18 134/93 (107) 94 NIV Bilevel 75.00 09/25/20 04:15 36.8 NIV Bilevel 75.00 09/25/20 04:00 80 22 132/95 (107) 96 NIV Bilevel 80.00 09/25/20 03:00 82 17 144/97 (113) 94 NIV Bilevel 80.00 09/25/20 02:56 66 37 95 80.00 09/25/20 02:00 75 9 130/88 (102) 95 NIV Bilevel 80.00 09/25/20 01:45 NIV Bilevel 80.00 09/25/20 01:00 77 28 133/91 (105) 95 NIV Bilevel 85.00 09/25/20 01:00 77 09/25/20 00:29 85 29 126/85 (99) 94 NIV Bilevel 85.00 09/25/20 00:02 87 28 139/107 (118) 96 NIV Bilevel 85.00 09/25/20 00:00 NIV Bilevel 100 09/24/20 23:49 36.4 NIV Bilevel 85.00 09/24/20 23:13 NIV Bilevel 90.00 09/24/20 23:00 84 28 82/53 (63) 97 NIV Bilevel 60.00 09/24/20 22:00 84 22 79/56 (64) 95 NIV Bilevel 60.00 09/24/20 21:00 94 28 89/63 (72) 91 NIV Bilevel 60.00 09/24/20 20:45 98 22 88/66 (72) 91 NIV Bilevel 09/24/20 20:32 105 27 93 100.00 09/24/20 20:30 101 25 102/66 (72) 92 NIV Bilevel 09/24/20 20:25 36.8 NIV Bilevel 100.00 09/24/20 20:15 97 28 121/61 (69) 89 NIV Bilevel 60.00 09/24/20 20:01 110 27 95 60.00 09/24/20 20:00 123 31 174/130 (145) 91 NIV Bilevel 60.00 09/24/20 19:59 NIV Bilevel 60.00 09/24/20 19:59 118 09/24/20 19:25 Vapotherm 40.00 100 09/24/20 19:00 115 09/24/20 19:00 Vapotherm 40.00 100.00 09/24/20 19:00 115 17 153/96 (115) 88 Vapotherm 40.00 100.00 09/24/20 18:29 90 Vapotherm 40.00 100 09/24/20 16:00 90 Vapotherm 35.00 90.00 09/24/20 15:55 110 137/85 (102) 09/24/20 15:20 88 Nasal Cannula 4.00 09/24/20 14:08 121 88 4.00 82 I & O 09/25/20 06:59 Intake Total 3440 ml Balance 3440 ml Height & Weight Height: 5'6.00" Weight: 260lbs. 0.0oz. 117.486011qx; 43.49 BMI Method:Stated General Appearance: Chronically ill, Mild Distress, Obese HEENT: PERRL/EOMI, Normal ENT Inspection, Pharynx Normal, Moist Mucous Membranes Neck: Full Range of Motion, Normal Inspection, Non Tender Respiratory: Decreased Breath Sounds Cardiovascular: Regular Rate, Rhythm Capillary Refill: Less Than 3 Seconds Peripheral Pulses: 1+ Dorsalis Pedis (R), 1+ Left Dors-Pedis (L) Gastrointestinal: non tender, soft, no organomegaly Extremity: Normal Capillary Refill, Normal Inspection, Normal Range of Motion, Non Tender, No Calf Tenderness, No Pedal Edema Neurologic/Psychiatric: Alert, Oriented x3 Skin: Normal Color, Warm/Dry Lymphatic: No Adenopathy Results Lab Laboratory Tests 09/24/20 06:45 09/24/20 16:20 09/24/20 16:56 09/25/20 02:50 Assessment/Plan Assessment/Plan (Tele-ICU Physician , Progress Note ) Available chart/ vitals / labs / Images reviewed Video assessment done using teleICU camera, rest of exam as per RN Discussed with RN Events overnight : Afebrile I/O = diuresis Drips: Pressors: , hemodynamically stable EXAM PER RN Consultants: cards Hospital course: 09/22 w Covid pna. S/B Cards for Troponin leak 09/24 - to ICU with reps failure COVID A/P COVID PNA - remdesivir =decadrom po - ddimer NL 09/24 Anxiety/ verbally abusive to RN - on precedex now, + ? metadone for pending withdrowal Suspected bact PNA = cefipime _ z max Minimal troponin elevation with h/o no CAD on cath 2018 - due to type 2 [place] due to COVID pneumonia NON- ICM - echo of 06/05/[address] Alonzo: LVEF 55-65%, mild LA enlargement, mild MR, PASP 25 mmHg - cards follow Hyperglycemia - to follow ISS Chronic hypoxia - on 2 l O2 at home - PFT 12/2017 shows RLD with normal DLCO. No COPD / CARLOS -Noncompliant with CPAP therapy ETOH--REGULAR USE--STATES UP TO A PINT/DAY -DRUGS--SNORTS COCAINE, SMOKES THC -SMOKES 1-2 PPD Lines : 09/25 - central line RIJ , (Central Line Necessity Reviewed) cxr pending Hightower: urinal OG: Nutrition: po Analgesia: Anxiety/ delirium VTE Prophylaxis: lovenox 40 Stress Ulcer Prophylaxis: po intake Glycemic Control: iss Plans in collaboration with bedside consultants and IM MDs. Discussed with RN to reach out if any questions or concerns A total of 36 minutes of critical care time was devoted to this patient today, required to treat and/or prevent further deterioration of critical care condition ( as above) . SUSANNE VASQUEZ MD Sep 25, 2020 12:40
[2020-09-25] MEDS: TAMSULOSIN 0.4 MG (FLOMAX) CAP PO SCH (16:52)
[2020-09-25] MEDS: AZITHROMYCIN INJECTION 500 MG in NS (IVPB) 250 ML IV SCH (16:52)
[2020-09-25] MEDS: DexMEDEtomidine 250 ML DRIP 250 ML IV SCH ×3 (17:11→23:00)
[2020-09-25] MEDS: dexAMETHasone 6 MG TAB (DECADRON) PO SCH (21:21)
[2020-09-25] MEDS ORDERED: ALPRAZolam 0.25 MG (XANAX) TAB ONE ×2 (23:51→23:56)
[2020-09-26] VITALS (15 sets, daily range): BP systolic 116–183; BP diastolic 35–159
[2020-09-26] MEDS ORDERED: ALPRAZolam 0.25 MG (XANAX) TAB PO ONE
[2020-09-26] MEDS ORDERED: ALPRAZolam 0.5 MG (XANAX) TAB PO ONE (00:15)
[2020-09-26] MEDS: KCL 20 MEQ TAB (K-DUR) PO SCH (02:33)
[2020-09-26] MEDS: MAGNESIUM 1 GM/100 ML IVPB 100 ML IV SCH (02:33)
[2020-09-26] MEDS: POTASSIUM CL 10MEQ/50ML IVPB 50 ML IV SCH (02:33)
[2020-09-26 04:08] LABS: BASOPHILS % (AUTO) 0 % (0-10); EOSINOPHILS % (AUTO) 0 % (0-10); HEMATOCRIT 48 % (40-54); HEMOGLOBIN 15.5 g/dL (13.3-17.7); LYMPHOCYTES # (AUTO) 0.5 10^3/uL (1.0-4.0); LYMPHOCYTES % (AUTO) 5 % (12-44); MEAN CORPUSCULAR HEMOGLOBIN 26 pg (25-34); MEAN CORPUSCULAR HGB CONC 32 g/dL (32-36); MEAN CORPUSCULAR VOLUME 79 fL (80-99); MEAN PLATELET VOLUME 10.5 fL (9.0-12.2); MONOCYTES # (AUTO) 0.3 10^3/uL (0.0-1.0); MONOCYTES % (AUTO) 3 % (0-12); NEUTROPHILS # (AUTO) 9.5 10^3/uL (1.8-7.8); NEUTROPHILS % (AUTO) 92 % (42-75); PLATELET COUNT 351 10^3/uL (130-400); WHITE BLOOD COUNT 10.4 10^3/uL (4.3-11.0)
[2020-09-26 04:22] LABS: POTASSIUM 4.7 MMOL/L (3.6-5.0)
[2020-09-26 04:23] LABS: CALCIUM 8.8 MG/DL (8.5-10.1)
[2020-09-26 04:27] LABS: CREATININE SERUM 0.9 MG/DL (0.60-1.30); PHOSPHORUS 2.7 MG/DL (2.3-4.7)
[2020-09-26 04:30] LABS: MAGNESIUM 2.1 MG/DL (1.6-2.4)
[2020-09-26] MEDS: DexMEDEtomidine 250 ML DRIP 250 ML IV SCH ×3 (04:39→17:01)
--- NOTE | 2020-09-26 05:23 | Progress Note - Hospitalist ---
Subjective HPI/CC On Admission Date Seen by Provider: Sep 26, 2020 Time Seen by Provider: 10:00 Chief complaint: COVID-19 pneumonia History of present illness: This is a 60-year-old white male clinic patient of [facility] who has a past medical history of hypertension and CAD who normally wears 2 L of oxygen at night who presented to the ER with shortness of breath and increasing work of breathing found to have elevated troponin and indications for admission. Currently patient is feeling much better and ready to eat lunch. I restarted all of his pain medication and home medication for hypertension. He does have a history of cardiomyopathy. His urine drug screen showed use of cocaine. Subjective/Events-last exam Pt is maxed out on BiPAP, if he declines will intubate Updated him and tried to explain everything to him Still refusing a lot of things and being belligerent and cursing I talked to him a great deal in depth and seemed to provide a lot of reassurance to him so hopefully he will continue cooperation like he does with me Review of Systems General: Fatigue, Malaise Pulmonary: Dyspnea Objective Exam Vital Signs Vital Signs Date Time Temp Pulse Resp B/P (MAP) Pulse Ox O2 Delivery O2 Flow Rate FiO2 09/26/20 21:21 87 09/26/20 20:00 92 NIV Bilevel 100 09/26/20 19:40 35.3 09/26/20 18:34 46 100.00 09/26/20 17:01 133/105 Capillary Refill : Less Than 3 Seconds General Appearance: WD/WN, Anxious, Chronically ill, Mild Distress Respiratory: No Accessory Muscle Use, No Respiratory Distress, Decreased Breath Sounds Cardiovascular: Regular Rate, Rhythm Neurologic/Psychiatric: Alert, Oriented x3 Results/Procedures Lab Laboratory Tests 09/26/20 03:55 Patient resulted labs reviewed. Assessment/Plan Assessment and Plan Assess & Plan/Chief Complaint Assessment: COVID-19 pneumonia Acute hypoxic respiratory failure Cardiomyopathy Hypertension Chronic pain Elevated troponin Cocaine on drug screen Plan: Supportive care Oxygen Monitor closely 09/24/2020: Supportive care 09/25/2020: BiPAP Vapotherm May leave AMA Very aggressive 09/26/2020: Supportive care BiPAP Vapotherm High risk for intubation ASHISH WILEY DO Sep 26, 2020 05:23
[2020-09-26] MEDS: inSUlin ASPART (NovoLOG) 1 UNIT/0.01 ML (CHARGE PER UNIT) SC SCH ×4 (05:40→21:45)
[2020-09-26] MEDS: CEFEPIME INJECTION 1,000 MG in WATER (STERILE) FOR INJECTION 10 ML IV SCH ×4 (05:40→23:39)
[2020-09-26] MEDS: CATHETER FLUSH 10 ML SYR IV SCH ×3 (05:40→23:39)
[2020-09-26] MEDS: RT-ALBUTEROL INHALER HFA (VENTOLIN HFA) 18 GM IH SCH ×3 (07:26→18:38)
--- NOTE | 2020-09-26 07:56 | Physical Therapy Progress Note ---
Therapy Progress Note PT will require new orders due to transfer. Per multiple reports, patient appears to be independent with mobility and is having difficulty with behavioral issues. ANY GARCIA PT Sep 26, 2020 07:55
[2020-09-26] MEDS: REMDESIVIR 100 MG/NS 250 ML IVPB IV SCH ×2 (08:35)
[2020-09-26] MEDS: FUROSEMIDE 20 MG (LASIX) TAB PO SCH (08:36)
[2020-09-26] MEDS: KCL 10 MEQ TAB (MICRO K) PO SCH (08:36)
[2020-09-26] MEDS: ENOXAPARIN 40 MG/0.4 ML (LOVENOX) SYR SC SCH ×2 (08:36→21:45)
[2020-09-26] MEDS: amLODIPine 10 MG (NORVASC) TAB PO SCH (08:36)
[2020-09-26] MEDS: ASPIRIN E.C. 81 MG (ECOTRIN) TAB PO SCH (08:36)
--- NOTE | 2020-09-26 11:50 | Tele-ICU Progress Note ---
Subjective Date Seen by a Provider: Sep 26, 2020 Time Seen by a Provider: 11:50 Sepsis Event Evaluation Height, Weight, BMI Height: 5'6.00" Weight: 260lbs. 0.0oz. 117.768995rb; 43.49 BMI Method:Stated Exam Exam Patient acknowledged, consented, and participated in this virtual visit which was conducted using real time audio/video Vital Signs Date Time Temp Pulse Resp B/P (MAP) Pulse Ox O2 Delivery O2 Flow Rate FiO2 09/26/20 11:40 35.4 09/26/20 10:20 78 133/105 09/26/20 09:00 89 28 NIV Bilevel 100.00 09/26/20 08:45 35.5 09/26/20 08:40 93 NIV Bilevel 100 09/26/20 08:00 78 45 160/116 (131) 92 NIV Bilevel 100.00 09/26/20 07:26 80 39 91 100.00 09/26/20 07:00 82 46 159/118 (132) 89 NIV Bilevel 100.00 09/26/20 06:31 85 09/26/20 06:30 80 32 152/110 (124) 91 NIV Bilevel 100.00 09/26/20 05:00 85 28 183/159 (166) 92 NIV Bilevel 100.00 09/26/20 04:39 81 147/91 09/26/20 04:00 80 39 140/103 (113) 96 NIV Bilevel 100.00 09/26/20 03:07 81 47 93 100.00 09/26/20 03:00 81 147/91 (128) 93 NIV Bilevel 100.00 09/26/20 02:00 90 157/117 (148) 92 NIV Bilevel 100.00 09/26/20 01:00 87 09/26/20 01:00 87 138/35 (44) 91 NIV Bilevel 100.00 09/26/20 00:00 36.0 NIV Bilevel 100.00 09/26/20 00:00 108 179/111 (144) 93 NIV Bilevel 100.00 09/25/20 23:00 86 148/109 (119) 90 NIV Bilevel 100.00 09/25/20 23:00 80 127/94 09/25/20 22:00 89 25 183/112 (147) 95 NIV Bilevel 100.00 09/25/20 21:00 79 37 165/113 (129) 92 NIV Bilevel 100.00 09/25/20 20:49 36.0 09/25/20 20:40 80 37 91 100.00 09/25/20 20:00 90 125/69 (98) 91 NIV Bilevel 100.00 09/25/20 20:00 91 NIV Bilevel 100 09/25/20 19:56 82 09/25/20 19:53 35.9 NIV Bilevel 100.00 09/25/20 19:00 88 134/72 (84) 90 NIV Bilevel 100.00 09/25/20 18:00 105 40 109/56 (73) 94 NIV Bilevel 75.00 09/25/20 17:12 79 166/104 09/25/20 17:11 79 166/104 09/25/20 17:00 82 24 131/35 (67) 87 NIV Bilevel 75.00 09/25/20 16:00 79 38 166/104 (124) 91 NIV Bilevel 75.00 09/25/20 15:22 90 Vapotherm 40.00 100 09/25/20 15:00 79 27 150/100 (117) 89 NIV Bilevel 75.00 09/25/20 14:00 80 38 135/102 (113) 90 NIV Bilevel 75.00 09/25/20 13:00 97 09/25/20 13:00 95 15 199/78 (118) 94 NIV Bilevel 75.00 09/25/20 12:00 80 38 140/104 (116) 90 NIV Bilevel 75.00 I & O 09/26/20 07:00 Intake Total 1500 ml Output Total 1650 ml Balance -150 ml Height & Weight Height: 5'6.00" Weight: 260lbs. 0.0oz. 117.577870sg; 43.49 BMI Method:Stated General Appearance: No Apparent Distress, WD/WN, Chronically ill HEENT: PERRL/EOMI, Normal ENT Inspection, Pharynx Normal, Moist Mucous Membranes Neck: Full Range of Motion, Normal Inspection, Non Tender Respiratory: No Accessory Muscle Use, No Respiratory Distress, Decreased Breath Sounds Cardiovascular: Regular Rate, Rhythm Capillary Refill: Less Than 3 Seconds Peripheral Pulses: 1+ Dorsalis Pedis (R), 1+ Left Dors-Pedis (L) Gastrointestinal: non tender, soft, no organomegaly Extremity: Normal Capillary Refill, Normal Inspection, Normal Range of Motion, Non Tender, No Calf Tenderness, No Pedal Edema Neurologic/Psychiatric: Alert, Oriented x3 Skin: Normal Color, Warm/Dry Lymphatic: No Adenopathy Results Lab Laboratory Tests 09/24/20 16:20 09/24/20 16:56 09/25/20 02:50 09/26/20 03:55 Assessment/Plan Assessment/Plan (Tele-ICU Physician , Progress Note ) Available chart/ vitals / labs / Images reviewed Video assessment done using teleICU camera, rest of exam as per RN Discussed with RN - PATIENT IS NOTT COOPERATING WITH CARE, REFUSIN MEDS, CXR Events overnight : Afebrile I/O = positive 900 Drips: Pressors: , hemodynamically stable EXAM PER RN - not confused , but contradicting himself , agitated , belligerent, requesting to be dischrged , NO INTUBATION AND FULL CODE , can not understand his high O2 needs Consultants: cards Hospital course: 09/22 w Covid pna. S/B Cards for Troponin leak 09/24 - to ICU with reps failure COVID 09/26 - BIPAP 18/10 100% rr 38 tv 800 , MV 35 L A/P Acute resp failure - COVID PNA - BIPAP 18/10 100% rr 38 tv 800 , MV 35 L -try diuresis with low EF -MOST LIKELY WILL NEED INTUBATION COVID PNA - remdesivir =decadrom po - ddimer NL 09/24 Anxiety/ verbally abusive to RN - on precedex now, + ? metadone for pending withdrowal - refusing benzo Suspected bact PNA = cefipime _ z max Minimal troponin elevation with h/o no CAD on cath 2018 - due to type 2 [place] due to COVID pneumonia NON- ICM - echo of 06/05/[address] Alonzo: LVEF 55-65%, mild LA enlargement, mild MR, PASP 25 mmHg - cards follow Hyperglycemia - to follow ISS Chronic hypoxia - on 2 l O2 at home - ? for CARLOS - PFT 12/2017 shows RLD with normal DLCO. No COPD / CARLOS -Noncompliant with CPAP therapy ETOH--REGULAR USE--STATES UP TO A PINT/DAY -DRUGS--SNORTS COCAINE, SMOKES THC -SMOKES 1-2 PPD Lines : 09/25 - central line RIJ , (Central Line Necessity Reviewed) cxr not done- patient refused Hightower: urinal OG: Nutrition: po Analgesia: Anxiety/ delirium VTE Prophylaxis: lovenox 40 Stress Ulcer Prophylaxis: po intake Glycemic Control: iss Plans in collaboration with bedside consultants and IM MDs. Discussed with RN to reach out if any questions or concerns A total of 40 minutes of critical care time was devoted to this patient today, required to treat and/or prevent further deterioration of critical care condition ( as above) . SUSANNE VASQUEZ MD Sep 26, 2020 11:50
--- NOTE | 2020-09-26 11:59 | Diagnostic Imaging Report ---
CLINICAL INDICATION: Patient hypoxia and Covid positive. EXAM: Portable chest x-ray upright view. COMPARISONS: Chest x-ray dated 09/24/2020. FINDINGS: There is diffuse bilateral lung infiltrates and patchy areas of consolidation and slight sparing of left lung apex. The lung infiltrates have progressed in interim. There is no pleural effusion. Pulmonary vasculature and cardiac silhouette is obscured. There is interval placement of a right central line IJ with tip in the distal superior vena cava. IMPRESSION: 1: There is interval progression of diffuse bilateral lung infiltrates. 2: Interval placement of a right IJ central line. There is no pneumothorax. Dictated by: Dictated on workstation # [id number]
[2020-09-26] MEDS: THIAMINE INJECTION 100 MG in NS (IVPB) 50 ML IV SCH (13:32)
[2020-09-26] MEDS ORDERED: FUROSEMIDE 40 MG/4 ML INJ (LASIX) IVP SCH (17:00)
[2020-09-26] MEDS: TAMSULOSIN 0.4 MG (FLOMAX) CAP PO SCH (17:17)
[2020-09-26] MEDS ORDERED: KCL 20 MEQ TAB (K-DUR) PO ONE (18:00)
[2020-09-26] MEDS: FUROSEMIDE 40 MG/4 ML INJ (LASIX) IVP ONE (18:08)
[2020-09-26] MEDS: AZITHROMYCIN INJECTION 500 MG in NS (IVPB) 250 ML IV SCH (18:10)
[2020-09-26] MEDS: dexAMETHasone 6 MG TAB (DECADRON) PO SCH (21:45)
[2020-09-27] VITALS (26 sets, daily range): BP systolic 97–207; BP diastolic 27–139
[2020-09-27 02:38] LABS: BASOPHILS % (AUTO) 0 % (0-10); EOSINOPHILS % (AUTO) 0 % (0-10); HEMATOCRIT 47 % (40-54); HEMOGLOBIN 15.3 g/dL (13.3-17.7); LYMPHOCYTES # (AUTO) 0.5 10^3/uL (1.0-4.0); LYMPHOCYTES % (AUTO) 6 % (12-44); MEAN CORPUSCULAR HEMOGLOBIN 25 pg (25-34); MEAN CORPUSCULAR HGB CONC 33 g/dL (32-36); MEAN CORPUSCULAR VOLUME 78 fL (80-99); MEAN PLATELET VOLUME 10.4 fL (9.0-12.2); MONOCYTES # (AUTO) 0.3 10^3/uL (0.0-1.0); MONOCYTES % (AUTO) 3 % (0-12); NEUTROPHILS # (AUTO) 8.2 10^3/uL (1.8-7.8); NEUTROPHILS % (AUTO) 90 % (42-75); PLATELET COUNT 400 10^3/uL (130-400); WHITE BLOOD COUNT 9.1 10^3/uL (4.3-11.0)
[2020-09-27 02:48] LABS: POTASSIUM 4.6 MMOL/L (3.6-5.0)
[2020-09-27 02:49] LABS: CALCIUM 9.2 MG/DL (8.5-10.1)
[2020-09-27 02:53] LABS: CREATININE SERUM 0.91 MG/DL (0.60-1.30)
[2020-09-27 02:56] LABS: MAGNESIUM 2.2 MG/DL (1.6-2.4)
[2020-09-27] MEDS: POTASSIUM CL 10MEQ/50ML IVPB 50 ML IV SCH (05:01)
[2020-09-27] MEDS: MAGNESIUM 1 GM/100 ML IVPB 100 ML IV SCH (05:01)
[2020-09-27] MEDS: KCL 20 MEQ TAB (K-DUR) PO SCH (05:01)
[2020-09-27] MEDS: inSUlin ASPART (NovoLOG) 1 UNIT/0.01 ML (CHARGE PER UNIT) SC SCH ×4 (05:01→22:10)
[2020-09-27] MEDS: DexMEDEtomidine 250 ML DRIP 250 ML IV SCH ×2 (05:10→09:28)
--- NOTE | 2020-09-27 05:35 | Progress Note - Hospitalist ---
Subjective HPI/CC On Admission Date Seen by Provider: Sep 27, 2020 Time Seen by Provider: 11:00 Chief complaint: COVID-19 pneumonia History of present illness: This is a 60-year-old white male clinic patient of [facility] who has a past medical history of hypertension and CAD who normally wears 2 L of oxygen at night who presented to the ER with shortness of breath and increasing work of breathing found to have elevated troponin and indications for admission. Currently patient is feeling much better and ready to eat lunch. I restarted all of his pain medication and home medication for hypertension. He does have a history of cardiomyopathy. His urine drug screen showed use of cocaine. Subjective/Events-last exam Pt actually doing pretty well Maxed on BiPAP Senna will be given twice daily since he is constipated Very respectful and appreciative Review of Systems General: Fatigue, Malaise Pulmonary: Dyspnea, Cough Objective Exam Vital Signs Vital Signs Date Time Temp Pulse Resp B/P (MAP) Pulse Ox O2 Delivery O2 Flow Rate FiO2 09/27/20 21:00 105 09/27/20 19:36 35.8 09/27/20 18:31 44 93 100.00 09/27/20 18:00 201/108 (139) NIV Bilevel 09/27/20 16:00 100 Capillary Refill : Less Than 3 Seconds General Appearance: No Apparent Distress, WD/WN, Chronically ill Respiratory: Lungs Clear, Normal Breath Sounds, Decreased Breath Sounds Cardiovascular: Regular Rate, Rhythm Neurologic/Psychiatric: Alert, Oriented x3 Results/Procedures Lab Laboratory Tests 09/27/20 02:25 Patient resulted labs reviewed. Assessment/Plan Assessment and Plan Assess & Plan/Chief Complaint Assessment: COVID-19 pneumonia Acute hypoxic respiratory failure Cardiomyopathy Hypertension Chronic pain Elevated troponin Cocaine on drug screen Plan: Supportive care Oxygen Monitor closely 09/24/2020: Supportive care 09/25/2020: BiPAP Vapotherm May leave AMA Very aggressive 09/26/2020: Supportive care BiPAP Vapotherm High risk for intubation 09/27/2020: BiPAP is maxed out If decompensates needs intubation ASHISH WILEY DO Sep 27, 2020 05:35
[2020-09-27] MEDS: CATHETER FLUSH 10 ML SYR IV SCH ×3 (06:22→22:11)
[2020-09-27] MEDS: CEFEPIME INJECTION 1,000 MG in WATER (STERILE) FOR INJECTION 10 ML IV SCH ×3 (06:22→18:41)
--- NOTE | 2020-09-27 07:49 | Diagnostic Imaging Report ---
INDICATION: Pneumonia. Comparison made with prior examination from 09/26/2020 FINDINGS: There is cardiomegaly. There is diffuse bilateral airspace disease. There is no pleural effusion or pneumothorax. Mediastinum is unremarkable. Some underlying central pulmonary venous congestion cannot be excluded. IMPRESSION: Unchanged diffuse bilateral airspace disease. Cardiomegaly. Some underlying central pulmonary venous congestion cannot be excluded. Recommend clinical correlation. Dictated by: Dictated on workstation # [id number]
[2020-09-27] MEDS: RT-ALBUTEROL INHALER HFA (VENTOLIN HFA) 18 GM IH SCH ×3 (07:50→18:31)
--- NOTE | 2020-09-27 08:34 | Tele-ICU Progress Note ---
Subjective Date Seen by a Provider: Sep 27, 2020 Time Seen by a Provider: 08:34 Sepsis Event Evaluation Height, Weight, BMI Height: 5'6.00" Weight: 260lbs. 0.0oz. 117.577605jv; 43.49 BMI Method:Stated Exam Exam Patient acknowledged, consented, and participated in this virtual visit which was conducted using real time audio/video Vital Signs Date Time Temp Pulse Resp B/P (MAP) Pulse Ox O2 Delivery O2 Flow Rate FiO2 09/27/20 08:00 66 144/109 (121) 92 NIV Bilevel 100.00 09/27/20 07:54 36.0 09/27/20 07:41 77 34 93 100.00 09/27/20 07:00 76 148/108 (121) 93 NIV Bilevel 100.00 09/27/20 06:00 77 143/100 (114) 93 NIV Bilevel 100.00 09/27/20 05:10 82 09/27/20 05:00 77 138/99 (112) 92 NIV Bilevel 100.00 09/27/20 04:00 78 133/99 (110) 93 NIV Bilevel 100.00 09/27/20 04:00 36.2 NIV Bilevel 100.00 09/27/20 03:00 78 97/51 (66) 94 NIV Bilevel 100.00 09/27/20 02:00 78 151/29 (69) 96 NIV Bilevel 100.00 09/27/20 01:53 79 41 93 100.00 09/27/20 01:00 80 135/114 (121) 92 NIV Bilevel 100.00 09/27/20 01:00 80 09/27/20 00:00 80 95 NIV Bilevel 100.00 09/27/20 00:00 36.0 NIV Bilevel 100.00 09/26/20 22:04 84 46 91 100.00 09/26/20 21:21 87 09/26/20 20:00 92 NIV Bilevel 100 09/26/20 19:40 35.3 09/26/20 18:34 83 46 95 100.00 09/26/20 17:01 86 133/105 09/26/20 16:40 36.1 09/26/20 16:15 79 116/89 (98) 94 NIV Bilevel 100.00 09/26/20 14:11 86 39 96 100.00 7/28/21 13:00 78 09/26/20 11:40 35.4 09/26/20 10:20 78 133/105 09/26/20 09:00 89 28 NIV Bilevel 100.00 09/26/20 08:45 35.5 09/26/20 08:40 93 NIV Bilevel 100 I & O 09/27/20 07:00 Intake Total 2031 ml Output Total 2575 ml Balance -544 ml Height & Weight Height: 5'6.00" Weight: 260lbs. 0.0oz. 117.582135pq; 43.49 BMI Method:Stated General Appearance: WD/WN, Anxious, Chronically ill, Mild Distress HEENT: PERRL/EOMI, Normal ENT Inspection, Pharynx Normal, Moist Mucous Membranes Neck: Full Range of Motion, Normal Inspection, Non Tender Respiratory: No Accessory Muscle Use, No Respiratory Distress, Decreased Breath Sounds Cardiovascular: Regular Rate, Rhythm Capillary Refill: Less Than 3 Seconds Peripheral Pulses: 1+ Dorsalis Pedis (R), 1+ Left Dors-Pedis (L) Gastrointestinal: non tender, soft, no organomegaly Extremity: Normal Capillary Refill, Normal Inspection, Normal Range of Motion, Non Tender, No Calf Tenderness, No Pedal Edema Neurologic/Psychiatric: Alert, Oriented x3 Skin: Normal Color, Warm/Dry Lymphatic: No Adenopathy Results Lab Laboratory Tests 09/26/20 03:55 09/27/20 02:25 Assessment/Plan Assessment/Plan (Tele-ICU Physician , Progress Note ) Available chart/ vitals / labs / Images reviewed Video assessment done using teleICU camera, rest of exam as per RN Discussed with RN - PATIENT IS NOT COOPERATING WITH CARE, REFUSING MEDS - but seems better then yesterday Events overnight : changed for AVAPS Afebrile I/O = neg 600 Drips: Pressors: , hemodynamically stable EXAM PER RN - not confused , but contradicting himself , agitated , belligerent, requesting to be dischrged , NO INTUBATION AND FULL CODE , can not understand his high O2 needs Consultants: cards Hospital course: 09/22 w Covid pna. S/B Cards for Troponin leak 09/24 - to ICU with reps failure COVID 09/26 - BIPAP 17/12 100% rr 38 tv 800 , MV 35 L 09/27 AVAPS, still MV > 30 l , on 100% A/P Acute resp failure - COVID PNA - AVAPS rr 38 tv 800 , MV 35 L -try diuresis to keep even -MOST LIKELY WILL NEED INTUBATION COVID PNA - remdesivir =decadrom po - ddimer NL 09/24- will repat 09/28 Anxiety/ verbally abusive to RN - on precedex now 1.5 - refusing benzo Suspected bact PNA = cefipime _ z max Minimal troponin elevation with h/o no CAD on cath 2018 - due to type 2 [place] due to COVID pneumonia NON- ICM - echo of 06/05/[address] Alonzo: LVEF 55-65%, mild LA enlargement, mild MR, PASP 25 mmHg - cards follow Hyperglycemia - to follow ISS Chronic hypoxia - on 2 l O2 at home - ? for CARLOS - PFT 12/2017 shows RLD with normal DLCO. No COPD / CARLOS -Noncompliant with CPAP therapy ETOH--REGULAR USE--STATES UP TO A PINT/DAY -DRUGS--SNORTS COCAINE, SMOKES THC -SMOKES 1-2 PPD Lines : 09/25 - central line RIJ , (Central Line Necessity Reviewed) Hightower: urinal OG: Nutrition: po Analgesia: Anxiety/ delirium VTE Prophylaxis: lovenox 40 bid Stress Ulcer Prophylaxis: po intake Glycemic Control: iss Plans in collaboration with bedside consultants and IM MDs. Discussed with RN to reach out if any questions or concerns A total of 40 minutes of critical care time was devoted to this patient today, required to treat and/or prevent further deterioration of critical care condition ( as above) . SUSANNE VASQUEZ MD Sep 27, 2020 08:34
[2020-09-27] MEDS: ENOXAPARIN 40 MG/0.4 ML (LOVENOX) SYR SC SCH ×2 (08:53→20:44)
[2020-09-27] MEDS: amLODIPine 10 MG (NORVASC) TAB PO SCH (08:53)
[2020-09-27] MEDS: ASPIRIN E.C. 81 MG (ECOTRIN) TAB PO SCH (08:53)
[2020-09-27] MEDS: KCL 10 MEQ TAB (MICRO K) PO SCH (08:54)
[2020-09-27] MEDS: FUROSEMIDE 40 MG/4 ML INJ (LASIX) IVP SCH (08:54)
[2020-09-27] MEDS: THIAMINE INJECTION 100 MG in NS (IVPB) 50 ML IV SCH (09:28)
[2020-09-27] MEDS: REMDESIVIR 100 MG/NS 250 ML IVPB IV SCH ×2 (09:29)
--- NOTE | 2020-09-27 10:22 | Cardiology Progress Note ---
Progress Note-Cardiology Events since last exam Date Seen by Provider: Sep 27, 2020 Time Seen by Provider: 10:17 Events since last exam We are seeing the patient due to elevated troponin and previous cardiomyopathy. I did not see the patient due to his Covid status. I did speak with the nurse who is caring for him today. Yesterday he tried to leave AGAINST MEDICAL ADVICE. However, he is currently dependent on BiPAP. He has been refusing medications. Vitals Last set of Vitals Signs Vital Signs 09/26/20 09/27/20 09/27/20 09/27/20 09/27/20 20:00 07:54 08:00 09:28 10:04 Temp 36.0 Pulse 74 Resp 41 B/P (MAP) 152/112 Pulse Ox 91 O2 Delivery NIV Bilevel O2 Flow Rate 100.00 FiO2 100 Labs Labs Laboratory Tests 09/27/20 02:25 Exam Vital Signs Vital Signs Date Time Temp Pulse Resp B/P (MAP) Pulse Ox O2 Delivery O2 Flow Rate FiO2 09/27/20 10:04 74 41 91 100.00 09/27/20 09:28 152/112 09/27/20 08:00 NIV Bilevel 09/27/20 07:54 36.0 09/26/20 20:00 100 Physical Exam I did not examine the patient due to his Covid status. Labs Laboratory Tests Test 09/26/20 10:57 09/26/20 16:19 09/26/20 20:59 09/27/20 02:25 Range/Units Glucometer 204 H 133 H 103 70-110 MG/DL White Blood Count 9.1 4.3-11.0 10^3/uL Red Blood Count 6.05 H 4.30-5.52 10^6/uL Hemoglobin 15.3 13.3-17.7 g/dL Hematocrit 47 40-54 % Mean Corpuscular Volume 78 L 80-99 fL Mean Corpuscular Hemoglobin 25 25-34 pg Mean Corpuscular Hemoglobin Concent 33 32-36 g/dL Red Cell Distribution Width 15.2 H 10.0-14.5 % Platelet Count 400 130-400 10^3/uL Mean Platelet Volume 10.4 9.0-12.2 fL Immature Granulocyte % (Auto) 1 % Neutrophils (%) (Auto) 90 H 42-75 % Lymphocytes (%) (Auto) 6 L 12-44 % Monocytes (%) (Auto) 3 0-12 % Eosinophils (%) (Auto) 0 0-10 % Basophils (%) (Auto) 0 0-10 % Neutrophils # (Auto) 8.2 H 1.8-7.8 10^3/uL Lymphocytes # (Auto) 0.5 L 1.0-4.0 10^3/uL Monocytes # (Auto) 0.3 0.0-1.0 10^3/uL Eosinophils # (Auto) 0.0 0.0-0.3 10^3/uL Basophils # (Auto) 0.0 0.0-0.1 10^3/uL Immature Granulocyte # (Auto) 0.1 0.0-0.1 10^3/uL Sodium Level 141 135-145 MMOL/L Potassium Level 4.6 3.6-5.0 MMOL/L Chloride Level 105 98-107 MMOL/L Carbon Dioxide Level 23 21-32 MMOL/L Anion Gap 13 5-14 MMOL/L Blood Urea Nitrogen 23 H 7-18 MG/DL Creatinine 0.91 0.60-1.30 MG/DL Estimat Glomerular Filtration Rate 103 BUN/Creatinine Ratio 25 Glucose Level 161 H 70-105 MG/DL Calcium Level 9.2 8.5-10.1 MG/DL Phosphorus Level 3.0 2.3-4.7 MG/DL Magnesium Level 2.2 1.6-2.4 MG/DL Diagnosis/Problems Diagnosis/Problems (1) Troponin level elevated Assessment & Plan: He had a very minimal elevated troponin level. This is pr obably a type II non-ST elevation myocardial infarction due to his acute respiratory failure. I would not necessarily pursue additional cardiac testing at this time. Furthermore, he has not been compliant with his medications. (2) Acute on chronic diastolic heart failure Assessment & Plan: His most recent echocardiogram from earlier this year showed a normal ejection fraction. Now he has some evidence of pulmonary edema on today's chest x-ray. eICU has started daily IV furosemide. This is not unreasonable. I would hold off on a follow-up echocardiogram due to his Covid status. (3) Cardiomyopathy Assessment & Plan: As above, his ejection fraction recovered with guideline directed medical therapy. This should be continued if the patient is willing to take these medications. (4) Morbid obesity Assessment & Plan: He needs to work on weight loss. RASHAWN SANCHEZ JR, MD Sep 27, 2020 10:22
[2020-09-27] MEDS ORDERED: LIDOCAINE JELLY 2% (XYLOCAINE) 5 ML TUBE TOP SCH (13:00)
[2020-09-27] MEDS: SENNA W/DOCUSATE (SENOKOT S) TABLET PO SCH ×2 (13:53→20:43)
[2020-09-27] MEDS: LIDOCAINE JELLY 2% 6 ML SYRINGE TOP SCH ×2 (13:54→20:43)
[2020-09-27] MEDS: LORazepam INJ 2 MG/ML (ATIVAN) VIAL IVP PRN (14:06)
--- NOTE | 2020-09-27 17:28 | Progress Note-Post Operative ---
Post-Operative Progess Note Surgeon (s)/Proof Technician Helper (s) Surgeon MARK DALY DO Proof Technician Helper: none Pre-Operative Diagnosis Hypotension, Venous insufficiency, Covid -19 Pneumonia Post-Operative Diagnosis same Procedure & Operative Findings Date of Procedure 09/27/20 Procedure Performed/Findings Pt had pulled out his central line, 3-4 attempts made at PICC/Mid line were unsuccessful and then at least 8 attempts at peripheral line, also unsuccessful. He needed central line. The patient was in their bed in the ICU, was prepped and draped in the sterile fashion. A surgical pause was performed. Ultrasound was used to locate the internal jugular vein. Once located anesthetic was infiltrated above it. Using an 18 gauge finder needle and watching with the US; the left internal jugular vein was accessed. Dark nonpulsatile blood was withdrawn. The wire was inserted. Fluoroscopy assured proper placement. The needle was removed. A [#11] blade scalpel was used to make a stab incision along the guidewire. Dilator sheath was then advanced over the wire using Seldinger technique and the dilator was removed. The Groshong catheter was inserted over the guide wire using the Seldinger technique. The Groshong wire was removed. The catheter was then accessed in all three ports without difficulty. Good flash of blood was seen and it was then flushed with saline. The catheter was sutured in place with 3-0 silk on a pablo needle. The areas were then washed and dried. Sterile dressing was placed over incision. The patient tolerated the procedure well without complication. Anesthesia Type none Estimated Blood Loss Estimated blood loss (mL): less than 5ml Specimens/Packing Specimens Removed none MARK DALY DO Sep 27, 2020 17:28
--- NOTE | 2020-09-27 17:55 | Diagnostic Imaging Report ---
EXAMINATION: Chest radiograph, portable AP view. DATE: 09/27/2020 5:47 PM INDICATION: 60-year-old male, assist device placement. COMPARISON: September 27, 2020 at 0332 hours. FINDINGS: There is a left internal jugular central venous line with tip overlying the mid SVC. Stable overall appearance of the cardiomediastinal silhouette. There is no identified pneumothorax. There is multifocal bilateral lung consolidation which is unchanged. There are technical limitations of the study relating to patient body habitus and difficulties with exposure. IMPRESSION: 1. Multifocal bilateral lung consolidation which is essentially unchanged. 2. Newly placed left internal jugular central venous line overlies the mid SVC. Dictated by: Dictated on workstation # [id number]
[2020-09-27] MEDS: TAMSULOSIN 0.4 MG (FLOMAX) CAP PO SCH (18:10)
[2020-09-27] MEDS: AZITHROMYCIN INJECTION 500 MG in NS (IVPB) 250 ML IV SCH (18:41)
[2020-09-27] MEDS: dexAMETHasone 6 MG TAB (DECADRON) PO SCH (20:43)
[2020-09-27] MEDS: HYDROcodone/APAP 5 MG/325 MG (LORTAB) TAB PO PRN (20:43)
[2020-09-28] VITALS (31 sets, daily range): BP systolic 74–167; BP diastolic 51–115
[2020-09-28] MEDS: LORazepam INJ 2 MG/ML (ATIVAN) VIAL IVP PRN (00:01)
[2020-09-28] MEDS ORDERED: PROPOFOL DRIP (ICU) 100 ML IV ONE (00:36)
[2020-09-28] MEDS: DexMEDEtomidine 250 ML DRIP 250 ML IV SCH ×4 (00:50→23:51)
[2020-09-28] MEDS: CEFEPIME INJECTION 1,000 MG in WATER (STERILE) FOR INJECTION 10 ML IV SCH ×5 (00:51→23:46)
--- NOTE | 2020-09-28 00:52 | Tele-ICU Progress Note ---
Subjective Date Seen by a Provider: Sep 28, 2020 Time Seen by a Provider: 00:51 Sepsis Event Evaluation Height, Weight, BMI Height: 5'6.00" Weight: 260lbs. 0.0oz. 117.613898sg; 43.49 BMI Method:Stated Exam Exam Patient acknowledged, consented, and participated in this virtual visit which was conducted using real time audio/video Vital Signs Date Time Temp Pulse Resp B/P (MAP) Pulse Ox O2 Delivery O2 Flow Rate FiO2 09/27/20 23:00 106 38 200/101 (134) 97 NIV Bilevel 100.00 09/27/20 22:00 109 27 163/131 (142) 94 NIV Bilevel 100.00 09/27/20 21:48 120 55 93 100.00 09/27/20 21:00 105 09/27/20 21:00 117 44 199/117 (144) 98 NIV Bilevel 100.00 09/27/20 20:00 114 32 200/113 (142) 100 NIV Bilevel 100.00 09/27/20 20:00 95 NIV Bilevel 100 09/27/20 19:36 35.8 09/27/20 19:00 105 43 204/134 (157) 98 NIV Bilevel 100.00 09/27/20 19:00 105 09/27/20 18:31 108 44 93 100.00 09/27/20 18:00 100 42 201/108 (139) 97 NIV Bilevel 100.00 09/27/20 17:00 102 51 207/121 (149) 96 NIV Bilevel 100.00 09/27/20 16:00 92 NIV Bilevel 100 09/27/20 16:00 87 52 93 NIV Bilevel 100.00 09/27/20 15:00 101 43 160/102 (121) 84 NIV Bilevel 100.00 09/27/20 14:36 79 43 91 100.00 09/27/20 14:00 90 19 129/108 (115) 93 NIV Bilevel 100.00 09/27/20 13:00 85 10 87 NIV Bilevel 100.00 09/27/20 12:32 76 09/27/20 12:00 75 40 127/97 (107) 92 NIV Bilevel 100.00 09/27/20 12:00 92 NIV Bilevel 100 09/27/20 11:00 76 36 152/27 (68) 92 NIV Bilevel 100.00 09/27/20 10:04 74 41 91 100.00 09/27/20 10:00 74 40 130/101 (111) 92 NIV Bilevel 100.00 09/27/20 09:28 78 152/112 09/27/20 09:00 75 36 152/112 (125) 91 NIV Bilevel 100.00 09/27/20 08:00 92 NIV Bilevel 100 09/27/20 08:00 66 144/109 (121) 92 NIV Bilevel 100.00 09/27/20 07:54 36.0 09/27/20 07:41 77 34 93 100.00 09/27/20 07:00 76 148/108 (121) 93 NIV Bilevel 100.00 09/27/20 06:00 77 143/100 (114) 93 NIV Bilevel 100.00 09/27/20 05:10 82 09/27/20 05:00 77 138/99 (112) 92 NIV Bilevel 100.00 09/27/20 04:00 78 133/99 (110) 93 NIV Bilevel 100.00 09/27/20 04:00 36.2 NIV Bilevel 100.00 09/27/20 03:00 78 97/51 (66) 94 NIV Bilevel 100.00 09/27/20 02:00 78 151/29 (69) 96 NIV Bilevel 100.00 09/27/20 01:53 79 41 93 100.00 09/27/20 01:00 80 135/114 (121) 92 NIV Bilevel 100.00 09/27/20 01:00 80 I & O 09/28/20 07:00 Intake Total 951 ml Output Total 1500 ml Balance -549 ml Height & Weight Height: 5'6.00" Weight: 260lbs. 0.0oz. 117.360427sk; 43.49 BMI Method:Stated General Appearance: No Apparent Distress, WD/WN, Chronically ill HEENT: PERRL/EOMI, Normal ENT Inspection, Pharynx Normal, Moist Mucous Membranes Neck: Full Range of Motion, Normal Inspection, Non Tender Respiratory: Lungs Clear, Normal Breath Sounds, Decreased Breath Sounds Cardiovascular: Regular Rate, Rhythm Capillary Refill: Less Than 3 Seconds Peripheral Pulses: 1+ Dorsalis Pedis (R), 1+ Left Dors-Pedis (L) Gastrointestinal: non tender, soft, no organomegaly Extremity: Normal Capillary Refill, Normal Inspection, Normal Range of Motion, Non Tender, No Calf Tenderness, No Pedal Edema Neurologic/Psychiatric: Alert, Oriented x3 Skin: Normal Color, Warm/Dry Lymphatic: No Adenopathy Results Lab Laboratory Tests 09/26/20 03:55 09/27/20 02:25 Assessment/Plan Assessment/Plan Acute hypoxemic resp failure covid pna -intubated ac 24/450/100/12 goals pulse ox>90 p pl<30 propofol fentanyl may need proning ABUNDIO CASTILLO MD Sep 28, 2020 00:52
[2020-09-28] MEDS ORDERED: fentaNYL DRIP PRE-MIX 250 ML IV ONE (00:54)
[2020-09-28] MEDS: fentaNYL DRIP PRE-MIX 250 ML IV SCH ×4 (00:56→20:49)
[2020-09-28] MEDS: PROPOFOL DRIP (ICU) 100 ML IV SCH ×9 (01:10→23:52)
[2020-09-28 01:38] LABS: ABG BASE EXCESS -2.1 MMOL/L (-2.5-2.5); ABG OXYGEN SATURATION 86 % (94-100); ABG PCO2 49 MMHG (35-45); ABG PO2 57 MMHG (79-93); ABG TCO2 25.3 MMOL/L (21.0-31.0)
[2020-09-28 01:39] LABS: ALLENS TEST YES-POS; INSPIRED O2 100%; VENTILATOR YES
[2020-09-28 01:40] LABS: PATIENT TEMP 35.7
[2020-09-28] MEDS ORDERED: NS (IVPB) 250 ML IV ONE (02:00)
[2020-09-28] MEDS: NOREPINEPHRINE 8 MG/250 ML 250 ML IV SCH ×2 (02:57→14:15)
[2020-09-28 04:07] LABS: BASOPHILS % (AUTO) 0 % (0-10); EOSINOPHILS % (AUTO) 0 % (0-10); HEMATOCRIT 47 % (40-54); HEMOGLOBIN 15.1 g/dL (13.3-17.7); LYMPHOCYTES # (AUTO) 0.5 10^3/uL (1.0-4.0); LYMPHOCYTES % (AUTO) 3 % (12-44); MEAN CORPUSCULAR HEMOGLOBIN 25 pg (25-34); MEAN CORPUSCULAR HGB CONC 32 g/dL (32-36); MEAN CORPUSCULAR VOLUME 78 fL (80-99); MEAN PLATELET VOLUME 10.4 fL (9.0-12.2); MONOCYTES # (AUTO) 0.7 10^3/uL (0.0-1.0); MONOCYTES % (AUTO) 5 % (0-12); NEUTROPHILS # (AUTO) 13.4 10^3/uL (1.8-7.8); NEUTROPHILS % (AUTO) 91 % (42-75); PLATELET COUNT 363 10^3/uL (130-400); WHITE BLOOD COUNT 14.7 10^3/uL (4.3-11.0)
[2020-09-28 04:18] LABS: POTASSIUM 4.5 MMOL/L (3.6-5.0)
[2020-09-28 04:19] LABS: CALCIUM 8.6 MG/DL (8.5-10.1)
[2020-09-28 04:23] LABS: CREATININE SERUM 1.23 MG/DL (0.60-1.30); PHOSPHORUS 4.2 MG/DL (2.3-4.7)
[2020-09-28 04:25] LABS: MAGNESIUM 2.3 MG/DL (1.6-2.4)
[2020-09-28] MEDS: POTASSIUM CL 10MEQ/50ML IVPB 50 ML IV SCH (04:38)
[2020-09-28] MEDS: KCL 20 MEQ TAB (K-DUR) PO SCH (04:38)
[2020-09-28] MEDS: MAGNESIUM 1 GM/100 ML IVPB 100 ML IV SCH (04:38)
[2020-09-28] MEDS: inSUlin ASPART (NovoLOG) 1 UNIT/0.01 ML (CHARGE PER UNIT) SC SCH ×3 (06:07→17:39)
--- NOTE | 2020-09-28 06:17 | ED General ---
General Chief Complaint: Respiratory Problems Stated Complaint: COVID 19, C HYPOXIA, NONISCHEMIC CARDIAMOPANY Nursing Triage Note: PT PRESENTS TO THE ED C/O SOB THAT HAS BEEN PROGRESSIVELY WORSENING FOR THREE DAYS. PT STATES HE WAS DX WITH COVID THREE DAYS AGO. VERBALIZES EXERTIONAL SOB AND MID STERNAL CP AND FEVER. PT ALSO REPORTS LOOSE STOOLS THAT ONSET TODAY Nursing Sepsis Screen: No Definite Risk Source of Information: RN/MD History of Present Illness Date Seen by Provider: Sep 28, 2020 Time Seen by Provider: 00:30 Initial Comments Called to ICU bed 6 for CODE BLUE. Found patient tachycardic with a pulse, respirations being assisted by BVM. Patient poorly responsive. Reportedly had taken off his BiPAP and RT found him satting 40%. Patient was RSI'd with 50 mg of rocuronium and 20 mg of etomidate, 7.5 ET tube was passed successfully after one attempt with the glide scope. Positive color change on CO2 detector, bilateral breath sounds auscultated, fogging the tube. Saturations during intubation were noted to be at 80% Patient is Covid positive. Proper PPE was used. Allergies and Home Medications Allergies Coded Allergies: No Known Drug Allergies (Unverified , 06/21/18) Home Medications Amlodipine Besylate 10 Mg Tablet, 10 MG PO DAILY, (Reported) LAST FILLED 04-04-2020 #90/90 DAY SUPPLY Last Action: Reviewed Aspirin 81 Mg Tablet.dr, 81 MG PO DAILY, (Reported) Last Action: Reviewed Carvedilol 3.125 Mg Tablet, 3.125 MG PO BID, (Reported) Last Action: Reviewed Cetirizine HCl 10 Mg Tablet, 10 MG PO DAILY, (Reported) Last Action: Reviewed Dulaglutide 0.75 Mg/0.5 Ml Pen.injctr, 0.75 MG SC FRI, (Reported) Last Action: Reviewed Furosemide 20 Mg Tablet, 20 MG PO DAILY, (Reported) Last Action: Reviewed Pioglitazone HCl 30 Mg Tablet, 30 MG PO DAILY, (Reported) Last Action: Reviewed Potassium Chloride 10 Meq Tab.er.prt, 10 MEQ PO DAILY, (Reported) Last Action: Reviewed Sacubitril/Valsartan 1 Each Tablet, 1 EA PO BID, (Reported) Last Action: Reviewed Tamsulosin HCl 0.4 Mg Cap, 0.4 MG PO DAILY, (Reported) Last Action: Reviewed Patient Home Medication List Home Medication List Reviewed: Yes Review of Systems Review of Systems Constitutional: see HPI Past [id number] Hx Patient Social History Tobacco Use?: Yes Tobacco type used: Cigarettes Smoking Status: Current Everyday Smoker Use of E-Cig and/or Vaping dev: No Substance use?: Yes Substance type: Amphetamines, Marijuana Additional substance use comme: cocaine hx Substance frequency: Once in a while Alcohol Use?: No Alcohol Frequency: Once in a while Pt feels they are or have been: No Immunizations Up To Date Tetanus Booster (TDap): Unknown PED Vaccines UTD: Yes Influenza Vaccine Up-to-Date: No; Not Current Seasonal Allergies Seasonal Allergies: No Past Medical History Surgeries: Yes (CARDIAC CATH) Cardiac Respiratory: Yes COPD Currently Using CPAP: No Cardiac: Yes (NON-ISCHEMIC CARDIOMYOPATHY; CHF; TYPE 2 PR DUE TO CHF 05/2018) Cardiomyopathy, Heart Attack, High Cholesterol, Hypertension Neurological: No Genitourinary: No Gastrointestinal: No Musculoskeletal: Yes Arthritis Endocrine: Yes Diabetes, Non-Insulin dep HEENT: No Cancer: No Psychosocial: Yes Depression Integumentary: No Blood Disorders: No Family Medical History Diabetes SOCIAL HISTORY: -ETOH--REGULAR USE--STATES UP TO A PINT/DAY -DRUGS--SNORTS COCAINE, SMOKES THC -SMOKES 1-2 PPD SURGERIES: -CARDIAC CATH 06/21/18--NO CORNARY DISEASE/NO INTERVENTION; NON-ISCHEMIC CHF WITH DILATED CARDIOMYOPATHY, 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 LONG HISTORY OF NON-COMPLIANCE Physical Exam Vital Signs Vital Signs - First Documented 09/22/20 19:34 Temp 39.7 Pulse 118 Resp 26 B/P (MAP) 141/127 (132) Pulse Ox 93 O2 Delivery Room Air Capillary Refill : Less Than 3 Seconds Height, Weight, BMI Height: 5'6.00" Weight: 260lbs. 0.0oz. [id number]; 43.49 BMI Method:Stated General Appearance: Severe Distress Respiratory: Decreased Breath Sounds, Other (Respirations assisted by BVM) Cardiovascular: Tachycardia Procedures/Interventions Date of ETT Placement: Sep 28, 2020 Time of ETT Placement: 37 Tube Size: 7.50 Progress/Results/Core Measures Suspected Sepsis Infection Criteria Present: Documented Infection Sepsis Screen: No Definite Risk SIRS Temperature: Pulse: 107 Respiratory Rate: 30 Blood Pressure 124 /92 Mean: 103 Results/Orders Lab Results Laboratory Tests Test 09/22/20 19:57 09/22/20 20:36 Range/Units White Blood Count 4.6 4.3-11.0 10^3/uL Red Blood Count 6.14 H 4.30-5.52 10^6/uL Hemoglobin 15.6 13.3-17.7 g/dL Hematocrit 48 40-54 % Mean Corpuscular Volume 79 L 80-99 fL Mean Corpuscular Hemoglobin 25 25-34 pg Mean Corpuscular Hemoglobin Concent 32 32-36 g/dL Red Cell Distribution Width 15.6 H 10.0-14.5 % Platelet Count 249 130-400 10^3/uL Mean Platelet Volume 9.8 9.0-12.2 fL Immature Granulocyte % (Auto) 0 % Neutrophils (%) (Auto) 80 H 42-75 % Lymphocytes (%) (Auto) 15 12-44 % Monocytes (%) (Auto) 5 0-12 % Eosinophils (%) (Auto) 0 0-10 % Basophils (%) (Auto) 0 0-10 % Neutrophils # (Auto) 3.7 1.8-7.8 10^3/uL Lymphocytes # (Auto) 0.7 L 1.0-4.0 10^3/uL Monocytes # (Auto) 0.2 0.0-1.0 10^3/uL Eosinophils # (Auto) 0.0 0.0-0.3 10^3/uL Basophils # (Auto) 0.0 0.0-0.1 10^3/uL Immature Granulocyte # (Auto) 0.0 0.0-0.1 10^3/uL Sodium Level 136 135-145 MMOL/L Potassium Level 4.3 3.6-5.0 MMOL/L Chloride Level 101 98-107 MMOL/L Carbon Dioxide Level 24 21-32 MMOL/L Anion Gap 11 5-14 MMOL/L Blood Urea Nitrogen 8 7-18 MG/DL Creatinine 1.08 0.60-1.30 MG/DL Estimat Glomerular Filtration Rate 85 BUN/Creatinine Ratio 7 Glucose Level 208 H 70-105 MG/DL Calcium Level 8.8 8.5-10.1 MG/DL Corrected Calcium 9.1 8.5-10.1 MG/DL Total Bilirubin 0.4 0.1-1.0 MG/DL Aspartate Amino Transf (AST/SGOT) 30 5-34 U/L Alanine Aminotransferase (ALT/SGPT) 24 0-55 U/L Alkaline Phosphatase 73 40-136 U/L Troponin I 0.043 H <0.028 NG/ML C-Reactive Protein High Sensitivity 7.93 H 0.00-0.50 MG/DL B-Type Natriuretic Peptide 14.0 <100.0 PG/ML Total Protein 7.4 6.4-8.2 GM/DL Albumin 3.6 3.2-4.5 GM/DL Urine Color YELLOW Urine Clarity SL CLOUDY Urine pH 7.0 5-9 Urine Specific [place] 1.025 H 1.016-1.022 Urine Protein 2+ H NEGATIVE Urine Glucose (UA) 2+ H NEGATIVE Urine Ketones NEGATIVE NEGATIVE Urine Nitrite NEGATIVE NEGATIVE Urine Bilirubin NEGATIVE NEGATIVE Urine Urobilinogen 1.0 < = 1.0 MG/DL Urine Leukocyte Esterase NEGATIVE NEGATIVE Urine RBC (Auto) TRACE-I NEGATIVE Urine RBC NONE /HPF Urine WBC 0-2 /HPF Urine Squamous Epithelial Cells NONE /HPF Urine Renal Epithelial Cells NONE /HPF Urine Crystals NONE /LPF Urine Bacteria NEGATIVE /HPF Urine Casts NONE /LPF Urine Mucus NEGATIVE /LPF Urine Culture Indicated NO Urine Opiates Screen NEGATIVE NEGATIVE Urine Oxycodone Screen NEGATIVE NEGATIVE Urine Methadone Screen NEGATIVE NEGATIVE Urine Propoxyphene Screen NEGATIVE NEGATIVE Urine Barbiturates Screen NEGATIVE NEGATIVE Ur Tricyclic Antidepressants Screen NEGATIVE NEGATIVE Urine Phencyclidine Screen NEGATIVE NEGATIVE Urine Amphetamines Screen NEGATIVE NEGATIVE Urine Methamphetamines Screen NEGATIVE NEGATIVE Urine Benzodiazepines Screen NEGATIVE NEGATIVE Urine Cocaine Screen POSITIVE H NEGATIVE Urine Cannabinoids Screen POSITIVE H NEGATIVE Vital Signs/I&O 09/22/20 19:34 Temp 39.7 Pulse 118 Resp 26 B/P (MAP) 141/127 (132) Pulse Ox 93 O2 Delivery Room Air Capillary Refill : Less Than 3 Seconds Blood Pressure Mean: 103 Point of Care Testing Finger Stick Blood Glucose: 142 Blood Glucose Action Taken: rn notified Diagnostic Imaging Diagonstic Imaging: Xray Departure Impression Primary Impression: COVID-19 Additional Impressions: Obesity RESPIRATORY FAILURE, UNSP, UNSP W HYPOXIA OR HYPERCAPNIA Disposition: ADMITTED INPATIENT Condition: Stable Admissions Decision to Admit Reason: Admit from ER (General) Decision to Admit/Date: Sep 22, 2020 Time/Decision to Admit Time: 21:28 Departure-Patient Inst. Referrals: [facility] (PCP) Primary Care Physician Patient Instructions: COVID-19 (DC) MELA KNOX MD Sep 28, 2020 06:17
[2020-09-28] MEDS: CATHETER FLUSH 10 ML SYR IV SCH ×3 (06:33→22:05)
[2020-09-28] MEDS ORDERED: ROCURONIUM 10 MG/ML 5 ML SYRINGE IV ONE (07:05)
[2020-09-28] MEDS ORDERED: ETOMIDATE IV SOLN 20 MG/10 ML VIAL IV ONE (07:05)
--- NOTE | 2020-09-28 07:29 | Diagnostic Imaging Report ---
INDICATION: COVID patient, intubation. Compared 1 day prior FINDINGS: An ET tube has been placed its tip is in the lower thoracic trachea just above the julieta. Left IJ catheter has its tip at the lower SVC stable. This patient has severe 5 lobe infiltrates likely progressed but we acknowledge limitations on the basis of body habitus. There is no detectable pneumothorax or obvious substantial pleural fluid volume. An OG catheter is placed it courses along the esophagus however its distal component cannot be radiographically discerned. IMPRESSION: Likely worsened and severe 5 lobe airspace disease. The ET tube has been placed in the lower thoracic trachea just above the julieta. There is no pneumothorax. There is an esophageal catheter with its distal tip not defined. Dictated by: Dictated on workstation # [id number]
[2020-09-28] MEDS: RT-ALBUTEROL INHALER HFA (VENTOLIN HFA) 18 GM IH SCH ×3 (07:35→18:55)
[2020-09-28] MEDS: THIAMINE INJECTION 100 MG in NS (IVPB) 50 ML IV SCH (08:24)
[2020-09-28] MEDS: SENNA W/DOCUSATE (SENOKOT S) TABLET PO SCH ×2 (08:24→20:50)
[2020-09-28] MEDS: KCL 10 MEQ TAB (MICRO K) PO SCH (08:24)
[2020-09-28] MEDS: amLODIPine 10 MG (NORVASC) TAB PO SCH ×2 (08:25→09:01)
[2020-09-28] MEDS: ASPIRIN E.C. 81 MG (ECOTRIN) TAB PO SCH (08:25)
[2020-09-28] MEDS: FUROSEMIDE 40 MG/4 ML INJ (LASIX) IVP SCH (08:26)
[2020-09-28] MEDS ORDERED: NS IV 1000 ML 1,000 ML ONE (08:28)
[2020-09-28] MEDS: ENOXAPARIN 300 MG/3 ML (LOVENOX) MULTI-DOSE VIAL SQ SCH ×2 (08:33→20:49)
[2020-09-28] MEDS: LIDOCAINE JELLY 2% 6 ML SYRINGE TOP SCH ×2 (09:01→14:15)
--- NOTE | 2020-09-28 09:16 | Cardiology Progress Note ---
Progress Note-Cardiology Events since last exam Date Seen by Provider: Sep 28, 2020 Time Seen by Provider: 09:11 Events since last exam We are seeing him due to elevated troponin and history of cardiomyopathy. Ov enrique his pulmonary status worsened. He was intubated and placed on mechanical ventilation. He is now intubated/sedation on 100% FiO2. I did not enter his room due to his Covid status. Vitals Last set of Vitals Signs Vital Signs 09/28/20 09/28/20 09/28/20 09/28/20 15:58 16:12 18:00 18:29 Temp 36.4 Pulse 77 Resp 29 B/P (MAP) 128/80 Pulse Ox 93 O2 Delivery Mechanical Ventilator O2 Flow Rate 90.00 FiO2 90 Labs Labs Laboratory Tests 09/28/20 03:55 Exam Vital Signs Vital Signs Date Time Temp Pulse Resp B/P (MAP) Pulse Ox O2 Delivery O2 Flow Rate FiO2 09/28/20 18:29 77 128/80 09/28/20 18:00 29 93 Mechanical Ventilator 90.00 09/28/20 16:12 90 09/28/20 15:58 36.4 Physical Exam Not examined today due to Covid status. Labs Laboratory Tests Test 09/27/20 20:34 09/28/20 01:15 09/28/20 03:55 09/28/20 05:50 Range/Units Glucometer 142 H 70-110 MG/DL Blood Gas Puncture Site R RAD Blood Gas Patient Temperature 35.7 Arterial Blood pH 7.30 *L 7.37-7.43 Arterial Blood Partial Pressure CO2 49 H 35-45 MMHG Arterial Blood Partial Pressure O2 57 L 79-93 MMHG Arterial Blood HCO3 24 23-27 MMOL/L Arterial Blood Total CO2 25.3 21.0-31.0 MMOL/L Arterial Blood Oxygen Saturation 86 L 94-100 % Arterial Blood Base Excess -2.1 -2.5-2.5 MMOL/L Derick Test YES-POS Blood Gas Ventilator Setting YES Blood Gas Inspired Oxygen 100% White Blood Count 14.7 H 4.3-11.0 10^3/uL Red Blood Count 5.95 H 4.30-5.52 10^6/uL Hemoglobin 15.1 13.3-17.7 g/dL Hematocrit 47 40-54 % Mean Corpuscular Volume 78 L 80-99 fL Mean Corpuscular Hemoglobin 25 25-34 pg Mean Corpuscular Hemoglobin Concent 32 32-36 g/dL Red Cell Distribution Width 15.3 H 10.0-14.5 % Platelet Count 363 130-400 10^3/uL Mean Platelet Volume 10.4 9.0-12.2 fL Immature Granulocyte % (Auto) 1 % Neutrophils (%) (Auto) 91 H 42-75 % Lymphocytes (%) (Auto) 3 L 12-44 % Monocytes (%) (Auto) 5 0-12 % Eosinophils (%) (Auto) 0 0-10 % Basophils (%) (Auto) 0 0-10 % Neutrophils # (Auto) 13.4 H 1.8-7.8 10^3/uL Lymphocytes # (Auto) 0.5 L 1.0-4.0 10^3/uL Monocytes # (Auto) 0.7 0.0-1.0 10^3/uL Eosinophils # (Auto) 0.0 0.0-0.3 10^3/uL Basophils # (Auto) 0.0 0.0-0.1 10^3/uL Immature Granulocyte # (Auto) 0.1 0.0-0.1 10^3/uL Sodium Level 137 135-145 MMOL/L Potassium Level 4.5 3.6-5.0 MMOL/L Chloride Level 102 98-107 MMOL/L Carbon Dioxide Level 23 21-32 MMOL/L Anion Gap 12 5-14 MMOL/L Blood Urea Nitrogen 29 H 7-18 MG/DL Creatinine 1.23 0.60-1.30 MG/DL Estimat Glomerular Filtration Rate 73 BUN/Creatinine Ratio 24 Glucose Level 224 H 70-105 MG/DL Calcium Level 8.6 8.5-10.1 MG/DL Phosphorus Level 4.2 2.3-4.7 MG/DL Magnesium Level 2.3 1.6-2.4 MG/DL C-Reactive Protein High Sensitivity 13.22 H 0.00-0.50 MG/DL Triglycerides Level 235 H <150 MG/DL Procalcitonin 0.43 H <0.10 NG/ML Test 09/28/20 06:05 09/28/20 11:17 09/28/20 17:34 Range/Units D-Dimer >= 20.00 H 0.00-0.49 UG/ML Glucometer 201 H 169 H 70-110 MG/DL Diagnosis/Problems Diagnosis/Problems (1) Troponin level elevated Assessment & Plan: His troponin level from this morning was higher than admission but was trending down this afternoon. I suspect he had a probable type II non-ST elevation myocardial infarction related to his anemia and acute pulmonary illness. If he survives this illness, then we may want to consider a cardiac catheterization down the road. However, his status is currently critical. He is now on a low dose of beta sanna as well as Aspirin and full dose enoxaparin. I will start moderate dose statin. (2) Acute on chronic diastolic heart failure Assessment & Plan: His most recent echocardiogram from earlier this year showed a normal ejection fraction. His more pressing pulmonary issue at this point seems to be the Covid infection. eICU and the hospitalist are managing his pulmonary status. We will need to watch his renal function closely with the IV diuretic. (3) Cardiomyopathy Assessment & Plan: As above, his ejection fraction recovered with guideline directed medical therapy. Continue carvedilol. (4) Morbid obesity Assessment & Plan: He needs to work on weight loss. RASHAWN SANCHEZ JR, MD Sep 28, 2020 09:16
--- NOTE | 2020-09-28 11:32 | Progress Note ---
Standard Progress Note Progress Notes/Assess & Plan Date Seen by a Provider: Sep 28, 2020 Time Seen by a Provider: 11:28 Progress/Assessment & Plan Still on high vent support, needing IV levo 0.01 On PEEP 12 CXR showing extensive infiltrates bilaterally, has quick drops in 80's if turned very high d dimer on full anti coagulation finished remdesivir will continue present vent settings and meds SNEHA LASSITER MD Sep 28, 2020 11:32
--- NOTE | 2020-09-28 12:12 | Anesthesia-Procedure Note ---
Procedures/Interventions Procedure Start/Stop/Diagnosis Date of Procedure: Sep 28, 2020 Start Time: 10:45 Stop Time: 10:56 Arterial Line Arterial Line Catheter: 20G Type: Radial Location: Right Procedure: prepped, draped in sterile fashion, patient tolerated procedure well, no immediate complications, post procedure area cleaned, post procedure dressing applied JIMBO BURNS CRNA Sep 28, 2020 12:12
[2020-09-28] MEDS: AZITHROMYCIN INJECTION 500 MG in NS (IVPB) 250 ML IV SCH (18:29)
[2020-09-28] MEDS: TAMSULOSIN 0.4 MG (FLOMAX) CAP PO SCH (18:36)
--- NOTE | 2020-09-28 19:29 | Progress Note - Hospitalist ---
Subjective HPI/CC On Admission Date Seen by Provider: Sep 28, 2020 Time Seen by Provider: 09:25 Chief complaint: COVID-19 pneumonia History of present illness: This is a 60-year-old white male clinic patient of [facility] who has a past medical history of hypertension and CAD who normally wears 2 L of oxygen at night who presented to the ER with shortness of breath and increasing work of breathing found to have elevated troponin and indications for admission. Currently patient is feeling much better and ready to eat lunch. I restarted all of his pain medication and home medication for hypertension. He does have a history of cardiomyopathy. His urine drug screen showed use of cocaine. Subjective/Events-last exam He is intubated and sedated. Objective Exam Vital Signs Vital Signs Date Time Temp Pulse Resp B/P (MAP) Pulse Ox O2 Delivery O2 Flow Rate FiO2 09/28/20 18:56 77 24 96 100 09/28/20 18:29 128/80 09/28/20 18:00 Mechanical Ventilator 90.00 09/28/20 15:58 36.4 Capillary Refill : Less Than 3 Seconds General Appearance: No Apparent Distress, Obese Respiratory: Lungs Clear, No Respiratory Distress, Other (intubated and mechanically ventilated) Cardiovascular: Regular Rate, Rhythm, No Edema, No Murmur Gastrointestinal: Normal Bowel Sounds, Soft; No Distended Extremity: Normal Inspection, No Pedal Edema Neurologic/Psychiatric: Other (sedated) Skin: Normal Color, Warm/Dry Results/Procedures Lab Laboratory Tests 09/28/20 03:55 Patient resulted labs reviewed. Assessment/Plan Assessment and Plan Assess & Plan/Chief Complaint ARDS due to COVID-19 Endotracheally intubated Hypercoagulable state associated with COVID-19 Bacterial pneumonia High ventilator requirements TeleICU assisting Decadron s/p Remdesivir Cefepime and Azithromycin D-dimer significantly elevated Transition to therapeutic Lovenox Cardiomyopathy Cocaine use Elevated troponin Troponin normalized Cardiology following Morbid obesity Clinically significant, no acute management needs Diagnosis/Problems Diagnosis/Problems (1) Acute respiratory distress syndrome (ARDS) due to COVID-19 virus Status: Acute (2) Hypercoagulable state associated with COVID-19 Status: Acute (3) Bacterial pneumonia Status: Acute (4) Endotracheally intubated Status: Acute (5) Hypertension Status: Chronic (6) Troponin level elevated Status: Acute (7) Cocaine use Status: Chronic (8) Tobacco abuse Status: Chronic (9) Morbid obesity Status: Chronic FIFI CARVAJAL MD Sep 28, 2020 19:29
[2020-09-28] MEDS: ROSUVASTATIN 20 MG (CRESTOR) TABLET PO SCH (20:49)
[2020-09-28] MEDS: dexAMETHasone 6 MG TAB (DECADRON) PO SCH (20:49)
[2020-09-29] VITALS (30 sets, daily range): BP systolic 93–148; BP diastolic 63–81
[2020-09-29] MEDS: inSUlin ASPART (NovoLOG) 1 UNIT/0.01 ML (CHARGE PER UNIT) SC SCH ×4 (00:07→18:04)
[2020-09-29] MEDS: NOREPINEPHRINE 8 MG/250 ML 250 ML IV SCH ×3 (00:23→22:45)
[2020-09-29] MEDS: PROPOFOL DRIP (ICU) 100 ML IV SCH ×8 (02:24→22:35)
[2020-09-29 02:30] LABS: BASOPHILS % (AUTO) 0 % (0-10); EOSINOPHILS % (AUTO) 0 % (0-10); HEMATOCRIT 47 % (40-54); HEMOGLOBIN 15.1 g/dL (13.3-17.7); LYMPHOCYTES # (AUTO) 0.9 10^3/uL (1.0-4.0); LYMPHOCYTES % (AUTO) 7 % (12-44); MEAN CORPUSCULAR HEMOGLOBIN 26 pg (25-34); MEAN CORPUSCULAR HGB CONC 32 g/dL (32-36); MEAN CORPUSCULAR VOLUME 80 fL (80-99); MEAN PLATELET VOLUME 10.5 fL (9.0-12.2); MONOCYTES # (AUTO) 0.5 10^3/uL (0.0-1.0); MONOCYTES % (AUTO) 4 % (0-12); NEUTROPHILS # (AUTO) 10.5 10^3/uL (1.8-7.8); NEUTROPHILS % (AUTO) 87 % (42-75); PLATELET COUNT 336 10^3/uL (130-400); WHITE BLOOD COUNT 12.1 10^3/uL (4.3-11.0)
[2020-09-29 02:31] LABS: ABG BASE EXCESS 2.1 MMOL/L (-2.5-2.5); ABG OXYGEN SATURATION 85 % (94-100); ABG PCO2 50 MMHG (35-45); ABG PH 7.35 (7.37-7.43); ABG PO2 53 MMHG (79-93); ABG TCO2 28.9 MMOL/L (21.0-31.0)
[2020-09-29 02:35] LABS: POTASSIUM 4.7 MMOL/L (3.6-5.0)
[2020-09-29 02:36] LABS: CALCIUM 8.4 MG/DL (8.5-10.1)
[2020-09-29 02:37] LABS: ALLENS TEST ART LINE; INSPIRED O2 90%; PATIENT TEMP 36.2; VENTILATOR YES
[2020-09-29 02:40] LABS: CREATININE SERUM 0.84 MG/DL (0.60-1.30); PHOSPHORUS 2.3 MG/DL (2.3-4.7)
[2020-09-29 02:43] LABS: MAGNESIUM 2.4 MG/DL (1.6-2.4)
[2020-09-29] MEDS: POTASSIUM CL 10MEQ/50ML IVPB 50 ML IV SCH (03:13)
[2020-09-29] MEDS: MAGNESIUM 1 GM/100 ML IVPB 100 ML IV SCH (03:13)
[2020-09-29] MEDS: KCL 20 MEQ TAB (K-DUR) PO SCH (03:14)
[2020-09-29] MEDS: fentaNYL DRIP PRE-MIX 250 ML IV SCH ×3 (05:23→20:59)
[2020-09-29] MEDS: CEFEPIME INJECTION 1,000 MG in WATER (STERILE) FOR INJECTION 10 ML IV SCH ×3 (05:23→17:49)
[2020-09-29] MEDS: DexMEDEtomidine 250 ML DRIP 250 ML IV SCH ×3 (05:24→20:59)
[2020-09-29] MEDS: CATHETER FLUSH 10 ML SYR IV SCH ×3 (06:27→22:13)
[2020-09-29] MEDS: RT-ALBUTEROL INHALER HFA (VENTOLIN HFA) 18 GM IH SCH ×3 (06:51→19:03)
[2020-09-29] MEDS: ENOXAPARIN 300 MG/3 ML (LOVENOX) MULTI-DOSE VIAL SQ SCH ×2 (08:30→20:57)
[2020-09-29] MEDS: FUROSEMIDE 40 MG/4 ML INJ (LASIX) IVP SCH (08:31)
[2020-09-29] MEDS: SENNA W/DOCUSATE (SENOKOT S) TABLET PO SCH ×2 (08:31→20:58)
[2020-09-29] MEDS: ASPIRIN 81 MG CHEW (CHILDREN'S ASA) PO SCH (08:31)
[2020-09-29] MEDS: KCL 10 MEQ TAB (MICRO K) PO SCH (08:31)
[2020-09-29] MEDS: THIAMINE INJECTION 100 MG in NS (IVPB) 50 ML IV SCH (08:32)
[2020-09-29] MEDS: LACRI-LUBE OPTHALMIC OINT 3.5 GM TUBE OU SCH ×2 (08:48→20:59)
--- NOTE | 2020-09-29 09:26 | Cardiology Progress Note ---
Progress Note-Cardiology Events since last exam Date Seen by Provider: Sep 29, 2020 Time Seen by Provider: 09:21 Events since last exam We are seeing him due to minimally elevated troponin level. He remains in the ICU intubated and sedated. I did not see the patient due to his Covid status. I reviewed his telemetry and he has not had any significant arrhythmias. Certain portions of this document may have been dictated utilizing voice recognition technology. Inherent to this technology, typographical and grammatical errors may exist. As much as I am diligent to identify and correct these mistakes, some errors may remain in the document. Vitals Last set of Vitals Signs Vital Signs 09/29/20 09/29/20 09/29/20 09/29/20 06:51 08:00 08:29 08:50 Temp 37.0 Pulse 79 Resp 24 B/P (MAP) 127/78 Pulse Ox 97 O2 Delivery Mechanical Ventilator O2 Flow Rate 90.00 FiO2 90 Labs Labs Laboratory Tests 09/29/20 02:15 Exam Vital Signs Vital Signs Date Time Temp Pulse Resp B/P (MAP) Pulse Ox O2 Delivery O2 Flow Rate FiO2 09/29/20 08:50 37.0 09/29/20 08:29 79 127/78 09/29/20 08:00 24 97 Mechanical Ventilator 90.00 09/29/20 06:51 90 Physical Exam I did not examine the patient or enter his room due to his Covid status. Labs Laboratory Tests Test 09/28/20 11:17 09/28/20 17:34 09/28/20 23:45 09/29/20 02:15 Range/Units Glucometer 201 H 169 H 134 H 70-110 MG/DL White Blood Count 12.1 H 4.3-11.0 10^3/uL Red Blood Count 5.92 H 4.30-5.52 10^6/uL Hemoglobin 15.1 13.3-17.7 g/dL Hematocrit 47 40-54 % Mean Corpuscular Volume 80 80-99 fL Mean Corpuscular Hemoglobin 26 25-34 pg Mean Corpuscular Hemoglobin Concent 32 32-36 g/dL Red Cell Distribution Width 15.9 H 10.0-14.5 % Platelet Count 336 130-400 10^3/uL Mean Platelet Volume 10.5 9.0-12.2 fL Immature Granulocyte % (Auto) 1 % Neutrophils (%) (Auto) 87 H 42-75 % Lymphocytes (%) (Auto) 7 L 12-44 % Monocytes (%) (Auto) 4 0-12 % Eosinophils (%) (Auto) 0 0-10 % Basophils (%) (Auto) 0 0-10 % Neutrophils # (Auto) 10.5 H 1.8-7.8 10^3/uL Lymphocytes # (Auto) 0.9 L 1.0-4.0 10^3/uL Monocytes # (Auto) 0.5 0.0-1.0 10^3/uL Eosinophils # (Auto) 0.0 0.0-0.3 10^3/uL Basophils # (Auto) 0.0 0.0-0.1 10^3/uL Immature Granulocyte # (Auto) 0.1 0.0-0.1 10^3/uL Blood Gas Puncture Site ARTLINE Blood Gas Patient Temperature 36.2 Arterial Blood pH 7.35 L 7.37-7.43 Arterial Blood Partial Pressure CO2 50 H 35-45 MMHG Arterial Blood Partial Pressure O2 53 L 79-93 MMHG Arterial Blood HCO3 27 23-27 MMOL/L Arterial Blood Total CO2 28.9 21.0-31.0 MMOL/L Arterial Blood Oxygen Saturation 85 L 94-100 % Arterial Blood Base Excess 2.1 -2.5-2.5 MMOL/L Derick Test ART LINE Blood Gas Ventilator Setting YES Blood Gas Inspired Oxygen 90% Sodium Level 142 135-145 MMOL/L Potassium Level 4.7 3.6-5.0 MMOL/L Chloride Level 107 98-107 MMOL/L Carbon Dioxide Level 23 21-32 MMOL/L Anion Gap 12 5-14 MMOL/L Blood Urea Nitrogen 22 H 7-18 MG/DL Creatinine 0.84 0.60-1.30 MG/DL Estimat Glomerular Filtration Rate 113 BUN/Creatinine Ratio 26 Glucose Level 155 H 70-105 MG/DL Calcium Level 8.4 L 8.5-10.1 MG/DL Phosphorus Level 2.3 2.3-4.7 MG/DL Magnesium Level 2.4 1.6-2.4 MG/DL Diagnosis/Problems Diagnosis/Problems (1) Troponin level elevated Status: Acute Assessment & Plan: His troponin level was borderline elevated and then a follow-up troponin level was undetectable. This was a probable type II non-ST elevation myocardial infarction related to his Covid infection with acute respiratory failure. He is on aspirin, beta-sanna, and intensive dose statin medication. If he recovers from this illness, we will consider additional cardi ac testing. At this point, cardiology does not have much else to offer since his primary problem is the Covid pneumonia. As such, cardiology will sign off. Please call if you have other questions or concerns. (2) Acute on chronic diastolic heart failure Assessment & Plan: His most recent echocardiogram from earlier this year showed a normal ejection fraction. His more pressing pulmonary issue at this point seems to be the Covid infection. eICU and the hospitalist are managing his pulmonary status. I would avoid overhydration as this could cause pulmonary edema on top of his Covid pneumonia. (3) Cardiomyopathy Assessment & Plan: As above, his ejection fraction recovered with guideline directed medical therapy. Continue carvedilol. As above, if he recovers from this acute pulmonary illness, we may want to consider a follow-up echocardiogram down the road. For the time being, an echocardiogram at this time would likely not change his management. (4) Morbid obesity Status: Chronic Assessment & Plan: This will need to be readdressed after discharge if he survives this illness. RASHAWN SANCHEZ JR, MD Sep 29, 2020 09:26
[2020-09-29] MEDS: amLODIPine 10 MG (NORVASC) TAB PO SCH (10:08)
--- NOTE | 2020-09-29 10:49 | Tele-ICU Progress Note ---
Subjective Date Seen by a Provider: Sep 29, 2020 Time Seen by a Provider: 10:15 Subjective/Events-last exam This virtual visit was conducted using real time audio/video. Thank you for asking us to see this patient for respiratory insufficiency due to Covid pna. HPC: Recent events: Intubated 09/28: AC 14 TV 450 100%/+14. PMH: obesity, tob and subst abuse DM CMP. SH: smoking history Y FH: Non-contributory ROS: limited by patient's clinical condition. PE: Comfortable on vent.morbidly obese. VSS HR 80 BP 112/73 RR 24 O2 97% sat on vent. HEENT: No obvious masses, adenopathy or JVD. Chest: clear to auscultation. CV: RRR S1 S2 No murmur or added sounds. Abd: Non-tender. Bowel sounds . : Unremarkable. [place] [employer]/psychiatric: Alert and oriented, grossly intact. No obvious focal findings. Extremities: edema. Capillary refill < 3 seconds. Skin: unremarkable. Results: Elevated WCC 12.1, BUN 22. . Decreased . A/P: Respiratory insufficiency/distress: cont present vent settings. Available chart/ vitals / labs / Images reviewed. AB.35/50/53. Video assessment done using teleICU camera, rest of exam as per RN. Monitor for increasing oxygenation needs and/or need for proning Critical Care: critically ill patient. Discussed with KEYANA Landeros. Asked RN to reach out to eICU if any questions or concerns later. Time spent with patient/coordination of care with other health professionals (mins):25 Sepsis Event Evaluation Height, Weight, BMI Height: 5'6.00" Weight: 260lbs. 0.0oz. 117.577235lx; 43.49 BMI Method:Stated Exam Exam Patient acknowledged, consented, and participated in this virtual visit which was conducted using real time audio/video Vital Signs Date Time Temp Pulse Resp B/P (MAP) Pulse Ox O2 Delivery O2 Flow Rate FiO2 09/29/20 10:26 80 24 96 90 09/29/20 09:00 80 24 129/78 (95) 95 Mechanical Ventilator 90.00 09/29/20 08:50 37.0 09/29/20 08:29 79 127/78 09/29/20 08:14 36.0 09/29/20 08:00 79 24 136/74 (94) 97 Mechanical Ventilator 90.00 09/29/20 08:00 96 Mechanical Ventilator 90 09/29/20 07:00 79 09/29/20 07:00 78 20 111/71 (84) 91 Mechanical Ventilator 90.00 09/29/20 06:51 78 25 92 90 09/29/20 06:00 78 17 112/74 (87) 92 Mechanical Ventilator 90.00 09/29/20 05:24 77 128/72 09/29/20 05:24 77 128/72 09/29/20 05:00 79 12 122/73 (89) 94 Mechanical Ventilator 90.00 09/29/20 04:00 78 28 116/73 (87) 91 Mechanical Ventilator 90.00 09/29/20 04:00 96 Mechanical Ventilator 90 09/29/20 03:15 37.3 09/29/20 03:00 77 23 128/72 (90) 90 Mechanical Ventilator 90.00 09/29/20 02:24 77 143/80 09/29/20 02:07 77 24 96 90 09/29/20 02:00 77 24 142/79 (100) 96 Mechanical Ventilator 90.00 09/29/20 01:27 77 09/29/20 01:00 77 24 139/78 (98) 96 Mechanical Ventilator 90.00 09/29/20 00:07 37.0 09/29/20 00:00 96 Mechanical Ventilator 90 09/29/20 00:00 77 24 148/81 (103) 96 Mechanical Ventilator 90.00 09/28/20 23:52 77 138/80 09/28/20 23:51 77 138/80 09/28/20 23:00 77 24 142/79 (100) 95 Mechanical Ventilator 90.00 09/28/20 22:06 77 24 96 90 09/28/20 22:00 77 24 137/78 (97) 96 Mechanical Ventilator 90.00 09/28/20 21:10 Mechanical Ventilator 100.00 09/28/20 21:00 77 24 138/80 (99) 96 Mechanical Ventilator 90.00 09/28/20 20:55 77 128/76 09/28/20 20:00 96 Mechanical Ventilator 100 09/28/20 20:00 77 24 127/77 (94) 96 Mechanical Ventilator 90.00 7/30/21 19:00 77 24 125/74 (91) 97 Mechanical Ventilator 90.00 09/28/20 19:00 77 09/28/20 18:56 77 24 96 100 09/28/20 18:29 77 128/80 09/28/20 18:28 77 129/80 09/28/20 18:00 77 29 129/78 (95) 93 Mechanical Ventilator 90.00 09/28/20 17:00 76 24 134/80 (98) 98 Mechanical Ventilator 90.00 09/28/20 16:12 96 Mechanical Ventilator 90 09/28/20 16:00 76 24 114/75 (88) 94 Mechanical Ventilator 90.00 09/28/20 15:58 36.4 09/28/20 15:26 76 24 90 100 09/28/20 15:10 Mechanical Ventilator 90.00 09/28/20 15:10 76 109/71 09/28/20 15:00 76 24 90/57 (68) 90 Mechanical Ventilator 100.00 09/28/20 14:00 77 24 98/63 (75) 95 Mechanical Ventilator 100.00 09/28/20 13:00 77 24 101/62 (75) 94 Mechanical Ventilator 100.00 09/28/20 13:00 78 09/28/20 12:29 96 Mechanical Ventilator 80 09/28/20 12:14 78 95/61 09/28/20 12:13 77 96/61 09/28/20 12:00 78 24 101/62 (75) 93 Mechanical Ventilator 100.00 09/28/20 11:48 36.7 09/28/20 11:35 78 24 96 80 09/28/20 11:00 79 24 96/74 (81) 96 Mechanical Ventilator 100.00 I & O 09/29/20 07:00 Intake Total 1311 ml Output Total 2300 ml Balance -989 ml Height & Weight Height: 5'6.00" Weight: 260lbs. 0.0oz. 117.866419va; 43.49 BMI Method:Stated General Appearance: No Apparent Distress, Obese HEENT: PERRL/EOMI, Normal ENT Inspection, Pharynx Normal, Moist Mucous Membranes Neck: Full Range of Motion, Normal Inspection, Non Tender Respiratory: Lungs Clear, No Respiratory Distress, Other (intubated and mechanically ventilated) Cardiovascular: Regular Rate, Rhythm, No Edema, No Murmur Capillary Refill: Less Than 3 Seconds Peripheral Pulses: 1+ Dorsalis Pedis (R), 1+ Left Dors-Pedis (L) Gastrointestinal: non tender, soft, no organomegaly Extremity: Normal Inspection, No Pedal Edema Neurologic/Psychiatric: Other (sedated) Skin: Normal Color, Warm/Dry Lymphatic: No Adenopathy Results Lab Laboratory Tests 09/28/20 03:55 09/29/20 02:15 Assessment/Plan Assessment/Plan see free text. Critical Care: Ventilator Management Time spent on discussion(mins): 0 Diagnosis/Problems Diagnosis/Problems (1) RESPIRATORY FAILURE, UNSP, UNSP W HYPOXIA OR HYPERCAPNIA (2) Substance abuse Status: Chronic (3) Tobacco abuse Status: Chronic MARK SARABIA MD Sep 29, 2020 10:49
--- NOTE | 2020-09-29 15:43 | Progress Note - Hospitalist ---
Subjective HPI/CC On Admission Date Seen by Provider: Sep 29, 2020 Time Seen by Provider: 07:20 Chief complaint: COVID-19 pneumonia History of present illness: This is a 60-year-old white male clinic patient of [facility] who has a past medical history of hypertension and CAD who normally wears 2 L of oxygen at night who presented to the ER with shortness of breath and increasing work of breathing found to have elevated troponin and indications for admission. Currently patient is feeling much better and ready to eat lunch. I restarted all of his pain medication and home medication for hypertension. He does have a history of cardiomyopathy. His urine drug screen showed use of cocaine. Subjective/Events-last exam He remains intubated and sedated. Objective Exam Vital Signs Vital Signs Date Time Temp Pulse Resp B/P (MAP) Pulse Ox O2 Delivery O2 Flow Rate FiO2 09/29/20 15:36 98 Mechanical Ventilator 80.00 09/29/20 15:00 82 24 96/70 (79) 09/29/20 14:40 90 09/29/20 12:00 37.5 Capillary Refill : Less Than 3 Seconds General Appearance: No Apparent Distress, Obese Respiratory: No Respiratory Distress, Decreased Breath Sounds, Other (intubated and mechanically ventilated) Cardiovascular: Regular Rate, Rhythm, No Edema, No Murmur Gastrointestinal: Normal Bowel Sounds, Soft; No Distended Extremity: Normal Inspection, Non Tender, No Pedal Edema Neurologic/Psychiatric: Other (sedated) Skin: Normal Color, Warm/Dry Results/Procedures Lab Laboratory Tests 09/29/20 02:15 Patient resulted labs reviewed. Imaging: Reviewed Imaging Report Assessment/Plan Assessment and Plan Assess & Plan/Chief Complaint ARDS due to COVID-19 Endotracheally intubated Hypercoagulable state associated with COVID-19 Bacterial pneumonia High ventilator requirements, down slightly today TeleICU assisting Decadron s/p Remdesivir Cefepime D-dimer significantly elevated Continue therapeutic Lovenox Cardiomyopathy Cocaine use Elevated troponin Troponin normalized Cardiology following Morbid obesity Clinically significant, no acute management needs Critical Care Ventilator Management Diagnosis/Problems Diagnosis/Problems (1) Acute respiratory distress syndrome (ARDS) due to COVID-19 virus Status: Acute (2) Hypercoagulable state associated with COVID-19 Status: Acute (3) Bacterial pneumonia Status: Acute (4) Endotracheally intubated Status: Acute (5) Hypertension Status: Chronic (6) Troponin level elevated Status: Acute (7) Cocaine use Status: Chronic (8) Tobacco abuse Status: Chronic (9) Morbid obesity Status: Chronic FIFI CARVAJAL MD Sep 29, 2020 15:43
[2020-09-29] MEDS: TAMSULOSIN 0.4 MG (FLOMAX) CAP PO SCH (17:49)
[2020-09-29] MEDS: ROSUVASTATIN 20 MG (CRESTOR) TABLET PO SCH (20:58)
[2020-09-29] MEDS: dexAMETHasone 6 MG TAB (DECADRON) PO SCH (20:58)
[2020-09-30] VITALS (30 sets, daily range): BP systolic 89–144; BP diastolic 61–82
[2020-09-30] MEDS: inSUlin ASPART (NovoLOG) 1 UNIT/0.01 ML (CHARGE PER UNIT) SC SCH ×5 (00:51→17:47)
[2020-09-30] MEDS: PROPOFOL DRIP (ICU) 100 ML IV SCH ×7 (01:24→20:51)
[2020-09-30 03:39] LABS: ABG PCO2 42 MMHG (35-45); ABG PH 7.39 (7.37-7.43); ABG PO2 51 MMHG (79-93)
[2020-09-30 03:40] LABS: ABG BASE EXCESS 0.6 MMOL/L (-2.5-2.5); ABG OXYGEN SATURATION 82 % (94-100); ABG TCO2 26.3 MMOL/L (21.0-31.0); ALLENS TEST ART LINE; INSPIRED O2 60%; PATIENT TEMP 38; VENTILATOR YES
[2020-09-30 03:41] LABS: BASOPHILS % (AUTO) 0 % (0-10); EOSINOPHILS # (AUTO) 0.4 10^3/uL (0.0-0.3); EOSINOPHILS % (AUTO) 4 % (0-10); HEMATOCRIT 48 % (40-54); HEMOGLOBIN 15.1 g/dL (13.3-17.7); LYMPHOCYTES % (AUTO) 10 % (12-44); MEAN CORPUSCULAR HEMOGLOBIN 25 pg (25-34); MEAN CORPUSCULAR HGB CONC 32 g/dL (32-36); MEAN CORPUSCULAR VOLUME 80 fL (80-99); MEAN PLATELET VOLUME 10.2 fL (9.0-12.2); MONOCYTES # (AUTO) 0.4 X 10^3 (0.0-1.0); MONOCYTES % (AUTO) 4 % (0-12); NEUTROPHILS # (AUTO) 7.6 X 10^3 (1.8-7.8); NEUTROPHILS % (AUTO) 78 % (42-75); PLATELET COUNT 346 10^3/uL (130-400); WHITE BLOOD COUNT 9.8 10^3/uL (4.3-11.0)
[2020-09-30] MEDS: DexMEDEtomidine 250 ML DRIP 250 ML IV SCH ×4 (04:18→20:49)
[2020-09-30] MEDS: fentaNYL DRIP PRE-MIX 250 ML IV SCH ×3 (04:18→20:36)
[2020-09-30 04:50] LABS: CREATININE SERUM 0.83 MG/DL (0.60-1.30); POTASSIUM 4.1 MMOL/L (3.6-5.0)
[2020-09-30 04:51] LABS: CALCIUM 8.1 MG/DL (8.5-10.1); MAGNESIUM 2.3 MG/DL (1.6-2.4)
[2020-09-30] MEDS ORDERED: DEXTROSE 50% 50 ML (IMS) SYR ONE ×2 (04:55→15:14)
[2020-09-30] MEDS ORDERED: DEXTROSE 50% 50 ML (IMS) SYR IV ONE ×3 (05:00→17:45)
[2020-09-30] MEDS: POTASSIUM CL 10MEQ/50ML IVPB 50 ML IV SCH (05:30)
[2020-09-30] MEDS: MAGNESIUM 1 GM/100 ML IVPB 100 ML IV SCH (05:30)
[2020-09-30] MEDS: KCL 20 MEQ TAB (K-DUR) PO SCH (05:30)
[2020-09-30] MEDS: CATHETER FLUSH 10 ML SYR IV SCH ×2 (06:17→13:11)
[2020-09-30] MEDS: RT-ALBUTEROL INHALER HFA (VENTOLIN HFA) 18 GM IH SCH ×3 (07:04→19:23)
[2020-09-30] MEDS: amLODIPine 10 MG (NORVASC) TAB PO SCH (07:51)
[2020-09-30] MEDS: THIAMINE INJECTION 100 MG in NS (IVPB) 50 ML IV SCH (09:25)
[2020-09-30] MEDS: FUROSEMIDE 40 MG/4 ML INJ (LASIX) IVP SCH (09:26)
[2020-09-30] MEDS: ASPIRIN 81 MG CHEW (CHILDREN'S ASA) PO SCH (09:33)
[2020-09-30] MEDS: KCL 10 MEQ TAB (MICRO K) PO SCH (09:34)
[2020-09-30] MEDS: SENNA W/DOCUSATE (SENOKOT S) TABLET PO SCH ×2 (09:37→20:17)
[2020-09-30] MEDS: LACRI-LUBE OPTHALMIC OINT 3.5 GM TUBE OU SCH ×2 (09:37→20:25)
[2020-09-30] MEDS: ENOXAPARIN 300 MG/3 ML (LOVENOX) MULTI-DOSE VIAL SQ SCH ×2 (09:37→20:50)
[2020-09-30] MEDS ORDERED: ROCURONIUM 10 MG/ML 5 ML SYRINGE IV ONE ×2 (09:58→10:00)
[2020-09-30] MEDS: NOREPINEPHRINE 8 MG/250 ML 250 ML IV SCH ×3 (10:02→23:21)
--- NOTE | 2020-09-30 14:06 | Progress Note - Hospitalist ---
Subjective HPI/CC On Admission Date Seen by Provider: Sep 30, 2020 Time Seen by Provider: 10:10 Chief complaint: COVID-19 pneumonia History of present illness: This is a 60-year-old white male clinic patient of [facility] who has a past medical history of hypertension and CAD who normally wears 2 L of oxygen at night who presented to the ER with shortness of breath and increasing work of breathing found to have elevated troponin and indications for admission. Currently patient is feeling much better and ready t o eat lunch. I restarted all of his pain medication and home medication for hypertension. He does have a history of cardiomyopathy. His urine drug screen showed use of cocaine. Subjective/Events-last exam He remains intubated and sedated. I discussed his care with his mother and sister. His oxygen saturations were dropping this morning despite full ventilator support. I encouraged them to consider DNR status. They plan to have a family discussion and get back with us. Objective Exam Vital Signs Vital Signs Date Time Temp Pulse Resp B/P (MAP) Pulse Ox O2 Delivery O2 Flow Rate FiO2 09/30/20 13:30 Mechanical Ventilator 80.00 09/30/20 13:00 66 24 134/77 (96) 96 09/30/20 12:00 100 09/30/20 08:00 37.7 Capillary Refill : Less Than 3 Seconds General Appearance: No Apparent Distress, Obese Respiratory: Lungs Clear, No Respiratory Distress, Other (Intubated and mechanically ventilated) Cardiovascular: Regular Rate, Rhythm, No Edema, No Murmur Gastrointestinal: Normal Bowel Sounds, Soft Extremity: Normal Inspection, No Pedal Edema Neurologic/Psychiatric: Other (Sedated) Skin: Normal Color, Warm/Dry Results/Procedures Lab Laboratory Tests 09/30/20 03:10 Patient resulted labs reviewed. Imaging: Reviewed Imaging Report Assessment/Plan Assessment and Plan Assess & Plan/Chief Complaint ARDS due to COVID-19 Endotracheally intubated Hypercoagulable state associated with COVID-19 Bacterial pneumonia High ventilator requirements, down slightly today TeleICU assisting Decadron s/p Remdesivir Cefepime D-dimer significantly elevated Continue therapeutic Lovenox Cardiomyopathy Cocaine use Elevated troponin Troponin normalized Cardiology following Morbid obesity Clinically significant, no acute management needs Critical Care Critically Ill Patient Diagnosis/Problems Diagnosis/Problems (1) Acute respiratory distress syndrome (ARDS) due to COVID-19 virus Status: Acute (2) Hypercoagulable state associated with COVID-19 Status: Acute (3) Bacterial pneumonia Status: Acute (4) Endotracheally intubated Status: Acute (5) Hypertension Status: Chronic (6) Troponin level elevated Status: Acute (7) Cocaine use Status: Chronic (8) Tobacco abuse Status: Chronic (9) Morbid obesity Status: Chronic FIFI CARVAJAL MD Sep 30, 2020 14:06
[2020-09-30] MEDS: TAMSULOSIN 0.4 MG (FLOMAX) CAP PO SCH (17:34)
--- NOTE | 2020-09-30 18:20 | Tele-ICU Progress Note ---
Subjective Date Seen by a Provider: Sep 30, 2020 Time Seen by a Provider: 08:46 Sepsis Event Evaluation Height, Weight, BMI Height: 5'6.00" Weight: 260lbs. 0.0oz. 117.106866ps; 43.49 BMI Method:Stated Exam Exam Patient acknowledged, consented, and participated in this virtual visit which was conducted using real time audio/video Vital Signs Date Time Temp Pulse Resp B/P (MAP) Pulse Ox O2 Delivery O2 Flow Rate FiO2 09/30/20 17:57 Mechanical Ventilator 60.00 09/30/20 17:00 80 24 103/71 (82) 97 Mechanical Ventilator 80.00 09/30/20 16:15 37.1 09/30/20 16:00 82 24 101/69 (80) 97 Mechanical Ventilator 80.00 09/30/20 15:27 125/75 09/30/20 15:19 143/74 09/30/20 15:00 81 24 115/74 (88) 97 Mechanical Ventilator 80.00 09/30/20 14:40 81 24 97 80 09/30/20 14:00 82 24 99/65 (76) 98 Mechanical Ventilator 80.00 09/30/20 13:30 Mechanical Ventilator 80.00 09/30/20 13:00 66 24 134/77 (96) 96 Mechanical Ventilator 100.00 09/30/20 12:51 83 09/30/20 12:39 98/69 09/30/20 12:38 98/70 09/30/20 12:00 89 Mechanical Ventilator 100 09/30/20 12:00 82 24 100/71 (81) 89 Mechanical Ventilator 100.00 09/30/20 11:00 85 24 97/68 (78) 90 Mechanical Ventilator 100.00 09/30/20 10:47 85 24 90 100 09/30/20 10:00 84 26 119/66 (83) 89 Mechanical Ventilator 100.00 09/30/20 09:42 100/65 09/30/20 09:42 111/63 09/30/20 09:40 Mechanical Ventilator 100.00 09/30/20 09:00 81 19 94/63 (73) 92 Mechanical Ventilator 70.00 09/30/20 08:00 37.7 09/30/20 08:00 81 20 92/64 (73) 92 Mechanical Ventilator 70.00 09/30/20 08:00 93 Mechanical Ventilator 70 09/30/20 07:04 81 26 91 70 09/30/20 07:00 81 09/30/20 07:00 81 25 95/63 (74) 93 Mechanical Ventilator 70.00 09/30/20 06:53 82 94/62 09/30/20 06:00 82 26 94/62 (73) 93 Mechanical Ventilator 70.00 09/30/20 05:00 81 24 144/69 (94) 95 Mechanical Ventilator 70.00 09/30/20 04:34 Mechanical Ventilator 70.00 09/30/20 04:18 81 111/63 09/30/20 04:18 81 111/63 09/30/20 04:10 37.6 09/30/20 04:00 81 24 111/63 (79) 93 Mechanical Ventilator 60.00 09/30/20 04:00 99 Mechanical Ventilator 60 09/30/20 03:00 80 24 112/62 (79) 93 Mechanical Ventilator 60.00 09/30/20 02:26 80 24 93 60 09/30/20 02:00 81 26 113/63 (80) 91 Mechanical Ventilator 60.00 09/30/20 01:24 80 89/62 09/30/20 01:00 80 09/30/20 01:00 80 24 89/62 (71) 91 Mechanical Ventilator 60.00 09/30/20 00:00 37.8 09/30/20 00:00 99 Mechanical Ventilator 60 09/30/20 00:00 80 24 94/61 (72) 91 Mechanical Ventilator 60.00 09/29/20 23:00 80 24 93/63 (73) 91 Mechanical Ventilator 60.00 09/29/20 22:35 80 116/65 09/29/20 22:18 Mechanical Ventilator 60.00 09/29/20 22:12 80 24 95 60 09/29/20 22:00 80 24 110/65 (80) 96 Mechanical Ventilator 70.00 09/29/20 21:03 37.3 09/29/20 21:00 79 24 109/63 (78) 97 Mechanical Ventilator 70.00 09/29/20 20:59 80 118/67 09/29/20 20:00 99 Mechanical Ventilator 70 09/29/20 20:00 80 24 118/67 (84) 97 Mechanical Ventilator 70.00 09/29/20 19:39 80 119/67 09/29/20 19:03 80 24 97 70 09/29/20 19:00 80 24 119/67 (84) 97 Mechanical Ventilator 70.00 09/29/20 19:00 80 09/29/20 18:30 37.6 I & O 09/30/20 07:00 Intake Total 1461 ml Output Total 2475 ml Balance -1014 ml Height & Weight Height: 5'6.00" Weight: 260lbs. 0.0oz. 117.968539ud; 43.49 BMI Method:Stated General Appearance: No Apparent Distress, Obese HEENT: PERRL/EOMI, Normal ENT Inspection, Pharynx Normal, Moist Mucous Membranes Neck: Full Range of Motion, Normal Inspection, Non Tender Respiratory: Lungs Clear, No Respiratory Distress, Other (Intubated and mechanically ventilated) Cardiovascular: Regular Rate, Rhythm, No Edema, No Murmur Capillary Refill: Less Than 3 Seconds Peripheral Pulses: 1+ Dorsalis Pedis (R), 1+ Left Dors-Pedis (L) Gastrointestinal: non tender, soft, no organomegaly Extremity: Normal Inspection, No Pedal Edema Neurologic/Psychiatric: Other (Sedated) Skin: Normal Color, Warm/Dry Lymphatic: No Adenopathy Results Lab Laboratory Tests 09/29/20 02:15 09/30/20 03:10 Assessment/Plan Assessment/Plan (Tele-ICU Physician , Progress Note ) Available chart/ vitals / labs / Images reviewed Video assessment done using teleICU camera, rest of exam as per RN Discussed with RN Events overnight : changed for AVAPS FEBRILE I/O = Drips: levo 0.07 Pressors: , hemodynamically stable Consultants: cards Hospital course: 09/22 w Covid pna. S/B Cards for Troponin leak 09/24 - to ICU with reps failure COVID 09/26 - BIPAP 18/10 100% rr 38 tv 800 , MV 35 L 09/27 AVAPS, still MV > 30 l , on 100% 09/28 - INTUBATED - 24/450/100/12 - increased peep to 14 RASS -3 A/P Acute resp failure - COVID PNA - Intubated 09/28 , AC 14 TV 450 60 %/+14. PAP 35 - not proned COVID PNA - remdesivir - finished =decadrom - ddimer NL 09/24- > incresed to > 20 on 09/28 - full dose lovenox 09/28 Shock - on minimal levo try to wean Suspected bact PNA = cefipime _ z max - sputum 09/28 ETT - nl leidy Minimal troponin elevation with h/o no CAD on cath 2018 - due to type 2 VT due to COVID pneumonia NON- ICM - echo of 06/05/[address] Alonzo: LVEF 55-65%, mild LA enlargement, mild MR, PASP 25 mmHg - cards follow Hyperglycemia - to follow ISS, levemir on hold with hypoglycemia now - will sterat d 10 and TF Chronic hypoxia - on 2 l O2 at home - ? for CARLOS - PFT 12/2017 shows RLD with normal DLCO. No COPD / CARLOS -Noncompliant with CPAP therapy ETOH--REGULAR USE--STATES UP TO A PINT/DAY -DRUGS--SNORTS COCAINE, SMOKES THC -SMOKES 1-2 PPD Lines : 09/25 - central line RIJ , (Central Line Necessity Reviewed) Hightower: urinal OG: Nutrition: NPO Analgesia: Anxiety/ delirium VTE Prophylaxis: lovenox 40 bid Stress Ulcer Prophylaxis: po intake Glycemic Control: iss Plans in collaboration with bedside consultants and IM MDs. Discussed with RN to reach out if any questions or concerns A total of 40 minutes of critical care time was devoted to this patient today, required to treat and/or prevent further deterioration of critical care condition ( as above) . SUSANNE VASQUEZ MD Sep 30, 2020 18:20
[2020-09-30] MEDS ORDERED: DEXTROSE 10% IV SOLUTION 250 ML IV SCH (18:30)
[2020-09-30] MEDS ORDERED: DEXTROSE 10% IV SOLUTION 0 ML IV ONE (18:33)
[2020-09-30] MEDS ORDERED: MIDAZOLAM DRIP PRE-MIX 100 ML IV ONE (18:35)
[2020-09-30] MEDS ORDERED: DEXTROSE 10% IV SOLUTION 1,000 ML IV ONE (18:49)
[2020-09-30] MEDS: MIDAZOLAM DRIP PRE-MIX 100 ML IV SCH (18:58)
[2020-09-30] MEDS ORDERED: DEXTROSE 10% IV SOLUTION 1,000 ML IV SCH (19:00)
[2020-09-30] MEDS: dexAMETHasone 6 MG TAB (DECADRON) PO SCH (20:16)
[2020-09-30] MEDS: ROSUVASTATIN 20 MG (CRESTOR) TABLET PO SCH (20:17)
[2020-10-01] VITALS (30 sets, daily range): BP systolic 92–156; BP diastolic 55–103
[2020-10-01] MEDS: CATHETER FLUSH 10 ML SYR IV SCH ×4 (00:10→22:33)
[2020-10-01] MEDS: inSUlin ASPART (NovoLOG) 1 UNIT/0.01 ML (CHARGE PER UNIT) SC SCH ×5 (00:10→23:56)
[2020-10-01] MEDS: DexMEDEtomidine 250 ML DRIP 250 ML IV SCH ×4 (02:33→20:47)
[2020-10-01] MEDS: PROPOFOL DRIP (ICU) 100 ML IV SCH ×5 (02:43→22:30)
[2020-10-01 03:42] LABS: BASOPHILS # (AUTO) 0.1 10^3/uL (0.0-0.1); BASOPHILS % (AUTO) 1 % (0-10); EOSINOPHILS % (AUTO) 0 % (0-10); HEMATOCRIT 45 % (40-54); HEMOGLOBIN 14.4 g/dL (13.3-17.7); LYMPHOCYTES # (AUTO) 0.5 10^3/uL (1.0-4.0); LYMPHOCYTES % (AUTO) 4 % (12-44); MEAN CORPUSCULAR HEMOGLOBIN 25 pg (25-34); MEAN CORPUSCULAR HGB CONC 32 g/dL (32-36); MEAN CORPUSCULAR VOLUME 80 fL (80-99); MEAN PLATELET VOLUME 10.1 fL (9.0-12.2); MONOCYTES # (AUTO) 0.4 10^3/uL (0.0-1.0); MONOCYTES % (AUTO) 3 % (0-12); NEUTROPHILS # (AUTO) 9.3 10^3/uL (1.8-7.8); NEUTROPHILS % (AUTO) 86 % (42-75); PLATELET COUNT 359 10^3/uL (130-400); WHITE BLOOD COUNT 10.9 10^3/uL (4.3-11.0)
[2020-10-01 03:46] LABS: ABG BASE EXCESS 0.1 MMOL/L (-2.5-2.5); ABG OXYGEN SATURATION 95 % (94-100); ABG PCO2 47 MMHG (35-45); ABG PH 7.35 (7.37-7.43); ABG PO2 78 MMHG (79-93); ABG TCO2 26.4 MMOL/L (21.0-31.0)
[2020-10-01 03:48] LABS: ALLENS TEST ARTLINE; INSPIRED O2 50%; PATIENT TEMP 37; VENTILATOR YES
[2020-10-01 03:55] LABS: POTASSIUM 4.6 MMOL/L (3.6-5.0)
[2020-10-01 03:57] LABS: CALCIUM 8.4 MG/DL (8.5-10.1)
[2020-10-01 04:01] LABS: CREATININE SERUM 0.88 MG/DL (0.60-1.30); PHOSPHORUS 2.5 MG/DL (2.3-4.7)
[2020-10-01 04:03] LABS: MAGNESIUM 2.4 MG/DL (1.6-2.4)
[2020-10-01 05:08] LABS: ATYPICAL LYMPHOCYTES 1 %; BAND NEUTROPHILS 4 %; LYMPHOCYTES % (MANUAL) 3 %; MICROCYTOSIS SLIGHT; MONOCYTES % (MANUAL) 6 %; NEUTROPHILS % (MANUAL) 86 %
[2020-10-01] MEDS: MAGNESIUM 1 GM/100 ML IVPB 100 ML IV SCH (05:15)
[2020-10-01] MEDS: POTASSIUM CL 10MEQ/50ML IVPB 50 ML IV SCH (05:15)
[2020-10-01] MEDS: KCL 20 MEQ TAB (K-DUR) PO SCH (05:16)
--- NOTE | 2020-10-01 07:48 | Diagnostic Imaging Report ---
INDICATION: Respiratory distress. Comparison made with prior examination of 09/28/2020. FINDINGS: There are patchy bibasilar pulmonary infiltrates. There is cardiomegaly and mild venous congestion. No pneumothorax. Lines and tubes are in satisfactory position. IMPRESSION: Cardiomegaly, mild venous congestion. Patchy bibasilar pulmonary infiltrates. Dictated by: Dictated on workstation # [id number]
[2020-10-01] MEDS: RT-ALBUTEROL INHALER HFA (VENTOLIN HFA) 18 GM IH SCH ×3 (07:56→20:06)
[2020-10-01] MEDS: SENNA W/DOCUSATE (SENOKOT S) TABLET PO SCH ×2 (08:15→20:46)
[2020-10-01] MEDS: KCL 10 MEQ TAB (MICRO K) PO SCH (08:15)
[2020-10-01] MEDS: FUROSEMIDE 40 MG/4 ML INJ (LASIX) IVP SCH (08:16)
[2020-10-01] MEDS: ASPIRIN 81 MG CHEW (CHILDREN'S ASA) PO SCH (08:16)
[2020-10-01] MEDS: THIAMINE INJECTION 100 MG in NS (IVPB) 50 ML IV SCH (08:16)
[2020-10-01] MEDS: LACRI-LUBE OPTHALMIC OINT 3.5 GM TUBE OU SCH ×2 (08:16→20:46)
[2020-10-01] MEDS: ENOXAPARIN 300 MG/3 ML (LOVENOX) MULTI-DOSE VIAL SQ SCH ×2 (08:30→20:46)
[2020-10-01] MEDS: amLODIPine 10 MG (NORVASC) TAB PO SCH (08:30)
--- NOTE | 2020-10-01 09:54 | Tele-ICU Progress Note ---
Subjective Date Seen by a Provider: Oct 01, 2020 Time Seen by a Provider: 09:53 Sepsis Event Evaluation Height, Weight, BMI Height: 5'6.00" Weight: 260lbs. 0.0oz. 117.887615hb; 43.49 BMI Method:Stated Exam Exam Patient acknowledged, consented, and participated in this virtual visit which was conducted using real time audio/video Vital Signs Date Time Temp Pulse Resp B/P (MAP) Pulse Ox O2 Delivery O2 Flow Rate FiO2 10/01/20 08:15 86 110/72 10/01/20 08:14 86 110/72 10/01/20 08:00 36.7 10/01/20 07:56 86 24 95 45 10/01/20 07:35 110/75 10/01/20 07:00 86 10/01/20 06:15 85 24 120/81 (94) 96 Mechanical Ventilator 55.00 10/01/20 05:00 86 24 122/81 (95) 96 Mechanical Ventilator 55.00 10/01/20 04:00 85 24 156/94 (114) 96 Mechanical Ventilator 55.00 10/01/20 04:00 96 Mechanical Ventilator 50 10/01/20 03:27 37.0 10/01/20 03:00 84 24 92/63 (73) 95 Mechanical Ventilator 55.00 10/01/20 02:43 112/66 10/01/20 02:33 108/65 10/01/20 02:00 82 24 102/71 (81) 94 Mechanical Ventilator 55.00 10/01/20 01:25 82 24 95 50 10/01/20 01:00 82 24 106/74 (85) 95 Mechanical Ventilator 55.00 10/01/20 01:00 82 10/01/20 00:08 96 Mechanical Ventilator 50 10/01/20 00:00 82 24 120/94 (103) 96 Mechanical Ventilator 55.00 09/30/20 23:22 36.8 93 Mechanical Ventilator 50.00 09/30/20 23:21 77/53 09/30/20 23:00 81 24 104/73 (83) 95 Mechanical Ventilator 55.00 09/30/20 22:11 81 24 95 50 09/30/20 22:00 81 24 117/80 (92) 95 Mechanical Ventilator 55.00 09/30/20 21:00 80 24 101/68 (79) 96 Mechanical Ventilator 55.00 09/30/20 20:51 102/72 09/30/20 20:49 108/72 09/30/20 20:32 36.0 96 Mechanical Ventilator 55.00 09/30/20 20:00 79 24 102/71 (81) 97 Mechanical Ventilator 60.00 09/30/20 20:00 98 Mechanical Ventilator 70 09/30/20 19:23 79 24 97 60 09/30/20 19:00 79 24 100/68 (79) 96 Mechanical Ventilator 60.00 09/30/20 19:00 79 09/30/20 18:58 100/68 09/30/20 18:00 77 24 129/82 (98) 98 Mechanical Ventilator 60.00 09/30/20 17:57 Mechanical Ventilator 60.00 09/30/20 17:00 80 24 103/71 (82) 97 Mechanical Ventilator 80.00 09/30/20 16:15 37.1 09/30/20 16:00 82 24 101/69 (80) 97 Mechanical Ventilator 80.00 09/30/20 16:00 98 Mechanical Ventilator 80 09/30/20 15:27 125/75 09/30/20 15:19 143/74 09/30/20 15:00 81 24 115/74 (88) 97 Mechanical Ventilator 80.00 09/30/20 14:40 81 24 97 80 09/30/20 14:00 82 24 99/65 (76) 98 Mechanical Ventilator 80.00 09/30/20 13:30 Mechanical Ventilator 80.00 09/30/20 13:00 66 24 134/77 (96) 96 Mechanical Ventilator 100.00 09/30/20 12:51 83 09/30/20 12:39 98/69 09/30/20 12:38 98/70 09/30/20 12:00 89 Mechanical Ventilator 100 09/30/20 12:00 82 24 100/71 (81) 89 Mechanical Ventilator 100.00 09/30/20 11:00 85 24 97/68 (78) 90 Mechanical Ventilator 100.00 09/30/20 10:47 85 24 90 100 09/30/20 10:00 84 26 119/66 (83) 89 Mechanical Ventilator 100.00 I & O 10/01/20 07:00 Intake Total 1400 ml Output Total 1425 ml Balance -25 ml Height & Weight Height: 5'6.00" Weight: 260lbs. 0.0oz. 117.921130lt; 43.49 BMI Method:Stated General Appearance: No Apparent Distress, Obese HEENT: PERRL/EOMI, Normal ENT Inspection, Pharynx Normal, Moist Mucous Membranes Neck: Full Range of Motion, Normal Inspection, Non Tender Respiratory: Lungs Clear, No Respiratory Distress, Other (Intubated and mechanically ventilated) Cardiovascular: Regular Rate, Rhythm, No Edema, No Murmur Capillary Refill: Less Than 3 Seconds Peripheral Pulses: 1+ Dorsalis Pedis (R), 1+ Left Dors-Pedis (L) Gastrointestinal: non tender, soft, no organomegaly Extremity: Normal Inspection, No Pedal Edema Neurologic/Psychiatric: Other (Sedated) Skin: Normal Color, Warm/Dry Lymphatic: No Adenopathy Results Lab Laboratory Tests 09/30/20 03:10 10/01/20 03:30 Assessment/Plan Assessment/Plan (Tele-ICU Physician , Progress Note ) Available chart/ vitals / labs / Images reviewed Video assessment done using teleICU camera, rest of exam as per RN Discussed with RN Events overnight : changed for AVAPS AFEBRILE I/O = neg Drips: levo 0.07 Pressors: , hemodynamically stable Consultants: chanda Hospital course: 09/22 w Covid pna. S/B Cards for Troponin leak 09/24 - to ICU with reps failure COVID 09/26 - BIPAP 18/10 100% rr 38 tv 800 , MV 35 L 09/27 AVAPS, still MV > 30 l , on 100% 09/28 - INTUBATED - 24/450/100/12 09/29- increased peep to 14 10/01 - FIO2 45 peep 16 RASS -3 - versed 2 , fentahyl 75 , propofol 20 , precedex 1.5 - TRYING TO WEAN OFF PROPOFOL WITH ELEVATED TGL A/P Acute resp failure - COVID PNA - Intubated 09/28 , AC 14 TV 450 45 %/+16 PAP 35 - WILL DECREASE PEEP TO 14 TODAY - not proned -Not candidate for SBT today Contraindications : Cardiovascular Stability / Sedation Score / FI02/PEEP / ABG / CXR COVID PNA - remdesivir - finished =decadrom - ddimer NL 09/24- > incresed to > 20 on 7/30 - full dose lovenox 09/28 Shock - on minimal levo 0.04 try to wean Suspected bact PNA = cefipime _ z max - sputum 09/28 ETT - nl leidy - OFF ABX NOW Minimal troponin elevation with h/o no CAD on cath 2018 - due to type 2 SC due to COVID pneumonia NON- ICM - echo of 06/05/[address] Alonzo: LVEF 55-65%, mild LA enlargement, mild MR, PASP 25 mmHg - cards follow Hyperglycemia - to follow ISS, levemir on hold with hypoglycemia 09/30 - resolved , will stop d!0 with tolerating TF Chronic hypoxia - on 2 l O2 at home - ? for CARLOS - PFT 12/2017 shows RLD with normal DLCO. No COPD / CARLOS -Noncompliant with CPAP therapy ETOH--REGULAR USE--STATES UP TO A PINT/DAY -DRUGS--SNORTS COCAINE, SMOKES THC -SMOKES 1-2 PPD Lines : 09/25 - central line RIJ , (Central Line Necessity Reviewed) Hightower: urinal OG: Nutrition: strted TF pulimcare 60 Analgesia: Anxiety/ delirium VTE Prophylaxis: lovenox 40 bid Stress Ulcer Prophylaxis: po intake Glycemic Control: iss Plans in collaboration with bedside consultants and IM MDs. Discussed with RN to reach out if any questions or concerns A total of 40 minutes of critical care time was devoted to this patient today, required to treat and/or prevent further deterioration of critical care condition ( as above) . SUSANNE VASQUEZ MD Oct 01, 2020 09:54
[2020-10-01] MEDS: fentaNYL DRIP PRE-MIX 250 ML IV SCH (10:08)
--- NOTE | 2020-10-01 15:49 | Progress Note ---
Subjective Subjective/Events-last exam Patient intubated and sedated Review of Systems Patient intubated and sedated Objective Exam Last Set of Vital Signs Vital Signs Date Time Temp Pulse Resp B/P (MAP) Pulse Ox O2 Delivery O2 Flow Rate FiO2 10/01/20 15:33 96 123/82 10/01/20 14:13 27 97 25 10/01/20 12:00 Mechanical Ventilator 10/01/20 11:40 36.4 10/01/20 11:00 55.00 Capillary Refill : Less Than 3 Seconds I&O Intake and Output 10/01/20 00:00 Intake Total 960 ml Output Total 1400 ml Balance -440 ml IV Total 600 ml Tube Feeding 60 ml Other 300 ml Output Urine Total 1400 ml General: Other (Intubated and sedated) Lungs: Other (diminshed breath sounds) Heart: Regular Rate, No Murmurs Abdomen: Normal Bowel Sounds, Soft Extremities: Other (2+ pitting edema bilaterally) Results/Procedures Lab Laboratory Tests 09/30/20 15:56: Glucometer 77 09/30/20 17:41: Glucometer 56*L 09/30/20 18:56: Glucometer 105 10/01/20 00:06: Glucometer 106 10/01/20 03:30: White Blood Count 10.9, Red Blood Count 5.70H, Hemoglobin 14.4, Hematocrit 45, Mean Corpuscular Volume 80, Mean Corpuscular Hemoglobin 25, Mean Corpuscular Hemoglobin Concent 32, Red Cell Distribution Width 15.6H, Platelet Count 359, Mean Platelet Volume 10.1, Immature Granulocyte % (Auto) 6, Neutrophils (%) (Auto) 86H, Lymphocytes (%) (Auto) 4L, Monocytes (%) (Auto) 3, Eosinophils (%) (Auto) 0, Basophils (%) (Auto) 1, Neutrophils # (Auto) 9.3H, Lymphocytes # (Auto) 0.5L, Monocytes # (Auto) 0.4, Eosinophils # (Auto) 0.0, Basophils # (Auto) 0.1, Immature Granulocyte # (Auto) 0.6H, Neutrophils % (Manual) 86, Lymphocytes % (Manual) 3, Monocytes % (Manual) 6, Band Neutrophils 4, Atypical Lymphocytes 1, Microcytosis SLIGHT, Blood Gas Puncture Site RIGHT ARTLINE, Blood Gas Patient Temperature 37, Arterial Blood pH 7.35L, Arterial Blood Partial Pressure CO2 47H, Arterial Blood Partial Pressure O2 78L, Arterial Blood HCO3 25, Arterial Blood Total CO2 26.4, Arterial Blood Oxygen Saturation 95, Arterial Blood Base Excess 0.1, Derick Test ARTLINE, Blood Gas Ventilator Setting YES, Blood Gas Inspired Oxygen 50%, Sodium Level 142, Potassium Level 4.6, Chloride Level 107, Carbon Dioxide Level 22, Anion Gap 13, Blood Urea Nitrogen 23H, Creatinine 0.88, Estimat Glomerular Filtration Rate 107, BUN/Creatinine Ratio 26, Glucose Level 193H, Calcium Level 8.4L, Phosphorus Level 2.5, Magnesium Level 2.4 10/01/20 10:48: Glucometer 254H Microbiology 09/28/20 Gram Stain - Final, Complete 09/28/20 Sputum Culture - Final, Complete Usual upper respiratory leidy 09/24/20 Blood Culture - Final, Complete No growth Radiology Date of Exam:09/24/20 CHEST 1 VIEW, AP/PA ONLY INDICATION: Hypoxia, pneumonia, Covid positive. TECHNIQUE: Single view chest at 4:24 PM. CORRELATION STUDY: 09/22/2020, 09/20/2020. FINDINGS: The heart size and mediastinum are enlarged and prominent but generally stable. The vasculature is somewhat obscured. Extensive patchy areas of consolidation with multilobe pneumonia are again demonstrated. Overall, these have progressed from the prior exam and are most noticeable at the right lung. IMPRESSION: Extensive multilobe consolidation overall appears increased, particularly through the right lung. Consistent with multilobe pneumonia which would include the provided history of Covid 19 pneumonia. The report was faxed to Infection Control by [facility]@4:56 PM. Dictated by: Dictated on workstation # [id number] Dict: 09/24/20 1635 Trans: 09/24/20 1728 [id number] Interpreted by: TJ CRUZ DO Electronically signed by: TJ CRUZ DO 09/24/20 1728 Assessment/Plan Assessment/Plan (1) Acute respiratory distress syndrome (ARDS) due to COVID-19 virus Status: Acute Assessment & Plan: 10/01: Patient intubated, eICU managing, appreciate recommendations, Completed Remdemsivir, Decadron (2) Hypercoagulable state associated with COVID-19 Status: Acute Assessment & Plan: 10/01: Treatment dosing for lovenox (3) Cardiomyopathy Status: Chronic Qualifiers: Qualified Codes: I42.7 - Cardiomyopathy due to drug and external agent (4) Substance abuse Status: Chronic Assessment & Plan: - Chronic EtOH, Cocaine, MJ use (5) Obesity Status: Chronic Qualifiers: BURT PITT MD Oct 01, 2020 15:49
[2020-10-01] MEDS: TAMSULOSIN 0.4 MG (FLOMAX) CAP PO SCH (18:41)
[2020-10-01] MEDS: NOREPINEPHRINE 8 MG/250 ML 250 ML IV SCH (19:14)
[2020-10-01] MEDS: dexAMETHasone 6 MG TAB (DECADRON) PO SCH (20:46)
[2020-10-01] MEDS: ROSUVASTATIN 20 MG (CRESTOR) TABLET PO SCH (20:47)
[2020-10-02] VITALS (30 sets, daily range): BP systolic 92–141; BP diastolic 52–93
[2020-10-02 02:39] LABS: ABG BASE EXCESS 2.9 MMOL/L (-2.5-2.5); ABG OXYGEN SATURATION 81 % (94-100); ABG PCO2 40 MMHG (35-45); ABG PH 7.44 (7.37-7.43); ABG PO2 45 MMHG (79-93); ABG TCO2 28.1 MMOL/L (21.0-31.0)
[2020-10-02 02:41] LABS: BASOPHILS # (AUTO) 0.1 10^3/uL (0.0-0.1); BASOPHILS % (AUTO) 0 % (0-10); EOSINOPHILS % (AUTO) 0 % (0-10); HEMATOCRIT 43 % (40-54); LYMPHOCYTES # (AUTO) 0.6 10^3/uL (1.0-4.0); LYMPHOCYTES % (AUTO) 4 % (12-44); MEAN CORPUSCULAR HEMOGLOBIN 26 pg (25-34); MEAN CORPUSCULAR HGB CONC 32 g/dL (32-36); MEAN CORPUSCULAR VOLUME 79 fL (80-99); MEAN PLATELET VOLUME 10.6 fL (9.0-12.2); MONOCYTES # (AUTO) 0.6 10^3/uL (0.0-1.0); MONOCYTES % (AUTO) 4 % (0-12); NEUTROPHILS # (AUTO) 13.9 10^3/uL (1.8-7.8); NEUTROPHILS % (AUTO) 87 % (42-75); PLATELET COUNT 384 10^3/uL (130-400); WHITE BLOOD COUNT 16.1 10^3/uL (4.3-11.0)
[2020-10-02 02:50] LABS: POTASSIUM 4.7 MMOL/L (3.6-5.0)
[2020-10-02 02:51] LABS: ALLENS TEST ARTLINE; CALCIUM 8.7 MG/DL (8.5-10.1); INSPIRED O2 25%; PATIENT TEMP 36.3; VENTILATOR YES
[2020-10-02 02:55] LABS: CREATININE SERUM 1.03 MG/DL (0.60-1.30); PHOSPHORUS 1.8 MG/DL (2.3-4.7)
[2020-10-02 02:58] LABS: MAGNESIUM 2.6 MG/DL (1.6-2.4)
[2020-10-02] MEDS: POTASSIUM CL 10MEQ/50ML IVPB 50 ML IV SCH (04:08)
[2020-10-02] MEDS: KCL 20 MEQ TAB (K-DUR) PO SCH (04:08)
[2020-10-02] MEDS: MAGNESIUM 1 GM/100 ML IVPB 100 ML IV SCH (04:08)
[2020-10-02] MEDS: DexMEDEtomidine 250 ML DRIP 250 ML IV SCH ×4 (05:15→20:20)
[2020-10-02] MEDS: fentaNYL DRIP PRE-MIX 250 ML IV SCH ×2 (05:16→16:07)
[2020-10-02] MEDS: inSUlin ASPART (NovoLOG) 1 UNIT/0.01 ML (CHARGE PER UNIT) SC SCH ×4 (05:17→23:50)
[2020-10-02] MEDS: CATHETER FLUSH 10 ML SYR IV SCH ×3 (06:00→22:54)
[2020-10-02] MEDS: NOREPINEPHRINE 8 MG/250 ML 250 ML IV SCH ×2 (07:11→18:25)
[2020-10-02] MEDS: RT-ALBUTEROL INHALER HFA (VENTOLIN HFA) 18 GM IH SCH ×3 (07:34→18:37)
[2020-10-02] MEDS: amLODIPine 10 MG (NORVASC) TAB PO SCH (08:50)
[2020-10-02] MEDS: THIAMINE INJECTION 100 MG in NS (IVPB) 50 ML IV SCH (09:03)
[2020-10-02] MEDS: FUROSEMIDE 40 MG/4 ML INJ (LASIX) IVP SCH (09:07)
[2020-10-02] MEDS: ASPIRIN 81 MG CHEW (CHILDREN'S ASA) PO SCH (09:08)
[2020-10-02] MEDS: KCL 10 MEQ TAB (MICRO K) PO SCH (09:08)
[2020-10-02] MEDS: ENOXAPARIN 300 MG/3 ML (LOVENOX) MULTI-DOSE VIAL SQ SCH ×2 (09:08→20:20)
[2020-10-02] MEDS: SENNA W/DOCUSATE (SENOKOT S) TABLET PO SCH ×2 (09:08→20:21)
[2020-10-02] MEDS: LACRI-LUBE OPTHALMIC OINT 3.5 GM TUBE OU SCH ×2 (09:08→20:21)
--- NOTE | 2020-10-02 14:52 | Tele-ICU Progress Note ---
Subjective Date Seen by a Provider: Oct 02, 2020 Time Seen by a Provider: 14:52 Sepsis Event Evaluation Height, Weight, BMI Height: 5'6.00" Weight: 260lbs. 0.0oz. 117.077374rm; 43.49 BMI Method:Stated Exam Exam Patient acknowledged, consented, and participated in this virtual visit which was conducted using real time audio/video Vital Signs Date Time Temp Pulse Resp B/P (MAP) Pulse Ox O2 Delivery O2 Flow Rate FiO2 10/02/20 14:25 86 24 100 25 10/02/20 14:15 111/71 10/02/20 12:00 80 24 111/61 (78) 93 Mechanical Ventilator 25.00 10/02/20 12:00 96 Mechanical Ventilator 25 10/02/20 11:35 36.7 10/02/20 11:00 83 24 109/60 (76) 94 Mechanical Ventilator 25.00 10/02/20 10:49 85 24 94 25 10/02/20 10:00 86 24 103/68 (80) 94 Mechanical Ventilator 25.00 10/02/20 09:00 82 24 105/57 (73) 95 Mechanical Ventilator 25.00 10/02/20 08:10 85 112/61 10/02/20 08:00 82 24 100/54 (69) 97 Mechanical Ventilator 25.00 10/02/20 08:00 95 Mechanical Ventilator 25 10/02/20 07:34 86 24 97 25 10/02/20 07:30 36.4 10/02/20 07:00 87 24 106/57 (73) 97 Mechanical Ventilator 25.00 10/02/20 07:00 87 10/02/20 06:00 90 24 111/58 (75) 97 Mechanical Ventilator 25.00 10/02/20 05:15 107/60 10/02/20 05:00 80 24 114/64 (81) 97 Mechanical Ventilator 25.00 10/02/20 04:07 36.2 10/02/20 04:00 95 Mechanical Ventilator 25 10/02/20 04:00 85 24 141/76 (97) 98 Mechanical Ventilator 25.00 10/02/20 03:00 84 10 132/65 (87) 97 Mechanical Ventilator 25.00 10/02/20 02:08 82 24 99 25 10/02/20 02:00 81 24 108/71 (83) 100 Mechanical Ventilator 25.00 10/02/20 01:00 84 24 139/79 (99) 99 Mechanical Ventilator 25.00 10/02/20 01:00 84 10/02/20 00:00 36.7 10/02/20 00:00 94 19 120/82 (95) 95 Mechanical Ventilator 25.00 10/02/20 00:00 95 Mechanical Ventilator 25 10/01/20 23:00 100 29 126/83 (97) 95 Mechanical Ventilator 25.00 10/01/20 22:35 87 28 97 25 10/01/20 22:30 107/61 10/01/20 22:00 89 28 116/84 (95) 95 Mechanical Ventilator 25.00 10/01/20 21:00 99 24 116/76 (89) 96 Mechanical Ventilator 35.00 10/01/20 20:52 90/55 10/01/20 20:47 93/56 10/01/20 20:00 90 24 110/77 (88) 97 Mechanical Ventilator 35.00 10/01/20 20:00 36.6 10/01/20 20:00 95 Mechanical Ventilator 30 10/01/20 19:54 89 24 98 25 10/01/20 19:00 89 10/01/20 19:00 89 25 106/76 (86) 96 Mechanical Ventilator 35.00 10/01/20 18:00 90 26 96/56 (69) 94 Mechanical Ventilator 55.00 10/01/20 17:00 90 27 96/56 (69) 95 Mechanical Ventilator 55.00 10/01/20 16:00 36.2 10/01/20 16:00 95 Mechanical Ventilator 30 10/01/20 16:00 91 28 95/56 (69) 95 Mechanical Ventilator 55.00 10/01/20 15:33 96 123/82 10/01/20 15:00 92 27 93/55 (68) 95 Mechanical Ventilator 55.00 I & O 10/02/20 07:00 Intake Total 1900 ml Output Total 2275 ml Balance -375 ml Height & Weight Height: 5'6.00" Weight: 260lbs. 0.0oz. 117.973148mg; 43.49 BMI Method:Stated General Appearance: No Apparent Distress, Obese HEENT: PERRL/EOMI, Normal ENT Inspection, Pharynx Normal, Moist Mucous Membranes Neck: Full Range of Motion, Normal Inspection, Non Tender Respiratory: Lungs Clear, No Respiratory Distress, Other (Intubated and mechanically ventilated) Cardiovascular: Regular Rate, Rhythm, No Edema, No Murmur Capillary Refill: Less Than 3 Seconds Peripheral Pulses: 1+ Dorsalis Pedis (R), 1+ Left Dors-Pedis (L) Gastrointestinal: non tender, soft, no organomegaly Extremity: Normal Inspection, No Pedal Edema Neurologic/Psychiatric: Other (Sedated) Skin: Normal Color, Warm/Dry Lymphatic: No Adenopathy Results Lab Laboratory Tests 10/01/20 03:30 10/02/20 02:30 Assessment/Plan Assessment/Plan (Tele-ICU Physician , Progress Note ) Available chart/ vitals / labs / Images reviewed Video assessment done using teleICU camera, rest of exam as per RN Discussed with RN Events overnight : changed for AVAPS AFEBRILE I/O = neg Drips: levo 0.07 Pressors: , hemodynamically stable Consultants: cards Hospital course: 09/22 w Covid pna. S/B Cards for Troponin leak 09/24 - to ICU with reps failure COVID 09/26 - BIPAP 18/10 100% rr 38 tv 800 , MV 35 L 09/27 AVAPS, still MV > 30 l , on 100% 09/28 - INTUBATED - 24/450/100/12 09/29- increased peep to 14 10/01 - FIO2 45 peep 16 10/02 - 45 % - decrease peep to 10 RASS -3 - versed 2 , fentahyl 75 , propofol 20 , precedex 1.5 - TRYING TO WEAN OFF PROPOFOL WITH ELEVATED TGL A/P Acute resp failure - COVID PNA - Intubated 09/28 , AC 14 TV 450 45 %/+14 PAP 35 - WILL DECREASE PEEP TO 12-> 10 TODAY - not proned -Not candidate for SBT today Contraindications : Cardiovascular Stability / Sedation Score / FI02/PEEP / ABG / CXR COVID PNA - remdesivir - finished =decadrom - ddimer NL 09/24- > incresed to > 20 on 09/28 - full dose lovenox 09/28 Shock - on minimal levo 0.04 try to wean Suspected bact PNA = cefipime _ z max - sputum 09/28 ETT - nl leidy - OFF ABX NOW 10/02 leukocytosis - ? steroid vs infection - follow cxr and PCT Minimal troponin elevation with h/o no CAD on cath 2018 - due to type 2 AR due to COVID pneumonia NON- ICM - echo of 06/05/[address] Alonzo: LVEF 55-65%, mild LA enlargement, mild MR, PASP 25 mmHg - cards follow Hyperglycemia - to follow ISS, levemir on hold with hypoglycemia 09/30 - resolved , tolerating TF - to adjust levemir as per PCP Chronic hypoxia - on 2 l O2 at home - ? for CARLOS - PFT 12/2017 shows RLD with normal DLCO. No COPD / CARLOS -Noncompliant with CPAP therapy ETOH--REGULAR USE--STATES UP TO A PINT/DAY -DRUGS--SNORTS COCAINE, SMOKES THC -SMOKES 1-2 PPD Lines : 09/25 - central line RIJ , (Central Line Necessity Reviewed) Hightower: + OG: + Nutrition: strted TF pulimcare 60 Analgesia: Anxiety/ delirium VTE Prophylaxis: lovenox FILL DOSE Stress Ulcer Prophylaxis: ppi Glycemic Control: iss Plans in collaboration with bedside consultants and IM MDs. Discussed with RN to reach out if any questions or concerns A total of 40 minutes of critical care time was devoted to this patient today, required to treat and/or prevent further deterioration of critical care condition ( as above) . SUSANNE VASQUEZ MD Oct 02, 2020 14:52
[2020-10-02] MEDS: MIDAZOLAM DRIP PRE-MIX 100 ML IV SCH (16:07)
[2020-10-02] MEDS: TAMSULOSIN 0.4 MG (FLOMAX) CAP PO SCH (18:25)
[2020-10-02] MEDS: dexAMETHasone 6 MG TAB (DECADRON) PO SCH (20:20)
[2020-10-02] MEDS: ROSUVASTATIN 20 MG (CRESTOR) TABLET PO SCH (20:20)
--- NOTE | 2020-10-02 21:47 | Progress Note ---
Subjective Subjective/Events-last exam Intubated and weaning off sedation Review of Systems Patient intubated Objective Exam Last Set of Vital Signs Vital Signs Date Time Temp Pulse Resp B/P (MAP) Pulse Ox O2 Delivery O2 Flow Rate FiO2 10/02/20 20:20 77 116/65 10/02/20 20:10 36.5 10/02/20 20:00 100 Mechanical Ventilator 25 10/02/20 18:30 24 10/02/20 18:00 25.00 Capillary Refill : Less Than 3 Seconds I&O Intake and Output 10/02/20 00:00 Intake Total 1420 ml Output Total 2100 ml Balance -680 ml Intake Oral 0 ml IV Total 700 ml Tube Feeding 480 ml Other 240 ml Output Urine Total 2100 ml General: Other (Intubated, opens eyes to name) Lungs: Other (Diminished breath sounds, crackles) Heart: Regular Rate, No Murmurs Abdomen: Normal Bowel Sounds, Soft, No Tenderness Extremities: Other (1+ pitting edema) Skin: No Rashes, No Breakdown Results/Procedures Lab Laboratory Tests 10/01/20 23:48: Glucometer 228H 10/02/20 02:30: White Blood Count 16.1H, Red Blood Count 5.47, Hemoglobin 14.0, Hematocrit 43, Mean Corpuscular Volume 79L, Mean Corpuscular Hemoglobin 26, Mean Corpuscular Hemoglobin Concent 32, Red Cell Distribution Width 15.5H, Platelet Count 384, Mean Platelet Volume 10.6, Immature Granulocyte % (Auto) 5, Neutrophils (%) (Auto) 87H, Lymphocytes (%) (Auto) 4L, Monocytes (%) (Auto) 4, Eosinophils (%) (Auto) 0, Basophils (%) (Auto) 0, Neutrophils # (Auto) 13.9H, Lymphocytes # (Auto) 0.6L, Monocytes # (Auto) 0.6, Eosinophils # (Auto) 0.0, Basophils # (Auto) 0.1, Immature Granulocyte # (Auto) 0.8H, Blood Gas Puncture Site RIGHT ARTLINE, Blood Gas Patient Temperature 36.3, Arterial Blood pH 7.44H, Arterial Blood Partial Pressure CO2 40, Arterial Blood Partial Pressure O2 45L, Arterial Blood HCO3 27, Arterial Blood Total CO2 28.1, Arterial Blood Oxygen Saturation 81L, Arterial Blood Base Excess 2.9H, Derick Test ARTLINE, Blood Gas Ventilator Setting YES, Blood Gas Inspired Oxygen 25%, Sodium Level 143, Potassium Level 4. 7, Chloride Level 107, Carbon Dioxide Level 24, Anion Gap 12, Blood Urea Nitrogen 35H, Creatinine 1.03, Estimat Glomerular Filtration Rate 90, BUN/Creatinine Ratio 34, Glucose Level 310H, Calcium Level 8.7, Phosphorus Level 1.8L, Magnesium Level 2.6H, Procalcitonin 1.33H 10/02/20 05:11: Glucometer 300H 10/02/20 11:12: Glucometer 330H 10/02/20 17:27: Glucometer 315H Microbiology 09/28/20 Gram Stain - Final, Complete 09/28/20 Sputum Culture - Final, Complete Usual upper respiratory leidy 09/24/20 Blood Culture - Final, Complete No growth Radiology Date of Exam:09/24/20 CHEST 1 VIEW, AP/PA ONLY INDICATION: Hypoxia, pneumonia, Covid positive. TECHNIQUE: Single view chest at 4:24 PM. CORRELATION STUDY: 09/22/2020, 09/20/2020. FINDINGS: The heart size and mediastinum are enlarged and prominent but generally stable. The vasculature is somewhat obscured. Extensive patchy areas of consolidation with multilobe pneumonia are again demonstrated. Overall, these have progressed from the prior exam and are most noticeable at the right lung. IMPRESSION: Extensive multilobe consolidation overall appears increased, particularly through the right lung. Consistent with multilobe pneumonia which would include the provided history of Covid 19 pneumonia. The report was faxed to Infection Control by wicho@4:56 PM. Dictated by: Dictated on workstation # [id number] Dict: 09/24/20 1635 Trans: 09/24/20 1728 [id number] Interpreted by: TJ CRUZ DO Electronically signed by: TJ CRUZ DO 09/24/20 1728 Assessment/Plan Assessment/Plan (1) Acute respiratory distress syndrome (ARDS) due to COVID-19 virus Status: Acute Assessment & Plan: 10/01: Patient intubated, eICU managing, appreciate recommendations, Completed Remdemsivir, Decadron 10/02: Leukocytosis this AM, Repeat CXR, continue IV antibiotics, PCT trending up (2) Hypercoagulable state associated with COVID-19 Status: Acute Assessment & Plan: 10/01: Treatment dosing for lovenox (3) Cardiomyopathy Status: Chronic Qualifiers: Qualified Codes: I42.7 - Cardiomyopathy due to drug and external agent (4) Substance abuse Status: Chronic Assessment & Plan: - Chronic EtOH, Cocaine, MJ use (5) Obesity Status: Chronic Qualifiers: BURT PITT MD Oct 02, 2020 21:47
[2020-10-02] MEDS: PROPOFOL DRIP (ICU) 100 ML IV SCH (23:13)
[2020-10-03] VITALS (30 sets, daily range): BP systolic 83–146; BP diastolic 51–91
[2020-10-03] MEDS: DexMEDEtomidine 250 ML DRIP 250 ML IV SCH ×4 (01:58→18:39)
[2020-10-03 03:28] LABS: ABG BASE EXCESS 4.9 MMOL/L (-2.5-2.5); ABG OXYGEN SATURATION 75 % (94-100); ABG PCO2 35 MMHG (35-45); ABG PH 7.51 (7.37-7.43); ABG PO2 42 MMHG (79-93); ABG TCO2 29.3 MMOL/L (21.0-31.0)
[2020-10-03 03:29] LABS: ALLENS TEST ARTLINE; INSPIRED O2 25%; PATIENT TEMP 36.4; VENTILATOR YES
[2020-10-03 03:30] LABS: BASOPHILS % (AUTO) 0 % (0-10); EOSINOPHILS % (AUTO) 0 % (0-10); HEMATOCRIT 41 % (40-54); HEMOGLOBIN 13.5 g/dL (13.3-17.7); LYMPHOCYTES # (AUTO) 0.9 10^3/uL (1.0-4.0); LYMPHOCYTES % (AUTO) 7 % (12-44); MEAN CORPUSCULAR HEMOGLOBIN 26 pg (25-34); MEAN CORPUSCULAR HGB CONC 33 g/dL (32-36); MEAN CORPUSCULAR VOLUME 78 fL (80-99); MEAN PLATELET VOLUME 10.7 fL (9.0-12.2); MONOCYTES # (AUTO) 1.2 10^3/uL (0.0-1.0); MONOCYTES % (AUTO) 8 % (0-12); NEUTROPHILS # (AUTO) 11.6 10^3/uL (1.8-7.8); NEUTROPHILS % (AUTO) 81 % (42-75); PLATELET COUNT 389 10^3/uL (130-400); WHITE BLOOD COUNT 14.4 10^3/uL (4.3-11.0)
[2020-10-03 03:36] LABS: POTASSIUM 4.2 MMOL/L (3.6-5.0)
[2020-10-03 03:37] LABS: CALCIUM 8.5 MG/DL (8.5-10.1)
[2020-10-03 03:41] LABS: PHOSPHORUS 1.8 MG/DL (2.3-4.7)
[2020-10-03 03:42] LABS: CREATININE SERUM 0.94 MG/DL (0.60-1.30)
[2020-10-03 03:44] LABS: MAGNESIUM 2.5 MG/DL (1.6-2.4)
[2020-10-03] MEDS: NOREPINEPHRINE 8 MG/250 ML 250 ML IV SCH ×2 (04:39→09:47)
[2020-10-03] MEDS: MAGNESIUM 1 GM/100 ML IVPB 100 ML IV SCH (04:40)
[2020-10-03] MEDS: KCL 20 MEQ TAB (K-DUR) PO SCH (04:40)
[2020-10-03] MEDS: POTASSIUM CL 10MEQ/50ML IVPB 50 ML IV SCH (04:40)
[2020-10-03] MEDS: PROPOFOL DRIP (ICU) 100 ML IV SCH ×3 (05:18→17:46)
[2020-10-03] MEDS: CATHETER FLUSH 10 ML SYR IV SCH ×3 (06:05→22:14)
[2020-10-03] MEDS: inSUlin ASPART (NovoLOG) 1 UNIT/0.01 ML (CHARGE PER UNIT) SC SCH ×4 (06:05→23:50)
--- NOTE | 2020-10-03 06:45 | Diagnostic Imaging Report ---
INDICATION: Respiratory distress. Comparison with 10/01/2020. FINDINGS: ET tube, NG tube and left central line remain in good position. Lungs are well-aerated. There has been slight decrease in bilateral infiltrates since previous exam. There continues to be moderate interstitial nodular infiltrate on the right with minimal infiltrate on the left. No pneumothorax. Could not exclude small right basilar effusion. Heart is not enlarged. IMPRESSION: 1. Tubes and lines remain in good position. 2. There has been clearing of infiltrates bilaterally since previous exam. Dictated by: Dictated on workstation # [id number]
[2020-10-03] MEDS: RT-ALBUTEROL INHALER HFA (VENTOLIN HFA) 18 GM IH SCH ×3 (06:52→18:20)
[2020-10-03] MEDS: fentaNYL DRIP PRE-MIX 250 ML IV SCH ×2 (07:29→18:39)
[2020-10-03] MEDS: PANTOPRAZOLE 40 MG (PROTONIX) VIAL IV SCH (08:00)
[2020-10-03] MEDS: LACRI-LUBE OPTHALMIC OINT 3.5 GM TUBE OU SCH ×2 (08:00→20:16)
[2020-10-03] MEDS: ENOXAPARIN 300 MG/3 ML (LOVENOX) MULTI-DOSE VIAL SQ SCH ×2 (08:00→20:15)
[2020-10-03] MEDS: FUROSEMIDE 40 MG/4 ML INJ (LASIX) IVP SCH (08:00)
[2020-10-03] MEDS: THIAMINE INJECTION 100 MG in NS (IVPB) 50 ML IV SCH (08:01)
[2020-10-03] MEDS: KCL 10 MEQ TAB (MICRO K) PO SCH (08:01)
[2020-10-03] MEDS: amLODIPine 10 MG (NORVASC) TAB PO SCH (08:01)
[2020-10-03] MEDS: ASPIRIN 81 MG CHEW (CHILDREN'S ASA) PO SCH (08:01)
[2020-10-03] MEDS: SENNA W/DOCUSATE (SENOKOT S) TABLET PO SCH ×2 (08:01→20:15)
--- NOTE | 2020-10-03 09:13 | Tele-ICU Progress Note ---
Subjective Date Seen by a Provider: Oct 03, 2020 Time Seen by a Provider: 11:15 Subjective/Events-last exam Remains on vent-day 10/01 with COVID PNA, Dx'ed 09/22, AC 24 Vt 500 FIO2 25% PEEP 8. I reviewed CXR has increased HS and bilateral infiltrates, ET is ok Off IV Propfol-last TG 295 on 09/30, Fentanyl 100 Precedex @ 1.5 Versed 2, Peak Paw have been high ABG today 7.51/35/42-venous? SpO2 88-100% Restarted on IV norepi on 0.03, staying same BP120/78 Has left TLC IJ, site looks ok, placed 10/01 Sepsis Event Evaluation Height, Weight, BMI Height: 5'6.00" Weight: 260lbs. 0.0oz. 117.388965jw; 43.49 BMI Method:Stated Exam Exam Patient acknowledged, consented, and participated in this virtual visit which was conducted using real time audio/video Vital Signs Date Time Temp Pulse Resp B/P (MAP) Pulse Ox O2 Delivery O2 Flow Rate FiO2 10/03/20 07:29 70 102/64 10/03/20 07:00 35.7 69 24 107/66 (80) 90 Mechanical Ventilator 25.00 10/03/20 06:53 70 24 94 25 10/03/20 06:00 70 24 107/67 (80) 94 Mechanical Ventilator 25.00 10/03/20 05:00 71 24 97/67 (77) 95 Mechanical Ventilator 25.00 10/03/20 04:30 71 24 99/66 (77) 94 Mechanical Ventilator 25.00 10/03/20 04:00 100 Mechanical Ventilator 25 10/03/20 04:00 36.2 10/03/20 03:00 71 24 125/89 (101) 97 Mechanical Ventilator 25.00 10/03/20 02:00 72 24 108/64 (79) 98 Mechanical Ventilator 25.00 10/03/20 01:58 72 130/63 10/03/20 01:50 72 24 98 25 10/03/20 01:00 73 24 116/68 (84) 98 Mechanical Ventilator 25.00 10/03/20 01:00 73 10/03/20 00:00 36.6 10/03/20 00:00 100 Mechanical Ventilator 25 10/03/20 00:00 73 24 118/68 (85) 98 Mechanical Ventilator 25.00 10/02/20 23:00 74 24 117/67 (84) 99 Mechanical Ventilator 25.00 10/02/20 22:00 75 24 108/61 (77) 98 Mechanical Ventilator 25.00 10/02/20 21:46 75 24 98 25 10/02/20 21:00 76 24 113/64 (80) 98 Mechanical Ventilator 25.00 10/02/20 20:20 77 116/65 10/02/20 20:10 36.5 10/02/20 20:00 100 Mechanical Ventilator 25 10/02/20 20:00 77 24 108/61 (77) 99 Mechanical Ventilator 25.00 10/02/20 19:00 82 10/02/20 19:00 82 24 92/52 (65) 100 Mechanical Ventilator 25.00 10/02/20 18:30 77 24 99 25 10/02/20 18:00 77 24 133/91 (105) 100 Mechanical Ventilator 25.00 10/02/20 17:00 78 24 133/89 (104) 100 Mechanical Ventilator 25.00 10/02/20 16:35 36.8 Mechanical Ventilator 25.00 10/02/20 16:07 117/66 10/02/20 16:00 100 Mechanical Ventilator 25 10/02/20 16:00 79 24 115/65 (82) 100 Mechanical Ventilator 25.00 10/02/20 15:00 81 24 117/80 (92) 100 Mechanical Ventilator 25.00 10/02/20 14:25 86 24 100 25 10/02/20 14:15 111/71 10/02/20 14:00 96 24 97/61 (73) 96 Mechanical Ventilator 25.00 10/02/20 13:00 103 10/02/20 13:00 101 24 108/61 (77) 90 Mechanical Ventilator 25.00 10/02/20 12:00 80 24 111/61 (78) 93 Mechanical Ventilator 25.00 10/02/20 12:00 96 Mechanical Ventilator 25 10/02/20 11:35 36.7 10/02/20 11:00 83 24 109/60 (76) 94 Mechanical Ventilator 25.00 10/02/20 10:49 85 24 94 25 10/02/20 10:00 86 24 103/68 (80) 94 Mechanical Ventilator 25.00 I & O 10/03/20 07:00 Intake Total 1700 ml Output Total 3540 ml Balance -1840 ml Height & Weight Height: 5'6.00" Weight: 260lbs. 0.0oz. 117.214254hr; 43.49 BMI Method:Stated General Appearance: No Apparent Distress, Obese HEENT: PERRL/EOMI, Normal ENT Inspection, Pharynx Normal, Moist Mucous Membranes Neck: Full Range of Motion, Normal Inspection, Non Tender Respiratory: Lungs Clear, No Respiratory Distress, Decreased Breath Sounds, Rhonci, Other (Intubated and mechanically ventilated) Cardiovascular: Regular Rate, Rhythm, No Edema, No Murmur Capillary Refill: Less Than 3 Seconds Peripheral Pulses: 1+ Dorsalis Pedis (R), 1+ Left Dors-Pedis (L) Gastrointestinal: non tender, soft, no organomegaly Extremity: Normal Inspection, No Pedal Edema Neurologic/Psychiatric: Other (Sedated) Skin: Normal Color, Warm/Dry Lymphatic: No Adenopathy Results Lab Laboratory Tests 10/02/20 02:30 10/03/20 03:10 Assessment/Plan Assessment/Plan Acute resp failure - COVID PNA - Intubated 10/01 , AC 24 TV 500 FiO2 25 %/+14 PAP in 50's getting more sedation 1 - not proned -Not candidate for SBT today Contraindications : Cardiovascular Stability / Sedation Score / FI02/PEEP / ABG / CXR COVID PNA - remdesivir - finished =decadrom - ddimer NL 09/24- > incresed to > 20 on 09/28 - full dose lovenox 09/28 Shock - on minimal levo 0.04 try to wean Suspected bact PNA = cefipime _ z max - sputum 09/28 ETT - nl leidy - OFF ABX NOW 10/02 leukocytosis - ? steroid vs infection - follow cxr and PCT Minimal troponin elevation with h/o no CAD on cath 2018 due to type 2 GA due to COVID pneumonia NON- ICM - echo of 06/05/[address] Alonzo: LVEF 55-65%, mild LA enlargement, mild MR, PASP 25 mmHg - cards follow Hyperglycemia-now on TF - to follow ISS, levemir on hold with hypoglycemia 09/30 - resolved , tolerating TF - to adjust levemir as per PCP, now on 20 units bid, will continue Chronic hypoxia - on 2 l O2 at home - ? for CARLOS - PFT 12/2017 shows RLD with normal DLCO. No COPD / CARLOS -Noncompliant with CPAP therapy ETOH--REGULAR USE--STATES UP TO A PINT/DAY -DRUGS--SNORTS COCAINE, SMOKES THC -SMOKES 1-2 PPD Lines : 10/01 left IJ, (Central Line Necessity Reviewed) Hightower: + OG: + Nutrition: strted TF pulimcare 60 Analgesia: Anxiety/ delirium VTE Prophylaxis: lovenox FILL DOSE Stress Ulcer Prophylaxis: ppi Glycemic Control: iss, will re start bid 20 U levimer Critical Care: Critically Ill Patient Time spent with patient (mins): 35 SNEHA LASSITER MD Oct 03, 2020 09:13
[2020-10-03] MEDS: TAMSULOSIN 0.4 MG (FLOMAX) CAP PO SCH (17:41)
[2020-10-03] MEDS: dexAMETHasone 6 MG TAB (DECADRON) PO SCH (20:15)
[2020-10-03] MEDS: ROSUVASTATIN 20 MG (CRESTOR) TABLET PO SCH (20:15)
--- NOTE | 2020-10-03 21:59 | Progress Note ---
Subjective Subjective/Events-last exam Intubated and Sedated. No new ON events Review of Systems Patient intubated Objective Exam Last Set of Vital Signs Vital Signs Date Time Temp Pulse Resp B/P (MAP) Pulse Ox O2 Delivery O2 Flow Rate FiO2 10/03/20 21:49 71 24 94 30 10/03/20 20:19 182/102 10/03/20 19:43 Mechanical Ventilator 30.00 10/03/20 19:25 36.2 Capillary Refill : Less Than 3 Seconds I&O Intake and Output 10/03/20 00:00 Intake Total 2330 ml Output Total 2900 ml Balance -570 ml IV Total 750 ml Tube Feeding 1160 ml Other 420 ml Output Urine Total 2900 ml General: Other (Intubated and sedated) HEENT: Mucous Memb Moist/[place] Lungs: Other (diminished breath sounds, diffuse wheezing/crackles, breathing with vent) Heart: Regular Rate, No Murmurs Abdomen: Normal Bowel Sounds, Soft Extremities: Other (1+ pitting edema equal bilaterally) Skin: No Rashes, No Breakdown Results/Procedures Lab Laboratory Tests 10/02/20 23:47: Glucometer 293H 10/03/20 03:10: White Blood Count 14.4H, Red Blood Count 5.25, Hemoglobin 13.5, Hematocrit 41, Mean Corpuscular Volume 78L, Mean Corpuscular Hemoglobin 26, Mean Corpuscular Hemoglobin Concent 33, Red Cell Distribution Width 15.0H, Platelet Count 389, Mean Platelet Volume 10.7, Immature Granulocyte % (Auto) 4, Neutrophils (%) (Auto) 81H, Lymphocytes (%) (Auto) 7L, Monocytes (%) (Auto) 8, Eosinophils (%) (Auto) 0, Basophils (%) (Auto) 0, Neutrophils # (Auto) 11.6H, Lymphocytes # (Auto) 0.9L, Monocytes # (Auto) 1.2H, Eosinophils # (Auto) 0.0, Basophils # (Auto) 0.0, Immature Granulocyte # (Auto) 0.6H, Blood Gas Puncture Site ARTLINE, Blood Gas Patient Temperature 36.4, Arterial Blood pH 7.51H, Arterial Blood Partial Pressure CO2 35, Arterial Blood Partial Pressure O2 42L, Arterial Blood HCO3 28H, Arterial Blood Total CO2 29.3, Arterial Blood Oxygen Saturation 75L, Arterial Blood Base Excess 4.9H, Derick Test ARTLINE, Blood Gas Ventilator Setting YES, Blood Gas Inspired Oxygen 25%, Sodium Level 144, Potassium Level 4.2, Chloride Level 108H, Carbon Dioxide Level 25, Anion Gap 11, Blood Urea Nitrogen 38H, Creatinine 0.94, Estimat Glomerular Filtration Rate 100, BUN/Creatinine Ratio 40, Glucose Level 287H, Calcium Level 8.5, Phosphorus Level 1.8L, Magnesium Level 2.5H 10/03/20 11:34: Glucometer 246H 10/03/20 17:40: Glucometer 285H Microbiology 09/28/20 Gram Stain - Final, Complete 09/28/20 Sputum Culture - Final, Complete Usual upper respiratory leidy 09/24/20 Blood Culture - Final, Complete No growth Radiology Date of Exam:09/24/20 CHEST 1 VIEW, AP/PA ONLY INDICATION: Hypoxia, pneumonia, Covid positive. TECHNIQUE: Single view chest at 4:24 PM. CORRELATION STUDY: 09/22/2020, 09/20/2020. FINDINGS: The heart size and mediastinum are enlarged and prominent but generally stable. The vasculature is somewhat obscured. Extensive patchy areas of consolidation with multilobe pneumonia are again demonstrated. Overall, these have progressed from the prior exam and are most noticeable at the right lung. IMPRESSION: Extensive multilobe consolidation overall appears increased, particularly through the right lung. Consistent with multilobe pneumonia which would include the provided history of Covid 19 pneumonia. The report was faxed to Infection Control by wicho@4:56 PM. Dictated by: Dictated on workstation # [id number] Dict: 09/24/20 1635 Trans: 09/24/20 1728 [id number] Interpreted by: TJ CRUZ DO Electronically signed by: TJ CRUZ DO 09/24/20 1728 Assessment/Plan Assessment/Plan (1) Acute respiratory distress syndrome (ARDS) due to COVID-19 virus Status: Acute Assessment & Plan: 10/01: Patient intubated, eICU managing, appreciate recommendations, Completed Remdemsivir, Decadron 10/02: Leukocytosis this AM, Repeat CXR, continue IV antibiotics, PCT trending up 10/03: Improvement in CXR, will continue to monitor on vent, possible SBT soon per eICU (2) Hypercoagulable state associated with COVID-19 Status: Acute Assessment & Plan: 10/01: Treatment dosing for lovenox (3) Cardiomyopathy Status: Chronic Assessment & Plan: - Cocaine and MJ + on admission UDS Qualifiers: Qualified Codes: I42.7 - Cardiomyopathy due to drug and external agent (4) Substance abuse Status: Chronic Assessment & Plan: - Chronic EtOH, Cocaine, MJ use (5) Obesity Status: Chronic Qualifiers: BURT PITT MD Oct 03, 2020 21:59
[2020-10-04] VITALS (21 sets, daily range): BP systolic 99–194; BP diastolic 67–100
[2020-10-04] MEDS: NOREPINEPHRINE 8 MG/250 ML 250 ML IV SCH (01:55)
[2020-10-04] MEDS: DexMEDEtomidine 250 ML DRIP 250 ML IV SCH (01:56)
[2020-10-04] MEDS: PROPOFOL DRIP (ICU) 100 ML IV SCH ×2 (02:58→10:21)
[2020-10-04] MEDS: MIDAZOLAM DRIP PRE-MIX 100 ML IV SCH (04:52)
[2020-10-04] MEDS: fentaNYL DRIP PRE-MIX 250 ML IV SCH ×2 (04:52→12:20)
[2020-10-04 05:06] LABS: ABG OXYGEN SATURATION 92 % (94-100); ABG PCO2 43 MMHG (35-45); ABG PH 7.42 (7.37-7.43); ABG PO2 70 MMHG (79-93); ABG TCO2 28.5 MMOL/L (21.0-31.0); ALLENS TEST ARTLINE; INSPIRED O2 24 RATE; VENTILATOR YES
[2020-10-04 05:06] LABS: BASOPHILS % (AUTO) 0 % (0-10); EOSINOPHILS % (AUTO) 0 % (0-10); HEMATOCRIT 43 % (40-54); HEMOGLOBIN 14.1 g/dL (13.3-17.7); LYMPHOCYTES % (AUTO) 7 % (12-44); MEAN CORPUSCULAR HEMOGLOBIN 26 pg (25-34); MEAN CORPUSCULAR HGB CONC 33 g/dL (32-36); MEAN CORPUSCULAR VOLUME 79 fL (80-99); MONOCYTES % (AUTO) 7 % (0-12); NEUTROPHILS # (AUTO) 12.2 10^3/uL (1.8-7.8); NEUTROPHILS % (AUTO) 83 % (42-75); PLATELET COUNT 421 10^3/uL (130-400); WHITE BLOOD COUNT 14.7 10^3/uL (4.3-11.0)
[2020-10-04 05:20] LABS: POTASSIUM 4.6 MMOL/L (3.6-5.0)
[2020-10-04 05:21] LABS: CALCIUM 8.8 MG/DL (8.5-10.1)
[2020-10-04 05:25] LABS: PHOSPHORUS 3.6 MG/DL (2.3-4.7)
[2020-10-04 05:26] LABS: CREATININE SERUM 0.86 MG/DL (0.60-1.30)
[2020-10-04 05:28] LABS: MAGNESIUM 2.3 MG/DL (1.6-2.4)
[2020-10-04] MEDS: POTASSIUM CL 10MEQ/50ML IVPB 50 ML IV SCH (05:54)
[2020-10-04] MEDS: KCL 20 MEQ TAB (K-DUR) PO SCH (05:54)
[2020-10-04] MEDS: CATHETER FLUSH 10 ML SYR IV SCH (05:54)
[2020-10-04] MEDS: MAGNESIUM 1 GM/100 ML IVPB 100 ML IV SCH (05:54)
[2020-10-04] MEDS: inSUlin ASPART (NovoLOG) 1 UNIT/0.01 ML (CHARGE PER UNIT) SC SCH ×2 (06:08→12:19)
[2020-10-04] MEDS: RT-ALBUTEROL INHALER HFA (VENTOLIN HFA) 18 GM IH SCH ×2 (07:06→14:21)
[2020-10-04] MEDS: KCL 10 MEQ TAB (MICRO K) PO SCH (07:55)
[2020-10-04] MEDS: amLODIPine 10 MG (NORVASC) TAB PO SCH (07:55)
[2020-10-04] MEDS: ASPIRIN 81 MG CHEW (CHILDREN'S ASA) PO SCH (07:55)
[2020-10-04] MEDS: FUROSEMIDE 40 MG/4 ML INJ (LASIX) IVP SCH (07:55)
[2020-10-04] MEDS: SENNA W/DOCUSATE (SENOKOT S) TABLET PO SCH (07:55)
[2020-10-04] MEDS: THIAMINE INJECTION 100 MG in NS (IVPB) 50 ML IV SCH (07:56)
[2020-10-04] MEDS: PANTOPRAZOLE 40 MG (PROTONIX) VIAL IV SCH (07:56)
--- NOTE | 2020-10-04 08:00 | Tele-ICU Progress Note ---
Subjective Date Seen by a Provider: Oct 04, 2020 Time Seen by a Provider: 11:32 Subjective/Events-last exam Uncomfortable on vent, BP 228/113, On Precedex, Fentanyl rasied to 175, Versed @ 4 CXR from yesterday showed increased HS, bilateral opacities, ET was ok Glucose in 200's on Levimer 20 bid and aspart Still on lovenox 120 bid due to very high d dimer from 09/28 Vent settings AC 24 Vt 500 FIO2 25% PEEP 8. ABG 7.42//70 Sepsis Event Evaluation Height, Weight, BMI Height: 5'6.00" Weight: 260lbs. 0.0oz. 117.182364xe; 43.49 BMI Method:Stated Exam Exam Patient acknowledged, consented, and participated in this virtual visit which was conducted using real time audio/video Vital Signs Date Time Temp Pulse Resp B/P (MAP) Pulse Ox O2 Delivery O2 Flow Rate FiO2 10/04/20 07:16 80 26 90 40 10/04/20 07:06 77 34 90 40 10/04/20 06:44 76 24 96 40 10/04/20 06:00 78 24 99/74 (82) 96 Mechanical Ventilator 40.00 10/04/20 05:00 73 24 159/82 (107) 94 Mechanical Ventilator 40.00 10/04/20 04:54 36.1 10/04/20 04:00 92 Mechanical Ventilator 40 10/04/20 04:00 70 24 139/82 (101) 91 Mechanical Ventilator 40.00 10/04/20 03:00 73 24 138/82 (100) 92 Mechanical Ventilator 40.00 10/04/20 02:53 72 24 92 30 10/04/20 02:00 76 24 139/78 (98) 94 Mechanical Ventilator 40.00 10/04/20 01:00 76 24 127/78 (94) 93 Mechanical Ventilator 40.00 10/04/20 01:00 80 10/04/20 00:43 Mechanical Ventilator 40.00 10/04/20 00:39 Mechanical Ventilator 35.00 10/04/20 00:00 92 Mechanical Ventilator 30 10/04/20 00:00 70 24 128/78 (95) 90 Mechanical Ventilator 30.00 10/03/20 23:00 70 24 146/86 (106) 90 Mechanical Ventilator 30.00 10/03/20 22:13 71 135/85 10/03/20 22:00 70 24 145/85 (105) 93 Mechanical Ventilator 30.00 10/03/20 21:49 71 24 94 30 10/03/20 21:15 85/35 10/03/20 21:00 73 24 83/51 (62) 95 Mechanical Ventilator 30.00 10/03/20 20:19 62 182/102 10/03/20 20:14 70 86/64 10/03/20 20:00 71 24 101/67 (78) 94 Mechanical Ventilator 30.00 10/03/20 20:00 91 Mechanical Ventilator 30 10/03/20 19:43 Mechanical Ventilator 30.00 10/03/20 19:25 36.2 10/03/20 19:00 70 10/03/20 19:00 65 24 107/69 (82) 91 Mechanical Ventilator 30.00 10/03/20 18:39 65 116/73 10/03/20 18:20 65 24 93 25 10/03/20 18:00 68 24 104/67 (79) 94 Mechanical Ventilator 25.00 10/03/20 17:00 72 24 111/67 (82) 96 Mechanical Ventilator 25.00 10/03/20 16:00 71 24 108/63 (78) 97 Mechanical Ventilator 25.00 10/03/20 16:00 36.2 10/03/20 16:00 99 Mechanical Ventilator 25 10/03/20 15:00 71 24 124/79 (94) 100 Mechanical Ventilator 25.00 10/03/20 14:01 74 115/73 10/03/20 14:00 72 24 117/79 (92) 100 Mechanical Ventilator 25.00 10/03/20 13:40 74 24 100 25 10/03/20 13:00 76 24 111/78 (89) 100 Mechanical Ventilator 25.00 10/03/20 12:30 76 10/03/20 12:00 35.9 10/03/20 12:00 75 24 124/91 (102) 100 Mechanical Ventilator 25.00 10/03/20 12:00 99 Mechanical Ventilator 25 10/03/20 11:00 74 24 99/69 (79) 100 Mechanical Ventilator 25.00 10/03/20 10:44 73 24 100 25 10/03/20 10:00 72 24 123/80 (94) 88 Mechanical Ventilator 25.00 10/03/20 09:47 71 114/78 10/03/20 09:00 71 24 100/61 (74) 88 Mechanical Ventilator 25.00 10/03/20 08:00 70 24 97/63 (74) 89 Mechanical Ventilator 25.00 10/03/20 08:00 88 Mechanical Ventilator 25 I & O 10/04/20 07:00 Intake Total 1760 ml Output Total 2050 ml Balance -290 ml Height & Weight Height: 5'6.00" Weight: 260lbs. 0.0oz. 117.961635jv; 43.49 BMI Method:Stated General Appearance: No Apparent Distress, Obese HEENT: PERRL/EOMI, Normal ENT Inspection, Pharynx Normal, Moist Mucous Membranes Neck: Full Range of Motion, Normal Inspection, Non Tender Respiratory: Lungs Clear, No Respiratory Distress, Decreased Breath Sounds (suctioned every hour, coughing up greenish sputum), Rhonci, Other (Intubated and mechanically ventilated) Cardiovascular: Regular Rate, Rhythm, No Edema, No Murmur Capillary Refill: Less Than 3 Seconds Peripheral Pulses: 1+ Dorsalis Pedis (R), 1+ Left Dors-Pedis (L) Gastrointestinal: normal bowel sounds, non tender, soft, no organomegaly Extremity: Normal Inspection, No Pedal Edema, Pedal Edema, Other (sedated) Neurologic/Psychiatric: Other (Sedated) Skin: Normal Color, Warm/Dry Lymphatic: No Adenopathy Results Lab Laboratory Tests 10/03/20 03:10 10/04/20 04:41 Assessment/Plan Assessment/Plan HTN now has come back down to 135/80, if happens again will give 2 mg IVP Versed if agitation continues will re start IV propofol, get CXR looking for increased congestion has been given one dose of IV Lasix 40 mg continue insulin for DM, would increase to 22 bid to get better control continue Lovenox as high risk for clotting continue IV PPI D 6 of vent and may need trach and PEG Critical Care: Critically Ill Patient Time spent with patient (mins): 35 SNEHA LASSITER MD Oct 04, 2020 08:00
[2020-10-04] MEDS: ENOXAPARIN 300 MG/3 ML (LOVENOX) MULTI-DOSE VIAL SQ SCH (08:10)
[2020-10-04] MEDS: LACRI-LUBE OPTHALMIC OINT 3.5 GM TUBE OU SCH (08:11)
[2020-10-04] MEDS ORDERED: MIDAZOLAM 2 MG/2 ML (VERSED) VIAL IVP ONE (08:15)
--- NOTE | 2020-10-04 08:50 | Diagnostic Imaging Report ---
INDICATION: Increasing congestion and CHF. TIME OF EXAM: 8:29 AM Correlation is made with prior chest one day earlier. Support lines and catheters remain in place. There is some increasing congestive changes with bilateral infiltrates particularly right lung when compared with yesterday. No effusion or pneumothorax is seen. IMPRESSION: Worsening congestive changes when compared with examination one day earlier. Dictated by: Dictated on workstation # [id number]
[2020-10-04] MEDS ORDERED: hydrALAZINE (APESOLINE) 20 MG/ML VIAL ONE (10:16)
[2020-10-04] MEDS ORDERED: hydrALAZINE (APESOLINE) 20 MG/ML VIAL IV PRN (10:30)
[2020-10-04] MEDS ORDERED: niCARdipine IV FOR DRIP 50 MG KIT ONE (10:39)
[2020-10-04] MEDS ORDERED: NS (IVPB) 250 ML ONE (10:40)
--- NOTE | 2020-10-04 13:11 | Progress Note ---
Subjective Subjective/Events-last exam ON: Patient's blood pressures trending up. Review of Systems Patient intubated Objective Exam Last Set of Vital Signs Vital Signs Date Time Temp Pulse Resp B/P (MAP) Pulse Ox O2 Delivery O2 Flow Rate FiO2 10/04/20 12:00 87 27 123/79 (94) 95 Mechanical Ventilator 60.00 10/04/20 10:40 60 10/04/20 08:01 37.0 Capillary Refill : Less Than 3 Seconds I&O Intake and Output 10/03/20 23:59 Intake Total 1450 ml Output Total 2490 ml Balance -1040 ml Tube Feeding 1000 ml Other 450 ml Output Urine Total 1590 ml Gastric Drainage Total 900 ml General: Other (Intubated and sedated) HEENT: Mucous Memb Moist/[place] Lungs: Other (Diminished breath sounds, diffuse crackles and wheezing) Heart: Regular Rate Abdomen: Soft, Other (mild distention) Extremities: Other (trace edema) Results/Procedures Lab Laboratory Tests 10/03/20 17:40: Glucometer 285H 10/03/20 23:48: Glucometer 299H 10/04/20 04:41: White Blood Count 14.7H, Red Blood Count 5.49, Hemoglobin 14.1, Hematocrit 43, Mean Corpuscular Volume 79L, Mean Corpuscular Hemoglobin 26, Mean Corpuscular Hemoglobin Concent 33, Red Cell Distribution Width 14.9H, Platelet Count 421H, Mean Platelet Volume 11.0, Immature Granulocyte % (Auto) 3, Neutrophils (%) (Auto) 83H, Lymphocytes (%) (Auto) 7L, Monocytes (%) (Auto) 7, Eosinophils (%) (Auto) 0, Basophils (%) (Auto) 0, Neutrophils # (Auto) 12.2H, Lymphocytes # (Auto) 1.0, Monocytes # (Auto) 1.0, Eosinophils # (Auto) 0.0, Basophils # (Auto) 0.0, Immature Granulocyte # (Auto) 0.4H, Sodium Level 147H, Potassium Level 4.6, Chloride Level 112H, Carbon Dioxide Level 26, Anion Gap 9, Blood Urea Nitrogen 37H, Creatinine 0.86, Estimat Glomerular Filtration Rate 110, BUN/Creatinine Ratio 43, Glucose Level 254H, Calcium Level 8.8, Phosphorus Level 3.6, Magnesium Level 2.3 10/04/20 04:47: Blood Gas Puncture Site RIGHT RADIAL, Blood Gas Patient Temperature 37.0, Arterial Blood pH 7.42, Arterial Blood Partial Pressure CO2 43, Arterial Blood Partial Pressure O2 70L, Arterial Blood HCO3 27, Arterial Blood Total CO2 28.5, Arterial Blood Oxygen Saturation 92L, Arterial Blood Base Excess 3.0H, Derick Test ARTLINE, Blood Gas Ventilator Setting YES, Blood Gas Inspired Oxygen 24 RATE 10/04/20 12:04: Glucometer 194H Microbiology 09/28/20 Gram Stain - Final, Complete 09/28/20 Sputum Culture - Final, Complete Usual upper respiratory leidy 09/24/20 Blood Culture - Final, Complete No growth Radiology Date of Exam:09/24/20 CHEST 1 VIEW, AP/PA ONLY INDICATION: Hypoxia, pneumonia, Covid positive. TECHNIQUE: Single view chest at 4:24 PM. CORRELATION STUDY: 09/22/2020, 09/20/2020. FINDINGS: The heart size and mediastinum are enlarged and prominent but generally stable. The vasculature is somewhat obscured. Extensive patchy areas of consolidation with multilobe pneumonia are again demonstrated. Overall, these have progressed from the prior exam and are most noticeable at the right lung. IMPRESSION: Extensive multilobe consolidation overall appears increased, particularly through the right lung. Consistent with multilobe pneumonia which would include the provided history of Covid 19 pneumonia. The report was faxed to Infection Control by [email or web address]@4:56 PM. Dictated by: Dictated on workstation # [id number] Dict: 09/24/20 1635 Trans: 09/24/20 1728 [id number] Interpreted by: TJ CRUZ DO Electronically signed by: TJ CRUZ DO 09/24/20 1728 Assessment/Plan Assessment/Plan (1) Acute respiratory distress syndrome (ARDS) due to COVID-19 virus Status: Acute Assessment & Plan: 10/01: Patient intubated, eICU managing, appreciate recommendations, Completed Remdemsivir, Decadron 10/02: Leukocytosis this AM, Repeat CXR, continue IV antibiotics, PCT trending up 10/03: Improvement in CXR, will continue to monitor on vent, possible SBT soon per eICU 10/04: Worsening in CXR and respiratory status ON, spoke with family regarding DNR status and/or Comfort care, Sister and mother are going to have a discussion and call back (2) Hypercoagulable state associated with COVID-19 Status: Acute Assessment & Plan: 10/01: Treatment dosing for lovenox (3) Cardiomyopathy Status: Chronic Assessment & Plan: - Cocaine and MJ + on admission UDS Qualifiers: Qualified Codes: I42.7 - Cardiomyopathy due to drug and external agent (4) Substance abuse Status: Chronic Assessment & Plan: - Chronic EtOH, Cocaine, MJ use (5) Obesity Status: Chronic Qualifiers: BURT PITT MD Oct 04, 2020 13:11
[2020-10-04] MEDS ORDERED: morphine INJ 4 MG/ML 1 ML (VIAL/SYRINGE) IV PRN (13:15)
[2020-10-04] MEDS ORDERED: SALIVA STIMULANT MOUTH SPRAY (BIOTENE) 1.5 OZ MM PRN (13:15)
[2020-10-04] MEDS ORDERED: RT-ALBUTEROL/IPRATROPIUM 3 ML (DUONEB) VIAL INH PRN (13:15)
[2020-10-04] MEDS ORDERED: ONDANSETRON 4 MG/2 ML (SDV) Z0FRAN IVP PRN (13:15)
[2020-10-04] MEDS ORDERED: PROMETHAZINE INJ 25 MG/ML (PHENERGAN) AMP IVP PRN (13:15)
[2020-10-04] MEDS ORDERED: ARTIFICAL TEARS 0.4 ML UNIT DOSE (REFRESH PLUS) OU PRN (13:15)
[2020-10-04] MEDS ORDERED: GLYCOPYRROLATE 0.2 MG/ML (ROBINUL) 2 ML VIAL IV PRN (13:15)
[2020-10-04] MEDS ORDERED: LORazepam INJ 2 MG/ML (ATIVAN) VIAL IVP PRN (13:15)
--- NOTE | 2020-10-04 22:28 | Discharge Summary ---
Diagnosis/Chief Complaint Date of Admission Sep 22, 2020 at 21:31 Date of Discharge Oct 04, 2020 at 15:15 Admission Diagnosis Admission Diagnosis See problem list Discharge Diagnosis See below Problems/Diagnosis: (1) Acute respiratory distress syndrome (ARDS) due to COVID-19 virus Assessment & Plan: 10/01: Patient intubated, eICU managing, appreciate recommen dations, Completed Remdemsivir, Decadron 10/02: Leukocytosis this AM, Repeat CXR, continue IV antibiotics, PCT trending up 10/03: Improvement in CXR, will continue to monitor on vent, possible SBT soon per eICU 10/04: Worsening in CXR and respiratory status ON, spoke with family regarding DNR status and/or Comfort care, Sister and mother are going to have a discussion and call back, sister returned call and they have decided to terminally extubate and place on comfort care, will await family Status: Acute (2) Hypercoagulable state associated with COVID-19 Assessment & Plan: 10/01: Treatment dosing for lovenox Status: Acute (3) Cardiomyopathy Assessment & Plan: - Cocaine and MJ + on admission UDS Qualifiers: Qualified Codes: I42.7 - Cardiomyopathy due to drug and external agent Status: Chronic (4) Substance abuse Assessment & Plan: - Chronic EtOH, Cocaine, MJ use Status: Chronic (5) Obesity Qualifiers: Status: Chronic Discharge Summary-Simple/Stand Consultations eICU Dr Metzger: Cardiology Dr Abernathy: General Surgery Discharge Physical Examination Allergies: Coded Allergies: No Known Drug Allergies (Unverified , 06/21/18) Vitals & I&Os Vital Sign - Last 12Hours Date Time Temp Pulse Resp B/P (MAP) Pulse Ox O2 Delivery O2 Flow Rate FiO2 10/04/20 17:10 10/04/20 14:21 73 24 96 50 10/04/20 13:00 Mechanical Ventilator 60.00 10/04/20 12:00 36.4 Intake and Output 10/04/20 00:00 Intake Total 870 ml Output Total 825 ml Balance 45 ml Hospital Course Was the Problem List Reviewed?: Yes See final discharge diagnosis. Radiology Reviewed Date of Exam:09/24/20 CHEST 1 VIEW, AP/PA ONLY INDICATION: Hypoxia, pneumonia, Covid positive. TECHNIQUE: Single view chest at 4:24 PM. CORRELATION STUDY: 09/22/2020, 09/20/2020. FINDINGS: The heart size and mediastinum are enlarged and prominent but generally stable. The vasculature is somewhat obscured. Extensive patchy areas of consolidation with multilobe pneumonia are again demonstrated. Overall, these have progressed from the prior exam and are most noticeable at the right lung. IMPRESSION: Extensive multilobe consolidation overall appears increased, particularly through the right lung. Consistent with multilobe pneumonia which would include the provided history of Covid 19 pneumonia. The report was faxed to Infection Control by [email or web address]@4:56 PM. Dictated by: Dictated on workstation # [id number] Dict: 09/24/20 1635 Trans: 09/24/20 1728 [id number] Interpreted by: TJ CRUZ DO Electronically signed by: TJ CRUZ DO 09/24/20 1728 Discussion & Recommendations 60 yo M with acute respiratory failure with covid. Patient was intubated on day 3 of admission. Patient did not improve once he was intubated. He was treated with remdimsivir, steroids and was intubated for 7 days and covid continued to progress. Patient was terminally extubated and placed on comfort care with family present. Discharge Condition at discharge Instructions to patient/family Please see electronic discharge instructions given to patient. Discharge Medications Reviewed and agree with Discharge Medication list on patient's Discharge Instruction sheet Comfort Measures/ Type of Care: Comfort Measures Cardiopulmonary Arrest: Cardiorespiratory Arrest Date of : Oct 04, 2020 Time of : 15:15 BURT PITT MD Oct 04, 2020 22:28
== END 2020-10-04 15:15 | disposition expired | DRG 207 ==
LOC: EDUNIT# 19:10 → ER 19:14 → 4TH 21:31 → ICU 09-24 18:20
PROVIDERS: ADMIT Internal Medicine; ATTEND Family Medicine
PROC: XW033E5 Introduction of Remdesivir Anti-infective into Peripheral Vein, Percutaneous Approach, New Technology Group 5 (ICD-10-PCS; 2020-09-23)
PROC: 5A09457 Assistance with Respiratory Ventilation, 24-96 Consecutive Hours, Continuous Positive Airway Pressure (ICD-10-PCS; 2020-09-24)
PROC: 03HY32Z Insertion of Monitoring Device into Upper Artery, Percutaneous Approach (ICD-10-PCS; 2020-09-27)
PROC: 02HV33Z Insertion of Infusion Device into Superior Vena Cava, Percutaneous Approach (ICD-10-PCS; 2020-09-27)
PROC: 5A1955Z Respiratory Ventilation, Greater than 96 Consecutive Hours (ICD-10-PCS; principal; 2020-09-28)
PROC: 0BH18EZ Insertion of Endotracheal Airway into Trachea, Via Natural or Artificial Opening Endoscopic (ICD-10-PCS; 2020-09-28)
DX: U07.1 COVID-19 (principal); J12.82 Pneumonia due to coronavirus disease 2019; J15.9 Unspecified bacterial pneumonia; I50.33 Acute on chronic diastolic (congestive) heart failure; I21.A1 Myocardial infarction type 2; J80 Acute respiratory distress syndrome; Z68.41 Body mass index [BMI] 40.0-44.9, adult; J44.0 Chronic obstructive pulmonary disease with (acute) lower respiratory infection; I42.8 Other cardiomyopathies; I42.7 Cardiomyopathy due to drug and external agent; D68.69 Other thrombophilia; R57.9 Shock, unspecified; Z51.5 Encounter for palliative care; Z66 Do not resuscitate; E78.00 Pure hypercholesterolemia, unspecified; M19.90 Unspecified osteoarthritis, unspecified site; E11.9 Type 2 diabetes mellitus without complications; G89.29 Other chronic pain; F41.9 Anxiety disorder, unspecified; E11.65 Type 2 diabetes mellitus with hyperglycemia; G47.33 Obstructive sleep apnea (adult) (pediatric); I87.2 Venous insufficiency (chronic) (peripheral); F14.10 Cocaine abuse, uncomplicated; F12.10 Cannabis abuse, uncomplicated; F15.10 Other stimulant abuse, uncomplicated; I11.0 Hypertensive heart disease with heart failure; E66.01 Morbid (severe) obesity due to excess calories; F17.210 Nicotine dependence, cigarettes, uncomplicated; Z73.0 Burn-out; Z79.82 Long term (current) use of aspirin; Z79.84 Long term (current) use of oral hypoglycemic drugs; Z79.899 Other long term (current) drug therapy; I25.2 Old myocardial infarction
CPT/HCPCS: 36415; 71045; 80048; 80053; 80306; 81000; 82805; 82947; 83036; 83735; 83880; 84100; 84145; 84478; 84484; 85007; 85025; 85027; 85379; 86141; 87040; 87070; 87205; 93005; 94002; 94003; 94640; 94660; 94799